=== PATIENT | male | born 1945 | race Caucasian/White ===

== ENCOUNTER → 2017-09-21 07:27 | Outpatient (CLI) | payer MEDICARE, OTHER, SELFPAY ==
[2017-09-21 10:36] LABS: AST(SGOT) 15 U/L (15-37); Alanine Aminotransfer ALT/SGPT 25 U/L (16-61); Albumin, Serum 3.6 g/dL (3.2-5.0); Alkaline Phosphatase 122 U/L (45-117); Bilirubin, Direct 0.15 mg/dL (0.00-0.30); Cholesterol 140 mg/dL (200); Globulin 3.8 g/dL (2.2-4.2); High Density Lipoprotein 41 mg/dL; Protein, Total 7.4 g/dL (6.4-8.2); Triglycerides 153 mg/dL; Very Low Density Lipoprotein 31 mg/dL (5-40)
== END ==
PROVIDERS: Family Provider Family Medicine; PCP Family Medicine; Visit Provider Nurse Practitioner Family
DX: E78.00 Pure hypercholesterolemia, unspecified (principal); Z79.899 Other long term (current) drug therapy; E78.5 Hyperlipidemia, unspecified
CPT/HCPCS: 36415; 80061; 80076

== ENCOUNTER → 2018-09-15 12:41 | Outpatient (CLI) | payer MEDICARE, OTHER, SELFPAY ==
[2018-08-25 13:03] VITALS: BMI 36.8
--- NOTE | 2018-09-15 12:43 | ECHOCS_ITS ---
Reason For Study: Murmur Procedure This was a 2D Doppler, Color Flow transthoracic echocardiogram. The study was technically difficult. Contrast injection was performed. Exam performed in department. Left Ventricle Normal LV size. Segmental dysfunction with preserved ejection fraction (see wall motion). The estimated ejection fraction is 65 %. Infero-Basal: Hypokinetic. Right Ventricle Normal RV size. Normal systolic function. Atria The left atrium is mildly enlarged. Normal right atrium. No doppler evidence for ASD. Mitral Valve There is mild mitral annular calcification. Normal mitral valve. Trivial mitral valve insufficiency. Tricuspid Valve Normal tricuspid valve. Trivial tricuspid valve insufficiency. Unable to estimate RV systolic pressure/pulmonary artery pressure due to technically difficult study. Aortic Valve Trisinus/trileaflet aortic valve. Mild diffuse aortic valve thickening. Mild focal aortic valve calcification. Moderate aortic stenosis. Trivial aortic valve insufficiency. Pulmonic Valve The pulmonic valve is not well visualized. Mild (1+) pulmonic valve insufficiency. Great Vessels Normal sized aortic root. Pericardium/Pleural No pericardial effusion. Medication 22 gauge I.V. with prn adaptor inserted into right arm. Diluted definity 4ml given slow IV push to enhance endocardial definition. MMode/2D Measurements & Calculations LVIDd: 4.3 cm IVSd: 1.0 cm LVOT diam: 2.0 cm LVIDs: 3.2 cm LVPWd: 0.95 cm FS: 26.8 % LVOT area: 3.0 cm2 Ao root diam: 3.6 cm LAV(MOD-bp): 49.0 ml Aortic Valve Planimetry: 1.1 cm2 ACS: 1.0 cm LAV(MOD-bp) Indexed: 22.4 ml/m2 LAV(MOD-sp2): 44.3 ml LAV(MOD-sp4): 55.9 ml LA A4 area: 20.0 cm2 RA A4 area: 19.7 cm2 Time Measurements MV dec time: 0.17 sec Doppler Measurements & Calculations MV E max alexys: 110.0 cm/sec Lat Peak E' Alexys: 8.8 cm/sec Med Peak E' Alexys: 7.3 cm/sec MV A max alexys: 87.8 cm/sec E/E' lat: 12.5 E/E' med: 15.1 MV E/A: 1.3 MV V2 max: 135.8 cm/sec MV P1/2t max alexys: 134.8 cm/sec Ao V2 max: 298.7 cm/sec MV max P.4 mmHg MV P1/2t: 68.6 msec Ao max P.7 mmHg MV V2 mean: 78.3 cm/sec MV dec slope: 575.4 cm/sec2 Ao V2 mean: 192.5 cm/sec MV mean P.9 mmHg Ao mean P.3 mmHg MV V2 VTI: 31.8 cm MVA(P1/2t): 3.2 cm2 Ao V2 VTI: 69.1 cm MVA(VTI): 2.2 cm2 DANNY(I,D): 0.99 cm2 DANNY(V,D): 0.89 cm2 LV V1 max: 88.2 cm/sec SV(LVOT): 68.6 ml PA V2 max: 100.2 cm/sec LV V1 max P.1 mmHg LV V1 mean P.7 mmHg LV V1 mean: 60.9 cm/sec LV V1 VTI: 22.6 cm Interpretation Summary The study was technically difficult. Contrast injection was performed. Segmental dysfunction with preserved ejection fraction (see wall motion). The estimated ejection fraction is 65 %. The left atrium is mildly enlarged. There is mild mitral annular calcification. Trivial mitral valve insufficiency. Trivial tricuspid valve insufficiency. Moderate aortic stenosis. Trivial aortic valve insufficiency. Mild (1+) pulmonic valve insufficiency. Unable to estimate RV systolic pressure/pulmonary artery pressure due to technically difficult study. Transmitral diastolic flow velocities suggest diastolic dysfunction (pseudonormal pattern). Ordering Physician: Omar Suarez Referring Physician: Mayo Gonzales Performed By: Bruno Diego RCS
--- NOTE | 2018-09-15 13:44 | CDU_ITS ---
Reason For Study: STENOSIS Rt. Velocities/BP Lt. Velocities/BP Prox CCA 55/10 cm/sec. Prox CCA 84/17 cm/sec. Mid CCA 62/12 cm/sec. Mid CCA 74/11 cm/sec. Dist CCA 51/13 cm/sec. Dist CCA 70/16 cm/sec. Prox ICA 274/87 cm/sec. Prox ICA 124/29 cm/sec. Mid ICA 354/80 cm/sec. Mid ICA 127/36 cm/sec. Dist ICA 102/26 cm/sec. Dist ICA 100/21 cm/sec. Rt. ICA/CCA = 6.6. Lt. ICA/CCA = 2.1. Prox ECA 77/11 cm/sec. Prox ECA 94/9 cm/sec. Rt. Vert. 74/20 cm/sec. Right Extracranial There is heterogeneous, irregular atherosclerotic plaque noted in the right common carotid artery. There is heterogeneous, irregular atherosclerotic plaque noted in the right internal carotid artery. There is heterogeneous, irregular atherosclerotic plaque noted in the right external carotid artery. Antegrade flow is noted in the right vertebral artery. Left Extracranial There is heterogeneous, smooth atherosclerotic plaque noted in the left common carotid artery. There is heterogeneous, irregular atherosclerotic plaque noted in the left internal carotid artery. There is heterogeneous, irregular atherosclerotic plaque noted in the left external carotid artery. Flow could not be demonstrated in the left vertebral artery. Procedure Carotid Duplex 13449. Exam performed in department. Interpretation Summary Extensive calcific plague at the proximal right internal carotid with >70% stenosis. Calcific plague at the proximal right external carotid with <50% stenosis. Patent and antegrade right vertebral artery Irregular plague at the proximal left internal and external carotids with 50-69% stenosis left internal carotid and >50% stenosis left external carotid No flow noted in the left vertebral Ordering Physician: Mayo Gonzales Referring Physician: JULI BENITEZ Performed By: Funmilayo Moore RDCS, RVT
== END ==
PROVIDERS: Family Provider Family Medicine; PCP Family Medicine; Referring Provider Surgery; Visit Provider Surgery
DX: I65.23 Occlusion and stenosis of bilateral carotid arteries (principal); R01.1 Cardiac murmur, unspecified; Z98.890 Other specified postprocedural states
CPT/HCPCS: 93306; 93880; Q9957; A4216; C8929

== ENCOUNTER → 2019-01-19 | Outpatient (CLI) | payer MEDICARE, OTHER, SELFPAY ==
[2018-12-22 15:33] VITALS: BMI 36.8
--- NOTE | 2019-01-19 10:22 | STRESSREP_ITS ---
Stress Test Report Date: 01-19-19 Procedure: Pharmacologic stress nuclear imaging study Indications: Shortness of breath/dyspnea; CAD; CABG Consent: Per the patient Procedure: The patient underwent pharmacologic (Regadenoson) evaluation with a peak heart rate of 104 beats per minute (69 %predicted maximal heart rate) and a peak blood pressure of 130/80 mmHg. The baseline ECG demonstrated normal sinus rhythm. The peak pharmacologic ECG demonstrated no obvious ECG changes. There were no cardiac dysrhythmias pretest, during pharmacologic infusion, or recovery. There was no complaint of chest discomfort during pharmacologic infusion or recovery. The examination was discontinued secondary to completion of protocol. Impression: 1. Pharmacologic (Regadenoson) evaluation 2. Peak pharmacologic ECG with no obvious ECG changes. 3. There were no cardiac dysrhythmias pretest, during pharmacologic infusion, or recovery. 4. Nuclear images pending Myocardial perfusion imaging study: Technique: The patient was injected with 14.7 millicuries of technetium 99m Cardiolite and subsequently rest SPECT Cardiolite nuclear imaging was obtained in the horizontal long, vertical long, and short axis views. The patient underwent pharmacologic (Regadenoson) evaluation with a peak heart rate of 140 beats per minute (69 % percent predicted maximal heart rate) and a peak blood pressure of 130/80 mmHg. The patient was injected with 44.6 millicuries of technetium 99m Cardiolite and subsequently stress SPECT Cardiolite nuclear imaging was obtained in the horizontal long, vertical long, and short axis views. A gated Cardiolite study at peak stress was obtained. Interpretation: Rest and stress SPECT Cardiolite nuclear imaging status post realignment, normalization, and attenuation correction demonstrate on raw image analysis body motion during image acquisition. There is notation of an area of diminished tracer uptake in portions of the basal towards mid lateral segments without significant change between rest and stress. There is end systolic thickening and brightening. The gated Cardiolite study demonstrates myocardial thickening and inward wall motion. The reported LVEF is 58 %. Impression: 1. Rest and stress SPECT cardiac nuclear imaging demonstrate evidence of body motion during image acquisition and evidence of diminished tracer uptake in portions of the basal to mid lateral segments without significant change between rest and stress potentially compatible with an area of previous myocardial injury/infarction with no myocardial perfusion changes considered diagnostic for associated stress-induced myocardial ischemia. 2. The gated Cardiolite study reports an LVEF of 58 %. This note was generated with [employer] software. It may contain incorrect words, spelling, and punctuation that were not noted in checking the note before signing.
== END | disposition home or self-care (01) ==
PROVIDERS: Family Provider Family Medicine; PCP Family Medicine; Referring Provider Internal Medicine Cardiovascular Disease; Visit Provider Internal Medicine Cardiovascular Disease
DX: I25.10 Atherosclerotic heart disease of native coronary artery without angina pectoris (principal); Z95.1 Presence of aortocoronary bypass graft; I35.9 Nonrheumatic aortic valve disorder, unspecified; E78.00 Pure hypercholesterolemia, unspecified; I10 Essential (primary) hypertension
CPT/HCPCS: 78452; 93017; A9500; Q9957; A4216; J2785

== ENCOUNTER → 2019-03-17 07:55 | Outpatient (CLI) | payer MEDICARE, OTHER, SELFPAY ==
[2019-03-02 13:16] VITALS: BMI 36.8
[2019-03-17 08:48] LABS: Erythrocyte Sedimentation Rate 19 mm/hr (0-20)
[2019-03-17 08:49] LABS: Absolute Lymphocyte Count 1.21 X10^3/uL (0.83-4.51); Absolute Neutrophil Count 4.6 X10^3/uL (2.0-7.7); Basophil# 0.04 X10^3/uL; Basophil% 0.6 % (0-1); Eosinophil# 0.16 X10^3/uL; Eosinophils% 2.4 % (0-5); Hematocrit 43.3 % (40-54); Hemoglobin 14.5 g/dL (13.0-16.5); Lymphocyte # 1.21 X10^3/ul (4.0); Lymphocyte % 17.8 % (19-41); Mean Corp Hgb Conc 33.5 g/dL (32-36); Mean Corpuscular Hgb 33.2 pg (27.0-32.0); Mean Corpuscular Volume 99.1 fL (80-94); Mean Platelet Vol. 11.3 fl (6.2-12.0); Monocyte# 0.71 X10^3/uL; Monocyte% 10.5 % (0-10); NRBC Flagged by Analyzer 0 % (0-5); Neutrophil # 4.63 X10^3/uL (2.7-7.7); Neutrophil % 68.3 % (47-70); Platelet Count 200 K/mm3 (150-450); RBC Distribution Width CV 12.9 % (11.6-14.6); Red Blood Count 4.37 M/mm3 (4.6-6.2); White Blood Count 6.8 K/mm3 (4.4-11.0)
[2019-03-17 09:11] LABS: CRP < 2.90 mg/L (0.0-3.0)
== END ==
PROVIDERS: Family Provider Family Medicine; PCP Family Medicine; Referring Provider Ophthalmology; Visit Provider Ophthalmology
DX: N28.0 Ischemia and infarction of kidney (principal); M31.6 Other giant cell arteritis
CPT/HCPCS: 36415; 85025; 85652; 86140

== ENCOUNTER → 2019-03-23 12:42 | Outpatient (CLI) | payer MEDICARE, OTHER, SELFPAY ==
[2019-03-02 13:16] VITALS: BMI 36.8
--- NOTE | 2019-03-23 12:47 | CDU_ITS ---
Reason For Study: Carotid artery stenosis Rt. Velocities/BP Lt. Velocities/BP Prox CCA 64.1/5.8 cm/sec. Prox CCA 76.5/15.1 cm/sec. Mid CCA 59.7/10.2 cm/sec. Mid CCA 83.9/13.9 cm/sec. Dist CCA 44.3/6.9 cm/sec. Dist CCA 81.4/16.3 cm/sec. Prox ICA 297/61.2 cm/sec. Prox ICA 98.6/15.1 cm/sec. Mid ICA 317.4/63.6 cm/sec. Mid ICA 113.8/27.9 cm/sec. Dist ICA 44.6/9 cm/sec. Dist ICA 137.5/37.1 cm/sec. Rt. ICA/CCA = 5.3. Lt. ICA/CCA = 1.7. Prox ECA 137.5/6 cm/sec. Prox ECA 109.7/12.6 cm/sec. Rt. Vert. 63/15.1 cm/sec. Right Extracranial There is heterogeneous, irregular atherosclerotic plaque noted in the right common carotid artery. There is heterogeneous, irregular atherosclerotic plaque noted in the right internal carotid artery. The atherosclerotic plaque causes acoustic shadowing. There is heterogeneous, irregular atherosclerotic plaque noted in the right external carotid artery. Antegrade flow is noted in the right vertebral artery. Left Extracranial There is heterogeneous, irregular atherosclerotic plaque noted in the left common carotid artery. There is heterogeneous, smooth atherosclerotic plaque noted in the left internal carotid artery. There is heterogeneous, irregular atherosclerotic plaque noted in the left external carotid artery. Retrograde flow noted in the left vertebral artery. Procedure Carotid Duplex [id number]. Exam performed in department. Interpretation Summary Irregular plague distal right common carotid and proximal right internal and external carotid arteries >70% stenosis right proximal and mid internal carotid <50% stenosis right external carotid Post operative changes left carotid bulb and proximal internal carotid with <50% stenosis left proximal internal carotid Slightly elevated velocity left distal internal carotid at a site of deeper angulation. <50% stenosis left external carotid Patent and antegrade flow right vertebral Retrograde flow left vertebral suspicous for proximal left subclavian stenosis. Findings are similar to the exam of 09/15/18. Ordering Physician: Jono Arteaga Referring Physician: Ortiz Pelaez Performed By: Marta Varghese RVT
--- NOTE | 2019-03-23 13:25 | ECHOCS_ITS ---
Reason For Study: Carotid Artery Stenosis, Possible TIA Procedure This was a 2D Doppler, Color Flow transthoracic echocardiogram. The study was technically difficult. Contrast injection was performed. Exam performed in department. Left Ventricle Normal LV size. Segmental dysfunction with preserved ejection fraction (see wall motion). The estimated ejection fraction is 60 %. Infero-Basal: Hypokinetic. Right Ventricle Normal RV size. Normal systolic function. Atria The left atrium is mildly enlarged. Normal right atrium. No doppler evidence for ASD. Bubble contrast study negative for right to left interatrial shunt. Mitral Valve There is mild mitral annular calcification. Normal mitral valve. Mild (1+) mitral valve insufficiency. Tricuspid Valve Normal tricuspid valve. Trivial tricuspid valve insufficiency. Unable to estimate RV systolic pressure/pulmonary artery pressure due to technically difficult study. Aortic Valve The aortic valve is not well visualized. Mild focal aortic valve calcification. Moderate aortic stenosis. Trivial aortic valve insufficiency. Pulmonic Valve The pulmonic valve is not well visualized. Trivial pulmonic valve insufficiency. Great Vessels The aortic root is not well visualized. Pericardium/Pleural No pericardial effusion. Medication 22 gauge I.V. with prn adaptor inserted into left arm. Diluted definity 3ml given slow IV push to enhance endocardial definition. Performed a rapid injection of agitated mix of 9 cc saline and 1cc air to assess for atrial septal defect. MMode/2D Measurements & Calculations LVIDd: 4.0 cm IVSd: 1.5 cm LVOT diam: 2.0 cm LVIDs: 3.0 cm LVPWd: 1.1 cm FS: 25.4 % LVOT area: 3.2 cm2 LAV(MOD-bp): 50.9 ml LVAd ap4: 32.4 cm2 SV(MOD-sp4): 64.0 ml LAV(MOD-bp) Indexed: 23.5 ml/m2 EDV(MOD-sp4): 103.0 ml LAV(MOD-sp2): 57.9 ml EDV(sp4-el): 106.1 ml LAV(MOD-sp4): 45.4 ml LVAs ap4: 17.1 cm2 ESV(MOD-sp4): 39.1 ml ESV(sp4-el): 38.6 ml EF(MOD-sp4): 62.1 % EF(sp4-el): 63.6 % SV(sp4-el): 67.5 ml LA A4 area: 17.3 cm2 RA A4 area: 14.9 cm2 Time Measurements MV dec time: 0.14 sec Doppler Measurements & Calculations MV E max alexys: 114.1 cm/sec Lat Peak E' Alexys: 7.6 cm/sec Med Peak E' Alexys: 7.1 cm/sec MV A max alexys: 89.3 cm/sec E/E' lat: 15.1 E/E' med: 16.1 MV E/A: 1.3 MV V2 max: 125.2 cm/sec MV P1/2t max alexys: 124.2 cm/sec Ao V2 max: 299.0 cm/sec MV max P.3 mmHg MV P1/2t: 99.9 msec Ao max P.7 mmHg MV V2 mean: 74.7 cm/sec Ao V2 mean: 173.6 cm/sec MV mean P.6 mmHg MV dec slope: 364.2 cm/sec2 Ao mean P.2 mmHg MV V2 VTI: 34.5 cm MVA(P1/2t): 2.2 cm2 Ao V2 VTI: 67.5 cm MVA(VTI): 1.8 cm2 DANNY(I,D): 0.94 cm2 DANNY(V,D): 0.89 cm2 LV V1 max: 82.2 cm/sec SV(LVOT): 63.3 ml PA V2 max: 92.5 cm/sec LV V1 max P.7 mmHg LV V1 mean P.2 mmHg LV V1 mean: 49.7 cm/sec LV V1 VTI: 19.5 cm Interpretation Summary The study was technically difficult. Contrast injection was performed. Segmental dysfunction with preserved ejection fraction (see wall motion). The estimated ejection fraction is 60 %. The left atrium is mildly enlarged. There is mild mitral annular calcification. Mild (1+) mitral valve insufficiency. Trivial tricuspid valve insufficiency. Moderate aortic stenosis. Trivial aortic valve insufficiency. Trivial pulmonic valve insufficiency. Unable to estimate RV systolic pressure/pulmonary artery pressure due to technically difficult study. Transmitral diastolic flow velocities suggest diastolic dysfunction (pseudonormal pattern). Ordering Physician: Jono Arteaga Referring Physician: Ortiz Pelaez Performed By: Bruno Diego RCS
== END ==
PROVIDERS: Family Provider Family Medicine; PCP Family Medicine; Referring Provider Ophthalmology; Visit Provider Ophthalmology
DX: H34.02 Transient retinal artery occlusion, left eye (principal); I65.29 Occlusion and stenosis of unspecified carotid artery
CPT/HCPCS: 93306; 93880; Q9957; A4216; C8929

== ENCOUNTER 2019-05-02 05:24 | Inpatient (IN) | payer MEDICARE, OTHER, SELFPAY ==
[2019-04-01 14:01] VITALS: BMI 36.8
--- NOTE | 2019-04-18 09:19 | HP_ITS ---
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 Is patient in pain?: No Allergies No Known Allergies Allergy (Verified 04/01/19 13:58) Medications metoprolol tartrate 100 mg tablet 100 mg PO BID 09/17/17 [History Confirmed 04/01/19] budesonide-formoterol HFA 80 mcg-4.5 mcg/actuation aerosol inhaler 2 puff INHALATION BID 08/25/18 [History Confirmed 04/01/19] insulin glargine (U-100) 100 unit/mL (3 mL) subcutaneous pen 50 unit SC DAILY 08/25/18 [History Confirmed 04/01/19] liraglutide 0.6 mg/0.1 mL (18 mg/3 mL) subcutaneous pen injector 0.6 mg SC DAILY 08/25/18 [History Confirmed 03/02/19] metformin 500 mg tablet 500 mg PO DAILY tab 08/25/18 [History Confirmed 04/01/19] albuterol sulfate 90 mcg/actuation breath activated powder inhaler 1 inh INHALATION Q4H PRN 09/20/18 [History Confirmed 04/01/19] amlodipine 5 mg tablet 5 mg PO DAILY 12/22/18 [History Confirmed 04/01/19] cholecalciferol (vitamin D3) 1,000 unit (25 mcg) tablet 1,000 unit PO DAILY 12/22/18 [History Confirmed 04/01/19] nitroglycerin 0.4 mg sublingual tablet 0.4 mg SUBLINGUAL Q5M PRN #25 tab 12/22/18 [Rx Confirmed 04/01/19] rosuvastatin 40 mg tablet 40 mg PO DAILY 12/22/18 [History Confirmed 04/01/19] aspirin 325 mg tablet 81 mg PO DAILY@0800 tab 04/01/19 [History Confirmed 04/01/19] clopidogrel 75 mg tablet 75 mg PO DAILY 04/01/19 [History Confirmed 04/01/19] glipizide 5 mg tablet 2.5 mg PO DAILY tab 04/01/19 [History Confirmed 04/01/19] [facility] Medical History Carotid artery stenosis, asymptomatic (Acute) Peripheral vascular disease (Chronic) Pure hypercholesterolemia (Chronic) Essential hypertension (Chronic) Ischemic cardiomyopathy (Resolved) Other secondary pulmonary hypertension (Chronic) Non-rheumatic aortic regurgitation (Chronic) 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) Patent foramen ovale (Chronic) Carotid stenosis, bilateral (Acute) 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 disease (Inactive) Atherosclerosis of coronary artery bypass graft without angina pectoris (Inactive) Hyperlipidemia (Inactive) Surgical History History of left-sided carotid endarterectomy (Resolved ~11/26/15) Presence of aortocoronary bypass graft (Chronic ~11/10/07) History of angioplasty of peripheral vessel (Acute ~2015) History of hemorrhoidectomy (Resolved) History of left-sided carotid endarterectomy (Resolved) Family History Father CAD (coronary artery disease) Myocardial infarction Kidney disease Mother CAD (coronary artery disease) Hx CABG Myocardial infarction Colon cancer Sister CAD (coronary artery disease) Diabetes Other Heart disease Social History (Updated 04/01/19 @ 15:17 by Mayo Gonzales MD) Smoking Status: Former smoker how long ago did patient quit smokin alcohol intake: former substance use type: does not use caffeine: Yes Type: coffee what type of physical activity do you participate in: none seatbelt use: always do you feel safe at home: Yes HPI HPI HPI: AB HILL, is a 74 M who presents to the office today for HPI HPI Surgical H&P: Yes HPI: AB HILL, is a 74 M who presents to the office today for ongoing surgical consultation regarding extracranial carotid artery occlusive disease. My notes from September 20, 2018 reflected below. At that point I detected progressive disease involving his right extracranial carotid system and I strongly recommended right carotid endarterectomy. The patient felt he had social issues to attend to. 2 weeks ago by his report he had sudden onset of blindness of the right eye. He was seen by Dr Jono Dejesus who felt that he had an embolic event to the right ophthalmic artery. A repeat carotid duplex exam was obtained at the [facility] March 23, 2019 demonstrating a peak systolic velocity within the right mid internal carotid at 300-17/72 flow with an end-diastolic velocity of 63. This is felt to be greater than 70% stenosis. There are postoperative changes on the left identified. Less than 50% stenosis on the left. This examination was compared to a previous examination of September 15, 2018 was not felt to have change. However the patient clearly has had a symptomatic change. On March 23, 2019 the patient had an echocardiogram at the [facility] demonstrating ejection fraction of 60%. He now presents with his . He is now interested in pursuing some type of intervention regarding the right carotid stenosis. 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 Is patient in pain?: No Allergies No Known Allergies Allergy (Verified 09/20/18 12:36) Medications Aspirin 325 mg PO DAILY@0800 11/21/15 [History Confirmed 09/20/18] Atorvastatin Calcium [Lipitor] 80 mg PO QHS 11/21/15 [History Confirmed 09/20/18] nitroglycerin 0.4 mg sublingual tablet 0.4 mg SUBLINGUAL Q5M PRN 09/14/17 [History Confirmed 09/20/18] losartan 100 mg tablet 100 mg PO QDAY 09/17/17 [History Confirmed 09/20/18] metoprolol tartrate 100 mg tablet 100 mg PO BID 09/17/17 [History Confirmed 09/20/18] budesonide-formoterol HFA 80 mcg-4.5 mcg/actuation aerosol inhaler 2 puff INHALATION BID 08/25/18 [History Confirmed 09/20/18] insulin glargine (U-100) 100 unit/mL (3 mL) subcutaneous pen 50 unit SC DAILY 08/25/18 [History Confirmed 09/20/18] liraglutide 0.6 mg/0.1 mL (18 mg/3 mL) subcutaneous pen injector 0.6 mg SC DAILY 08/25/18 [History Confirmed 09/20/18] metformin 500 mg tablet 500 mg PO DAILY tab 08/25/18 [History Confirmed 09/20/18] albuterol sulfate 90 mcg/actuation breath activated powder inhaler 1 inh INHALATION Q4H PRN 09/20/18 [History Confirmed 09/20/18] PFSH Medical History Carotid artery stenosis, asymptomatic (Acute) Peripheral vascular disease (Chronic) Pure hypercholesterolemia (Chronic) Essential hypertension (Chronic) Ischemic cardiomyopathy (Resolved) Other secondary pulmonary hypertension (Chronic) Non-rheumatic aortic regurgitation (Chronic) 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) Patent foramen ovale (Chronic) Carotid stenosis, bilateral (Acute) 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 disease (Inactive) Atherosclerosis of coronary artery bypass graft without angina pectoris (Inactive) Hyperlipidemia (Inactive) Surgical History History of left-sided carotid endarterectomy (Resolved ~11/26/15) Presence of aortocoronary bypass graft (Chronic ~11/10/07) History of angioplasty of peripheral vessel (Acute ~2015) History of hemorrhoidectomy (Resolved) History of left-sided carotid endarterectomy (Resolved) Family History Father CAD (coronary artery disease) Myocardial infarction Kidney disease Mother CAD (coronary artery disease) Hx CABG Myocardial infarction Colon cancer Sister CAD (coronary artery disease) Diabetes Other Heart disease Social History Smoking Status: Former smoker how long ago did patient quit smokin alcohol intake: former substance use type: does not use caffeine: Yes Type: coffee what type of physical activity do you participate in: none seatbelt use: always do you feel safe at home: Yes HPI HPI HPI: AB HILL, is a 73 M who presents to the office today for surgical consultation regarding carotid bruit and escalation of extracranial carotid artery occlusive disease on the right. 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 Omar Suarez and a written compromise surgical consult recommendations will be returned to him. On September 15, 2018 at the [facility] he had carotid duplex imaging. Peak systolic velocity within the right mid internal carotid is 354 cm/s with an end-diastolic velocity of 80. There is extensive plaque noted. This is felt to be consistent with greater than 70% stenosis. The patient has evidence of a previous left carotid endarterectomy. There is felt to be 50-69% stenosis on the left though far closer to the 50% range. The patient has previously had a left carotid endarterectomy per myself August 2015. His procedure was technically quite challenging because of the diminutive nature of the internal carotid extensive amount of plaque and high bifurcation. My operative note suggest that was not able to shunt but he did have good backflow. He did not have any postoperative consequences. As of September 15, 2018 he had a echocardiogram. Check ejection fraction of 65%. It is of note that I have reviewed his CTA of the neck that was performed at the [facility] September 10, 2015. At that time he was out felt to have 50-69% stenosis on the right. There is rather extensive calcific plaque and tortuosity of the vessel. The patient does not get any meaningful exercise. He has chronic dyspnea on exertion. He states that he has had an additional 15 pound weight gain. He does note that he has lower extremity swelling. 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 coli infection of her left leg harvest site she states was hospitalized for 2 months. She states that she is not yet driving. She still is going to the wound care center for wound management. By report he is doing much of the home care HPI HPI HPI: AB HILL, is a 73 M who presents to the office today for ROS General General: Yes weight change and fatigue; no appetite, colon cancer, breast cancer or weakness HEENT HEENT: Yes eye surgery; no difficulty swallowing, eye injury, swollen glands or hoarseness Endo Endocrine: Yes diabetes mellitus; no thyroid disease, thyroid cancer, Hair loss, heat intolerance or cold intolerance Cardio Cardiovascular: Yes murmur, heart disease, high blood pressure and heart attack; no pacemaker, atrial fibrillation, heart stent, palpitations, shortness of breat with exertion or chest pain Resp Respiratory: Yes shortness of breath, Yes sleep apnea, No cough, Yes COPD, No asthma, Yes emphysema, No wheezing Gastro Gastrointestinal: No abdominal pain, No nausea or vomiting, No diarrhea, No constipation, No blood in stool, No acid reflux, No hemorrhoids, No ulcers, No gallbladder problem, No black,tarry stools Beka Hematologic: No blood thinners, No blood disorders, No bleeding, No anemia, No blood clots Neuro Neurologic: No weakness Exam Const General: cooperative Nutritional Appearance: obese Orientation: alert, awake, oriented x3 HENMT Other: Well-healed surgical incision in the left neck. Not pulsatile Eyes General: appearance normal, both eyes and all related structures Resp Effort & Inspection: normal respiratory effort Auscultation: clear to auscultation bilaterally Cardio Rate: regular rate Rhythm: regular rhythm Heart Sounds: murmur Other: Bilateral radials are 2+. Bilateral brachials are 3+. Bilateral femorals 1+. Bilateral DPs PTs and popliteals are 0 GI Other: Notably overweight, I am not able to detect any internal organs. Normal bowel sounds Neuro General: alert, awake, oriented x3 Extrem Other: 1-2+ pitting edema bilateral lower extremities Psych Affect: normal affect Assessment & Plan Problems 1. History of left-sided carotid endarterectomy Z98.890 2. Peripheral vascular disease I73.9 3. Asymptomatic stenosis of right carotid artery I65.21 Plan 73-year-old gentleman. I have personally reviewed his CT of the neck that was performed September 10, 2015. I have reviewed his current carotid duplex exam. I believe that he has clinically significant progressive stenosis of his right internal carotid now greater than 70%. I have offered him a right carotid endarterectomy with patch angioplasty and arterial line monitoring. He is very much aware of the technique, benefit, risk and alternatives. The patient's is now 3 months into recovery from open heart surgery. She had complications requiring 2-month hospital stay. He does not want to schedule intervention at this setting. Both the patient and his state that they will contact me when he decides he would like to proceed. He is currently managed on low-dose aspirin and atorvastatin in addition to his insulin. Regarding his bilateral lower extremity arterial occlusive disease. Femoral pulses are difficult to palpate in part secondary to body habitus. I cannot easily feel distal pulses. He is not complaining of any particular symptoms. He does not get any purposeful exercise. He is able to achieve his tasks of daily life by utilizing assistance devices like a shopping cart to walk with. He is not complaining of wanting intervention regarding his lower extremities at this time. I appreciate the opportunity of assisting with his surgical care CC: Dr. Omar Suarez and Dr. Ortiz Gonzales M.D., F.A.C.S. Coding Level of Care Code Comprehensive,moderate Diagnoses History of left-sided carotid endarterectomy Z98.890 Peripheral vascular disease I73.9 Asymptomatic stenosis of right carotid artery I65.21 Laterality: right 09/20/18 1319<Electronically signed by Mayo Gonzales MD> Date Mayo Gonzales MD ROS General General: Yes weight change and fatigue; no appetite, colon cancer, breast cancer or weakness HEENT HEENT: Yes eye surgery; no difficulty swallowing, eye injury, swollen glands or hoarseness Endo Endocrine: Yes diabetes mellitus; no thyroid disease, thyroid cancer, Hair loss, heat intolerance or cold intolerance Cardio Cardiovascular: Yes murmur, heart disease, high blood pressure and heart attack; no pacemaker, atrial fibrillation, heart stent, palpitations, shortness of breat with exertion or chest pain Resp Respiratory: Yes shortness of breath, Yes sleep apnea, No cough, Yes COPD, No asthma, Yes emphysema, No wheezing Gastro Gastrointestinal: No abdominal pain, No nausea or vomiting, No diarrhea, No constipation, No blood in stool, No acid reflux, No hemorrhoids, No ulcers, No gallbladder problem, No black,tarry stools Beka Hematologic: No blood thinners, No blood disorders, No bleeding, No anemia, No blood clots Neuro Neurologic: No weakness Exam Const General: cooperative, no acute distress Nutritional Appearance: obese Orientation: alert, awake Neck Other: Very thick neck Resp Effort & Inspection: normal respiratory effort Auscultation: clear to auscultation bilaterally Cardio Rate: regular rate Rhythm: regular rhythm Heart Sounds: murmur Other: Bilateral radials are 3+. Well-healed surgical incision left carotid. 3+ left carotid with 2/6 bruit. 2+ right carotid with high-pitched 2/6 bruit GI Other: Notably overweight I am not able to detect any internal organs Neuro Cognition: normal cognition Extrem General: no calf tenderness bilaterally Psych Affect: normal affect Assessment & Plan Problems 1. 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 He has been placed on clopidogrel therapy in addition to low-dose aspirin therapy. This event occurred 2 weeks ago and unfortunately he is not regaining any of his vision. His was present with him today. In great detail I discussed with him again my recommendations that he undergo right carotid intervention. I reviewed my previous operative note from the left identifying that the disease extended a significant distance along the internal carotid and that I could not place a shunt and that the procedure was technically challenging due to the location of the disease the height of disease and the patient's morbid obesity. I have offered the patient referred to a tertiary center and he declines. He is aware that since he is now had a symptomatic stroke from his right carotid that he is at even increased operative risk. He has had an opportunity to ask and have questions answered. I anticipate arterial line monitoring and a right carotid endarterectomy with patch angioplasty. We will have him hold his clopidogrel 1 day preprocedure but he will continue his low-dose aspirin. I appreciate the ongoing opportunity of assisting with his surgical care. CC: Dr. Ortiz Pelaez and Dr.Anson Chandler Gonzales M.D., F.A.C.S. Medications New: clopidogrel (Plavix) 75 mg PO DAILY Coding Level of Care Code Off vis,est,level 3 Diagnoses History of stroke Z86.73 I have re-examined the patient. There are no clinical changes since date of exam.
[2019-04-25 13:26] VITALS: BMI 36.8
[2019-04-25 14:33] VITALS: BP 123/70; PULSE 80; RESP 16; TEMP 36.3; O2SAT 93; BMI 36.7
--- NOTE | 2019-04-25 14:37 | SDCEKG_ITS ---
Test Reason : Blood Pressure : / mmHG Vent. Rate : 077 BPM Atrial Rate : 077 BPM P-R Int : 168 ms QRS Dur : 082 ms QT Int : 390 ms P-R-T Axes : -13 086 107 degrees QTc Int : 441 ms Normal sinus rhythm Nonspecific ST abnormality Abnormal ECG Confirmed by PAPITO CROWE, PAVITHRA ([id number]), electronic news gathering editor KORTNEY GUTIERREZ ([id number]) on 04/26/2019 8:41:43 AM Referred By: Mayo Gonzales Confirmed By:PAVITHRA COBOS MD
[2019-04-25 15:13] LABS: Hemoglobin 14.4 g/dL (13.0-16.5); Mean Corp Hgb Conc 32.7 g/dL (32-36); Mean Corpuscular Volume 97.8 fL (80-94); Platelet Count 199 K/mm3 (150-450); RBC Distribution Width CV 13.3 % (11.6-14.6); White Blood Count 6.9 K/mm3 (4.4-11.0)
[2019-04-25 15:49] LABS: Anion Gap 7 (5-15); BUN 22 mg/dL (7-18); BUN/Creat Ratio 13.9 RATIO (10-20); Calcium,Total 9.7 mg/dL (8.5-10.1); Chloride 107 mmol/L (98-107); Creatinine, Serum 1.58 mg/dL (0.70-1.30); EST Glomerular Filtration Rate 46 mL/min (>60); Est Glom Filt Rate - Afr Amer 56 mL/min (>60); Estimated Creatinine Clearance 40.89 ml/min; Glucose 109 mg/dL (74-106); Potassium 4.2 mmol/L (3.5-5.1); Sodium Level 141 mmol/L (136-145)
[2019-04-26 01:52] LABS: Hemoglobin A1c 8.3 % (4.2-6.3)
[2019-05-02] VITALS (32 sets, daily range): BP systolic 123–226; BP diastolic 53–93; PULSE 87–124; RESP 16–22; TEMP 36.5–37.1; O2SAT 92–96; BMI 36.7
--- NOTE | 2019-05-02 06:19 | PCM.OPRPT ---
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 Right carotid endarterectomy with bovine patch angioplasty Description of Surgical Findings:: At the bedside timeout and informed consent was obtained. Angelo test performed demonstrating adequate ulnar flow. The right wrist was gently extended prep with Betadine. Ultrasound was used to identify the radial artery. Under ultrasound guidance 1% lidocaine was instilled. 2 cc was used. A 20-gauge Angiocath was advanced into the right radial artery under ultrasound guidance and then using Seldinger wire technique it was advanced. It was secured skin with 3-0 silk. OpSite dressing applied followed by Vivienne wrap. He tolerated the procedure well. The hand was viable. No apparent complication. Good waveform was obtained. Patient was subsequently taken to the operating for planned definitive right carotid surgery. Timeout and informed consent was obtained. 74-year-old gentleman was taken out from placement table underwent general endotracheal intubation anesthesia. Ancef 2 g given intravenously preoperatively. The right neck prepped and draped. An oblique incision made along the anterior border of the right sternocleidomastoid. Platysma was incised. Sternocleidomastoid was reflected laterally. Because of the patient's body habitus dissection was very deep. Crossing facial veins were secured with 3-0 Vicryl ligatures and hemoclips were indicated. The hypoglossal nerve was identified carefully dissected and mobilized free. The internal jugular vein was reflected laterally. Upon deep dissection it was apparent that the external carotid was twisted 180 degrees overlying the internal carotid. The superior thyroid was exiting the lateral to the external carotid. I mobilized the superior thyroid and ligated with 3-0 Vicryl. This allowed for inspection of the carotid bulb I did circumferential dissection of the common carotid carotid bulb and internal carotid and external carotid this allowed for the bulb to be elevated and rotated. I placed a Dacron tape around the internal carotid vessel loop around the external carotid and Dacron tape around the common carotid. The hypoglossal nerve was identified and carefully protected as [employer] retraction was performed intermittently superiorly and inferiorly. Based upon body habitus of 11,000 units of heparin were given. After thorough circulating time a Loja clamp was placed on the internal carotid peripheral vascular upon the common carotid and peripheral vascular clamp on the external carotid. An 11 blade was used to make an arteriotomy in the distal common carotid and this was extended with Rojo scissors. Because of the depth of the artery and height of the dissection I did not feel I could easily get a shunt. Patient cerebral oximetry was monitored remain very stable. The patient had had a previous left carotid enterectomy just 3 years ago. He appeared to remain stable there appeared to be good back pressure from the internal carotid. The plaque was a very extensive sharp dissection was performed proximally the plaque was elevated with a freer elevated it was then carefully tapered to the internal carotid and an inversion enterectomy was performed of the external carotid. Further debris was carefully removed. The anterior remained rather thick in the internal carotid so several tacking sutures of 7-0 Prolene were placed. I then utilized a Vascu-Guard peripheral vascular patch. Reference number [id number], lot number [id number], PN [id number], expiry date 10/26/2023 I trimmed to size and performed a patch angioplasty with a running 6-0 Prolene. Prior to completion there is good retrograde flow from the internal carotid and external carotid and excellent antegrade flow from the common carotid. The patch angioplasty was completed. Initial flow was instituted from external carotid common carotid find the internal carotid. A couple 7-0 Prolene sutures were used to assure hemostasis. Patient then received and aliquots total 30 mg of protamine. The platysma was approximated running 3-0 Vicryl. Skin edges proximal running septic or 5-0 Vicryl. Raquel-incisional was anesthetized with 10 cc of 0.5% Marcaine. Steri-Strips Telfa tape dressings applied. Sponge and instrument and needle counts were reported the surgeon be correct. Clamp time was 42 minutes. The patient awoke appeared to be neurologically intact with a very slight deviation of the tongue to the right consistent with the [employer] retraction the deeply placed vessel. He was taken to the recovery area in satisfactory condition. No apparent complication. Specimens plaque. Drains none. Blood loss 100 cc. Mayo Gonzales M.D., F.A.C.S. Type of Anesthesia:: General Anesthesiologist: Baljinder Gross
[2019-05-02] MEDS: Lactated Ringers 1,000 ML 100 ML IV ×2 (06:48→11:32)
[2019-05-02] MEDS: Cefazolin 2 GM in 0.9% Normal Saline 100 ML IV (07:05)
--- NOTE | 2019-05-02 07:15 | PLAQ_PTH ---
PATIENT: AB HILL LOC: PCU U#:[id number] AGE/SX: 74/M ROOM: [facility] RE05/02/[address]: Dr. Mayo Gonzales MD : 1945 BED: 1 DIS: 05/03/2019 SPEC #: [id number] RECD: 05/02/19 11:15 STATUS: JAYY REJimmy #: [id number] MARQUIS: 05/02/19 07:[address]: Mayo Gonzales DEPT: SURGICAL PATHOLOGY RECD BY: Josemanuel Hirsch ENTERED: 05/02/19 12:13 SP TYPE: PLAQUE OTHR DR: Dr. Ortiz Pelaez DO Tissues: PLAQUE Procedures: Decalcification bone/plaque Surgery Specimen Level III HEADER OPERATION: Carotid endarterectomy PRE-OP DIAGNOSIS: Asymptomatic stenosis of right carotid artery I65.21 TISSUE SUBMITTED: Right carotid artery plaque MICROSCOPIC DIAGNOSIS Right carotid artery plaque, endarterectomy: Atherosclerotic tissue with focal calcifications (plaque). BRIDGET:chelle 05/05/19 GROSS DESCRIPTION Received in fixative is one container labeled with the patient's name and designated right carotid artery plaque. The specimen consists of a previously opened Y-shaped piece of indurated tissue measuring 3 cm in length and up to 1 cm in diameter. The specimen cuts with gritty sensation. The specimen is serially sectioned and submitted entirely in one cassette after decalcification. / BRIDGET:chelle 05/02/19 TC:5 CPT: 86986, 55152
[2019-05-02 07:16] LABS: Bedside Glucose 99 mg/dL (70-110)
--- NOTE | 2019-05-02 07:21 | DCINST_ITS ---
Discharge Diet: Light diet - advance as tolerated - if you have questions about your diet instructions, please talk to you doctor. Discharge Activity: May Not Drive - for 1 week or while taking narcotic pain medicine., May Not Shower - May shower starting on Thursday May shower in (days): 3 Lifting Restrictions: 10 pounds Call your doctor if your incision/area has: Continuous Slow Oozing, Sudden Increased Bleeding, Increased Pain/ Swelling, Increased Redness, Foul Smelling Discharge Call your doctor if you observe: Fever of 101 or Higher Suture Line Care: Avoid Pulling/Pushing, Avoid Pinching/Bending Additional Dressing/Incision Instructions:: You may leave the Steri-Strips on for 1 week. If clothing rubs along the incision then apply dry gauze and tape to help protect the incision Allergies/Adverse Reactions: Allergies No Known Allergies Allergy (Verified 05/02/19 05:48) Medications to take at Discharge metoprolol tartrate 100 mg tablet 100 mg PO BID 09/17/17 budesonide-formoterol HFA 80 mcg-4.5 mcg/actuation aerosol inhaler 2 puff INHALATION BID 08/25/18 insulin glargine (U-100) 100 unit/mL (3 mL) subcutaneous pen 55 unit SC 1400 08/25/18 liraglutide 0.6 mg/0.1 mL (18 mg/3 mL) subcutaneous pen injector 1.8 mg SC DAILY 08/25/18 metformin 500 mg tablet 500 mg PO QHS tab 08/25/18 albuterol sulfate 90 mcg/actuation breath activated powder inhaler 1 inh INHALATION Q4H PRN 09/20/18 amlodipine 5 mg tablet 5 mg PO 1400 12/22/18 cholecalciferol (vitamin D3) 1,000 unit (25 mcg) tablet 1,000 unit PO DAILY 0 12/22/18 nitroglycerin 0.4 mg sublingual tablet 0.4 mg SUBLINGUAL Q5M PRN #25 tab 12/22/18 rosuvastatin 40 mg tablet 40 mg PO QHS 12/22/18 clopidogrel 75 mg tablet 75 mg PO 1400 04/01/19 glipizide 5 mg tablet 5 mg PO 1400 tab 04/01/19 Aspirin [Aspir 81] 81 mg PO 05/02/19 Primary Care Physician: Ortiz Pelaez DO [Primary Care Provider] - Test Results: Test results from this visit will be discussed in further detail at your follow- up appointment, if applicable. Please Follow Up With: Mayo Gonzales MD - [phone] When: Call to make an appointment to be seen in about 10 days.
[2019-05-02] MEDS: Heparin Injection (Vial) 5,000 UNIT/ML VIAL 5000 UNIT (07:55)
[2019-05-02] MEDS: Bupivacaine Mpf 0.5% 30 ML VIAL (09:25)
[2019-05-02] MEDS: Labetalol 20 MG/4 ML Vial 5 MG IV (10:40)
[2019-05-02] MEDS: amLODIPine 5 MG Tablet PO (11:06)
[2019-05-02] MEDS: Metoprolol Tartrate 100 MG Tablet PO ×2 (11:06→21:58)
[2019-05-02 11:20] LABS: Bedside Glucose 187 mg/dL (70-110)
--- NOTE | 2019-05-02 14:10 | NURSING ---
Tongue deviates to the RT, however per report this is not a change and Dr Gonzales is aware.
[2019-05-02] MEDS: Lactated Ringers 1,000 ML 30 ML IV (14:30)
[2019-05-02 14:46] LABS: Bedside Glucose 167 mg/dL (70-110)
--- NOTE | 2019-05-02 15:02 | NURSING ---
Tongue deviation same as prior.
[2019-05-02] MEDS: Cefazolin 1 GM/50 ML BAG IV ×2 (15:48→21:57)
--- NOTE | 2019-05-02 16:00 | NURSING ---
Tongue deviation remains the same as previous.
[2019-05-02] MEDS: Aspirin E.C. 81 MG Tablet PO (16:03)
[2019-05-02] MEDS: Clopidogrel Bisulfate 75 MG Tablet PO (16:03)
--- NOTE | 2019-05-02 16:52 | CON.PCM_ITS ---
<Samina Nelson - Last Filed: 05/02/19 17:22> Problem List (1) Symptomatic stenosis of right carotid artery Status: Acute (2) History of eye surgery Status: Chronic Comment: 04/20/19 (3) History of left-sided carotid endarterectomy Status: Chronic Comment: with Bovine patch angioplasty 11/26/2015 (4) History of hemorrhoidectomy Status: Resolved (5) Agent orange exposure Status: Chronic (6) Carotid stenosis, bilateral Status: Chronic (7) History of angioplasty of peripheral vessel Status: Chronic (8) History of stroke Status: Chronic (9) Carotid artery stenosis, asymptomatic Status: Chronic Qualifiers: Laterality: right Qualified Code(s): I65.21 - Occlusion and stenosis of right carotid artery (10) History of left-sided carotid endarterectomy Status: Resolved (11) Peripheral vascular disease Status: Chronic (12) Pure hypercholesterolemia Status: Chronic (13) Essential hypertension Status: Chronic (14) Nicotine abuse Status: Chronic (15) Ischemic cardiomyopathy Status: Resolved (16) Other secondary pulmonary hypertension Status: Chronic (17) Non-rheumatic aortic regurgitation Status: Chronic (18) Encounter for long-term current use of high risk medication Status: Chronic (19) Presence of aortocoronary bypass graft Status: Chronic Comment: CABG x 3- ESPINO graft to LAD, SVG to diagonal branch of anterior descending as well as lateral CFX 11/10/07 (20) Atherosclerotic heart disease of [place] coronary artery without angina pectoris Status: Chronic Qualifiers: [place] vs. transplanted heart: [place] heart Qualified Code(s): I25.10 - Atherosclerotic heart disease of [place] coronary artery without angina pectoris (21) Patent foramen ovale Status: Chronic Reason for Consult Date of Consultation: 05/02/19 Reason for Consultation: Medical management s/p right carotid endarterectomy. History of Present Illness: The patient is a 74 year old M who underwent right carotid endarterectomy 05/02/[address] Gonzales. Patient developed elevated blood pressure following surgery. Now improved. He has a past medical history of hypertension, hyperlipidemia, type 2 diabetes mellitus, CAD status post bypass, ischemic cardiomyopathy, peripheral vascular disease, history of left carotid endarterectomy, history of stroke. Currently complains of sore throat, denies other complaints. Past Medical History Past Medical History (Chronic Problems): Chronic Problems (Last Reviewed 04/01/19 @ 13:58 by Kavya Demarco) History of eye surgery (Chronic) 04/20/19 History of left-sided carotid endarterectomy (Chronic) with Bovine patch angioplasty 11/26/2015 Agent orange exposure (Chronic) Carotid stenosis, bilateral (Chronic) History of angioplasty of peripheral vessel (Chronic ~2016) History of stroke (Chronic) Carotid artery stenosis, asymptomatic (Chronic) Peripheral vascular disease (Chronic) Pure hypercholesterolemia (Chronic) Essential hypertension (Chronic) Nicotine abuse (Chronic) Other secondary pulmonary hypertension (Chronic) Non-rheumatic aortic regurgitation (Chronic) Encounter for long-term current use of high risk medication (Chronic) Presence of aortocoronary bypass graft (Chronic ~11/10/07) CABG x 3- ESPINO graft to LAD, SVG to diagonal branch of anterior descending as well as lateral CFX 11/10/07 Atherosclerotic heart disease of [place] coronary artery without angina pectoris (Chronic) Patent foramen ovale (Chronic) Medical History: Medical History (Last Reviewed 04/01/19 @ 13:58 by Kavya Demarco) Agent orange exposure (Chronic) Z77.098 Carotid stenosis, bilateral (Chronic) I65.23 History of stroke (Chronic) Z86.73 Carotid artery stenosis, asymptomatic (Chronic) I65.29 Peripheral vascular disease (Chronic) I73.9 Pure hypercholesterolemia (Chronic) E78.00 Essential hypertension (Chronic) I10 Nicotine abuse (Chronic) Z72.0 Ischemic cardiomyopathy (Resolved) I25.5 Other secondary pulmonary hypertension (Chronic) I27.29 Non-rheumatic aortic regurgitation (Chronic) I35.1 Encounter for long-term current use of high risk medication (Chronic) Z79.899 Atherosclerotic heart disease of [place] coronary artery without angina pectoris (Chronic) I25.10 Patent foramen ovale (Chronic) Q21.1 Arteriosclerotic vascular disease (Inactive) I70.90 Atherosclerosis of coronary artery bypass graft without angina pectoris (Dee ctive) I25.810 S/P ESPINO to LAD, SVG to diagonal of the anterior descending and LCx in 2007; Hyperlipidemia (Inactive) E78.5 Allergies No Known Allergies Allergy (Verified 05/02/19 05:48) Home Medications: Ambulatory Orders Medication Instructions Recorded metoprolol tartrate 100 mg tablet 100 mg PO BID 09/17/17 budesonide-formoterol HFA 80 2 puff INHALATION BID 08/25/18 mcg-4.5 mcg/actuation aerosol inhaler insulin glargine (U-100) 100 55 unit SC 1400 08/25/18 unit/mL (3 mL) subcutaneous pen liraglutide 0.6 mg/0.1 mL (18 mg/3 1.8 mg SC DAILY 08/25/18 mL) subcutaneous pen injector metformin 500 mg tablet 500 mg PO QHS tab 08/25/18 albuterol sulfate 90 mcg/actuation 1 inh INHALATION Q4H PRN 09/20/18 breath activated powder inhaler amlodipine 5 mg tablet 5 mg PO 1400 12/22/18 cholecalciferol (vitamin D3) 1,000 1,000 unit PO DAILY 12/22/18 unit (25 mcg) tablet nitroglycerin 0.4 mg sublingual 0.4 mg SUBLINGUAL Q5M PRN #25 tab 12/22/18 tablet rosuvastatin 40 mg tablet 40 mg PO QHS 12/22/18 clopidogrel 75 mg tablet 75 mg PO 1400 04/01/19 glipizide 5 mg tablet 5 mg PO 1400 tab 04/01/19 Aspirin [Aspir 81] 81 mg PO 05/02/19 Atropine [Atropisol] 1 drp OPHTHALMIC (EYE) BID 05/02/19 Prednisolone Acetate/Pf 1 drp OPHTHALMIC (EYE) 4X/DAY 05/02/19 [Prednisolone Acet 1% Eye Drop] Surgical History: Surgical History (Last Reviewed 05/02/19 @ 17:00 by ELICEO Matthews) History of eye surgery (Chronic) Z98.890 04/20/19 History of left-sided carotid endarterectomy (Chronic) Z98.890 with Bovine patch angioplasty 11/26/2015 History of hemorrhoidectomy (Resolved) Z98.890 History of angioplasty of peripheral vessel (Chronic) Onset Date: ~2015 Z98.62 History of left-sided carotid endarterectomy (Resolved) Onset Date: ~11/26/15 Z98.890 Presence of aortocoronary bypass graft (Chronic) Onset Date: ~11/10/07 Z95.1 CABG x 3- ESPINO graft to LAD, SVG to diagonal branch of anterior descending as well as lateral CFX 11/10/07 Surgical History: - - Right carotid endarterectomy Lives: Spouse/ Significant Other Smoking Status: Former smoker Tobacco Use: Non-smoker Alcohol: None Drugs: None - *Family History Maternal Family History: Family History (Last Reviewed 05/02/19 @ 17:01 by ELICEO Matthews) Father CAD (coronary artery disease) Myocardial infarction Kidney disease Mother CAD (coronary artery disease) Myocardial infarction Colon cancer Sister CAD (coronary artery disease) Diabetes Other Heart disease Paternal Family History: Family History (Last Reviewed 05/02/19 @ 17:01 by ELICEO Matthews) Father CAD (coronary artery disease) Myocardial infarction Kidney disease Mother CAD (coronary artery disease) Myocardial infarction Colon cancer Sister CAD (coronary artery disease) Diabetes Other Heart disease Review of Systems Constitutional: Denies: Chills, Fever, Weight Change HEENT: Denies: Head Aches, Sinus Congestion, Sinus Drainage Cardiovascular: Denies: Chest Pain, Palpitations Respiratory: Denies: Cough, Shortness of breath at rest, Sputum production Gastrointestinal: Denies: Abdominal Pain, Nausea, Vomiting Genitourinary: Denies: Dysuria Musculoskeletal: Denies: Joint Pain, Joint Tenderness Skin: Denies: Rash, Wounds Neurological: Denies: Numbness, Tingling, Focal weakness Psychiatric: Denies: Anxiety, Depression, Homicidal Ideations, Suicidal Ideations Hematologic/ Lymphatic: Denies: Easy Bruising, Easy Bleeding Patient Problems: Active and Suspected Problems (Last Reviewed 04/01/19 @ 13:58 by Kavya Demarco) Symptomatic stenosis of right carotid artery (Acute) - Physical Exam Vitals/I&O's: Vital Signs Temp Pulse Resp BP Pulse Ox 97.9 F 90 18 140/65 H 93 05/02/19 16:19 05/02/19 16:19 05/02/19 16:19 05/02/19 16:19 05/02/19 16:19 Oxygen Flow Rate (L/min) 4 Oxygen Delivery Method Nasal Cannula Weight: 241 lb 6.499 oz Body Mass Index (BMI) 36.7 Finger Stick Blood Glucose 187 Intake and Output for Last 24 Hours 04/30/19 05/01/19 05/02/19 23:59 23:59 23:59 Intake Total 2189.79 / 2189.79 Output Total 550 / 550 Balance 1639.79 / 1639.79 General: Alert, Oriented x3, Cooperative HEENT: Atraumatic, PERRLA, EOMI, Normocephalic Oral: Dry Mucosa Neck: Supple, No JVD, Negative Carotid Bruits Lungs: Clear to auscultation, Normal air movement Cardiovascular: Regular rate, No murmurs Abdomen: Bowel Sounds Present, Soft, Non Tender, Non-Distended, Obese Extremities: No clubbing, No cyanosis, No edema, Capillary Refill Less than 3 Seconds Skin: No rashes, No breakdown, - - Right neck dressing clean dry and intact Musculoskeletal: No Tenderness to Palpation of Joints or Extremities Neurological: Cranial nerves II-XII grossly intact, Neuro grossly intact Psych/Mental Status: Normal Affect, Appropriate Laboratory Results 05/02/19 06:31: POC Glucose 99 05/02/19 11:16: POC Glucose 187 H 05/02/19 14:29: POC Glucose 167 H Current Medications Acetaminophen (Tylenol) 650 mg PO Q4H PRN PRN PRN Reason: Pain Score 1-10/10 or Headache Hydrocodone Bitart/Acetaminophen ([place] 5mg-325mg) 1 - 2 tablet PO Q6H PRN PRN PRN Reason: Pain Score 1-10/10 Albuterol Sulfate (Ventolin Aerosols) 2.5 mg INHALATION Q4H PRN PRN Reason: SHORTNESS OF BREATH, WHEEZING Albuterol Sulfate (Ventolin Aerosols) 2.5 mg INHALATION Q6HWA.RT [facility] Amlodipine Besylate (Norvasc) 5 mg PO 1400 [facility] Last Admin: 05/02/19 16:15 Dose: Not Given Documented by: Aspirin (Ecotrin) 81 mg PO DAILYCM [facility] Last Admin: 05/02/19 16:03 Dose: 81 mg Documented by: Atorvastatin Calcium (Lipitor) 80 mg PO QHS CAS Budesonide (Pulmicort Aerosol) 0.5 mg INHALATION Q12H.RT [facility] Cholecalciferol (Vitamin D) 1,000 unit PO DAILY [facility] Clopidogrel Bisulfate (Plavix) 75 mg PO 1400 [facility] Last Admin: 05/02/19 16:03 Dose: 75 mg Documented by: Dextrose (D50w Syringe) 0 gm IV X1 PRN; Protocol PRN Reason: Hypoglycemia Glucagon () 1 mg IM .X1 PRN PRN Reason: Hypoglycemia Cefazolin Sodium () 1 gm in 50 mls @ 150 mls/hr IV Q8 [facility] Stop: 05/02/19 22:19 Last Infusion: 05/02/19 16:08 Dose: Infused Documented by: Lactated Ringer's () 1,000 mls @ 30 mls/hr IV .[id number] [facility] Last Admin: 05/02/19 14:30 Dose: 30 mls/hr Documented by: Sodium Chloride () 250 mls @ 15 mls/hr IV .[id number] PRN PRN Reason: Saline Flush Insulin Human Lispro (Humalog Kwikpen (Bkc)) 0 unit SC [facility]; Protocol Labetalol HCl (Trandate) 5 mg IV Q10M PRN PRN PRN Reason: HTN Last Admin: 05/02/19 10:40 Dose: 5 mg Documented by: Metoprolol Tartrate (Lopressor (Beta Carrillo)) 100 mg PO BID [facility] Last Admin: 05/02/19 16:15 Dose: Not Given Documented by: Morphine Sulfate () 2 - 4 mg IV Q4H PRN PRN PRN Reason: Pain Score 1-10/10 Nitroglycerin (Nitrostat) 0.4 mg SUBLINGUAL Q5M PRN PRN Reason: chest pain Ondansetron HCl (Zofran) 4 mg IV Q8H PRN PRN PRN Reason: nausea Sodium Chloride () 10 - 40 ml IV UD PRN PRN Reason: SALINE FLUSH Assessment/Plan All Active Problems (Last Reviewed 04/01/19 @ 13:58 by Kavya Demarco) Symptomatic stenosis of right carotid artery (Acute) History of hemorrhoidectomy (Resolved) History of left-sided carotid endarterectomy (Resolved ~11/26/15) Ischemic cardiomyopathy (Resolved) 1. Hypertensive urgency-blood pressure now improved. Continue home amlodipine, metoprolol regimen. 2. History of Urinary retention-Diaz placed postoperatively. Remove Diaz and complete voiding trial. 3. Status post right carotid endarterectomy by Dr. Gonzales 05/02/19. 4. Hyperlipidemia-continue statin. 5. Type 2 diabetes [id number] [facility] with sliding scale insulin, continue home insulin regimen. 6. CKD stage [id number]-[id number], trend BMP. 7. CAD status post bypass-continue aspirin, statin, Plavix, beta-carrillo. 8. Ischemic cardiomyopathy-echo March 2018 with EF 60%. 9. Peripheral vascular disease- continue aspirin, statin. 10. History of left carotid endarterectomy- follows with Dr. Gonzales. 11. History of CVA-continue aspirin, statin, Plavix. DVT prophylaxis- SCDs This patient was seen by ELICEO Matthews under the supervision of Dr. Trevino. <Jesica Trevino - Last Filed: 05/02/19 19:01> Reason for Consult History of Present Illness: The patient is a 74 year old M [] Past Medical History Medical History: Medical History (Last Reviewed 04/01/19 @ 13:58 by Kavya Demarco) Agent orange exposure (Chronic) Z77.098 Carotid stenosis, bilateral (Chronic) I65.23 History of stroke (Chronic) Z86.73 Carotid artery stenosis, asymptomatic (Chronic) I65.29 Peripheral vascular disease (Chronic) I73.9 Pure hypercholesterolemia (Chronic) E78.00 Essential hypertension (Chronic) I10 Nicotine abuse (Chronic) Z72.0 Ischemic cardiomyopathy (Resolved) I25.5 Other secondary pulmonary hypertension (Chronic) I27.29 Non-rheumatic aortic regurgitation (Chronic) I35.1 Encounter for long-term current use of high risk medication (Chronic) Z79.899 Atherosclerotic heart disease of [place] coronary artery without angina pectoris (Chronic) I25.10 Patent foramen ovale (Chronic) Q21.1 Arteriosclerotic vascular disease (Inactive) I70.90 Atherosclerosis of coronary artery bypass graft without angina pectoris (Inactive) I25.810 S/P ESPINO to LAD, SVG to diagonal of the anterior descending and LCx in 2007; Hyperlipidemia (Inactive) E78.5 Allergies No Known Allergies Allergy (Verified 05/02/19 05:48) Surgical History: Surgical History (Last Reviewed 05/02/19 @ 17:00 by ELICEO Matthews) History of eye surgery (Chronic) Z98.890 04/20/19 History of left-sided carotid endarterectomy (Chronic) Z98.890 with Bovine patch angioplasty 11/26/2015 History of hemorrhoidectomy (Resolved) Z98.890 History of angioplasty of peripheral vessel (Chronic) Onset Date: ~2015 Z98.62 History of left-sided carotid endarterectomy (Resolved) Onset Date: ~11/26/15 Z98.890 Presence of aortocoronary bypass graft (Chronic) Onset Date: ~11/10/07 Z95.1 CABG x 3- ESPINO graft to LAD, SVG to diagonal branch of anterior descending as well as lateral CFX 11/10/07 - *Family History Maternal Family History: Family History (Last Reviewed 05/02/19 @ 17:01 by ELICEO Matthews) Father CAD (coronary artery disease) Myocardial infarction Kidney disease Mother CAD (coronary artery disease) Myocardial infarction Colon cancer Sister CAD (coronary artery disease) Diabetes Other Heart disease Paternal Family History: Family History (Last Reviewed 05/02/19 @ 17:01 by ELICEO Matthews) Father CAD (coronary artery disease) Myocardial infarction Kidney disease Mother CAD (coronary artery disease) Myocardial infarction Colon cancer Sister CAD (coronary artery disease) Diabetes Other Heart disease - Physical Exam Vitals/I&O's: Vital Signs Temp Pulse Resp BP Pulse Ox 97.9 F 94 18 144/73 H 93 05/02/19 16:19 05/02/19 17:59 05/02/19 16:19 05/02/19 17:59 05/02/19 16:19 Oxygen Flow Rate (L/min) 4 Oxygen Delivery Method Nasal Cannula Weight: 109.5 kg Body Mass Index (BMI) 36.7 Finger Stick Blood Glucose 187 Intake and Output for Last 24 Hours 04/30/19 05/01/19 05/02/19 23:59 23:59 23:59 Intake Total 3566.46 / 3566.46 Output Total 1999 Balance 1566.46 / 1566.46 Laboratory Results 05/02/19 06:31: POC Glucose 99 05/02/19 11:16: POC Glucose 187 H 05/02/19 14:29: POC Glucose 167 H Current Medications Acetaminophen (Tylenol) 650 mg PO Q4H PRN PRN PRN Reason: Pain Score 1-10/10 or Headache Hydrocodone Bitart/Acetaminophen ([place] 5mg-325mg) 1 - 2 tablet PO Q6H PRN PRN PRN Reason: Pain Score 1-10/10 Albuterol Sulfate (Ventolin Aerosols) 2.5 mg INHALATION Q4H PRN PRN Reason: SHORTNESS OF BREATH, WHEEZING Albuterol Sulfate (Ventolin Aerosols) 2.5 mg INHALATION Q6HWA.RT [facility] Amlodipine Besylate (Norvasc) 5 mg PO 1400 [facility] Last Admin: 05/02/19 16:15 Dose: Not Given Documented by: Aspirin (Ecotrin) 81 mg PO DAILYCM [facility] Last Admin: 05/02/19 16:03 Dose: 81 mg Documented by: Atorvastatin Calcium (Lipitor) 80 mg PO QHS [facility] Atropine Sulfate (Atropisol) 1 drop RIGHT EYE BID [facility] Budesonide (Pulmicort Aerosol) 0.5 mg INHALATION Q12H.RT [facility] Cholecalciferol (Vitamin D) 1,000 unit PO DAILY [facility] Clopidogrel Bisulfate (Plavix) 75 mg PO 1400 [facility] Last Admin: 05/02/19 16:03 Dose: 75 mg Documented by: Dextrose (D50w Syringe) 0 gm IV X1 PRN; Protocol PRN Reason: Hypoglycemia Glucagon () 1 mg IM .X1 PRN PRN Reason: Hypoglycemia Cefazolin Sodium () 1 gm in 50 mls @ 150 mls/hr IV Q8 [facility] Stop: 05/02/19 22:19 Last Infusion: 05/02/19 16:08 Dose: Infused Documented by: Lactated Ringer's () 1,000 mls @ 30 mls/hr IV .[id number] [facility] Last Admin: 05/02/19 14:30 Dose: 30 mls/hr Documented by: Sodium Chloride () 250 mls @ 15 mls/hr IV .[id number] PRN PRN Reason: Saline Flush Insulin Human Lispro (Humalog Kwikpen (Bkc)) 0 unit SC ACHS [facility]; Protocol Labetalol HCl (Trandate) 5 mg IV Q10M PRN PRN PRN Reason: HTN Last Admin: 05/02/19 10:40 Dose: 5 mg Documented by: Metoprolol Tartrate (Lopressor (Beta Carrillo)) 100 mg PO BID [facility] Last Admin: 05/02/19 16:15 Dose: Not Given Documented by: Morphine Sulfate () 2 - 4 mg IV Q4H PRN PRN PRN Reason: Pain Score 1-10/10 Nitroglycerin (Nitrostat) 0.4 mg SUBLINGUAL Q5M PRN PRN Reason: chest pain Ondansetron HCl (Zofran) 4 mg IV Q8H PRN PRN PRN Reason: nausea Prednisolone Acetate (Pred [place] Eye Drops (5 Ml)) 1 drop RIGHT EYE 4X/DAY CAS Sodium Chloride () 10 - 40 ml IV UD PRN PRN Reason: SALINE FLUSH Assessment/Plan This patient was seen in conjunction with Samina Nelson NP. I have independently interviewed and examined the patient and reviewed pertinent historical, laboratory, and other data. Please refer to her note for patient's presentation, findings, and recommendations. 74-year-old male with past medical history of bilateral carotid stenosis, complicated by emboli to the right ophthalmic artery, hypertension, type II DM, CKD stage III, who underwent a right carotid endarterectomy on 05/02/[address] Gonzales. We have been consulted for medical management. Patient was noted to have elevated blood pressure in PACU post surgery. The highest was 213/93. This was similar to when he had his left carotid endarterectomy done. He was started on nicardipine drip. Blood pressure was controlled on arrival to the PCU. Patient also expressed concerns about diarrhea with use of Lantus At the time of being seen, he denied any pain, dizziness or palpitations. He was said to have gone into urinary retention and had a Diaz catheter placed. He denied any urinary symptoms prior to surgery. Vitals were reviewed -blood pressure of 140/65, temperature 97.9F, heart rate 90, respiratory rate 18, SPO2 is 93% on 4 L of oxygen Blood work done on showed slight increase in his creatinine to 1.58 from 1.48. Physical Exam: Gen:Obese, comfortable, not pale, not jaundiced, alert oriented x3, dressing over the right side of the neck, 4 L of oxygen CVS:HS I +II, regular, no murmurs RESP: Diminished at lung bases GI: BS present and normal, nontender, no palpable organs EXT:No edema Labs reviewed: ASSESSMENT: 1. Accelerated hypertension 2. Postop day #0 status post right carotid endarterectomy 3. Recent emboli to the right ophthalmic artery 4. Hypertension 5. Type II DM 6. History of ischemic cardiomyopathy 7. Hyperlipidemia Meds reviewed Plan: Discontinue nicardipine drip Continue on home amlodipine, metoprolol Hold home insulin regimen per patient's request Continue on blood glucose checks with insulin sliding scale Continue aspirin and Plavix by vascular surgery Code Visit Inpatient E&M: 74817 Subs Hosp L2
--- NOTE | 2019-05-02 17:01 | NURSING ---
Tongue deviation remains unchanged.
--- NOTE | 2019-05-02 18:00 | NURSING ---
Tongue deviation unchanged.
--- NOTE | 2019-05-02 18:06 | PCM.CAROT ---
General Carotid Note - Subjective Post-Op Day #: 0 - Objective Vital Signs Temp Pulse Resp BP Pulse Ox 97.9 F 94 18 144/73 H 93 05/02/19 16:19 05/02/19 17:59 05/02/19 16:19 05/02/19 17:59 05/02/19 16:19 Neck: Supple Neurological: - - weakness right hypoglossal c/w operative mobilization Cardiovascular: Regular rate, Regular Rhythm - BP improved. Appreciate medical assistance. Markie jacobson in a.m.--pt had requested.
--- NOTE | 2019-05-02 19:37 | NURSING ---
Flu assessment not addressed at this time. Pt & stated that they were told pt was not to take the flu shot before the surgery so they want to check w/the physician prior to saying yes to the flu shot. Passed this information along in report to night warehouse manager RN.
[2019-05-02] MEDS: prednisoLONE eye drops (5 mL) 1 DROP OPTH.BTL 1 DRP RIGHT EYE ×2 (19:43→21:57)
[2019-05-02] MEDS: Budesonide Respules 0.5 MG/2 ML AMPUL.NEB. INHALATION (19:51)
[2019-05-02] MEDS: Albuterol 2.5 MG/3 ML VIAL.NEB. INHALATION (19:51)
--- NOTE | 2019-05-02 20:00 | NURSING ---
Pt tongue deviates to right side in carotid endarterectomy check. Per previous RN Dr Gonzales is aware, and this is to be expected.
[2019-05-02] MEDS: Atropine Sulfate 1% 2 ml Bottle 1 DRP RIGHT EYE (21:57)
[2019-05-02] MEDS: Atorvastatin Calcium 80 MG Tablet PO (21:58)
[2019-05-02] MEDS: Insulin Lispro 100 UNIT/ML INSULN.PEN SC (22:03)
[2019-05-02 22:05] LABS: Bedside Glucose 196 mg/dL (70-110)
[2019-05-03] VITALS (11 sets, daily range): BP systolic 126–148; BP diastolic 62–73; PULSE 80–90; RESP 16–18; TEMP 36.6–36.8; O2SAT 84–96
--- NOTE | 2019-05-03 05:48 | PCM.CAROT ---
General Carotid Note - Subjective Post-Op Day #: 1 - Objective Vital Signs Temp Pulse Resp BP Pulse Ox 98.1 F 87 18 133/64 H 95 05/03/19 02:00 05/03/19 03:08 05/03/19 02:00 05/03/19 02:00 05/03/19 02:00 Neck: Supple, - - Right carotid incision clean and dry Neurological: - - Mild dysfunction right hypoglossal nerve Cardiovascular: Regular rate, Regular Rhythm - Chest is clear, patient alert aware of his situation and placePatient has had a high volume urine output consistent with chronic urinary obstructions. We will remove his Diaz catheter and assess his progressDischarge plan for today..
--- NOTE | 2019-05-03 06:20 | NURSING ---
Pt jacobson catheter dc'd, and ambulating around the [facility] at this time.
[2019-05-03] MEDS: Albuterol 2.5 MG/3 ML VIAL.NEB. INHALATION (06:54)
[2019-05-03] MEDS: Budesonide Respules 0.5 MG/2 ML AMPUL.NEB. INHALATION (06:54)
[2019-05-03] MEDS: Insulin Lispro 100 UNIT/ML INSULN.PEN SC (06:56)
[2019-05-03 07:11] LABS: Bedside Glucose 184 mg/dL (70-110)
[2019-05-03 07:11] LABS: Anion Gap 8 (5-15); BUN 21 mg/dL (7-18); BUN/Creat Ratio 12.4 RATIO (10-20); Calcium,Total 9.8 mg/dL (8.5-10.1); Chloride 106 mmol/L (98-107); EST Glomerular Filtration Rate 42 mL/min (>60); Est Glom Filt Rate - Afr Amer 51 mL/min (>60); Glucose 173 mg/dL (74-106); Potassium 4.6 mmol/L (3.5-5.1); Sodium Level 139 mmol/L (136-145)
[2019-05-03] MEDS: Aspirin E.C. 81 MG Tablet PO (08:57)
[2019-05-03] MEDS: prednisoLONE eye drops (5 mL) 1 DROP OPTH.BTL 1 DRP RIGHT EYE (09:25)
[2019-05-03] MEDS: Metoprolol Tartrate 100 MG Tablet PO (09:25)
[2019-05-03] MEDS: Atropine Sulfate 1% 2 ml Bottle 1 DRP RIGHT EYE (09:26)
--- NOTE | 2019-05-03 10:30 | CASEMGMT ---
DMITRIY CAMARA assessment: Face to Face with patient for initial transition planning/care coordination assessment. DMITRIY CAMARA introduced self and role at [facility], pt voices understanding and consents to assessment at this time. Pt is sitting up in chair in no distress with oxygen in place at this time. Pt is A/Ox4 at this time and answers all questions appropriately at this time. Care providers, pharmacy, and demographics verified at this time. PCP: Benigno/Cayetano PICHARDO Specialists: Erick, cardio Preferred [facility]acy: [facility] Insurance: [facility] A/B, MMO, [place] Prescription Benefit: Yes Living Will/HPOA: Pt states has LW/HPOA and is aware that they are not on file at [facility] at this time. Pt states his , Zeina Hobson, is HPOA. Pt encouraged to bring copy in when able. LNOK: Zeina Hobson, ; Collin Ferrer, friend Living Arrangements: Pt states lives with in 1 story home and states no concerns at home at this time. Pt states is independent with ADL's. Transportation: Pt states drives self and states no transportation concerns at this time. DME/HHC: Pt states has the following DME: cane, walker, rollater, W/C, raised toilet seat, shower chair, grab bars, lift chair, and cpap with 2liter oxygen bleed in. Pt states that he is interested in medical alert info and it was provided to pt at this time. See note regarding home oxygen. Pt states has had HHC in the past but has not been to SNF. Pt states no concerns with going home at time of discharge. Pt is retired. Pt states quit smoking 4 years ago and states does not drink ETOH. Pt states no further concerns/needs at this time. CM to follow for any further discharge planning/needs. Advised pt to ask for CM if any further questions/concerns/needs arise, voices understanding. Pt Goal: Home Plan: Home with home oxygen. SStaten DMITRIY CAMARA
--- NOTE | 2019-05-03 11:08 | CASEMGMT ---
Per Rachelle RN, pt does qualify for home oxygen at this time. See Oxygen qualification testing. This RN CM to room to complete assessment and discuss home oxygen for pt at this time. Pt states immediately that he would like [employer]. Pt states that he has a cpap already at home with oxygen bleed in but states that was from [facility] from 'a long time ago.' Referral faxed to [facility] per pt request at this time. Call to Luis M at [facility] to update on referral at this time, voices understanding. Sharyn IZAGUIRRE CM
--- NOTE | 2019-05-03 11:19 | PN_ITS ---
<Samina Nelson - Last Filed: 05/03/19 11:23> Subjective: Patient seen and examined. No acute events overnight. Patient has not had difficulty voiding following urinary catheter removal. Blood pressures remained stable. Patient did qualify for supplemental oxygen, oxygen 84% with ambulation on room air and 88% at rest on room air. Patient states he has been prescribed oxygen in the past. He is ambulatory in the home. He will continue still on oxygen to maintain O2 sat above 90%. - Physical Exam Vitals/I&O's: Vital Signs Temp Pulse Resp BP Pulse Ox 97.8 F 88 18 148/73 H 88 05/03/19 09:05 05/03/19 09:25 05/03/19 09:05 05/03/19 09:25 05/03/19 09:39 Oxygen Flow Rate (L/min) [ 2 AMBULATION with Oxygen] Oxygen Flow Rate (L/min) [ 0 AMBULATING on Room Air] Oxygen Flow Rate (L/min) [At 0 REST on Room Air] Oxygen Flow Rate (L/min) 2 Oxygen Delivery Method Nasal Cannula Weight: 241 lb 6.499 oz Body Mass Index (BMI) 36.7 Finger Stick Blood Glucose 187 Intake and Output for Last 24 Hours 05/01/19 05/02/19 05/03/19 23:59 23:59 23:59 Intake Total 3769.46 / 4009.46 1127.0 / 1127.0 Output Total 1999 / 3799 3450 / 3450 Balance 1769.46 / 209.46 -2323.0 / -2323.0 General: Alert, Oriented x3, Cooperative HEENT: Atraumatic, PERRLA, EOMI, Normocephalic Neck: Supple, No JVD, Negative Carotid Bruits Lungs: Clear to auscultation, Diminished Cardiovascular: Regular rate, Regular Rhythm, Normal S1, Normal S2, No murmurs Abdomen: Bowel Sounds Present, Soft, Non Tender, Non-Distended, Obese Extremities: No clubbing, No cyanosis, No edema, Capillary Refill Less than 3 Seconds Skin: No rashes, No breakdown, - - Right neck dressing intact Musculoskeletal: No Tenderness to Palpation of Joints or Extremities Neurological: Cranial nerves II-XII grossly intact, Neuro grossly intact Psych/Mental Status: Normal Affect, Appropriate Laboratory Results 05/02/19 11:16: POC Glucose 187 H 05/02/19 14:29: POC Glucose 167 H 05/02/19 21:55: POC Glucose 196 H 05/03/19 06:40: Sodium 139, Potassium 4.6, Chloride 106, Carbon Dioxide 25.0, Anion Gap 8, BUN 21 H, Creatinine 1.70 H, Estim Creat Clear Calc 38.00, Est GFR (MDRD) Af Amer 51 L, Est GFR (MDRD) Non-Af 42 L, BUN/Creatinine Ratio 12.4, Glucose 173 H, Calcium 9.8 05/03/19 06:54: POC Glucose 184 H Current Medications Acetaminophen (Tylenol) 650 mg PO Q4H PRN PRN PRN Reason: Pain Score 1-10/10 or Headache Hydrocodone Bitart/Acetaminophen ([place] 5mg-325mg) 1 - 2 tablet PO Q6H PRN PRN PRN Reason: Pain Score 1-10/10 Albuterol Sulfate (Ventolin Aerosols) 2.5 mg INHALATION Q4H PRN PRN Reason: SHORTNESS OF BREATH, WHEEZING Albuterol Sulfate (Ventolin Aerosols) 2.5 mg INHALATION Q6HWA.RT [facility] Last Admin: 05/03/19 06:54 Dose: 2.5 mg Documented by: Amlodipine Besylate (Norvasc) 5 mg PO 1400 [facility] Last Admin: 05/02/19 16:15 Dose: Not Given Documented by: Aspirin (Ecotrin) 81 mg PO DAILYCM [facility] Last Admin: 05/03/19 08:57 Dose: 81 mg Documented by: Atorvastatin Calcium (Lipitor) 80 mg PO QHS [facility] Last Admin: 05/02/19 21:58 Dose: 80 mg Documented by: Atropine Sulfate (Atropisol) 1 drop RIGHT EYE BID [facility] Last Admin: 05/03/19 09:26 Dose: 1 drop Documented by: Budesonide (Pulmicort Aerosol) 0.5 mg INHALATION Q12H.RT [facility] Last Admin: 05/03/19 06:54 Dose: 0.5 mg Documented by: Cholecalciferol (Vitamin D) 1,000 unit PO DAILY [facility] Last Admin: 05/03/19 09:24 Dose: 1,000 unit Documented by: Clopidogrel Bisulfate (Plavix) 75 mg PO 1400 [facility] Last Admin: 05/02/19 16:03 Dose: 75 mg Documented by: Dextrose (D50w Syringe) 0 gm IV X1 PRN; Protocol PRN Reason: Hypoglycemia Glucagon () 1 mg IM .X1 PRN PRN Reason: Hypoglycemia Sodium Chloride () 250 mls @ 15 mls/hr IV .[id number] PRN PRN Reason: Saline Flush Insulin Human Lispro (Humalog Kwikpen (Bkc)) 0 unit SC [facility]; Protocol Last Admin: 05/03/19 06:56 Dose: 1 units Documented by: Labetalol HCl (Trandate) 5 mg IV Q10M PRN PRN PRN Reason: HTN Last Admin: 05/02/19 10:40 Dose: 5 mg Documented by: Metoprolol Tartrate (Lopressor (Beta Carrillo)) 100 mg PO BID [facility] Last Admin: 05/03/19 09:25 Dose: 100 mg Documented by: Morphine Sulfate () 2 - 4 mg IV Q4H PRN PRN PRN Reason: Pain Score 1-10/10 Nitroglycerin (Nitrostat) 0.4 mg SUBLINGUAL Q5M PRN PRN Reason: chest pain Ondansetron HCl (Zofran) 4 mg IV Q8H PRN PRN PRN Reason: nausea Prednisolone Acetate (Pred Forte Eye Drops (5 Ml)) 1 drop RIGHT EYE 4X/DAY [facility] Last Admin: 05/03/19 09:25 Dose: 1 drop Documented by: Sodium Chloride () 10 - 40 ml IV UD PRN PRN Reason: SALINE FLUSH Medical Necessity - Tobacco Use Smoking Status: Former smoker Tobacco Use: Non-smoker Assessment/Plan All Active Problems (Last Reviewed 04/01/19 @ 13:58 by Kavya Demarco) Symptomatic stenosis of right carotid artery (Acute) History of hemorrhoidectomy (Resolved) History of left-sided carotid endarterectomy (Resolved ~11/26/15) Ischemic cardiomyopathy (Resolved) 1. Hypertensive urgency postoperatively-blood pressure now improved. Continue home amlodipine, metoprolol regimen. Blood pressure has remained stable overnight. 2. History of Urinary retention-Diaz placed postoperatively. Diaz removed last evening and patient voiding without difficulty. 3. Status post right carotid endarterectomy by Dr. Gonzales 05/02/19. Continue outpatient follow-up. 4. Hyperlipidemia-continue statin. 5. Type 2 diabetes [id number]-Ithw-Gzayi ACHS with sliding scale insulin, continue home insulin regimen. 6. CKD stage [id number], trend BMP. 7. CAD status post bypass-continue aspirin, statin, Plavix, beta-carrillo. 8. Ischemic cardiomyopathy-echo March 2018 with EF 60%. 9. Peripheral vascular disease- continue aspirin, statin. 10. History of left carotid endarterectomy- follows with Dr. Gonzales. 11. History of CVA-continue aspirin, statin, Plavix. 12. Chronic hypoxic respiratory insufficiency-patient qualified for home oxygen and will continue supplemental oxygen to maintain O2 sat above 90%. DVT prophylaxis- SCDs Patient is stable for discharge from a medical standpoint. Hospitalist services will sign off at this time and will be available if any further issues arise. This patient was seen by ELICEO Matthews under the supervision of Dr. Trevino. <Jesica Trevino - Last Filed: 05/03/19 17:36> - Physical Exam Vitals/I&O's: Vital Signs Temp Pulse Resp BP Pulse Ox 98.0 F 80 18 132/62 H 95 05/03/19 14:27 05/03/19 14:27 05/03/19 14:27 05/03/19 14:27 05/03/19 14:27 Oxygen Flow Rate (L/min) [ 2 AMBULATION with Oxygen] Oxygen Flow Rate (L/min) [ 0 AMBULATING on Room Air] Oxygen Flow Rate (L/min) [At 0 REST on Room Air] Oxygen Flow Rate (L/min) 2 Oxygen Delivery Method Nasal Cannula Weight: 109.5 kg Body Mass Index (BMI) 36.7 Finger Stick Blood Glucose 187 Intake and Output for Last 24 Hours 05/01/19 05/02/19 05/03/19 23:59 23:59 23:59 Intake Total 3769.46 / 4009.46 1577.0 / 1577.0 Output Total 1999 / 3800 3800 / 3800 Balance 1769.46 / 209.46 -2223.0 / -2223.0 Laboratory Results 05/02/19 21:55: POC Glucose 196 H 05/03/19 06:40: Sodium 139, Potassium 4.6, Chloride 106, Carbon Dioxide 25.0, Anion Gap 8, BUN 21 H, Creatinine 1.70 H, Estim Creat Clear Calc 38.00, Est GFR (MDRD) Af Amer 51 L, Est GFR (MDRD) Non-Af 42 L, BUN/Creatinine Ratio 12.4, Glucose 173 H, Calcium 9.8 05/03/19 06:54: POC Glucose 184 H 05/03/19 14:29: POC Glucose 198 H Assessment/Plan This patient was seen in conjunction with Samina Nelson OFFICE TECHNICIAN. I have independently interviewed and examined the patient and reviewed pertinent historical, laboratory, and other data. Please refer to her note for patient's presentation, findings, and recommendations. Patient was seen and examined. Diaz catheter has been removed. No problems with urinating Vitals were reviewed -pressure appears improved. Physical Exam: Gen:Obese, comfortable, not pale, not jaundiced, alert oriented x3, dressing over the right side of the neck, 2 L of oxygen CVS:HS I +II, regular, no murmurs RESP: Diminished at lung bases GI: BS present and normal, nontender, no palpable organs EXT:No edema Labs reviewed: ASSESSMENT: 1. Accelerated hypertension 2. Postop day #0 status post right carotid endarterectomy 3. Recent emboli to the right ophthalmic artery 4. Hypertension 5. Type II DM 6. History of ischemic cardiomyopathy 7. Hyperlipidemia 8. Hypoxia, patient qualified for home oxygen Code Visit Inpatient E&M: 18632 Subs Hosp L2
--- NOTE | 2019-05-03 13:43 | CASEMGMT ---
SW let patient know that his healthcare POA and healthcare LW are not on file at [facility]. He said he will let his know. Isaura MCDONALD MSW
--- NOTE | 2019-05-03 14:04 | CASEMGMT ---
While this RN CM completing CM assessment, pt does state has [facility] coverage as well. [facility] registration updated at this time and pt's clinicals/d/c [facility] at this time. Sharyn IZAGUIRRE CM
--- NOTE | 2019-05-03 14:10 | PHA.DC.MR ---
Pharmacy Service has performed discharge medication reconciliation for this patient. Home Medications metoprolol tartrate 100 mg tablet 100 mg PO BID 09/17/17 budesonide-formoterol HFA 80 mcg-4.5 mcg/actuation aerosol inhaler 2 puff INHALATION BID 08/25/18 insulin glargine (U-100) 100 unit/mL (3 mL) subcutaneous pen 55 unit SC 1400 08/25/18 liraglutide 0.6 mg/0.1 mL (18 mg/3 mL) subcutaneous pen injector 1.8 mg SC DAILY 08/25/18 metformin 500 mg tablet 500 mg PO QHS tab 08/25/18 albuterol sulfate 90 mcg/actuation breath activated powder inhaler 1 inh INHALATION Q4H PRN 09/20/18 amlodipine 5 mg tablet 5 mg PO 1400 12/22/18 cholecalciferol (vitamin D3) 1,000 unit (25 mcg) tablet 1,000 unit PO DAILY 12/22/18 nitroglycerin 0.4 mg sublingual tablet 0.4 mg SUBLINGUAL Q5M PRN #25 tab 12/22/18 rosuvastatin 40 mg tablet 40 mg PO QHS 12/22/18 clopidogrel 75 mg tablet 75 mg PO 1400 04/01/19 glipizide 5 mg tablet 5 mg PO 1400 tab 04/01/19 Aspirin [Aspir 81] 81 mg PO 05/02/19 Atropine [Atropisol] 1 drp OPHTHALMIC (EYE) BID 05/02/19 Prednisolone Acetate/Pf [Prednisolone Acet 1% Eye Drop] 1 drp OPHTHALMIC (EYE) 4X/DAY 05/02/19 The patient's discharge medication list was reviewed for discrepancies and discrepancies were resolved.
[2019-05-03 14:50] LABS: Bedside Glucose 198 mg/dL (70-110)
== END 2019-05-03 14:36 | disposition home or self-care (01) | DRG 38 ==
LOC: ACINP 05:25 → MS3 06:24 → PCU 14:01
PROVIDERS: Anesthesiology; Internal Medicine; Admitting Provider Surgery; Family Provider Family Medicine; PCP Family Medicine; Referring Provider Surgery; Visit Provider Surgery
PROC: 03CK0ZZ Extirpation of Matter from Right Internal Carotid Artery, Open Approach (ICD-10-PCS; CPT 35301; principal; 2019-05-02 06:55)
DX: I65.21 Occlusion and stenosis of right carotid artery (principal); H34.9 Unspecified retinal vascular occlusion; Q21.1 Atrial septal defect; H54.61 Unqualified visual loss, right eye, normal vision left eye; E78.5 Hyperlipidemia, unspecified; R09.02 Hypoxemia; I25.10 Atherosclerotic heart disease of native coronary artery without angina pectoris; I73.9 Peripheral vascular disease, unspecified; E11.9 Type 2 diabetes mellitus without complications; I16.0 Hypertensive urgency; I25.5 Ischemic cardiomyopathy; Z23 Encounter for immunization; I12.9 Hypertensive chronic kidney disease with stage 1 through stage 4 chronic kidney disease, or unspecified chronic kidney disease; Z68.36 Body mass index [BMI] 36.0-36.9, adult; E66.9 Obesity, unspecified; N18.3 Chronic kidney disease, stage 3 (moderate); Z87.891 Personal history of nicotine dependence; E11.22 Type 2 diabetes mellitus with diabetic chronic kidney disease; Z79.4 Long term (current) use of insulin; Z95.1 Presence of aortocoronary bypass graft
CPT/HCPCS: 36415; 80048; 82962; 83036; 85027; 88304; 88311; 93005; 94640; 99251; G0008; J7040; J7120; 90686; G0463; J2405

== ENCOUNTER → 2019-06-06 15:20 | Outpatient (CLI) | payer MEDICARE, OTHER, SELFPAY ==
[2019-05-02 18:23] VITALS: BMI 36.7
[2019-06-06 17:05] LABS: Absolute Lymphocyte Count 0.81 X10^3/uL (0.83-4.51); Basophil# 0.02 X10^3/uL; Basophil% 0.3 % (0-1); Eosinophil# 0.21 X10^3/uL; Eosinophils% 3.2 % (0-5); Hemoglobin 13.3 g/dL (13.0-16.5); Lymphocyte # 0.81 X10^3/ul (4.0); Lymphocyte % 12.4 % (19-41); Mean Corp Hgb Conc 30.9 g/dL (32-36); Mean Corpuscular Hgb 31.7 pg (27.0-32.0); Mean Corpuscular Volume 102.6 fL (80-94); Mean Platelet Vol. 10.1 fl (6.2-12.0); Monocyte# 0.51 X10^3/uL; Monocyte% 7.8 % (0-10); NRBC Flagged by Analyzer 0 % (0-5); Neutrophil # 4.95 X10^3/uL (2.7-7.7); Neutrophil % 76.1 % (47-70); POSITIVE MORPHOLOGY YES; Platelet Count 284 K/mm3 (150-450); RBC Distribution Width CV 15.1 % (11.6-14.6); RBC Distribution Width SD 56.2 fl (35.1-43.9); Red Blood Count 4.19 M/mm3 (4.6-6.2); White Blood Count 6.5 K/mm3 (4.4-11.0)
[2019-06-06 17:10] LABS: Differential Indicated SCAN CRITERIA MET
[2019-06-06 17:16] LABS: ALB/GLOB Ratio 0.9 RATIO (0.9-2.4); AST(SGOT) 22 U/L (15-37); Alanine Aminotransfer ALT/SGPT 43 U/L (16-61); Albumin, Serum 3.5 g/dL (3.2-5.0); Alkaline Phosphatase 131 U/L (45-117); Anion Gap 9 (5-15); BUN 20 mg/dL (7-18); BUN/Creat Ratio 12.7 RATIO (10-20); Calcium,Total 9.3 mg/dL (8.5-10.1); Chloride 106 mmol/L (98-107); Creatinine, Serum 1.57 mg/dL (0.70-1.30); EST Glomerular Filtration Rate 46 mL/min (>60); Est Glom Filt Rate - Afr Amer 56 mL/min (>60); Globulin 3.8 g/dL (2.2-4.2); Glucose 134 mg/dL (74-106); Potassium 4.8 mmol/L (3.5-5.1); Protein, Total 7.3 g/dL (6.4-8.2); Sodium Level 142 mmol/L (136-145)
[2019-06-06 17:19] LABS: D-Dimer Quantitative (DVT/PE) 0.85 FEU/ug/m (0.27-0.49)
[2019-06-06 17:29] LABS: BNP,B-Type NATRIURETIC PEPTIDE 116.6 pg/mL (0-100)
[2019-06-06 19:25] LABS: Differential Comment SCANNED
[2019-06-06 19:26] LABS: Anisocytosis 1+; Platelet Estimate ADEQUATE (ADEQ)
== END ==
PROVIDERS: Family Provider Family Medicine; PCP Family Medicine; Visit Provider Family Medicine
DX: R09.02 Hypoxemia (principal); I10 Essential (primary) hypertension
CPT/HCPCS: 36415; 80053; 83880; 85025; 85379

== ENCOUNTER → 2019-06-10 09:44 | Outpatient (CLI) | payer MEDICARE, OTHER, SELFPAY ==
[2019-05-02 18:23] VITALS: BMI 36.7
--- NOTE | 2019-06-10 09:44 | CDUL_ITS ---
Reason For Study: RT carotid surgery Rt. Velocities/BP Prox CCA 71.6/14.2 cm/sec. Mid CCA 74.2/18.1 cm/sec. Dist CCA 75.5/18.1 cm/sec. Prox ICA 60.0/14.9 cm/sec. Mid ICA 60.0/18.2 cm/sec. Dist ICA 58.9/19.3 cm/sec. Rt. ICA/CCA = 60.0/74.2=0.8. Prox ECA 83.2/19.5 cm/sec. Rt. Vert. 62.2/12.7 cm/sec. Right Extracranial There is heterogeneous, irregular atherosclerotic plaque noted in the right common carotid artery. There is heterogeneous, smooth atherosclerotic plaque noted in the right internal carotid artery. There is heterogeneous, irregular atherosclerotic plaque noted in the right external carotid artery. Antegrade flow is noted in the right vertebral artery. Interpretation Summary Irregular heterogenous plaque within the proximal right internal carotid artery Smooth plaque noted within the proximal right internal carotid with postoperative changes of the right carotid bulb and proximal internal carotid <50% stenosis right internal carotid <50% stenosis right externalc carotid Patent, antegrade, <50% stenosis right vertebral Ordering Physician: Mayo Gonzales Referring Physician: Ortiz Pelaez Performed By: Olive Mishra, RDCS, RVT
--- NOTE | 2019-06-10 10:15 | CT_ITS ---
STUDY: CTA CHEST REASON FOR EXAM: Male, 74 years old. HYPOXIA, H/O PE, SOB, ON HOME O2 CABG X 2 RADIATION DOSAGE (If Supplied By Facility): CTDIvol = ( 11.40 ) mGy, DLP = ( 546.14 ) mGycm TECHNIQUE: The examination was performed with the intravenous administration of 100 ML ISOVUE 370. Post-processing of the angiographic images was performed, with multiplanar reformation and 3D reconstruction. Individualized dose optimization techniques were used for this CT. COMPARISON: 10/11/2012 FINDINGS: Normal enhancement of the main pulmonary artery and right and left pulmonary arteries. Normal enhancement of the bilateral peripheral pulmonary arteries. There is no demonstrated pulmonary embolism. There is prominence of the main pulmonary arteries without peripheral pulmonary vascular congestion, suggesting pulmonary hypertension. There is atherosclerotic calcification of the aortic arch with tortuosity. There is no demonstrated aortic dissection. The heart is mildly enlarged. There is reflux of contrast into the IVC and hepatic veins suggesting right heart dysfunction. Sternal wires and mediastinal surgical clips compatible with prior CABG. Mildly prominent mediastinal and bilateral hilar hilar lymph nodes but no dominant iker mass. Small right pleural effusion with parenchymal fibrotic changes predominantly in the lung bases. There is localized fibrosis along the upper lobe, stable. Normal chest wall structures. There are degenerative changes of thoracic spine. Normal visualized upper abdomen. CT/CTA Chest W/WO Contrast IMPRESSION: 1. No central or segmental pulmonary embolism. Dilated central pulmonary arteries suggesting pulmonary hypertension. 2. Mild cardiomegaly, CABG, reflux of contrast into the IVC suggesting right heart dysfunction. 3. Small right pleural effusion, new. 4. Mild scattered fibrotic changes, stable. Electronically Signed: Fabian Correa MD (Brooks) at 12:10 EST , Service support ,
== END ==
PROVIDERS: Family Provider Family Medicine; PCP Family Medicine; Referring Provider Surgery; Visit Provider Surgery
DX: I65.21 Occlusion and stenosis of right carotid artery (principal); R09.02 Hypoxemia; R06.00 Dyspnea, unspecified; R79.89 Other specified abnormal findings of blood chemistry; Z86.711 Personal history of pulmonary embolism
CPT/HCPCS: 71275; 93882; Q9967; A4216

== ENCOUNTER → 2019-12-15 07:31 | Outpatient (CLI) | payer MEDICARE, OTHER, SELFPAY ==
[2019-12-07 13:35] VITALS: BMI 36.5
[2019-12-15 10:39] LABS: AST(SGOT) 15 U/L (15-37); Alanine Aminotransfer ALT/SGPT 26 U/L (16-61); Albumin, Serum 3.4 g/dL (3.2-5.0); Alkaline Phosphatase 110 U/L (45-117); Bilirubin, Direct 0.18 mg/dL (0.00-0.30); Cholesterol 116 mg/dL (200); High Density Lipoprotein 40 mg/dL; Protein, Total 7.4 g/dL (6.4-8.2); Triglycerides 173 mg/dL; Very Low Density Lipoprotein 35 mg/dL (5-40)
== END ==
PROVIDERS: PCP Family Medicine; Referring Provider Internal Medicine Cardiovascular Disease; Visit Provider Internal Medicine Cardiovascular Disease
DX: E78.00 Pure hypercholesterolemia, unspecified (principal)
CPT/HCPCS: 36415; 80061; 80076

== ENCOUNTER → 2020-01-11 15:18 | Outpatient (CLI) | payer MEDICARE, OTHER, SELFPAY ==
[2019-12-07 13:35] VITALS: BMI 36.5
--- NOTE | 2020-01-11 | LES_PTH ---
PATIENT: AB HILL LOC: [facility] U#:[id number] AGE/SX: 80/M ROOM: RE01/11/[address]: Dr. Jono Arteaga MD : 1945 BED: DIS: SPEC #: [id number] RECD: 01/11/20 14:56 STATUS: JAYY ALICIA #: [id number] MARQUIS: 01/11/20 00:[address]: Jono Arteaga DEPT: SURGICAL PATHOLOGY RECD BY: Duke Bright ENTERED: 01/12/20 10:25 SP TYPE: Lesion OTHR DR: Dr. Ortiz Pelaez, Tissues: Skin of lip, NOS Procedures: Surgery Specimen Level IV HEADER OPERATION: Eyelid lesion excision left upper lid PRE-OP DIAGNOSIS: Lesion left upper lid TISSUE SUBMITTED: Left upper eyelid MICROSCOPIC DIAGNOSIS Lesion of right upper eyelid, biopsy: Fibroepithelial polyp, mildly inflamed. AM:chelle 01/13/20 MICROSCOPIC DESCRIPTION Slides are reviewed. GROSS DESCRIPTION Received in fixative is one container labeled with the patient's name and designated left upper lid. The specimen consists of a piece of rizzo-white skin measuring 0.4 x 0.3 x 0.2 cm. The entire specimen is submitted in one cassette. / SJ:chelle 01/12/20 TC:5 CPT: [id number]
== END ==
PROVIDERS: PCP Family Medicine; Referring Provider Ophthalmology; Visit Provider Ophthalmology
DX: H02.9 Unspecified disorder of eyelid (principal)
CPT/HCPCS: 88305

== ENCOUNTER → 2020-03-26 14:24 | Outpatient (CLI) | payer MEDICARE, OTHER, SELFPAY ==
[2019-12-07 13:35] VITALS: BMI 36.5
[2020-03-26 17:30] LABS: Anion Gap 4 (5-15); BUN 25 mg/dL (7-18); BUN/Creat Ratio 13.6 RATIO (10-20); Calcium,Total 9.2 mg/dL (8.5-10.1); Chloride 107 mmol/L (98-107); Creatinine, Serum 1.84 mg/dL (0.70-1.30); EST Glomerular Filtration Rate 39 mL/min (>60); Est Glom Filt Rate - Afr Amer 47 mL/min (>60); Glucose 123 mg/dL (74-106); Potassium 4.4 mmol/L (3.5-5.1); Sodium Level 139 mmol/L (136-145)
== END ==
PROVIDERS: PCP Family Medicine; Visit Provider Family Medicine
DX: N18.30 Chronic kidney disease, stage 3 unspecified (principal)
CPT/HCPCS: 36415; 80048

== ENCOUNTER → 2020-05-10 12:35 | Outpatient (CLI) | payer MEDICARE, OTHER, SELFPAY ==
[2019-12-07 13:35] VITALS: BMI 36.5
--- NOTE | 2020-05-10 12:37 | CDU_ITS ---
Reason For Study: carotid stenosis Rt. Velocities/BP Lt. Velocities/BP Prox CCA 87.8/9.5 cm/sec. Prox CCA 91.2/11.4 cm/sec. Mid CCA 65.6/9.5 cm/sec. Mid CCA 91.2/12.6 cm/sec. Dist CCA 45.4/8.0 cm/sec. Dist CCA 91.2/9.0 cm/sec. Prox ICA 90.0/13.3 cm/sec. Prox ICA 72.8/13.9 cm/sec. Mid ICA 77.3/13.3 cm/sec. Mid ICA 114.6/20.0 cm/sec. Dist ICA 55.6/9.0 cm/sec. Dist ICA 68.4/13.5 cm/sec. Rt. ICA/CCA = 1.0. Lt. ICA/CCA = 1.3. Prox ECA 161.3/13.3 cm/sec. Prox ECA 106.0/7.7 cm/sec. Rt. Vert. 65.4/20.0 cm/sec. Right Extracranial There is heterogeneous, irregular atherosclerotic plaque noted in the right common carotid artery. There is heterogeneous, irregular atherosclerotic plaque noted in the right internal carotid artery. There is heterogeneous, irregular atherosclerotic plaque noted in the right external carotid artery. Antegrade flow is noted in the right vertebral artery. Left Extracranial There is heterogeneous, irregular atherosclerotic plaque noted in the left common carotid artery. There is heterogeneous, irregular atherosclerotic plaque noted in the left internal carotid artery. There is homogeneous, smooth atherosclerotic plaque noted in the left external carotid artery. Flow could not be demonstrated in the left vertebral artery. Procedure Carotid Duplex 12212. This is a Carotid Duplex examination using B-mode, color flow and specral Doppler. The exam was diagnostic. Exam performed in department. Interpretation Summary Flow could not be demonstrated in the left vertebral artery. Post operative changes of the right carotid bulb and proximal internal carotid artery Minimal plaque noted within the right internal carotid artery with less than 50% stenosis Less than 50% stenosis right external carotid Patent and antegrade right vertebral Irregular plaque at the proximal left internal carotid artery with less than 50% stenosis Less than 50% stenosis left external carotid No change in the postsurgical right carotid since the previous examination of June 10, 2019 Ordering Physician: Mayo Gonzales Performed By: Shabbir Suarez RVT
== END ==
PROVIDERS: PCP Family Medicine; Referring Provider Surgery; Visit Provider Surgery
DX: I65.23 Occlusion and stenosis of bilateral carotid arteries (principal)
CPT/HCPCS: 93880

== ENCOUNTER → 2020-06-11 16:26 | Outpatient (CLI) | payer MEDICARE, OTHER, SELFPAY ==
[2020-05-15 13:21] VITALS: BMI 37.5
--- NOTE | 2020-06-11 16:29 | RAD_ITS ---
HISTORY: right great toe pain, hit it against furniture twice, redness ADDITIONAL HISTORY: None provided. EXAMINATION/TECHNIQUE: XR Toes Min 2 Views Right Foot Number of images including paperwork: 3 COMPARISON: None FINDINGS: BONES: No acute fracture. JOINTS: No subluxation. Moderate to severe degenerative changes of the right great toe MTP joint and mild to moderate degenerative changes of the IP joint. SOFT TISSUES: No distinct foreign body. RAD/Toe(s) Min 2 Views IMPRESSION: Degenerative changes without acute osseous abnormality. at 0025 Reported and signed by: Mary Singh MD Electronically Signed: Mary Singh MD at 0:25 EST Tel , Service support ,
== END ==
PROVIDERS: PCP Family Medicine; Referring Provider Family Medicine; Visit Provider Family Medicine
DX: M79.674 Pain in right toe(s) (principal)
CPT/HCPCS: 73660

== ENCOUNTER → 2020-08-16 07:27 | Outpatient (CLI) | payer MEDICARE, OTHER, SELFPAY ==
[2020-08-15 13:50] VITALS: BMI 36.8
[2020-08-16 10:33] LABS: AST(SGOT) 22 U/L (15-37); Alanine Aminotransfer ALT/SGPT 38 U/L (16-61); Albumin, Serum 3.6 g/dL (3.2-5.0); Alkaline Phosphatase 95 U/L (45-117); Bilirubin, Direct 0.22 mg/dL (0.00-0.30); Cholesterol 116 mg/dL (200); Globulin 3.9 g/dL (2.2-4.2); High Density Lipoprotein 45 mg/dL; Protein, Total 7.5 g/dL (6.4-8.2); Triglycerides 150 mg/dL; Very Low Density Lipoprotein 30 mg/dL (5-40)
== END ==
LOC: LAB 07:27 → MTLAB 07:28
PROVIDERS: PCP Family Medicine; Referring Provider Internal Medicine Cardiovascular Disease; Visit Provider Internal Medicine Cardiovascular Disease
DX: E78.00 Pure hypercholesterolemia, unspecified (principal); I25.10 Atherosclerotic heart disease of native coronary artery without angina pectoris; E78.2 Mixed hyperlipidemia; I10 Essential (primary) hypertension
CPT/HCPCS: 80061; 80076

== ENCOUNTER 2020-08-22 02:04 | Inpatient (IN) | payer MEDICARE, OTHER, SELFPAY ==
[2020-08-15 13:50] VITALS: BMI 36.8
[2020-08-22] VITALS (22 sets, daily range): BP systolic 103–179; BP diastolic 49–73; PULSE 69–97; RESP 16–25; TEMP 36.4–38.1; O2SAT 85–97; BMI 36.9; BMI 35.3
--- NOTE | 2020-08-22 02:14 | ED.VIS.GEN ---
History of Present Illness Chief Complaint: Fever Informant: Patient Narrative: 75-year-old male with history of COPD who wears 3 to 4 L of oxygen at baseline presenting with history of dizziness, fever of 100.2, body aches, shortness of breath since Thursday. Patient states that he usually wears 3 L when resting and 4 L when ambulating. Patient states his oxygen is as low as 84% on his baseline home oxygen while resting. Patient states that he wears home O2 secondary to COPD. He is not a current smoker. Patient does admit to some nausea and dry heaving as well. He denies chest pain. He states his has been sick with a bad cold all week. He states that he does not leave the house but his does all the shopping. He also has a friend who is currently hospitalized at [facility] for COVID-19 however he states he has not seen him in 3 weeks. - Past Medical History (1) Obesity Status: Chronic (2) Mixed hyperlipidemia Status: Chronic (3) Benign essential hypertension Status: Chronic (4) Stage 3 chronic kidney disease due to type 2 diabetes mellitus Status: Chronic (5) Diabetes Status: Chronic (6) Primary pulmonary hypertension Status: Chronic (7) AUTUMN on CPAP Status: Chronic Past Medical History - Allergies and Home Meds Allergies/Adverse Reactions: Allergies No Known Allergies Allergy (Verified 08/15/20 13:50) Primary Care Physician: Ortiz Pelaez DO [Primary Care Provider] - Prior records reviewed: Yes Past Medical History: - - Reviewed in problem list Surgical History: noncontributory, - - Right carotid endarterectomy Lives: Spouse/ Significant Other Smoking Status: Former smoker Alcohol: None Drugs: None - Family History Maternal Family History: Family History (Last Reviewed 08/22/20 @ 05:[address] Michael Orantes MD) Father CAD (coronary artery disease) Myocardial infarction Kidney disease Mother CAD (coronary artery disease) Myocardial infarction Colon cancer Sister CAD (coronary artery disease) Diabetes Other Heart disease Review of Systems General: Reports: Fever, Malaise Eyes: Denies: Visual changes - bilaterally, Diplopia ENT: Denies: Rhinorrhea, Sore throat Cardiovascular: Denies: Chest pain, Palpitations, Heart racing Respiratory: Reports: Dyspnea, Cough Gastrointestinal: Reports: Nausea, Vomiting. Denies: Abdominal pain Genitourinary: Denies: Dysuria, Hematuria Musculoskeletal: Reports: Myalgias. Denies: Arthralgias, Neck pain Skin: Denies: Rash, Abscess Neurological: Reports: - - Dizziness. Denies: Headache, Weakness Psych: Denies: Depression, Anxiety Physical Exam Vital Signs/Narrative: Vital Signs Temp Pulse Resp BP Pulse Ox 08/22/20 02:04 99.5 F H 97 22 H 140/57 H 97 Inital Vital Signs reviewed: Yes General: Obese, No Acute Distress Head: Normocephalic, Atraumatic Eyes: Perrl, EOMI ENT: Moist mucous membranes, No rhinorrhea Cardiovascular: Regular rate, Regular rhythm Abdomen: Soft, Nontender, Nondistended Back: Nontender, Normal Inspection Extremities: Nontender. Negative for: Calf Tenderness Skin: Normal color, No rash. Negative for: Cyanosis, Diaphoresis Neurological: Alert, Oriented x3, Cranial nerves II-XII grossly intact Psychological: Normal affect, Normal Mood Diagnostic/Tx/Re-eval Clinical Impression(s) from Imaging Studies Chest X-Ray 08/22/20 02:24 IMPRESSION: COPD with patchy bibasilar airspace disease Electronically Signed: Noah Slade DO at 3:10 EST Tel , Service support , Laboratory Data 08/22/20 08/22/20 08/22/20 02:40 02:40 02:40 WBC 5.0 RBC 5.11 Hgb 16.1 Hct 48.0 MCV 93.9 MCH 31.5 MCHC 33.5 RDW Std Deviation 57.5 H RDW Coeff of [place] 16.5 H Plt Count 101 L MPV 11.3 Immature Gran % (Auto) 0.400 Neut % (Auto) 81.8 H Lymph % (Auto) 7.5 L [place] % (Auto) 10.1 H Eos % (Auto) 0.0 Baso % (Auto) 0.2 Absolute Neuts (auto) 4.1 Absolute Lymphs (auto) 0.37 L Nucleated RBC % 0 Differential Comment SCANNED Platelet Estimate SLT DEC D-Dimer Quant (PE/DVT) 1.14 H* Sodium 133 L Potassium 4.0 Chloride 97 L Carbon Dioxide 27.0 Anion Gap 9 BUN 32 H Creatinine 2.08 H Estim Creat Clear Calc 30.60 Est GFR (MDRD) Af Amer 40 L Est GFR (MDRD) Non-Af 33 L BUN/Creatinine Ratio 15.4 Glucose 199 H Lactic Acid Calcium 8.8 Total Bilirubin 0.50 AST 31 ALT 34 Alkaline Phosphatase 80 Troponin I 0.021 Total Protein 7.5 Albumin 3.3 Globulin 4.2 Albumin/Globulin Ratio 0.8 L Procalcitonin COVID-19 (MATT) 08/22/20 08/22/20 08/22/20 02:40 02:40 03:30 WBC RBC Hgb Hct MCV MCH MCHC RDW Std Deviation RDW Coeff of [place] Plt Count MPV Immature Gran % (Auto) Neut % (Auto) Lymph % (Auto) Clay % (Auto) Eos % (Auto) Baso % (Auto) Absolute Neuts (auto) Absolute Lymphs (auto) Nucleated RBC % Differential Comment Platelet Estimate D-Dimer Quant (PE/DVT) Sodium Potassium Chloride Carbon Dioxide Anion Gap BUN Creatinine Estim Creat Clear Calc Est GFR (MDRD) Af Amer Est GFR (MDRD) Non-Af BUN/Creatinine Ratio Glucose Lactic Acid 1.3 Calcium Total Bilirubin AST ALT Alkaline Phosphatase Troponin I Total Protein Albumin Globulin Albumin/Globulin Ratio Procalcitonin 0.17 H COVID-19 (MATT) Detected - Medical Decision Making 75-year-old male presenting for shortness of breath, dizziness, nausea, body aches, reported fever which he believes started either late Thursday night or early Thursday morning. Patient states that he has been more short of breath and notes that his oxygen has been dipping into to the 80s even at rest. He has been turning up his oxygen to 4 L to ambulate. He denies any chest pain. Patient initially thought that his friend who was hospitalized for COVID-19 was the one who had exposed him however he states he has not seen him in 3 weeks. He does relate that his has had a bad cold this week he states that he does not leave the house and she does all of the shopping. Patient had EKG performed on arrival which shows a normal sinus rhythm at [address] changes which were present on previous EKG in April 2019. This EKG is not significantly changed. Chest x-ray as interpreted by myself shows patchy bibasilar infiltrates as interpreted by myself and radiology does agree. Lab work shows white blood cell count 5.0, hemoglobin 16.1, platelets 101, absolute lymphocytes 0.37, procalcitonin 0.17, lactic acid 1.3. Troponin negative. Patient has an elevated D-dimer at 1.14 however given his renal function I will hold off on CTA of the chest for now. Patient was discussed with the hospitalist who accepts the patient for admission but wishes the patient to stay in the ER until he has a Covid PCR that is negative for Covid. He will likely get a VQ scan done today. Spouse also requests 1 mg/kg of Lovenox. Patient also has a respiratory panel pending. Patient informed of all results and extended stay in the emergency department. His nausea has improved. Throughout the course of his stay his oxygen had to be turned up to 4 L because he was dropping his O2 sats to about 90-91 while resting. Patient's Covid PCR came back positive. Patient will be transported to the [facility] cohort. Impression: 1. COVID-19 pneumonitis 2. Dyspnea 3. Elevated D-dimer ED Disposition - Plan for ED Patient: Disposition: Acute Care Hospital [facility] Referrals: Ortiz Pelaez DO [Primary Care Provider] -
--- NOTE | 2020-08-22 02:24 | RAD_ITS ---
STUDY: X-RAY CHEST REASON FOR EXAM: Male, 75 years old. cough TECHNIQUE: Single AP portable view of the chest. COMPARISON: 10/11/2012 FINDINGS: There is hyperinflation of the lungs consistent with chronic obstructive lung disease (COPD). Patchy airspace disease in the lung bases, COVID cannot be excluded. There is moderate cardiac enlargement. Stable median sternotomy wires. Normal mediastinum and cas. Normal visualized pulmonary arteries. Normal visualized aortic arch and descending thoracic aorta. There are diffuse degenerative changes of the visualized thoracic spine. Normal visualized ribs, clavicles, and shoulders. There is no demonstrated abnormality of the visualized soft tissue structures of the upper abdomen. RAD/Chest 1 View (Portable) IMPRESSION: COPD with patchy bibasilar airspace disease Electronically Signed: Noah Slade DO at 3:10 EST Tel , Service support ,
--- NOTE | 2020-08-22 02:25 | EKG12_ITS ---
Test Reason : FEVER Blood Pressure : / mmHG Vent. Rate : 094 BPM Atrial Rate : 094 BPM P-R Int : 160 ms QRS Dur : 088 ms QT Int : 356 ms P-R-T Axes : 011 098 072 degrees QTc Int : 445 ms Normal sinus rhythm Rightward axis Nonspecific ST abnormality Abnormal ECG Confirmed by EUGENIA CROWE, CHECO ([id number]), video tape editor ABDI NELSON ([id number]) on 08/27/2020 2:16:02 PM Referred By: EVIE Confirmed By:CHECO BELLO MD
[2020-08-22] MEDS: Ondansetron 4 MG/2 ML Vial IV (02:48)
[2020-08-22 02:53] LABS: Absolute Lymphocyte Count 0.37 X10^3/uL (0.83-4.51); Absolute Neutrophil Count 4.1 X10^3/uL (2.0-7.7); Basophil# 0.01 X10^3/uL; Basophil% 0.2 % (0-1); Hemoglobin 16.1 g/dL (13.0-16.5); Lymphocyte # 0.37 X10^3/ul (4.0); Lymphocyte % 7.5 % (19-41); Mean Corp Hgb Conc 33.5 g/dL (32-36); Mean Corpuscular Hgb 31.5 pg (27.0-32.0); Mean Corpuscular Volume 93.9 fL (80-94); Mean Platelet Vol. 11.3 fl (6.2-12.0); Monocyte% 10.1 % (0-10); NRBC Flagged by Analyzer 0 % (0-5); Neutrophil # 4.06 X10^3/uL (2.7-7.7); Neutrophil % 81.8 % (47-70); POSITIVE DIFFERENTIAL YES; Platelet Count 101 K/mm3 (150-450); RBC Distribution Width CV 16.5 % (11.6-14.6); RBC Distribution Width SD 57.5 fl (35.1-43.9); Red Blood Count 5.11 M/mm3 (4.6-6.2)
[2020-08-22 02:55] LABS: Differential Indicated SCAN CRITERIA MET
[2020-08-22 03:11] LABS: ALB/GLOB Ratio 0.8 RATIO (0.9-2.4); AST(SGOT) 31 U/L (15-37); Alanine Aminotransfer ALT/SGPT 34 U/L (16-61); Albumin, Serum 3.3 g/dL (3.2-5.0); Alkaline Phosphatase 80 U/L (45-117); Anion Gap 9 (5-15); BUN 32 mg/dL (7-18); BUN/Creat Ratio 15.4 RATIO (10-20); Calcium,Total 8.8 mg/dL (8.5-10.1); Chloride 97 mmol/L (98-107); Creatinine, Serum 2.08 mg/dL (0.70-1.30); EST Glomerular Filtration Rate 33 mL/min (>60); Est Glom Filt Rate - Afr Amer 40 mL/min (>60); Globulin 4.2 g/dL (2.2-4.2); Glucose 199 mg/dL (74-106); Protein, Total 7.5 g/dL (6.4-8.2); Sodium Level 133 mmol/L (136-145)
[2020-08-22 03:15] LABS: Procalcitonin 0.17 ng/mL (0.00-0.09)
[2020-08-22 03:17] LABS: D-Dimer Quantitative (DVT/PE) 1.14 FEU/ug/m (0.27-0.49); Lactic Acid 1.3 mmol/L (0.4-1.9)
[2020-08-22 03:20] LABS: Differential Comment SCANNED
[2020-08-22 03:21] LABS: Platelet Estimate SLT DEC (ADEQ)
[2020-08-22] MEDS: Enoxaparin 120 MG/0.8 ML Syringe 110 MG SC (04:00)
--- NOTE | 2020-08-22 04:38 | PCM.HP.STD ---
Problem List (1) Acute viral syndrome Status: Acute (2) Obesity Status: Chronic Qualifiers: Obesity type: due to excess calories Obesity classification: adult class 2 (BMI 35 - 39.9) Serious obesity comorbidity presence: with serious comorbidity Body mass index: BMI 38.0-38.9 Qualified Code(s): E66.01 - Morbid (severe) obesity due to excess calories; Z68.38 - Body mass index [BMI] 38.0-38.9, adult (3) Mixed hyperlipidemia Status: Chronic (4) Benign essential hypertension Status: Chronic (5) Stage 3 chronic kidney disease due to type 2 diabetes mellitus Status: Chronic (6) Diabetes Status: Chronic Qualifiers: Diabetes mellitus type: type 2 Diabetes mellitus halfway insulin use: with halfway use Diabetes mellitus complication status: with hyperglycemia Qualified Code(s): E11.65 - Type 2 diabetes mellitus with hyperglycemia; Z79.4 - prison (current) use of insulin (7) History of right-sided carotid endarterectomy Status: Chronic Comment: bovine patch angioplasty 05/02/19 (8) Primary pulmonary hypertension Status: Chronic (9) AUTUMN on CPAP Status: Chronic (10) COPD (chronic obstructive pulmonary disease) Status: Chronic (11) Symptomatic stenosis of right carotid artery Status: Chronic (12) History of left-sided carotid endarterectomy Status: Chronic Comment: with Bovine patch angioplasty 11/26/2015 (13) Carotid stenosis, bilateral Status: Chronic (14) History of angioplasty of peripheral vessel Status: Chronic (15) History of left-sided carotid endarterectomy Status: Chronic (16) Peripheral vascular disease Status: Chronic (17) Pure hypercholesterolemia Status: Chronic (18) Essential hypertension Status: Chronic (19) Nicotine abuse Status: Chronic (20) Ischemic cardiomyopathy Status: Resolved (21) Other secondary pulmonary hypertension Status: Chronic (22) Non-rheumatic aortic regurgitation Status: Chronic (23) Encounter for long-term current use of high risk medication Status: Chronic (24) Presence of aortocoronary bypass graft Status: Chronic Comment: CABG x 3- ESPINO graft to LAD, SVG to diagonal branch of anterior descending as well as lateral CFX 11/10/07 (25) Atherosclerotic heart disease of [place] coronary artery without angina pectoris Status: Chronic Qualifiers: [place] vs. transplanted heart: [place] heart Qualified Code(s): I25.10 - Atherosclerotic heart disease of [place] coronary artery without angina pectoris (26) Patent foramen ovale Status: Chronic (27) Respiratory insufficiency Status: Acute History of Present Illness Date of Admission: 08/22/20 Chief Complaint: Malaise The patient is a 75 year old M with a significant history of HTN; diabetes mellitus; COPD; obstructive sleep apnea on CPAP; nonrheumatic aortic regurgitation; patent sousa ovale; peripheral vascular disease; and primary pulmonary hypertension who presents emergency department with 3-day history of progressively worsening malaise. Associated with his symptoms is lightheadedness; upset stomach; nausea with dry heaving; anorexia and lethargy. Further he reports a home temperature of 102 Fahrenheit and chills. He reports shortness of breath that he thinks has no change from his baseline. Reportedly his oxygen saturation was 84% on his baseline home nasal cannula oxygen. At home he uses 3 L nasal cannula oxygen at rest and 4 L nasal cannula with activity. He reports that his oxygen requirement has no change. Reportedly when paramedics came to his abode his oxygen saturation was in the 70s and he was not on his home oxygen. Of note his is coughing. He reported he came into contact with somebody 3 weeks ago and penicillin now has Covid. Past Medical History Past Medical History (Chronic Problems): Chronic Problems (Last Reviewed 08/22/20 @ 05:[address] 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) Diabetes (Chronic) History of right-sided carotid endarterectomy (Chronic ~05/02/19) bovine patch angioplasty 05/02/19 Primary pulmonary hypertension (Chronic) AUTUMN on CPAP (Chronic) COPD (chronic obstructive pulmonary disease) (Chronic) Symptomatic stenosis of right carotid artery (Chronic) History of left-sided carotid endarterectomy (Chronic) with Bovine patch angioplasty 11/26/2015 Carotid stenosis, bilateral (Chronic) History of angioplasty of peripheral vessel (Chronic ~2015) History of left-sided carotid endarterectomy (Chronic ~11/26/15) Peripheral vascular disease (Chronic) Pure hypercholesterolemia (Chronic) Essential hypertension (Chronic) Nicotine abuse (Chronic) Other secondary pulmonary hypertension (Chronic) Non-rheumatic aortic regurgitation (Chronic) Encounter for long-term current use of high risk medication (Chronic) Presence of aortocoronary bypass graft (Chronic ~11/10/07) CABG x 3- ESPINO graft to LAD, SVG to diagonal branch of anterior descending as well as lateral CFX 11/10/07 Atherosclerotic heart disease of [place] coronary artery without angina pectoris (Chronic) Patent foramen ovale (Chronic) Medical History: Medical History (Last Reviewed 08/22/20 @ 05:[address] Michael Orantes MD) Primary pulmonary hypertension (Chronic) I27.0 AUTUMN on CPAP (Chronic) G47.33, Z99.89 COPD (chronic obstructive pulmonary disease) (Chronic) J44.9 Carotid stenosis, bilateral (Chronic) I65.23 Peripheral vascular disease (Chronic) I73.9 Pure hypercholesterolemia (Chronic) E78.00 Essential hypertension (Chronic) I10 Nicotine abuse (Chronic) Z72.0 Ischemic cardiomyopathy (Resolved) I25.5 Other secondary pulmonary hypertension (Chronic) I27.29 Non-rheumatic aortic regurgitation (Chronic) I35.1 Encounter for long-term current use of high risk medication (Chronic) Z79.899 Atherosclerotic heart disease of [place] coronary artery without angina pectoris (Chronic) I25.10 Patent foramen ovale (Chronic) Q21.1 Agent orange exposure Z77.098 Carotid artery stenosis, asymptomatic I65.29 History of stroke Z86.73 Arteriosclerotic vascular disease (Inactive) I70.90 Atherosclerosis of coronary artery bypass graft without angina pectoris (Inactive) I25.810 S/P ESPINO to LAD, SVG to diagonal of the anterior descending and LCx in 2007; Hyperlipidemia (Inactive) E78.5 Allergies No Known Allergies Allergy (Verified 08/15/20 13:50) Home Medications: Ambulatory Orders Medication Instructions Recorded budesonide-formoterol HFA 80 2 puff INHALATION BID 08/25/18 mcg-4.5 mcg/actuation aerosol inhaler liraglutide 0.6 mg/0.1 mL (18 mg/3 1.8 mg SC DAILY 08/25/18 mL) subcutaneous pen injector albuterol sulfate 90 mcg/actuation 1 inh INHALATION Q4H PRN 09/20/18 breath activated powder inhaler cholecalciferol (vitamin D3) 25 1,000 unit PO DAILY 12/22/18 mcg (1,000 unit) tablet nitroglycerin 0.4 mg sublingual 0.4 mg SUBLINGUAL Q5M PRN #25 tab 12/22/18 tablet rosuvastatin 40 mg tablet 40 mg PO QHS 12/22/18 clopidogrel 75 mg tablet 75 mg PO 1400 04/01/19 metoprolol tartrate 100 mg tablet 100 mg PO BID #60 tab 11/18/19 amlodipine 5 mg tablet 5 mg PO DAILY tab 12/07/19 ascorbic acid (vitamin C) 500 mg 500 mg PO DAILY 12/07/19 tablet fluoxetine 20 mg capsule 20 mg PO DAILY 12/07/19 tiotropium bromide 2.5 2 puff INHALATION DAILY 12/07/19 mcg/actuation mist for inhalation aspirin 81 mg tablet,delayed 81 mg PO DAILY tab 08/15/20 release insulin aspart U-100 100 unit/mL 20 unit SC QACDINNER ml 08/15/20 (3 mL) subcutaneous pen insulin glargine 100 unit/mL (3 50 unit SC DAILY ml 08/15/20 mL) subcutaneous pen ropinirole 0.5 mg tablet 0.5 mg PO QHS 08/15/20 Surgical History: Surgical History (Last Reviewed 08/22/20 @ 05:[address] Michael Orantes MD) History of right-sided carotid endarterectomy (Chronic) Onset Date: ~05/02/19 Z98.890 bovine patch angioplasty 05/02/19 History of left-sided carotid endarterectomy (Chronic) Z98.890 with Bovine patch angioplasty 11/26/2015 History of angioplasty of peripheral vessel (Chronic) Onset Date: ~2015 Z98.62 History of left-sided carotid endarterectomy (Chronic) Onset Date: ~11/26/15 Z98.890 Presence of aortocoronary bypass graft (Chronic) Onset Date: ~11/10/07 Z95.1 CABG x 3- ESPINO graft to LAD, SVG to diagonal branch of anterior descending as well as lateral CFX 11/10/07 History of right-sided carotid endarterectomy Onset Date: ~05/02/19 Z98.890 History of eye surgery Z98.890 04/20/19 History of hemorrhoidectomy Z98.890 Surgical History: - Lives: Spouse/ Significant Other Smoking Status: Former smoker Alcohol: None Drugs: None - *Family History Maternal Family History: Family History (Last Reviewed 08/22/20 @ 05:[address] Michael Orantes MD) Father CAD (coronary artery disease) Myocardial infarction Kidney disease Mother CAD (coronary artery disease) Myocardial infarction Colon cancer Sister CAD (coronary artery disease) Diabetes Other Heart disease Review of Systems Constitutional: Reports: Chills, Fever, Malaise, Weakness, Fatigue. Denies: Weight Change HEENT: Denies: Head Aches, Sinus Congestion, Sinus Drainage Cardiovascular: Denies: Chest Pain, Palpitations Respiratory: Reports: Shortness of Breath - States that this is chronic. Denies: Cough, Sputum production Gastrointestinal: Reports: Nausea. Denies: Abdominal Pain, Vomiting Genitourinary: Denies: Dysuria Musculoskeletal: Denies: Joint Pain, Joint Tenderness Skin: Denies: Rash, Wounds Neurological: Denies: Numbness, Tingling, Focal weakness Psychiatric: Denies: Anxiety, Depression, Homicidal Ideations, Suicidal Ideations Hematologic/ Lymphatic: Denies: Easy Bruising, Easy Bleeding VTE Information - Inpt Only VTE Present on Admission: No VTE Mechan Device Prophylaxis: None VTE Pharm Prophylaxis ordered?: No Reason prophylaxis not ordered:: Treatment Not Indicated - Started on therapeutic dose of Lovenox for elevated D-dimer. Patient Problems: Active and Suspected Problems (Last Reviewed 08/22/20 @ 05:[address] Michael Orantes MD) Acute viral syndrome (Acute) Respiratory insufficiency (Acute) - Physical Exam Vitals/I&O's: Vital Signs Temp Pulse Resp BP Pulse Ox 100.5 F H 87 19 H 149/61 H 89 08/22/20 04:03 08/22/20 04:03 08/22/20 04:03 08/22/20 04:03 08/22/20 04:03 Oxygen Flow Rate (L/min) 4 Oxygen Delivery Method Nasal Cannula Weight: 110.3 kg Body Mass Index (BMI) 36.9 Finger Stick Blood Glucose 187 General: Alert, Oriented x3, Cooperative HEENT: Atraumatic, PERRLA, EOMI, Normocephalic Neck: Supple, No JVD, Negative Carotid Bruits Lungs: Rales Cardiovascular: Regular rate, Normal S1, Normal S2, Murmur - States that this is chronic Abdomen: Bowel Sounds Present, Soft, Non Tender Extremities: No edema, Capillary Refill Less than 3 Seconds Skin: No rashes, No breakdown Musculoskeletal: No Tenderness to Palpation of Joints or Extremities Neurological: Cranial nerves II-XII grossly intact Psych/Mental Status: Normal Affect, Appropriate Microbiology Past 72 Hours 08/22/20 02:40 Mucosa - Nose SARS-CoV-2 Antigen (Rapid) - Final Laboratory Results 08/22/20 02:40: WBC 5.0, RBC 5.11, Hgb 16.1, Hct 48.0, MCV 93.9, MCH 31.5, MCHC 33.5, RDW Std Deviation 57.5 H, RDW Coeff of [place] 16.5 H, Plt Count 101 L, MPV 11.3, Immature Gran % (Auto) 0.400, Neut % (Auto) 81.8 H, Lymph % (Auto) 7.5 L, [place] % (Auto) 10.1 H, Eos % (Auto) 0.0, Baso % (Auto) 0.2, Absolute Neuts (auto) 4.1, Absolute Lymphs (auto) 0.37 L, Nucleated RBC % 0, Differential Comment SCANNED, Platelet Estimate SLT 08/22/20 02:40: D-Dimer Quant (PE/DVT) 1.14 H* 08/22/20 02:40: Sodium 133 L, Potassium 4.0, Chloride 97 L, Carbon Dioxide 27.0, Anion Gap 9, BUN 32 H, Creatinine 2.08 H, Estim Creat Clear Calc 30.60, Est GFR (MDRD) Af Amer 40 L, Est GFR (MDRD) Non-Af 33 L, BUN/Creatinine Ratio 15.4, Glucose 199 H, Calcium 8.8, Total Bilirubin 0.50, AST 31, ALT 34, Alkaline Phosphatase 80, Troponin I 0.021, Total Protein 7.5, Albumin 3.3, Globulin 4.2, Albumin/Globulin Ratio 0.8 L 08/22/20 02:40: Lactic Acid 1.3 08/22/20 02:40: Procalcitonin 0.17 H 08/22/20 03:30: COVID-19 (MATT) Pending Assessment/Plan All Active Problems (Last Reviewed 08/22/20 @ 05:[address] Michael Orantes MD) Acute viral syndrome (Acute) Respiratory insufficiency (Acute) Ischemic cardiomyopathy (Resolved) The patient is a 75 year old M with a significant history of HTN; diabetes mellitus; COPD; obstructive sleep apnea on CPAP; nonrheumatic aortic regurgitation; patent sousa ovale; peripheral vascular disease; and primary pulmonary hypertension who presents to the emergency department with 3-day history of progressively worsening malaise; lightheadedness; upset stomach; nausea with dry heaving; anorexia; lethargy fever and chills. Acute viral syndrome/Acute hypoxemic respiratory insufficiency Rapid Covid screen at the emergency department was negative. PCR Covid is pending. If PCR Covid is negative consider rapid influenza screen. Radiologist impression of chest x-ray: COPD with patchy bibasilar airspace disease. Chest x-ray was independently reviewed. I agree radiologist interpretation. Symptomatic treatment with as needed Tylenol and as needed antiemetics. Elevated D-dimer Because of poor kidney function CTPA was not ordered. Received therapeutic dose of Lovenox at emergency department. Therapeutic dose of Lovenox continue GERD VQ scan. Elevated creatinine Creatinine on presentation was 2.08. Review of old records shows that his creatinine on 03/26/2020 was 1.84. His creatinine in 2019 was 1.57-1.70. No other recent creatinine to compare with although community records were reviewed. Inconclusive indeterminate whether this is WILLIAM or CKD. Normal saline at 75 mL's per hour for 1 L ordered. Trend BMP. CKD stage III Diabetes mellitus and hypertensive nephrosclerosis contributing Trend BMP. Diabetes mellitus Patient with hyperglycemia on presentation Basal insulin adjusted. Prandial insulin adjusted. Liraglutide subcutaneously held. Accu-Chek QA CHS with correction scale insulin ordered. Hypertension Blood pressure is stable in regard to his age Amlodipine and metoprolol continued. Trend blood pressure and adjust blood pressure medications. Morbid Obesity: BMI: 37.0 kg/m?. Complicates care. Lifestyle modification recommended. COPD Stable as patient has no wheezes and no productive cough. Continue oxygen per nasal cannula. Adjust as necessary. Continue CPAP at night. Home breathing treatment continued Depression/anxiety Fluoxetine continued CAD status post CABG/peripheral artery disease Aspirin and Plavix continued. Metoprolol continued. DVT prophylaxis Therapeutic dose of Lovenox ordered for elevated D-dimer. Inpatient E&M: [id number] Init Hosp L3
[2020-08-22] MEDS: 0.9% Normal Saline 1,000 ML 75 ML IV (06:20)
[2020-08-22] MEDS: dexAMETHasone 4 MG Tablet 6 MG PO (06:40)
[2020-08-22] MEDS: Insulin Lispro 100 UNIT/ML INSULN.PEN SC ×7 (07:53→21:48)
[2020-08-22] MEDS: Metoprolol Tartrate 100 MG Tablet PO ×2 (07:54→21:47)
[2020-08-22] MEDS: Aspirin E.C. 81 MG Tablet PO (07:54)
[2020-08-22] MEDS: Ascorbic Acid 500 MG Tablet PO (07:54)
[2020-08-22] MEDS: FLUoxetine 20 MG Capsule PO (07:54)
[2020-08-22] MEDS: amLODIPine 5 MG Tablet PO (07:55)
[2020-08-22] MEDS: 0.9% Saline Lock 10 ML Syringe IV (08:02)
[2020-08-22 08:15] LABS: Bedside Glucose 215 mg/dL (70-110)
--- NOTE | 2020-08-22 09:00 | PCM.CONS.PUL ---
Problem List (1) Obesity Status: Chronic Qualifiers: Obesity type: due to excess calories Obesity classification: adult class 2 (BMI 35 - 39.9) Serious obesity comorbidity presence: with serious comorbidity Body mass index: BMI 38.0-38.9 Qualified Code(s): E66.01 - Morbid (severe) obesity due to excess calories; Z68.38 - Body mass index [BMI] 38.0-38.9, adult (2) Mixed hyperlipidemia Status: Chronic (3) Benign essential hypertension Status: Chronic (4) Stage 3 chronic kidney disease due to type 2 diabetes mellitus Status: Chronic (5) Diabetes Status: Chronic Qualifiers: Diabetes mellitus type: type 2 Diabetes mellitus fci insulin use: with manager long term care use Diabetes mellitus complication status: with hyperglycemia Qualified Code(s): E11.65 - Type 2 diabetes mellitus with hyperglycemia; Z79.4 - terminal operator (current) use of insulin (6) AUTUMN on CPAP Status: Chronic (7) COPD (chronic obstructive pulmonary disease) Status: Chronic (8) Carotid stenosis, bilateral Status: Chronic (9) History of angioplasty of peripheral vessel Status: Chronic (10) History of left-sided carotid endarterectomy Status: Chronic (11) Peripheral vascular disease Status: Chronic (12) Pure hypercholesterolemia Status: Chronic (13) Essential hypertension Status: Chronic (14) Ischemic cardiomyopathy Status: Resolved (15) Other secondary pulmonary hypertension Status: Chronic (16) Presence of aortocoronary bypass graft Status: Chronic Comment: CABG x 3- ESPINO graft to LAD, SVG to diagonal branch of anterior descending as well as lateral CFX 11/10/07 (17) Atherosclerotic heart disease of andreafski coronary artery without angina pectoris Status: Chronic Qualifiers: [place] vs. transplanted heart: andreafski heart Qualified Code(s): I25.10 - Atherosclerotic heart disease of andreafski coronary artery without angina pectoris Reason for Consult Date of Consultation: 08/22/20 Reason for Consultation: COVID-19 History of Present Illness: The patient is a 75 year old M, with past medical history listed below, who presented to [facility] on 08/22/2020 secondary to dizziness, fever, body aches and shortness of breath over the last 3 to 4 days. Patient reportedly has a history of advanced COPD and coronary artery disease and was found to be 84% on baseline home oxygen while resting. Patient is not a current smoker, but reportedly does have bad COPD and follows with Dr. Martinez at baseline. Patient states he does have a positive COVID-19 exposure 3 weeks ago. Patient's is also showing cold symptoms. In the ER, patient had a chest x-ray showing patchy bibasilar disease. Patient was slightly hypertensive at 140/57 and tachypneic at 22 breaths/min. Laboratory work-up showed a hemoglobin of 16.1, D-dimer of 114 and a creatinine of 2.08. LFTs were within normal limits, along with lactic acid. Procalcitonin was slightly elevated. A VQ scan had been ordered, but reportedly cannot be completed secondary to aerosolization. Patient states he feels slightly improved compared to previous. Patient states that he is typically compliant with his oxygen therapy. Patient does report wearing CPAP overnight with a 3 L bleed, but is unaware of his settings. Patient does not believe he will be able to have his NIV brought to the hospital for evaluation. Patient is unable to provide much information about his COPD, but is on triple therapy at baseline and tolerates this well. Patient states he has been compliant with therapy. Patient is not reporting recurrent hospitalizations associated with breathing problems. Patient does follow with Dr. Suarez for a heart murmur and a history of CABG. Patient does report he has had some decreased p.o. intake recently secondary to nausea, but denies any diarrhea, melena, hematochezia or hematemesis. Extensive conversation with the patient about goals of therapy. Patient states that given his advanced COPD and heart condition that he would like to abstain from any CPR or intubation. Patient has not discussed this with his , but views efforts would be futile if I got that sick. Total discussion time of 12 minutes on CODE STATUS. Review of systems otherwise negative from a constitutional, HEENT, respiratory, cardiovascular, GI, genitourinary, musculoskeletal, skin, neurologic, psychiatric and hematologic system unless stated above. Past Medical History Past Medical History (Chronic Problems): Chronic Problems (Last Reviewed 08/22/20 @ 05:[address] 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) Diabetes (Chronic) History of right-sided carotid endarterectomy (Chronic ~05/02/19) bovine patch angioplasty 05/02/19 Primary pulmonary hypertension (Chronic) AUTUMN on CPAP (Chronic) COPD (chronic obstructive pulmonary disease) (Chronic) Symptomatic stenosis of right carotid artery (Chronic) History of left-sided carotid endarterectomy (Chronic) with Bovine patch angioplasty 11/26/2015 Carotid stenosis, bilateral (Chronic) History of angioplasty of peripheral vessel (Chronic ~2016) History of left-sided carotid endarterectomy (Chronic ~11/26/15) Peripheral vascular disease (Chronic) Pure hypercholesterolemia (Chronic) Essential hypertension (Chronic) Nicotine abuse (Chronic) Other secondary pulmonary hypertension (Chronic) Non-rheumatic aortic regurgitation (Chronic) Encounter for long-term current use of high risk medication (Chronic) Presence of aortocoronary bypass graft (Chronic ~11/10/07) CABG x 3- ESPINO graft to LAD, SVG to diagonal branch of anterior descending as well as lateral CFX 11/10/07 Atherosclerotic heart disease of andreafski coronary artery without angina pectoris (Chronic) Patent foramen ovale (Chronic) Medical History: Medical History (Last Reviewed 08/22/20 @ 05:[address] Michael Orantes MD) Primary pulmonary hypertension (Chronic) I27.0 AUTUMN on CPAP (Chronic) G47.33, Z99.89 COPD (chronic obstructive pulmonary disease) (Chronic) J44.9 Carotid stenosis, bilateral (Chronic) I65.23 Peripheral vascular disease (Chronic) I73.9 Pure hypercholesterolemia (Chronic) E78.00 Essential hypertension (Chronic) I10 Nicotine abuse (Chronic) Z72.0 Ischemic cardiomyopathy (Resolved) I25.5 Other secondary pulmonary hypertension (Chronic) I27.29 Non-rheumatic aortic regurgitation (Chronic) I35.1 Encounter for long-term current use of high risk medication (Chronic) Z79.899 Atherosclerotic heart disease of andreafski coronary artery without angina pectoris (Chronic) I25.10 Patent foramen ovale (Chronic) Q21.1 Agent orange exposure Z77.098 Carotid artery stenosis, asymptomatic I65.29 History of stroke Z86.73 Arteriosclerotic vascular disease (Inactive) I70.90 Atherosclerosis of coronary artery bypass graft without angina pectoris (Inactive) I25.810 S/P ESPINO to LAD, SVG to diagonal of the anterior descending and LCx in 2007; Hyperlipidemia (Inactive) E78.5 Allergies No Known Allergies Allergy (Verified 08/15/20 13:50) Home Medications: Ambulatory Orders Medication Instructions Recorded budesonide-formoterol HFA 80 2 puff INHALATION BID 08/25/18 mcg-4.5 mcg/actuation aerosol inhaler liraglutide 0.6 mg/0.1 mL (18 mg/3 1.8 mg SC DAILY 08/25/18 mL) subcutaneous pen injector albuterol sulfate 90 mcg/actuation 1 inh INHALATION Q4H PRN 09/20/18 breath activated powder inhaler cholecalciferol (vitamin D3) 25 1,000 unit PO DAILY 12/22/18 mcg (1,000 unit) tablet nitroglycerin 0.4 mg sublingual 0.4 mg SUBLINGUAL Q5M PRN #25 tab 12/22/18 tablet rosuvastatin 40 mg tablet 40 mg PO QHS 12/22/18 clopidogrel 75 mg tablet 75 mg PO 1400 04/01/19 metoprolol tartrate 100 mg tablet 100 mg PO BID #60 tab 11/18/19 amlodipine 5 mg tablet 5 mg PO DAILY tab 12/07/19 ascorbic acid (vitamin C) 500 mg 500 mg PO DAILY 12/07/19 tablet fluoxetine 20 mg capsule 20 mg PO DAILY 12/07/19 tiotropium bromide 2.5 2 puff INHALATION DAILY 12/07/19 mcg/actuation mist for inhalation aspirin 81 mg tablet,delayed 81 mg PO DAILY tab 08/15/20 release insulin aspart U-100 100 unit/mL 20 unit SC QACDINNER ml 08/15/20 (3 mL) subcutaneous pen insulin glargine 100 unit/mL (3 50 unit SC DAILY ml 08/15/20 mL) subcutaneous pen ropinirole 0.5 mg tablet 0.5 mg PO QHS 08/15/20 Surgical History: Surgical History (Last Reviewed 08/22/20 @ 05:[address] Michael Orantes MD) History of right-sided carotid endarterectomy (Chronic) Onset Date: ~05/02/19 Z98.890 bovine patch angioplasty 05/02/19 History of left-sided carotid endarterectomy (Chronic) Z98.890 with Bovine patch angioplasty 11/26/2015 History of angioplasty of peripheral vessel (Chronic) Onset Date: ~2015 Z98.62 History of left-sided carotid endarterectomy (Chronic) Onset Date: ~11/26/15 Z98.890 Presence of aortocoronary bypass graft (Chronic) Onset Date: ~11/10/07 Z95.1 CABG x 3- ESPINO graft to LAD, SVG to diagonal branch of anterior descending as well as lateral CFX 11/10/07 History of right-sided carotid endarterectomy Onset Date: ~05/02/19 Z98.890 History of eye surgery Z98.890 04/20/19 History of hemorrhoidectomy Z98.890 Surgical History: - Lives: Spouse/ Significant Other Smoking Status: Former smoker Alcohol: None Drugs: None - *Family History Maternal Family History: Family History (Last Reviewed 08/22/20 @ 05:[address] Michael Orantes MD) Father CAD (coronary artery disease) Myocardial infarction Kidney disease Mother CAD (coronary artery disease) Myocardial infarction Colon cancer Sister CAD (coronary artery disease) Diabetes Other Heart disease Review of Systems Comment: See HPI Patient Problems: Active and Suspected Problems (Last Reviewed 08/22/20 @ 05:[address] Michael Orantes MD) Acute viral syndrome (Acute) Respiratory insufficiency (Acute) Objective: All imaging was personally reviewed. Patient does have cardiomegaly with bilateral infiltrates. No pulmonary function tests are available for review. Patient's last echocardiogram in 2019 showed an EF of 60% with a hypokinetic inferior basal subsegment. Patient had a negative bubble study, but unable to quantify right ventricular pressures. - Physical Exam Vitals/I&O's: Vital Signs Temp Pulse Resp BP Pulse Ox 36.6 C 81 16 120/60 90 08/22/20 08:00 08/22/20 08:00 08/22/20 08:00 08/22/20 08:00 08/22/20 08:03 Oxygen Flow Rate (L/min) 4 Oxygen Delivery Method Nasal Cannula Weight: 105.3 kg Body Mass Index (BMI) 35.3 Finger Stick Blood Glucose 187 General: Alert, Oriented x3, Cooperative, - - Mild conversational dyspnea. Obese. HEENT: Atraumatic, PERRLA, EOMI, Normocephalic, - - Slight scleral injection without icterus Oral: No Gingival or Mucosal Lesions/ Ulcerations, Dry Mucosa, - - Crowded posterior pharynx Neck: Supple, No JVD, No Nodes, Trachea Midline Lungs: No rhonchi, No wheeze, No rales, Diminished, - - Symmetric expansion. No dullness to percussion. Cardiovascular: Regular rate, Regular Rhythm, Normal S1, Normal S2, Murmur - Grade 3 out of 6 systolic ejection murmur at the right sternal border, No rub noted, No Gallop Abdomen: Bowel Sounds Present, Soft, Non Tender, Non-Distended, Obese Extremities: No cyanosis, Clubbing, Edema - 1+ left lower extremity Skin: No rashes, No breakdown Musculoskeletal: No Tenderness to Palpation of Joints or Extremities Lymphatic: No Cervical, Supraclavicular, or Inguinal Adenopathy Neurological: Cranial nerves II-XII grossly intact, Neuro grossly intact, Motor Exam 5/5 strength throughout Psych/Mental Status: Alert and oriented to time, place, person, mood and affect Microbiology Past 72 Hours 08/22/20 03:30 Mucosa - Nasopharyngeal Respiratory Panel (PCR) - Final 08/22/20 02:40 Mucosa - Nose SARS-CoV-2 Antigen (Rapid) - Final Laboratory Results 08/22/20 02:40: WBC 5.0, RBC 5.11, Hgb 16.1, Hct 48.0, MCV 93.9, MCH 31.5, MCHC 33.5, RDW Std Deviation 57.5 H, RDW Coeff of [place] 16.5 H, Plt Count 101 L, MPV 11.3, Immature Gran % (Auto) 0.400, Neut % (Auto) 81.8 H, Lymph % (Auto) 7.5 L, [place] % (Auto) 10.1 H, Eos % (Auto) 0.0, Baso % (Auto) 0.2, Absolute Neuts (auto) 4.1, Absolute Lymphs (auto) 0.37 L, Nucleated RBC % 0, Differential Comment SCANNED, Platelet Estimate SLT 08/22/20 02:40: D-Dimer Quant (PE/DVT) 1.14 H* 08/22/20 02:40: Sodium 133 L, Potassium 4.0, Chloride 97 L, Carbon Dioxide 27.0, Anion Gap 9, BUN 32 H, Creatinine 2.08 H, Estim Creat Clear Calc 30.60, Est GFR (MDRD) Af Amer 40 L, Est GFR (MDRD) Non-Af 33 L, BUN/Creatinine Ratio 15.4, Glucose 199 H, Calcium 8.8, Total Bilirubin 0.50, AST 31, ALT 34, Alkaline Phosphatase 80, Troponin I 0.021, Total Protein 7.5, Albumin 3.3, Globulin 4.2, Albumin/Globulin Ratio 0.8 L 08/22/20 02:40: Lactic Acid 1.3 08/22/20 02:40: Procalcitonin 0.17 H 08/22/20 03:30: COVID-19 (MATT) Detected 08/22/20 07:52: POC Glucose 215 H Current Medications Acetaminophen (Acetaminophen 325 Mg Tablet) 650 mg PO Q6H PRN PRN PRN Reason: Pain Score 1-10/Temp > 100.7 F Albuterol Sulfate (Albuterol Ih 8.5 Gm (Proair) Inhaler (200 Puffs)) 2 puff INHALATION Q6HWA.RT CAS Albuterol Sulfate (Albuterol Ih 8.5 Gm (Proair) Inhaler (200 Puffs)) 2 puff INHALATION Q4H PRN PRN PRN Reason: sob/wheezing Amlodipine Besylate (Amlodipine 5 Mg Tablet) 5 mg PO DAILY [facility] Last Admin: 08/22/20 07:55 Dose: 5 mg Documented by: Ascorbic Acid (Ascorbic Acid 500 Mg Tablet) 500 mg PO DAILY [facility] Last Admin: 08/22/20 07:54 Dose: 500 mg Documented by: Aspirin (Aspirin E.C. 81 Mg Tablet) 81 mg PO DAILY [facility] Last Admin: 08/22/20 07:54 Dose: 81 mg Documented by: Atorvastatin Calcium (Atorvastatin Calcium 80 Mg Tablet) 80 mg PO QHS [facility] Cholecalciferol (Cholecalciferol (Vit D3) 1,000 Unit (25mcg)) 1,000 unit PO DAILY [facility] Last Admin: 08/22/20 07:55 Dose: 1,000 unit Documented by: Clopidogrel Bisulfate (Clopidogrel Bisulfate 75 Mg Tablet) 75 mg PO 1400 [facility] Dexamethasone (Dexamethasone 4 Mg Tablet) 6 mg PO DAILY [facility] Last Admin: 08/22/20 06:40 Dose: 6 mg Documented by: Dextrose (Dextrose 50%-Water 25 Gm/50 Ml Disp.Syrin) 0 gm IV X1 PRN; Protocol PRN Reason: Hypoglycemia Enoxaparin Sodium (Enoxaparin 120 Mg/0.8 Ml Syringe) 110 mg SC Q12 [facility] Fluoxetine HCl (Fluoxetine 20 Mg Capsule) 20 mg PO DAILY [facility] Last Admin: 08/22/20 07:54 Dose: 20 mg Documented by: Glucagon (Glucagon 1 Mg/Ml Syringe) 1 mg IM .X1 PRN PRN Reason: Hypoglycemia Sodium Chloride () 1,000 mls @ 75 mls/hr IV .[id number] [facility] Stop: 08/22/20 18:39 Last Admin: 08/22/20 06:20 Dose: 75 mls/hr Documented by: Sodium Chloride () 250 mls @ 15 mls/hr IV .[id number] PRN PRN Reason: Saline Flush Sodium Chloride () 250 mls @ 15 mls/hr IV .[id number] PRN PRN Reason: Additional IVPB Infusion Insulin Glargine (Insulin Glargine 100 Units/Ml Pen) 45 units SC DAILY [facility] Last Admin: 08/22/20 07:55 Dose: 45 u Documented by: Insulin Human Lispro (Insulin Lispro 100 Unit/Ml Insuln.Pen) 5 unit SC BREAKFAST [facility] Last Admin: 08/22/20 07:53 Dose: 5 u Documented by: Insulin Human Lispro (Insulin Lispro 100 Unit/Ml Insuln.Pen) 5 unit SC DINNER [facility] Insulin Human Lispro (Insulin Lispro 100 Unit/Ml Insuln.Pen) 5 unit SC LUNCH [facility] Insulin Human Lispro (Insulin Lispro 100 Unit/Ml Insuln.Pen) 0 unit SC ACHS [facility]; Protocol Last Admin: 08/22/20 07:54 Dose: 4 u Documented by: Ipratropium Point Clear (Ipratropium 0.5 Mg/2.5 Ml Solution) 0.5 mg INHALATION Q6HWA.RT [facility] Melatonin (Melatonin 3 Mg Tablet) 3 mg PO QHS PRN PRN PRN Reason: INSOMNIA Metoprolol Tartrate (Metoprolol Tartrate 100 Mg Tablet) 100 mg PO BID [facility] Last Admin: 08/22/20 07:54 Dose: 100 mg Documented by: Ondansetron HCl (Ondansetron 4 Mg/2 Ml Vial) 4 mg IV Q8H PRN PRN PRN Reason: NAUSEA/VOMITING Pramipexole Dihydrochloride (Pramipexole Di-Hcl 0.25 Mg Tablet) 0.25 mg PO QHS [facility] Senna/Docusate Sodium (Senna/Docusate Sodium 1 Tablet) 2 tablet PO BID PRN PRN PRN Reason: Constipation Sodium Chloride (0.9% Saline Lock 10 Ml Syringe) 10 - 40 ml IV UD PRN PRN Reason: SALINE FLUSH Last Admin: 08/22/20 08:02 Dose: 10 ml Documented by: Clinical Impression(s) from Imaging Studies Chest X-Ray 08/22/20 02:24 IMPRESSION: COPD with patchy bibasilar airspace disease Electronically Signed: Noah SladeDO at 3:10 EST Tel , Service support , Assessment/Plan All Active Problems (Last Reviewed 08/22/20 @ 05:[address] Michael Orantes MD) Acute viral syndrome (Acute) Respiratory insufficiency (Acute) Ischemic cardiomyopathy (Resolved) RECOMMENDATIONS: 1. Initiate remdesivir with appropriate monitoring 2. Change CODE STATUS to DNR Comfort Care arrest no intubation 3. Wean oxygen as tolerated 4. Initiate CPAP with sleep after records available from Dr. Martinez's office 5. Encourage incentive spirometer and out of bed as tolerated 6. Walking oximetry prior to discharge IMPRESSIONS: 1. Acute hypoxic respiratory insufficiency on chronic hypoxic respiratory failure secondary to COVID-19 Patient has been initiated on Decadron and supplemental oxygen. Unclear how much hypoxia on presentation is related to COVID-19 versus increased pulmonary artery pressures related to hypoxia. Given relatively new onset of symptoms, goals of therapy and comorbidities, patient will be given remdesivir despite renal function. We will need to watch liver function studies closely. Cannot exclude the need to stop therapy prior to completion of the full course. Will attempt to obtain new information from Dr. Martinez's office. Patient will need to be on noninvasive overnight to avoid complications. 2. CKD stage IV secondary to diabetes mellitus Patient with longstanding peripheral vascular disease, diabetes and hypertension. Latest creatinine appears to be close to 2.0. Patient may have an element of prerenal acute kidney injury, but no recent creatinines available for review. We will continue to monitor closely. Avoid contrast. Lovenox will need to be dosed renally. 3. Diabetes mellitus type 2 Patient has been initiated on Decadron therapy. Clinical suspicion for increased Lantus requirements secondary to steroid therapy. We will continue to monitor. Patient should have before every meal and at bedtime blood sugars monitored. 4. Coronary artery disease/depression/anxiety/peripheral vascular disease/hypertension/advanced age/obesity/AUTUMN Complicates care, management, recovery and prognosis. Okay to continue with baseline medications from my perspective. Will attempt to obtain records from Dr. Martinez's office and initiate noninvasive therapy as appropriate. CODE STATUS has been changed. Inpatient E&M: 40167 Init Hosp L3 Procedures: 39397 Advncd Care Plan 30 Min
[2020-08-22] MEDS: Ipratropium 0.5 MG/2.5 ML SOLUTION INHALATION ×3 (09:05→19:24)
--- NOTE | 2020-08-22 09:56 | NURSING ---
RN CM Assessment Patient in Covid isolation, called bedside with no phone connection. Called patient Zeina Hobson at listed home number. Zeina answered, introduced role of RN CM to patient.?Peg agreeable and able?to participate in RN CM Assessment. ?Care providers, pharmacy, and demographics verified. Admit Dx: Covid PNA Re-Admit: No Barriers/Issues: None. Patient/ have no children/grandchildren and all family live out of state. Has close friends with their children that are in healthcare and would be able to help them with care needs if they ever should need it, as they have in the past when Peg had surgery. Patient is a [place] and does seek service with the [facility] for medications- INH, Cardiac and Diabetic meds. 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 Dr Josemanuel Saleem is the pharmacist. Patient was tested for Covid here at [facility] 08/22/20-positive. Zeina denies s/s illness for herself but was tested today at 0830. States they sleep in separate rooms already and have a separate bathroom they can use for home isolation. PCP: Ortiz Pelaez Specialists: Cardio- Dr Suarez, Endo- Dr Fuentes, Pulm- Dr Martinez [facility]: [facility] A[facility]B, [facility], [facility] Rx Benefit:?Yes- [employer] and [facility] LNOK: Zeina Hobson LW/HPOA: States has both completed, aware not on file at [facility] and if brought in- copy will be scanned on file. Primary HPOA- Zeina Hobson. Living Arrangements:? Lives with in a [place] home with 1 step in home to family room. Bedrooms and bathrooms on ground level. 1 step to enter through the garage, 2 steps with rails to enter through the front. ADL?s: Ambulates with single point cane, Independent with ADLs. Transportation: Both patient and drive, to transport upon hospital DC. DME: Home oxygen 3LPM continuous and 4LPM with exertion at baseline- [place], CPAP with 3LPM oxygen Bleed. Portable oxygen concentrator- full tank. Inogen portable oxygen concentrator. Nebulizer-has not used. Single point cane. Glucometer, Shower stool, Shower with grab bars, BSC used as a TSR. HHC: Past- believes with WC. Per , thinks patient needs and can benefit from PT. Okay with HH for PT and would like [facility] as preference. SNF: None. If SNF recommended, per would think patient would be okay with going to TCU. Goal: Home with HH PT-[facility] preference. Would need to discuss with patient if SNF recommended and believes patient would be okay with TCU as she herself has been there in the past and they were just wonderful. Does not think has any other concerns, issues, or questions with DC planning at this time. Aware RNCM will continue to follow for any emerging needs. DC PLAN: Home with HH PT- [facility]. Patient already has continuous home O2- RNCM to follow Oxygen requirements at DC to ensure no order change is needed. Julius Emery, [id number]
--- NOTE | 2020-08-22 10:59 | CASEMGMT ---
Social Work Per pt , pt has completed HCPOA and Living Will papers naming Zeina Hobson, . Peg notified documents not on file and requested they be brought in when able. BELKYS Ramirez
[2020-08-22 12:06] LABS: Bedside Glucose 168 mg/dL (70-110)
[2020-08-22] MEDS: Clopidogrel Bisulfate 75 MG Tablet PO (13:59)
[2020-08-22 17:20] LABS: Bedside Glucose 208 mg/dL (70-110)
[2020-08-22] MEDS: MELATONIN 3 MG TABLET PO (21:47)
[2020-08-22] MEDS: Pramipexole Di-HCl 0.25 MG Tablet PO (21:47)
[2020-08-22] MEDS: Atorvastatin Calcium 80 MG Tablet PO (21:47)
[2020-08-22 23:16] LABS: Bedside Glucose 286 mg/dL (70-110)
[2020-08-23] VITALS (13 sets, daily range): BP systolic 93–133; BP diastolic 52–67; PULSE 62–80; RESP 13–20; TEMP 36.6–36.8; O2SAT 90–98
[2020-08-23 03:44] LABS: Absolute Neutrophil Count 4.1 X10^3/uL (2.0-7.7); Basophil# 0.01 X10^3/uL; Basophil% 0.2 % (0-1); Hematocrit 48.1 % (40-54); Lymphocyte % 7.9 % (19-41); Mean Corp Hgb Conc 33.3 g/dL (32-36); Mean Corpuscular Hgb 31.4 pg (27.0-32.0); Mean Corpuscular Volume 94.5 fL (80-94); Mean Platelet Vol. 11.2 fl (6.2-12.0); Monocyte# 0.57 X10^3/uL; Monocyte% 11.2 % (0-10); NRBC Flagged by Analyzer 0 % (0-5); Neutrophil # 4.09 X10^3/uL (2.7-7.7); Neutrophil % 80.5 % (47-70); POSITIVE DIFFERENTIAL YES; Platelet Count 106 K/mm3 (150-450); RBC Distribution Width CV 16.6 % (11.6-14.6); RBC Distribution Width SD 58.1 fl (35.1-43.9); Red Blood Count 5.09 M/mm3 (4.6-6.2); White Blood Count 5.1 K/mm3 (4.4-11.0)
[2020-08-23 03:46] LABS: Differential Indicated SCAN CRITERIA MET
[2020-08-23 04:01] LABS: ALB/GLOB Ratio 0.7 RATIO (0.9-2.4); AST(SGOT) 46 U/L (15-37); Alanine Aminotransfer ALT/SGPT 37 U/L (16-61); Albumin, Serum 2.8 g/dL (3.2-5.0); Alkaline Phosphatase 69 U/L (45-117); Anion Gap 7 (5-15); BUN 47 mg/dL (7-18); Calcium,Total 8.3 mg/dL (8.5-10.1); Chloride 102 mmol/L (98-107); Creatinine, Serum 2.47 mg/dL (0.70-1.30); EST Glomerular Filtration Rate 27 mL/min (>60); Est Glom Filt Rate - Afr Amer 33 mL/min (>60); Estimated Creatinine Clearance 25.77 ml/min; Globulin 4.2 g/dL (2.2-4.2); Glucose 175 mg/dL (74-106); Potassium 5.4 mmol/L (3.5-5.1); Sodium Level 132 mmol/L (136-145)
[2020-08-23 04:09] LABS: Differential Comment SCANNED
[2020-08-23] MEDS: Ipratropium/Albuterol Sulfate 3 ML AMPUL.NEB INHALATION ×3 (07:10→19:30)
[2020-08-23] MEDS: Insulin Lispro 100 UNIT/ML INSULN.PEN SC ×7 (08:56→20:44)
[2020-08-23] MEDS: 0.9% Saline Lock 10 ML Syringe IV ×2 (08:58→20:42)
[2020-08-23] MEDS: Ondansetron 4 MG/2 ML Vial IV (08:58)
[2020-08-23] MEDS: Aspirin E.C. 81 MG Tablet PO (09:00)
[2020-08-23] MEDS: Metoprolol Tartrate 100 MG Tablet PO ×2 (09:00→20:42)
[2020-08-23] MEDS: amLODIPine 5 MG Tablet PO (09:02)
[2020-08-23] MEDS: Ascorbic Acid 500 MG Tablet PO (09:02)
[2020-08-23] MEDS: FLUoxetine 20 MG Capsule PO (09:02)
[2020-08-23] MEDS: dexAMETHasone 4 MG Tablet 6 MG PO (09:03)
[2020-08-23] MEDS: Enoxaparin 120 MG/0.8 ML Syringe 110 MG SC (09:04)
[2020-08-23 11:56] LABS: Bedside Glucose 201 mg/dL (70-110)
--- NOTE | 2020-08-23 15:48 | PN_ITS ---
Patient Problems: Active and Suspected Problems (Last Reviewed 08/22/20 @ 05:[address] Michael Orantes MD) Acute viral syndrome (Acute) Respiratory insufficiency (Acute) Subjective: Patient did okay overnight. Patient denied any dyspnea this morning when originally evaluated, but did have to be placed on CPAP secondary to desat uration. Patient not reported any significant increase in cough. No chest pain have been reported. Patient did not tolerate CPAP overnight. Patient reported he thought he desaturated secondary to dozing off. - Physical Exam Vitals/I&O's: Vital Signs Temp Pulse Resp BP Pulse Ox 36.6 C 66 15 102/63 93 08/23/20 09:35 08/23/20 14:05 08/23/20 14:05 08/23/20 09:35 08/23/20 14:05 Oxygen Flow Rate (L/min) 6 Oxygen Delivery Method Bi-pap Weight: 105.3 kg Body Mass Index (BMI) 35.3 Finger Stick Blood Glucose 187 Intake and Output for Last 24 Hours 08/21/20 08/22/20 08/23/20 23:59 23:59 23:59 Intake Total 1970.0 / 1970.0 Output Total 275 / 275 150 / 150 Balance 1695.0 / 1695.0 -150 / -150 General: Alert, Oriented x3, Cooperative, No apparent distress - On CPAP HEENT: Atraumatic, PERRLA, EOMI, Normocephalic, - - No scleral icterus or injection noted Oral: Moist Mucosa, No Gingival or Mucosal Lesions/ Ulcerations Neck: Supple, No JVD, No Nodes, Trachea Midline Lungs: No rhonchi, No rales, Diminished, Wheezes Cardiovascular: Regular rate, Regular Rhythm, Normal S1, Normal S2, Murmur, No rub noted, No Gallop Abdomen: Bowel Sounds Present, Soft, Non Tender, Non-Distended, Obese Extremities: No clubbing, No cyanosis Skin: No rashes, No breakdown Musculoskeletal: No Tenderness to Palpation of Joints or Extremities Lymphatic: No Cervical, Supraclavicular, or Inguinal Adenopathy Neurological: Cranial nerves II-XII grossly intact, Neuro grossly intact, Motor Exam 5/5 strength throughout Psych/Mental Status: Alert and oriented to time, place, person, mood and affect Microbiology Past 72 Hours 08/22/20 03:30 Mucosa - Nasopharyngeal Respiratory Panel (PCR) - Final 08/22/20 02:40 Mucosa - Nose SARS-CoV-2 Antigen (Rapid) - Final Laboratory Results 08/22/20 17:03: POC Glucose 208 H 08/22/20 21:46: POC Glucose 286 H 08/23/20 03:35: WBC 5.1, RBC 5.09, Hgb 16.0, Hct 48.1, MCV 94.5 H, MCH 31.4, MCHC 33.3, RDW Std Deviation 58.1 H, RDW Coeff of [place] 16.6 H, Plt Count 106 L, MPV 11.2, Immature Gran % (Auto) 0.200, Neut % (Auto) 80.5 H, Lymph % (Auto) 7.9 L, [place] % (Auto) 11.2 H, Eos % (Auto) 0.0, Baso % (Auto) 0.2, Absolute Neuts (auto) 4.1, Absolute Lymphs (auto) 0.40 L, Nucleated RBC % 0, Differential Comment SCANNED 08/23/20 03:35: Sodium 132 L, Potassium 5.4 H, Chloride 102, Carbon Dioxide 23.0, Anion Gap 7, BUN 47 H, Creatinine 2.47 H, Estim Creat Clear Calc 25.77, Est GFR (MDRD) Af Amer 33 L, Est GFR (MDRD) Non-Af 27 L, BUN/Creatinine Ratio 19.0, Glucose 175 H, Calcium 8.3 L, Total Bilirubin 0.50, AST 46 H, ALT 37, Alkaline Phosphatase 69, Total Protein 7.0, Albumin 2.8 L, Globulin 4.2, Albumin/Globulin Ratio 0.7 L 08/23/20 11:24: POC Glucose 201 H Current Medications Acetaminophen (Acetaminophen 325 Mg Tablet) 650 mg PO Q6H PRN PRN PRN Reason: Pain Score 1-10/Temp > 100.7 F Albuterol Sulfate (Albuterol Ih 8.5 Gm (Proair) Inhaler (200 Puffs)) 2 puff INHALATION Q4H PRN PRN PRN Reason: sob/wheezing Albuterol/Ipratropium (Ipratropium/Albuterol Sulfate 3 Ml Ampul.Neb) 3 ml INHALATION Q6HWA.RT [facility] Last Admin: 08/23/20 14:04 Dose: 3 ml Documented by: Amlodipine Besylate (Amlodipine 5 Mg Tablet) 5 mg PO DAILY [facility] Last Admin: 08/23/20 09:02 Dose: 5 mg Documented by: Ascorbic Acid (Ascorbic Acid 500 Mg Tablet) 500 mg PO DAILY [facility] Last Admin: 08/23/20 09:02 Dose: 500 mg Documented by: Aspirin (Aspirin E.C. 81 Mg Tablet) 81 mg PO DAILY [facility] Last Admin: 08/23/20 09:00 Dose: 81 mg Documented by: Atorvastatin Calcium (Atorvastatin Calcium 80 Mg Tablet) 80 mg PO QHS [facility] Last Admin: 08/22/20 21:47 Dose: 80 mg Documented by: Cholecalciferol (Cholecalciferol (Vit D3) 1,000 Unit (25mcg)) 1,000 unit PO DAILY [facility] Last Admin: 08/23/20 09:02 Dose: 1,000 unit Documented by: Clopidogrel Bisulfate (Clopidogrel Bisulfate 75 Mg Tablet) 75 mg PO 1400 [facility] Last Admin: 08/22/20 13:59 Dose: 75 mg Documented by: Dexamethasone (Dexamethasone 4 Mg Tablet) 6 mg PO DAILY [facility] Last Admin: 08/23/20 09:03 Dose: 6 mg Documented by: Dextrose (Dextrose 50%-Water 25 Gm/50 Ml Disp.Syrin) 0 gm IV X1 PRN; Protocol PRN Reason: Hypoglycemia Enoxaparin Sodium (Enoxaparin 120 Mg/0.8 Ml Syringe) 110 mg SC DAILY [facility] Last Admin: 08/23/20 09:04 Dose: 110 mg Documented by: Fluoxetine HCl (Fluoxetine 20 Mg Capsule) 20 mg PO DAILY [facility] Last Admin: 08/23/20 09:02 Dose: 20 mg Documented by: Glucagon (Glucagon 1 Mg/Ml Syringe) 1 mg IM .X1 PRN PRN Reason: Hypoglycemia Sodium Chloride () 250 mls @ 15 mls/hr IV .[id number] PRN PRN Reason: Saline Flush Sodium Chloride () 250 mls @ 15 mls/hr IV .[id number] PRN PRN Reason: Additional IVPB Infusion Remdesivir 100 mg/ Sodium (Chloride) 250 mls @ 125 mls/hr IV DAILY [facility] Stop: 08/26/20 11:59 Last Admin: 08/23/20 11:28 Dose: 125 mls/hr Documented by: Insulin Glargine (Insulin Glargine 100 Units/Ml Pen) 55 units SC DAILY [facility] Last Admin: 08/23/20 09:05 Dose: 55 u Documented by: Insulin Human Lispro (Insulin Lispro 100 Unit/Ml Insuln.Pen) 5 unit SC BREAKFAST [facility] Last Admin: 08/23/20 08:56 Dose: 5 u Documented by: Insulin Human Lispro (Insulin Lispro 100 Unit/Ml Insuln.Pen) 5 unit SC DINNER [facility] Last Admin: 08/22/20 17:07 Dose: 5 u Documented by: Insulin Human Lispro (Insulin Lispro 100 Unit/Ml Insuln.Pen) 5 unit SC LUNCH [facility] Last Admin: 08/23/20 11:26 Dose: 5 u Documented by: Insulin Human Lispro (Insulin Lispro 100 Unit/Ml Insuln.Pen) 0 unit SC ACHS [facility]; Protocol Last Admin: 08/23/20 11:26 Dose: 4 u Documented by: Melatonin (Melatonin 3 Mg Tablet) 3 mg PO QHS PRN PRN PRN Reason: INSOMNIA Last Admin: 08/22/20 21:47 Dose: 3 mg Documented by: Metoprolol Tartrate (Metoprolol Tartrate 100 Mg Tablet) 100 mg PO BID [facility] Last Admin: 08/23/20 09:00 Dose: 100 mg Documented by: Ondansetron HCl (Ondansetron 4 Mg/2 Ml Vial) 4 mg IV Q8H PRN PRN PRN Reason: NAUSEA/VOMITING Last Admin: 08/23/20 08:58 Dose: 4 mg Documented by: Pramipexole Dihydrochloride (Pramipexole Di-Hcl 0.25 Mg Tablet) 0.25 mg PO QHS [facility] Last Admin: 08/22/20 21:47 Dose: 0.25 mg Documented by: Senna/Docusate Sodium (Senna/Docusate Sodium 1 Tablet) 2 tablet PO BID PRN PRN PRN Reason: Constipation Sodium Chloride (0.9% Saline Lock 10 Ml Syringe) 10 - 40 ml IV UD PRN PRN Reason: SALINE FLUSH Last Admin: 08/23/20 08:58 Dose: 10 ml Documented by: Medical Necessity - Tobacco Use Smoking Status: Former smoker Assessment/Plan All Active Problems (Last Reviewed 08/22/20 @ 05:[address] Michael Orantes MD) Acute viral syndrome (Acute) Respiratory insufficiency (Acute) Ischemic cardiomyopathy (Resolved) RECOMMENDATIONS: 1. Continue remdesivir with appropriate monitoring 2. Change CODE STATUS to DNR Comfort Care arrest no intubation 3. Wean oxygen as tolerated 4. Continue CPAP with all sleep 5. Encourage incentive spirometer and out of bed as tolerated 6. Walking oximetry prior to discharge IMPRESSIONS: 1. Acute hypoxic respiratory insufficiency on chronic hypoxic respiratory failure secondary to COVID-19 Patient has been initiated on Decadron and supplemental oxygen. Unclear how much hypoxia on presentation is related to COVID-19 versus increased pulmonary artery pressures related to hypoxia. Given relatively new onset of symptoms, goals of therapy and comorbidities, patient will be given remdesivir despite renal function. We will need to watch liver function studies closely. Patient with a slight increase in liver enzymes, but not enough to discontinue remdesivir. Continue with CPAP with sleep to avoid worsening hypoxia. 2. CKD stage IV secondary to diabetes mellitus Patient with longstanding peripheral vascular disease, diabetes and hypertension. Latest creatinine appears to be close to 2.0. Patient may have an element of prerenal acute kidney injury, but no recent creatinines available for review. We will continue to monitor closely. Avoid contrast. Lovenox will need to be dosed renally. Patient is not having any significant hypotension 3. Diabetes mellitus type 2 Patient has been initiated on Decadron therapy. Increase Lantus requirements secondary to steroid therapy. We will continue to monitor. Patient should have before every meal and at bedtime blood sugars monitored. 4. Coronary artery disease/depression/anxiety/peripheral vascular disease/hypertension/advanced age/obesity/AUTUMN Complicates care, management, recovery and prognosis. Okay to continue with baseline medications from my perspective. Will attempt to obtain records from Dr. Martinez's office and initiate noninvasive therapy as appropriate. CODE STATUS has been changed. Inpatient E&M: [address] [facility] Hosp L3
[2020-08-23] MEDS: Clopidogrel Bisulfate 75 MG Tablet PO (16:17)
[2020-08-23 16:31] LABS: Bedside Glucose 158 mg/dL (70-110)
--- NOTE | 2020-08-23 17:23 | PN_ITS ---
Patient Problems: Active and Suspected Problems (Last Reviewed 08/22/20 @ 05:[address] Michael Orantes MD) Acute viral syndrome (Acute) Respiratory insufficiency (Acute) Subjective: Doing well, had to increase to BiPAP today from nasal cannula. Tolerating steroids and remdesivir okay. Vitals/I&O's: Vital Signs Temp Pulse Resp BP Pulse Ox 97.9 F 80 16 115/67 98 08/23/20 16:15 08/23/20 16:15 08/23/20 16:15 08/23/20 16:15 08/23/20 16:15 Oxygen Flow Rate (L/min) 6 Oxygen Delivery Method Nasal Cannula Weight: 232 lb 2.348 oz Body Mass Index (BMI) 35.3 Finger Stick Blood Glucose 187 Intake and Output for Last 24 Hours 08/21/20 08/22/20 08/23/20 23:59 23:59 23:59 Intake Total 1970.0 / 1970.0 Output Total 275 / 275 350 / 350 Balance 1695.0 / 1695.0 -350 / -350 General: Alert, Oriented x3, Cooperative, No apparent distress HEENT: Atraumatic, PERRLA, EOMI, Normocephalic Oral: Moist Mucosa Neck: Supple, No JVD Lungs: Normal air movement, No rhonchi, No wheeze, No rales, Diminished Cardiovascular: Regular rate, Regular Rhythm, Normal S1, Normal S2, Murmur Abdomen: Soft, Non Tender, Non-Distended, No Hepato-splenomegaly Extremities: No edema, Capillary Refill Less than 3 Seconds Skin: No rashes, No breakdown Neurological: Neuro grossly intact, Sensory exam intact to light touch and pain Psych/Mental Status: Normal Affect, Appropriate Microbiology Past 72 Hours 08/22/20 03:30 Mucosa - Nasopharyngeal Respiratory Panel (PCR) - Final 08/22/20 02:40 Mucosa - Nose SARS-CoV-2 Antigen (Rapid) - Final Laboratory Results 08/22/20 21:46: POC Glucose 286 H 08/23/20 03:35: WBC 5.1, RBC 5.09, Hgb 16.0, Hct 48.1, MCV 94.5 H, MCH 31.4, MCHC 33.3, RDW Std Deviation 58.1 H, RDW Coeff of [place] 16.6 H, Plt Count 106 L, MPV 11.2, Immature Gran % (Auto) 0.200, Neut % (Auto) 80.5 H, Lymph % (Auto) 7.9 L, [place] % (Auto) 11.2 H, Eos % (Auto) 0.0, Baso % (Auto) 0.2, Absolute Neuts (auto) 4.1, Absolute Lymphs (auto) 0.40 L, Nucleated RBC % 0, Differential Comment SCANNED 08/23/20 03:35: Sodium 132 L, Potassium 5.4 H, Chloride 102, Carbon Dioxide 23.0, Anion Gap 7, BUN 47 H, Creatinine 2.47 H, Estim Creat Clear Calc 25.77, Est GFR (MDRD) Af Amer 33 L, Est GFR (MDRD) Non-Af 27 L, BUN/Creatinine Ratio 19.0, Glucose 175 H, Calcium 8.3 L, Total Bilirubin 0.50, AST 46 H, ALT 37, Alkaline Phosphatase 69, Total Protein 7.0, Albumin 2.8 L, Globulin 4.2, Albumin/Globulin Ratio 0.7 L 08/23/20 11:24: POC Glucose 201 H 08/23/20 16:13: POC Glucose 158 H Current Medications Acetaminophen (Acetaminophen 325 Mg Tablet) 650 mg PO Q6H PRN PRN PRN Reason: Pain Score 1-10/Temp > 100.7 F Albuterol Sulfate (Albuterol Ih 8.5 Gm (Proair) Inhaler (200 Puffs)) 2 puff INHALATION Q4H PRN PRN PRN Reason: sob/wheezing Albuterol/Ipratropium (Ipratropium/Albuterol Sulfate 3 Ml Ampul.Neb) 3 ml INHALATION Q6HWA.RT [facility] [place] Last Admin: 08/23/20 14:04 Dose: 3 ml Documented by: Amlodipine Besylate (Amlodipine 5 Mg Tablet) 5 mg PO DAILY [facility] [place] Last Admin: 08/23/20 09:02 Dose: 5 mg Documented by: Ascorbic Acid (Ascorbic Acid 500 Mg Tablet) 500 mg PO DAILY [facility] [place] Last Admin: 08/23/20 09:02 Dose: 500 mg Documented by: Aspirin (Aspirin E.C. 81 Mg Tablet) 81 mg PO DAILY [facility] [place] Last Admin: 08/23/20 09:00 Dose: 81 mg Documented by: Atorvastatin Calcium (Atorvastatin Calcium 80 Mg Tablet) 80 mg PO QHS [facility] [place] Last Admin: 08/22/20 21:47 Dose: 80 mg Documented by: Cholecalciferol (Cholecalciferol (Vit D3) 1,000 Unit (25mcg)) 1,000 unit PO DAILY [facility] [place] Last Admin: 08/23/20 09:02 Dose: 1,000 unit Documented by: Clopidogrel Bisulfate (Clopidogrel Bisulfate 75 Mg Tablet) 75 mg PO 1400 [facility] [place] Last Admin: 08/23/20 16:17 Dose: 75 mg Documented by: Dexamethasone (Dexamethasone 4 Mg Tablet) 6 mg PO DAILY [facility] [place] Last Admin: 08/23/20 09:03 Dose: 6 mg Documented by: Dextrose (Dextrose 50%-Water 25 Gm/50 Ml Disp.Syrin) 0 gm IV X1 PRN; Protocol PRN Reason: Hypoglycemia Enoxaparin Sodium (Enoxaparin 120 Mg/0.8 Ml Syringe) 110 mg SC DAILY [facility] [place] Last Admin: 08/23/20 09:04 Dose: 110 mg Documented by: Fluoxetine HCl (Fluoxetine 20 Mg Capsule) 20 mg PO DAILY [facility] [place] Last Admin: 08/23/20 09:02 Dose: 20 mg Documented by: Glucagon (Glucagon 1 Mg/Ml Syringe) 1 mg IM .X1 PRN PRN Reason: Hypoglycemia Sodium Chloride () 250 mls @ 15 mls/hr IV .[id number] PRN PRN Reason: Saline Flush Sodium Chloride () 250 mls @ 15 mls/hr IV .[id number] PRN PRN Reason: Additional IVPB Infusion Remdesivir 100 mg/ Sodium (Chloride) 250 mls @ 125 mls/hr IV DAILY [facility] [place] Stop: 08/26/20 11:59 Last Admin: 08/23/20 11:28 Dose: 125 mls/hr Documented by: Insulin Glargine (Insulin Glargine 100 Units/Ml Pen) 55 units SC DAILY [facility] [place] Last Admin: 08/23/20 09:05 Dose: 55 u Documented by: Insulin Human Lispro (Insulin Lispro 100 Unit/Ml Insuln.Pen) 5 unit SC BREAKFAST [facility] [place] Last Admin: 08/23/20 08:56 Dose: 5 u Documented by: Insulin Human Lispro (Insulin Lispro 100 Unit/Ml Insuln.Pen) 5 unit SC DINNER [facility] [place] Last Admin: 08/23/20 16:17 Dose: 5 u Documented by: Insulin Human Lispro (Insulin Lispro 100 Unit/Ml Insuln.Pen) 5 unit SC LUNCH [facility] [place] Last Admin: 08/23/20 11:26 Dose: 5 u Documented by: Insulin Human Lispro (Insulin Lispro 100 Unit/Ml Insuln.Pen) 0 unit SC ACHS [facility] [place]; Protocol Last Admin: 08/23/20 16:17 Dose: 2 u Documented by: Melatonin (Melatonin 3 Mg Tablet) 3 mg PO QHS PRN PRN PRN Reason: INSOMNIA Last Admin: 08/22/20 21:47 Dose: 3 mg Documented by: Metoprolol Tartrate (Metoprolol Tartrate 100 Mg Tablet) 100 mg PO BID [facility] [place] Last Admin: 08/23/20 09:00 Dose: 100 mg Documented by: Ondansetron HCl (Ondansetron 4 Mg/2 Ml Vial) 4 mg IV Q8H PRN PRN PRN Reason: NAUSEA/VOMITING Last Admin: 08/23/20 08:58 Dose: 4 mg Documented by: Pramipexole Dihydrochloride (Pramipexole Di-Hcl 0.25 Mg Tablet) 0.25 mg PO QHS [facility] [place] Last Admin: 08/22/20 21:47 Dose: 0.25 mg Documented by: Senna/Docusate Sodium (Senna/Docusate Sodium 1 Tablet) 2 tablet PO BID PRN PRN PRN Reason: Constipation Sodium Chloride (0.9% Saline Lock 10 Ml Syringe) 10 - 40 ml IV UD PRN PRN Reason: SALINE FLUSH Last Admin: 08/23/20 08:58 Dose: 10 ml Documented by: STROKE Vital Signs/Narrative: Vital Signs Temp Pulse Resp BP Pulse Ox 08/23/20 16:15 97.9 F 80 16 115/67 98 08/23/20 15:00 80 16 98 08/23/20 14:05 64 13 93 Medical Necessity - Tobacco Use Smoking Status: Former smoker Assessment/Plan All Active Problems (Last Reviewed 08/22/20 @ 05:[address] Michael Orantes MD) Acute viral syndrome (Acute) Respiratory insufficiency (Acute) Ischemic cardiomyopathy (Resolved) 1. Acute hypoxic respiratory failure secondary to COVID-19 pneumonia/WILLIAM on CKD 3/COPD not in exacerbation -Symptoms started 3 days prior to admission, therefore we will continue with Decadron and remdesivir -We will adjust and monitor insulin requirements secondary to his history of DM 2 on steroids -He is transitioning between oxygen and BiPAP, he is a DNR CCA with no intubation -Continue with inhalers -His D-dimer was elevated however so was his creatinine therefore CTA could not be obtained and because of the abnormal chest x-ray with his bilateral infiltrates a VQ scan would not provide meaningful information -Continue with therapeutic Lovenox with transition to Eliquis on discharge -Creatinine on admission was 2.08 it is now up to 2.4, will continue to monitor 2. DM 2 -We will adjust insulin as necessary given his steroid use -Accu-Cheks AC at bedtime 3. CAD status post CABG/PAD/HTN/HLD/morbid obesity -Blood pressure is stable at this time -Continue with his home blood pressure medication -Continue with statin -Continue with aspirin and Plavix 4. Depression/anxiety -Stable -Continue with Paxil DVT: Therapeutic Lovenox Inpatient E&M: 24526 Subs Hosp L2
[2020-08-23] MEDS: Atorvastatin Calcium 80 MG Tablet PO (20:42)
[2020-08-23] MEDS: MELATONIN 3 MG TABLET PO (20:42)
[2020-08-23] MEDS: Pramipexole Di-HCl 0.25 MG Tablet PO (20:42)
[2020-08-23 21:06] LABS: Bedside Glucose 197 mg/dL (70-110)
[2020-08-24] VITALS (12 sets, daily range): BP systolic 124–129; BP diastolic 56–73; PULSE 57–68; RESP 14–20; TEMP 36–36.8; O2SAT 90–94
[2020-08-24 04:43] LABS: Hematocrit 50.2 % (40-54); Hemoglobin 16.8 g/dL (13.0-16.5); Mean Corp Hgb Conc 33.5 g/dL (32-36); Mean Corpuscular Hgb 31.5 pg (27.0-32.0); Mean Platelet Vol. 11.9 fl (6.2-12.0); Platelet Count 124 K/mm3 (150-450); RBC Distribution Width CV 17.3 % (11.6-14.6); RBC Distribution Width SD 59.8 fl (35.1-43.9); Red Blood Count 5.34 M/mm3 (4.6-6.2)
[2020-08-24 05:07] LABS: ALB/GLOB Ratio 0.7 RATIO (0.9-2.4); AST(SGOT) 51 U/L (15-37); Alanine Aminotransfer ALT/SGPT 45 U/L (16-61); Albumin, Serum 2.8 g/dL (3.2-5.0); Alkaline Phosphatase 73 U/L (45-117); Anion Gap 7 (5-15); BUN 66 mg/dL (7-18); BUN/Creat Ratio 21.9 RATIO (10-20); Calcium,Total 8.3 mg/dL (8.5-10.1); Chloride 100 mmol/L (98-107); Creatinine, Serum 3.01 mg/dL (0.70-1.30); EST Glomerular Filtration Rate 22 mL/min (>60); Est Glom Filt Rate - Afr Amer 26 mL/min (>60); Estimated Creatinine Clearance 21.15 ml/min; Glucose 259 mg/dL (74-106); Potassium 5.4 mmol/L (3.5-5.1); Protein, Total 6.8 g/dL (6.4-8.2); Sodium Level 133 mmol/L (136-145)
[2020-08-24] MEDS: Lactated Ringers 1,000 ML 500 ML IV (06:35)
[2020-08-24] MEDS: Ipratropium/Albuterol Sulfate 3 ML AMPUL.NEB INHALATION ×3 (06:54→18:55)
[2020-08-24] MEDS: Insulin Lispro 100 UNIT/ML INSULN.PEN SC ×5 (08:37→22:14)
[2020-08-24] MEDS: Enoxaparin 120 MG/0.8 ML Syringe 110 MG SC (08:40)
[2020-08-24] MEDS: amLODIPine 5 MG Tablet PO (08:41)
[2020-08-24] MEDS: dexAMETHasone 4 MG Tablet 6 MG PO (08:41)
[2020-08-24] MEDS: Ascorbic Acid 500 MG Tablet PO (08:42)
[2020-08-24] MEDS: Metoprolol Tartrate 100 MG Tablet PO ×2 (08:42→22:13)
[2020-08-24] MEDS: Aspirin E.C. 81 MG Tablet PO (08:42)
[2020-08-24] MEDS: FLUoxetine 20 MG Capsule PO (08:42)
[2020-08-24] MEDS: Clopidogrel Bisulfate 75 MG Tablet PO (08:42)
[2020-08-24] MEDS: 0.9% Normal Saline 1,000 ML 15 ML IV (09:42)
[2020-08-24] MEDS: Insulin Lispro 100 UNIT/ML INSULN.PEN 10 UNIT SC ×2 (11:35→16:49)
[2020-08-24 11:46] LABS: Bedside Glucose 361 mg/dL (70-110)
--- NOTE | 2020-08-24 12:41 | CASEMGMT ---
DMITRIY CAMARA NOTE: Pt qualifies for a Palliative referral per the [facility] palliative screening tool at this time. Dr Pastrana approved Palliative c/s at this time. Order placed. Palliative updated at this time via VM. Face Sheet faxed to Palliative at this time. Mick WHITNEY RN CM
--- NOTE | 2020-08-24 14:17 | PN_ITS ---
Patient Problems: Active and Suspected Problems (Last Reviewed 08/22/20 @ 05:[address] Michael Orantes MD) Acute viral syndrome (Acute) Respiratory insufficiency (Acute) Subjective: Doing okay, no new issues overnight. He was placed back on CPAP at around 1 or 2 AM this morning however he is maintaining oxygen sats between 6 and 8 L nasal cannula Vitals/I&O's: Vital Signs Temp Pulse Resp BP Pulse Ox 97.9 F 65 18 127/64 H 91 08/24/20 09:00 08/24/20 13:24 08/24/20 13:24 08/24/20 09:00 08/24/20 09:00 Oxygen Flow Rate (L/min) 6 Oxygen Delivery Method Nasal Cannula Weight: 232 lb 2.348 oz Body Mass Index (BMI) 35.3 Finger Stick Blood Glucose 187 Intake and Output for Last 24 Hours 08/22/20 08/23/20 08/24/20 23:59 23:59 23:59 Intake Total 1970.0 / 1970.0 570 / 570 Output Total 275 / 275 550 / 550 200 / 200 Balance 1695.0 / 1695.0 20 / 20 -200 / -200 General: Alert, Oriented x3, Cooperative, No apparent distress HEENT: Atraumatic, PERRLA, EOMI, Normocephalic Oral: Moist Mucosa Neck: Supple, No JVD Lungs: Normal air movement, No rhonchi, No wheeze, No rales, Diminished Cardiovascular: Regular rate, Regular Rhythm, Normal S1, Normal S2, Murmur Abdomen: Soft, Non Tender, Non-Distended, No Hepato-splenomegaly Extremities: No edema, Capillary Refill Less than 3 Seconds Skin: No rashes, No breakdown Neurological: Neuro grossly intact, Sensory exam intact to light touch and pain Psych/Mental Status: Normal Affect, Appropriate Microbiology Past 72 Hours 08/22/20 02:40 Blood Culture (Wb) - Anticubital Right Blood Culture - Preliminary No growth in 48 hours. 08/22/20 02:15 Blood Culture (Wb) - Left Hand Blood Culture - Preliminary No growth in 48 hours. 08/22/20 03:30 Mucosa - Nasopharyngeal Respiratory Panel (PCR) - Final 08/22/20 02:40 Mucosa - Nose SARS-CoV-2 Antigen (Rapid) - Final Laboratory Results 08/23/20 16:13: POC Glucose 158 H 08/23/20 20:40: POC Glucose 197 H 08/24/20 04:32: WBC 7.0, RBC 5.34, Hgb 16.8 H, Hct 50.2, MCV 94.0, MCH 31.5, MCHC 33.5, RDW Std Deviation 59.8 H, RDW Coeff of [place] 17.3 H, Plt Count 124 L, MPV 11.9 08/24/20 04:32: Sodium 133 L, Potassium 5.4 H, Chloride 100, Carbon Dioxide 26.0, Anion Gap 7, BUN 66 H, Creatinine 3.01 H, Estim Creat Clear Calc 21.15, Est GFR (MDRD) Af Amer 26 L, Est GFR (MDRD) Non-Af 22 L, BUN/Creatinine Ratio 21.9 H, Glucose 259 H, Calcium 8.3 L, Total Bilirubin 0.60, AST 51 H, ALT 45, Alkaline Phosphatase 73, Total Protein 6.8, Albumin 2.8 L, Globulin 4.0, Albumin/Globulin Ratio 0.7 L 08/24/20 11:33: POC Glucose 361 H Current Medications Acetaminophen (Acetaminophen 325 Mg Tablet) 650 mg PO Q6H PRN PRN PRN Reason: Pain Score 1-10/Temp > 100.7 F Albuterol Sulfate (Albuterol Ih 8.5 Gm (Proair) Inhaler (200 Puffs)) 2 puff INHALATION Q4H PRN PRN PRN Reason: sob/wheezing Albuterol/Ipratropium (Ipratropium/Albuterol Sulfate 3 Ml Ampul.Neb) 3 ml INHALATION Q6HWA.RT [facility] Last Admin: 08/24/20 13:24 Dose: 3 ml Documented by: Amlodipine Besylate (Amlodipine 5 Mg Tablet) 5 mg PO DAILY [facility] Last Admin: 08/24/20 08:41 Dose: 5 mg Documented by: Ascorbic Acid (Ascorbic Acid 500 Mg Tablet) 500 mg PO DAILY [facility] Last Admin: 08/24/20 08:42 Dose: 500 mg Documented by: Aspirin (Aspirin E.C. 81 Mg Tablet) 81 mg PO DAILY [facility] Last Admin: 08/24/20 08:42 Dose: 81 mg Documented by: Atorvastatin Calcium (Atorvastatin Calcium 80 Mg Tablet) 80 mg PO QHS [facility] Last Admin: 08/23/20 20:42 Dose: 80 mg Documented by: Cholecalciferol (Cholecalciferol (Vit D3) 1,000 Unit (25mcg)) 1,000 unit PO DAILY [facility] Last Admin: 08/24/20 08:42 Dose: 1,000 unit Documented by: Clopidogrel Bisulfate (Clopidogrel Bisulfate 75 Mg Tablet) 75 mg PO 1400 [facility] Last Admin: 08/24/20 08:42 Dose: 75 mg Documented by: Dexamethasone (Dexamethasone 4 Mg Tablet) 6 mg PO DAILY [facility] Last Admin: 08/24/20 08:41 Dose: 6 mg Documented by: Dextrose (Dextrose 50%-Water 25 Gm/50 Ml Disp.Syrin) 0 gm IV X1 PRN; Protocol PRN Reason: Hypoglycemia Enoxaparin Sodium (Enoxaparin 120 Mg/0.8 Ml Syringe) 110 mg SC DAILY [facility] Last Admin: 08/24/20 08:40 Dose: 110 mg Documented by: Fluoxetine HCl (Fluoxetine 20 Mg Capsule) 20 mg PO DAILY [facility] Last Admin: 08/24/20 08:42 Dose: 20 mg Documented by: Glucagon (Glucagon 1 Mg/Ml Syringe) 1 mg IM .X1 PRN PRN Reason: Hypoglycemia Sodium Chloride () 250 mls @ 15 mls/hr IV .[id number] PRN PRN Reason: Saline Flush Sodium Chloride () 250 mls @ 15 mls/hr IV .[id number] PRN PRN Reason: Additional IVPB Infusion Remdesivir 100 mg/ Sodium (Chloride) 250 mls @ 125 mls/hr IV DAILY [facility] Stop: 08/26/20 11:59 Last Admin: 08/24/20 09:42 Dose: 125 mls/hr Documented by: Insulin Glargine (Insulin Glargine 100 Units/Ml Pen) 65 units SC DAILY [facility] Last Admin: 08/24/20 09:42 Dose: Not Given Documented by: Insulin Human Lispro (Insulin Lispro 100 Unit/Ml Insuln.Pen) 0 unit SC ACHS [facility]; Protocol Last Admin: 08/24/20 11:35 Dose: 8 u Documented by: Insulin Human Lispro (Insulin Lispro 100 Unit/Ml Insuln.Pen) 10 unit SC DINNER [facility] Insulin Human Lispro (Insulin Lispro 100 Unit/Ml Insuln.Pen) 10 unit SC BREAKFAST [facility] Insulin Human Lispro (Insulin Lispro 100 Unit/Ml Insuln.Pen) 10 unit SC LUNCH [facility] Last Admin: 08/24/20 11:35 Dose: 10 u Documented by: Melatonin (Melatonin 3 Mg Tablet) 3 mg PO QHS PRN PRN PRN Reason: INSOMNIA Last Admin: 08/23/20 20:42 Dose: 3 mg Documented by: Metoprolol Tartrate (Metoprolol Tartrate 100 Mg Tablet) 100 mg PO BID [facility] Last Admin: 08/24/20 08:42 Dose: 100 mg Documented by: Ondansetron HCl (Ondansetron 4 Mg/2 Ml Vial) 4 mg IV Q8H PRN PRN PRN Reason: NAUSEA/VOMITING Last Admin: 08/23/20 08:58 Dose: 4 mg Documented by: Pramipexole Dihydrochloride (Pramipexole Di-Hcl 0.25 Mg Tablet) 0.25 mg PO QHS [facility] Last Admin: 08/23/20 20:42 Dose: 0.25 mg Documented by: Senna/Docusate Sodium (Senna/Docusate Sodium 1 Tablet) 2 tablet PO BID PRN PRN PRN Reason: Constipation Sodium Chloride (0.9% Saline Lock 10 Ml Syringe) 10 - 40 ml IV UD PRN PRN Reason: SALINE FLUSH Last Admin: 08/23/20 20:42 Dose: 10 ml Documented by: STROKE Vital Signs/Narrative: Vital Signs Pulse Resp 08/24/20 13:24 65 18 Medical Necessity - Tobacco Use Smoking Status: Former smoker Assessment/Plan All Active Problems (Last Reviewed 08/22/20 @ 05:[address] Michael Orantes MD) Acute viral syndrome (Acute) Respiratory insufficiency (Acute) Ischemic cardiomyopathy (Resolved) 1. Acute hypoxic respiratory failure secondary to COVID-19 pneumonia/WILLIAM on CKD 3/COPD not in exacerbation -Symptoms started 3 days prior to admission, therefore we will continue with Decadron and remdesivir -We will adjust and monitor insulin requirements secondary to his history of DM 2 on steroids -He is transitioning between oxygen and BiPAP, he is a DNR CCA with no intubation -Continue with inhalers -His D-dimer was elevated however so was his creatinine therefore CTA could not be obtained and because of the abnormal chest x-ray with his bilateral infiltrates a VQ scan would not provide meaningful information -Continue with therapeutic Lovenox with transition to Eliquis on discharge -Creatinine on admission was 2.08 it is now up to 3, will continue to monitor, if it continues to rise may need to discontinue remdesivir 2. DM 2 -We will adjust insulin as necessary given his steroid use -Accu-Cheks AC at bedtime 3. CAD status post CABG/PAD/HTN/HLD/morbid obesity -Blood pressure is stable at this time -Continue with his home blood pressure medication -Continue with statin -Continue with aspirin and Plavix 4. Depression/anxiety -Stable -Continue with Paxil DVT: Therapeutic Lovenox Inpatient E&M: 11113 Subs Hosp L2
--- NOTE | 2020-08-24 15:04 | PCM.PN.PUL ---
Patient Problems: Active and Suspected Problems (Last Reviewed 08/22/20 @ 05:[address] Michael Orantes MD) Acute viral syndrome (Acute) Respiratory insufficiency (Acute) Subjective: Patient did okay overnight. Patient did have some high blood sugars and required 6 L at rest and 12 L with ambulation when working with physical therapy. Patient overall feels subjectively improved compared to previous. Patient has been compliant with AUTUMN therapy overnight. - Physical Exam Vitals/I&O's: Vital Signs Temp Pulse Resp BP Pulse Ox 36.6 C 67 18 127/64 H 90 08/24/20 09:00 08/24/20 14:32 08/24/20 14:32 08/24/20 09:00 08/24/20 14:32 Oxygen Flow Rate (L/min) 8 Oxygen Delivery Method Nasal Cannula Weight: 105.3 kg Body Mass Index (BMI) 35.3 Finger Stick Blood Glucose 187 Intake and Output for Last 24 Hours 08/22/20 08/23/20 08/24/20 23:59 23:59 23:59 Intake Total 1970.0 / 1970.0 570 / 570 Output Total 275 / 275 550 / 550 200 / 200 Balance 1695.0 / 1695.0 20 / 20 -200 / -200 General: Alert, Oriented x3, Cooperative, - - Mild conversational dyspnea. Obese. HEENT: Atraumatic, PERRLA, EOMI, Normocephalic, - - No scleral icterus or injection noted Oral: Moist Mucosa, No Gingival or Mucosal Lesions/ Ulcerations Neck: Supple, No JVD, No Nodes, Trachea Midline Lungs: No rhonchi, No rales, Diminished, Wheezes - Sporadic Cardiovascular: Regular rate, Regular Rhythm, Normal S1, Normal S2, Murmur, No rub noted, No Gallop Abdomen: Bowel Sounds Present, Soft, Non Tender, Non-Distended, Obese Extremities: No clubbing, No cyanosis, No edema, Capillary Refill Less than 3 Seconds Skin: No rashes, No breakdown Musculoskeletal: No Tenderness to Palpation of Joints or Extremities Lymphatic: No Cervical, Supraclavicular, or Inguinal Adenopathy Neurological: Cranial nerves II-XII grossly intact, Neuro grossly intact, Motor Exam 5/5 strength throughout Psych/Mental Status: Alert and oriented to time, place, person, mood and affect Microbiology Past 72 Hours 08/22/20 02:40 Blood Culture (Wb) - Anticubital Right Blood Culture - Preliminary No growth in 48 hours. 08/22/20 02:15 Blood Culture (Wb) - Left Hand Blood Culture - Preliminary No growth in 48 hours. 08/22/20 03:30 Mucosa - Nasopharyngeal Respiratory Panel (PCR) - Final 08/22/20 02:40 Mucosa - Nose SARS-CoV-2 Antigen (Rapid) - Final Laboratory Results 08/23/20 16:13: POC Glucose 158 H 08/23/20 20:40: POC Glucose 197 H 08/24/20 04:32: WBC 7.0, RBC 5.34, Hgb 16.8 H, Hct 50.2, MCV 94.0, MCH 31.5, MCHC 33.5, RDW Std Deviation 59.8 H, RDW Coeff of [place] 17.3 H, Plt Count 124 L, MPV 11.9 08/24/20 04:32: Sodium 133 L, Potassium 5.4 H, Chloride 100, Carbon Dioxide 26.0, Anion Gap 7, BUN 66 H, Creatinine 3.01 H, Estim Creat Clear Calc 21.15, Est GFR (MDRD) Af Amer 26 L, Est GFR (MDRD) Non-Af 22 L, BUN/Creatinine Ratio 21.9 H, Glucose 259 H, Calcium 8.3 L, Total Bilirubin 0.60, AST 51 H, ALT 45, Alkaline Phosphatase 73, Total Protein 6.8, Albumin 2.8 L, Globulin 4.0, Albumin/Globulin Ratio 0.7 L 08/24/20 11:33: POC Glucose 361 H Current Medications Acetaminophen (Acetaminophen 325 Mg Tablet) 650 mg PO Q6H PRN PRN PRN Reason: Pain Score 1-10/Temp > 100.7 F Albuterol Sulfate (Albuterol Ih 8.5 Gm (Proair) Inhaler (200 Puffs)) 2 puff INHALATION Q4H PRN PRN PRN Reason: sob/wheezing Albuterol/Ipratropium (Ipratropium/Albuterol Sulfate 3 Ml Ampul.Neb) 3 ml INHALATION Q6HWA.RT [facility] Last Admin: 08/24/20 13:24 Dose: 3 ml Documented by: Amlodipine Besylate (Amlodipine 5 Mg Tablet) 5 mg PO DAILY [facility] Last Admin: 08/24/20 08:41 Dose: 5 mg Documented by: Ascorbic Acid (Ascorbic Acid 500 Mg Tablet) 500 mg PO DAILY [facility] 234 BEDS AT [facility] Last Admin: 08/24/20 08:42 Dose: 500 mg Documented by: Aspirin (Aspirin E.C. 81 Mg Tablet) 81 mg PO DAILY [facility] 234 BEDS AT [facility] Last Admin: 08/24/20 08:42 Dose: 81 mg Documented by: Atorvastatin Calcium (Atorvastatin Calcium 80 Mg Tablet) 80 mg PO QHS [facility]CLUDE 234 BEDS AT [facility] Last Admin: 08/23/20 20:42 Dose: 80 mg Documented by: Cholecalciferol (Cholecalciferol (Vit D3) 1,000 Unit (25mcg)) 1,000 unit PO DAILY [facility]CLUDE 234 BEDS AT [facility] Last Admin: 08/24/20 08:42 Dose: 1,000 unit Documented by: Clopidogrel Bisulfate (Clopidogrel Bisulfate 75 Mg Tablet) 75 mg PO 1400 [facility]S [facility]CLUDE 234 BEDS AT [facility] Last Admin: 08/24/20 08:42 Dose: 75 mg Documented by: Dexamethasone (Dexamethasone 4 Mg Tablet) 6 mg PO DAILY [facility]CLUDE 234 BEDS AT [facility] Last Admin: 08/24/20 08:41 Dose: 6 mg Documented by: Dextrose (Dextrose 50%-Water 25 Gm/50 Ml Disp.Syrin) 0 gm IV X1 PRN; Protocol PRN Reason: Hypoglycemia Enoxaparin Sodium (Enoxaparin 120 Mg/0.8 Ml Syringe) 110 mg SC DAILY [facility] 234 BEDS AT [facility] Last Admin: 08/24/20 08:40 Dose: 110 mg Documented by: Fluoxetine HCl (Fluoxetine 20 Mg Capsule) 20 mg PO DAILY [facility]CLUDE 234 BEDS AT [facility] Last Admin: 08/24/20 08:42 Dose: 20 mg Documented by: Glucagon (Glucagon 1 Mg/Ml Syringe) 1 mg IM .X1 PRN PRN Reason: Hypoglycemia Sodium Chloride () 250 mls @ 15 mls/hr IV .[id number] PRN PRN Reason: Saline Flush Sodium Chloride () 250 mls @ 15 mls/hr IV .[id number] PRN PRN Reason: Additional IVPB Infusion Remdesivir 100 mg/ Sodium (Chloride) 250 mls @ 125 mls/hr IV DAILY [facility]CLUDE 234 BEDS AT [facility] Stop: 08/26/20 11:59 Last Admin: 08/24/20 09:42 Dose: 125 mls/hr Documented by: Insulin Glargine (Insulin Glargine 100 Units/Ml Pen) 65 units SC DAILY [facility] 234 BEDS AT [facility] Last Admin: 08/24/20 09:42 Dose: Not Given Documented by: Insulin Human Lispro (Insulin Lispro 100 Unit/Ml Insuln.Pen) 0 unit SC ACHS [facility]CLUDE 234 BEDS AT [facility]; Protocol Last Admin: 08/24/20 11:35 Dose: 8 u Documented by: Insulin Human Lispro (Insulin Lispro 100 Unit/Ml Insuln.Pen) 10 unit SC DINNER COUNTS INCLUDE 234 BEDS AT [facility] Insulin Human Lispro (Insulin Lispro 100 Unit/Ml Insuln.Pen) 10 unit SC BREAKFAST [facility] Insulin Human Lispro (Insulin Lispro 100 Unit/Ml Insuln.Pen) 10 unit SC LUNCH [facility]S [facility]CLUDE 234 BEDS AT [facility] Last Admin: 08/24/20 11:35 Dose: 10 u Documented by: Melatonin (Melatonin 3 Mg Tablet) 3 mg PO QHS PRN PRN PRN Reason: INSOMNIA Last Admin: 08/23/20 20:42 Dose: 3 mg Documented by: Metoprolol Tartrate (Metoprolol Tartrate 100 Mg Tablet) 100 mg PO BID [facility]CLUDE 234 BEDS AT [facility] Last Admin: 08/24/20 08:42 Dose: 100 mg Documented by: Ondansetron HCl (Ondansetron 4 Mg/2 Ml Vial) 4 mg IV Q8H PRN PRN PRN Reason: NAUSEA/VOMITING Last Admin: 08/23/20 08:58 Dose: 4 mg Documented by: Pramipexole Dihydrochloride (Pramipexole Di-Hcl 0.25 Mg Tablet) 0.25 mg PO QHS [facility]S INCLUDE 234 BEDS AT [facility] Last Admin: 08/23/20 20:42 Dose: 0.25 mg Documented by: Senna/Docusate Sodium (Senna/Docusate Sodium 1 Tablet) 2 tablet PO BID PRN PRN PRN Reason: Constipation Sodium Chloride (0.9% Saline Lock 10 Ml Syringe) 10 - 40 ml IV UD PRN PRN Reason: SALINE FLUSH Last Admin: 08/23/20 20:42 Dose: 10 ml Documented by: Medical Necessity - Tobacco Use Smoking Status: Former smoker Assessment/Plan All Active Problems (Last Reviewed 08/22/20 @ 05:[address] Michael Orantes MD) Acute viral syndrome (Acute) Respiratory insufficiency (Acute) Ischemic cardiomyopathy (Resolved) RECOMMENDATIONS: 1. Continue remdesivir with appropriate monitoring 2. Change CODE STATUS to DNR Comfort Care arrest no intubation 3. Wean oxygen as tolerated 4. Continue CPAP with all sleep 5. Encourage incentive spirometer and out of bed as tolerated 6. Slow fluid challenge IMPRESSIONS: 1. Acute hypoxic respiratory insufficiency on chronic hypoxic respiratory failure secondary to COVID-19 Patient has been initiated on Decadron and supplemental oxygen. Unclear how much hypoxia on presentation is related to COVID-19 versus increased pulmonary artery pressures related to hypoxia. Given relatively new onset of symptoms, goals of therapy and comorbidities, patient will be given remdesivir despite renal function. We will need to watch liver function studies closely. Patient with a slight increase in liver enzymes, but not enough to discontinue remdesivir. Continue with CPAP with sleep to avoid worsening hypoxia. 2. CKD stage IV secondary to diabetes mellitus Patient with longstanding peripheral vascular disease, diabetes and hypertension. Latest creatinine appears to be close to 2.0. Patient may have an element of prerenal acute kidney injury, but no recent creatinines available for review. We will continue to monitor closely. Avoid contrast. Lovenox will need to be dosed renally. Patient is not having any significant hypotension, but creatinine continues to increase. Will give slow fluid challenge. May need nephrology evaluation tomorrow if continues to worsen. 3. Diabetes mellitus type 2 Patient has been initiated on Decadron therapy. Increase Lantus requirements secondary to steroid therapy. We will continue to monitor. Patient should have before every meal and at bedtime blood sugars monitored. 4. Coronary artery disease/depression/anxiety/peripheral vascular disease/hypertension/advanced age/obesity/AUTUMN Complicates care, management, recovery and prognosis. Okay to continue with baseline medications from my perspective. Patient is on appropriate noninvasive therapy overnight.. CODE STATUS has been changed. Inpatient E&M: 11299 [facility] L3
[2020-08-24 16:55] LABS: Bedside Glucose 183 mg/dL (70-110)
[2020-08-24] MEDS: Pramipexole Di-HCl 0.25 MG Tablet PO (22:13)
[2020-08-24] MEDS: Atorvastatin Calcium 80 MG Tablet PO (22:13)
[2020-08-24 22:41] LABS: Bedside Glucose 269 mg/dL (70-110)
[2020-08-25] VITALS (18 sets, daily range): BP systolic 119–132; BP diastolic 58–76; PULSE 62–76; RESP 18–24; TEMP 35.7–36.8; O2SAT 91–99
[2020-08-25] MEDS: Ipratropium/Albuterol Sulfate 3 ML AMPUL.NEB INHALATION ×4 (00:45→19:19)
--- NOTE | 2020-08-25 04:20 | CPS ---
Pt.'s FiO2 increased to 50%; increase in pt.'s oxygenation needs
[2020-08-25 04:34] LABS: Hematocrit 47.4 % (40-54); Hemoglobin 16.3 g/dL (13.0-16.5); Mean Corp Hgb Conc 34.4 g/dL (32-36); Mean Corpuscular Hgb 32.2 pg (27.0-32.0); Mean Corpuscular Volume 93.7 fL (80-94); Mean Platelet Vol. 11.8 fl (6.2-12.0); Platelet Count 144 K/mm3 (150-450); RBC Distribution Width CV 17.6 % (11.6-14.6); RBC Distribution Width SD 61.1 fl (35.1-43.9); Red Blood Count 5.06 M/mm3 (4.6-6.2); White Blood Count 8.4 K/mm3 (4.4-11.0)
[2020-08-25 04:53] LABS: ALB/GLOB Ratio 0.8 RATIO (0.9-2.4); AST(SGOT) 27 U/L (15-37); Alanine Aminotransfer ALT/SGPT 45 U/L (16-61); Albumin, Serum 2.8 g/dL (3.2-5.0); Alkaline Phosphatase 72 U/L (45-117); Anion Gap 7 (5-15); BUN 77 mg/dL (7-18); BUN/Creat Ratio 26.5 RATIO (10-20); Calcium,Total 8.8 mg/dL (8.5-10.1); Chloride 103 mmol/L (98-107); Creatinine, Serum 2.91 mg/dL (0.70-1.30); EST Glomerular Filtration Rate 23 mL/min (>60); Est Glom Filt Rate - Afr Amer 27 mL/min (>60); Estimated Creatinine Clearance 21.87 ml/min; Globulin 3.7 g/dL (2.2-4.2); Glucose 204 mg/dL (74-106); Potassium 4.9 mmol/L (3.5-5.1); Protein, Total 6.5 g/dL (6.4-8.2); Sodium Level 137 mmol/L (136-145)
[2020-08-25] MEDS: Insulin Lispro 100 UNIT/ML INSULN.PEN 10 UNIT SC ×3 (08:32→17:11)
[2020-08-25] MEDS: Insulin Lispro 100 UNIT/ML INSULN.PEN SC ×4 (08:32→21:04)
--- NOTE | 2020-08-25 08:33 | PN_ITS ---
Patient Problems: Active and Suspected Problems (Last Reviewed 08/22/20 @ 05:[address] Michael Orantes MD) Acute viral syndrome (Acute) Respiratory insufficiency (Acute) Subjective: Patient continues to report subjective improvement in overall condition. However, oxygen requirements have gone up over the last 24 hours. Patient does report some coughing. Patient has not been using his incentive spirometer. Patient has been using CPAP, but will not put it on until approximately 1:00 in the morning secondary to wanting to watch his shows. - Physical Exam Vitals/I&O's: Vital Signs Temp Pulse Resp BP Pulse Ox 35.7 C L 66 20 H 132/76 H 91 08/25/20 08:06 08/25/20 08:06 08/25/20 08:06 08/25/20 08:06 08/25/20 08:06 Oxygen Flow Rate (L/min) 10 Oxygen Delivery Method Nasal Cannula Weight: 105.3 kg Body Mass Index (BMI) 35.3 Finger Stick Blood Glucose 187 Intake and Output for Last 24 Hours 08/23/20 08/24/20 08/25/20 23:59 23:59 23:59 Intake Total 570 / 570 1850 / 1850 333.5 / 333.5 Output Total 550 / 550 800 / 1200 400 / 400 Balance 1050 / 650 -66.5 / -66.5 General: Alert, Oriented x3, Cooperative, No apparent distress, - - Obese. HEENT: Atraumatic, PERRLA, EOMI, Normocephalic, - - No scleral icterus or injection noted Oral: Moist Mucosa, No Gingival or Mucosal Lesions/ Ulcerations Neck: Supple, No JVD, No Nodes, Trachea Midline Lungs: No rhonchi, No rales, Diminished, Wheezes, - - Symmetric expansion Cardiovascular: Regular rate, Regular Rhythm, Normal S1, Normal S2, Murmur, No rub noted, No Gallop Abdomen: Bowel Sounds Present, Soft, Non Tender, Non-Distended, Obese Extremities: No clubbing, No cyanosis, Edema - Trace lower extremity Skin: - - No change from previous Musculoskeletal: No Tenderness to Palpation of Joints or Extremities Lymphatic: No Cervical, Supraclavicular, or Inguinal Adenopathy Neurological: Cranial nerves II-XII grossly intact, Neuro grossly intact, Motor Exam 5/5 strength throughout Psych/Mental Status: Alert and oriented to time, place, person, mood and affect Microbiology Past 72 Hours 08/22/20 02:40 Blood Culture (Wb) - Anticubital Right Blood Culture - Preliminary No growth in 48 hours. 08/22/20 02:15 Blood Culture (Wb) - Left Hand Blood Culture - Preliminary No growth in 48 hours. 08/22/20 03:30 Mucosa - Nasopharyngeal Respiratory Panel (PCR) - Final Laboratory Results 08/24/20 11:33: POC Glucose 361 H 08/24/20 16:47: POC Glucose 183 H 08/24/20 22:12: POC Glucose 269 H 08/25/20 04:20: WBC 8.4, RBC 5.06, Hgb 16.3, Hct 47.4, MCV 93.7, MCH 32.2 H, MC HC 34.4, RDW Std Deviation 61.1 H, RDW Coeff of [place] 17.6 H, Plt Count 144 L, MPV 11.8 08/25/20 04:20: Sodium 137, Potassium 4.9, Chloride 103, Carbon Dioxide 27.0, Anion Gap 7, BUN 77 H, Creatinine 2.91 H, Estim Creat Clear Calc 21.87, Est GFR (MDRD) Af Amer 27 L, Est GFR (MDRD) Non-Af 23 L, BUN/Creatinine Ratio 26.5 H, Glucose 204 H, Calcium 8.8, Total Bilirubin 0.50, AST 27, ALT 45, Alkaline Phosphatase 72, Total Protein 6.5, Albumin 2.8 L, Globulin 3.7, Albumin/Globulin Ratio 0.8 L Current Medications Acetaminophen (Acetaminophen 325 Mg Tablet) 650 mg PO Q6H PRN PRN PRN Reason: Pain Score 1-10/Temp > 100.7 F Albuterol Sulfate (Albuterol Ih 8.5 Gm (Proair) Inhaler (200 Puffs)) 2 puff INHALATION Q4H PRN PRN PRN Reason: sob/wheezing Albuterol/Ipratropium (Ipratropium/Albuterol Sulfate 3 Ml Ampul.Neb) 3 ml INHALATION Q6HWA.RT CAS Last Admin: 08/25/20 07:47 Dose: 3 ml Documented by: Amlodipine Besylate (Amlodipine 5 Mg Tablet) 5 mg PO DAILY [facility] Last Admin: 08/24/20 08:41 Dose: 5 mg Documented by: Ascorbic Acid (Ascorbic Acid 500 Mg Tablet) 500 mg PO DAILY [facility] Last Admin: 08/24/20 08:42 Dose: 500 mg Documented by: Aspirin (Aspirin E.C. 81 Mg Tablet) 81 mg PO DAILY [facility] Last Admin: 08/24/20 08:42 Dose: 81 mg Documented by: Atorvastatin Calcium (Atorvastatin Calcium 80 Mg Tablet) 80 mg PO QHS [facility] Last Admin: 08/24/20 22:13 Dose: 80 mg Documented by: Cholecalciferol (Cholecalciferol (Vit D3) 1,000 Unit (25mcg)) 1,000 unit PO DAILY [facility] Last Admin: 08/24/20 08:42 Dose: 1,000 unit Documented by: Clopidogrel Bisulfate (Clopidogrel Bisulfate 75 Mg Tablet) 75 mg PO 1400 [facility] Last Admin: 08/24/20 08:42 Dose: 75 mg Documented by: Dexamethasone (Dexamethasone 4 Mg Tablet) 6 mg PO DAILY [facility] Last Admin: 08/24/20 08:41 Dose: 6 mg Documented by: Dextrose (Dextrose 50%-Water 25 Gm/50 Ml Disp.Syrin) 0 gm IV X1 PRN; Protocol PRN Reason: Hypoglycemia Enoxaparin Sodium (Enoxaparin 120 Mg/0.8 Ml Syringe) 110 mg SC DAILY [facility] Last Admin: 08/24/20 08:40 Dose: 110 mg Documented by: Fluoxetine HCl (Fluoxetine 20 Mg Capsule) 20 mg PO DAILY [facility] Last Admin: 08/24/20 08:42 Dose: 20 mg Documented by: Glucagon (Glucagon 1 Mg/Ml Syringe) 1 mg IM .X1 PRN PRN Reason: Hypoglycemia Sodium Chloride () 250 mls @ 15 mls/hr IV .[id number] PRN PRN Reason: Saline Flush Sodium Chloride () 250 mls @ 15 mls/hr IV .[id number] PRN PRN Reason: Additional IVPB Infusion Remdesivir 100 mg/ Sodium (Chloride) 250 mls @ 125 mls/hr IV DAILY [facility] Stop: 08/26/20 11:59 Last Infusion: 08/24/20 19:00 Dose: Infused Documented by: Insulin Glargine (Insulin Glargine 100 Units/Ml Pen) 65 units SC DAILY [facility] Last Admin: 08/24/20 09:42 Dose: Not Given Documented by: Insulin Human Lispro (Insulin Lispro 100 Unit/Ml Insuln.Pen) 0 unit SC ACHS [facility]; Protocol Last Admin: 08/24/20 22:14 Dose: 6 u Documented by: Insulin Human Lispro (Insulin Lispro 100 Unit/Ml Insuln.Pen) 10 unit SC DINNER [facility] Last Admin: 08/24/20 16:49 Dose: 10 units Documented by: Insulin Human Lispro (Insulin Lispro 100 Unit/Ml Insuln.Pen) 10 unit SC BREAKFAST [facility] Insulin Human Lispro (Insulin Lispro 100 Unit/Ml Insuln.Pen) 10 unit SC LUNCH [facility] Last Admin: 08/24/20 11:35 Dose: 10 u Documented by: Melatonin (Melatonin 3 Mg Tablet) 3 mg PO QHS PRN PRN PRN Reason: INSOMNIA Last Admin: 08/23/20 20:42 Dose: 3 mg Documented by: Metoprolol Tartrate (Metoprolol Tartrate 100 Mg Tablet) 100 mg PO BID [facility] Last Admin: 08/24/20 22:13 Dose: 100 mg Documented by: Ondansetron HCl (Ondansetron 4 Mg/2 Ml Vial) 4 mg IV Q8H PRN PRN PRN Reason: NAUSEA/VOMITING Last Admin: 08/23/20 08:58 Dose: 4 mg Documented by: Pramipexole Dihydrochloride (Pramipexole Di-Hcl 0.25 Mg Tablet) 0.25 mg PO QHS [facility] Last Admin: 08/24/20 22:13 Dose: 0.25 mg Documented by: Senna/Docusate Sodium (Senna/Docusate Sodium 1 Tablet) 2 tablet PO BID PRN PRN PRN Reason: Constipation Sodium Chloride (0.9% Saline Lock 10 Ml Syringe) 10 - 40 ml IV UD PRN PRN Reason: SALINE FLUSH Last Admin: 08/23/20 20:42 Dose: 10 ml Documented by: Medical Necessity - Tobacco Use Smoking Status: Former smoker Assessment/Plan All Active Problems (Last Reviewed 08/22/20 @ 05:[address] Michael Orantes MD) Acute viral syndrome (Acute) Respiratory insufficiency (Acute) Ischemic cardiomyopathy (Resolved) RECOMMENDATIONS: 1. Complete remdesivir with appropriate monitoring 2. Change CODE STATUS to DNR Comfort Care arrest no intubation 3. Transition to Airvo. Wean oxygen as tolerated 4. Continue CPAP with all sleep 5. Encourage incentive spirometer and out of bed as tolerated 6. Hold on diuretics for now IMPRESSIONS: 1. Acute hypoxic respiratory insufficiency on chronic hypoxic respiratory failure secondary to COVID-19 Patient has been initiated on Decadron and supplemental oxygen. Unclear how much hypoxia on presentation is related to COVID-19 versus increased pulmonary artery pressures related to hypoxia. Given relatively new onset of symptoms, goals of therapy and comorbidities, patient will be given remdesivir despite renal function. We will need to watch liver function studies closely. Patient with a slight increase in liver enzymes, but not enough to discontinue remdesivir. Continue with CPAP with sleep to avoid worsening hypoxia. Will transition to Airvo to provide humidification. Encourage incentive spirometer. Unable to diurese secondary to renal function. 2. CKD stage IV secondary to diabetes mellitus Patient with longstanding peripheral vascular disease, diabetes and hypertension. Latest creatinine appears to be close to 2.0. Patient may have an element of prerenal acute kidney injury, but no recent creatinines available for review. We will continue to monitor closely. Avoid contrast. Lovenox will need to be dosed renally. Creatinine did improve with a slow fluid challenge. Given COVID-19, being very cautious with fluid. 3. Diabetes mellitus type 2 Patient has been initiated on Decadron therapy. Increase Lantus requirements secondary to steroid therapy. We will continue to monitor. Patient should have before every meal and at bedtime blood sugars monitored. 4. Coronary artery disease/depression/anxiety/peripheral vascular disease/hypertension/advanced age/obesity/AUTUMN Complicates care, management, recovery and prognosis. Okay to continue with baseline medications from my perspective. Patient is on appropriate noninvasive therapy overnight. CODE STATUS has been changed. Inpatient E&M: 46331 Subs Hosp L3
[2020-08-25 08:41] LABS: Bedside Glucose 200 mg/dL (70-110)
--- NOTE | 2020-08-25 09:12 | PCM.PN.HOSP ---
Patient Problems: Active and Suspected Problems (Last Reviewed 08/22/20 @ 05:[address] Michael Orantes MD) Acute viral syndrome (Acute) Respiratory insufficiency (Acute) Subjective: No issues overnight, still requiring a little higher on his oxygen to 8 or 9 L nasal cannula. Tolerating BiPAP well. Vitals/I&O's: Vital Signs Temp Pulse Resp BP Pulse Ox 96.2 F L 66 20 H 132/76 H 91 08/25/20 08:06 08/25/20 08:06 08/25/20 08:06 08/25/20 08:06 08/25/20 08:06 Oxygen Flow Rate (L/min) 10 Oxygen Delivery Method Nasal Cannula Weight: 232 lb 2.348 oz Body Mass Index (BMI) 35.3 Finger Stick Blood Glucose 187 Intake and Output for Last 24 Hours 08/23/20 08/24/20 08/25/20 23:59 23:59 23:59 Intake Total 570 / 570 1850 / 1850 333.5 / 333.5 Output Total 550 / 550 800 / 1200 400 / 400 Balance 1050 / 650 -66.5 / -66.5 General: Alert, Oriented x3, Cooperative, No apparent distress HEENT: Atraumatic, PERRLA, EOMI, Normocephalic Oral: Moist Mucosa Neck: Supple, No JVD Lungs: Normal air movement, No rhonchi, No wheeze, No rales, Diminished Cardiovascular: Regular rate, Regular Rhythm, Normal S1, Normal S2, Murmur Abdomen: Soft, Non Tender, Non-Distended, No Hepato-splenomegaly Extremities: No edema, Capillary Refill Less than 3 Seconds Skin: No rashes, No breakdown Neurological: Neuro grossly intact, Sensory exam intact to light touch and pain Psych/Mental Status: Normal Affect, Appropriate Microbiology Past 72 Hours 08/22/20 02:40 Blood Culture (Wb) - Anticubital Right Blood Culture - Preliminary No growth in 48 hours. 08/22/20 02:15 Blood Culture (Wb) - Left Hand Blood Culture - Preliminary No growth in 48 hours. 08/22/20 03:30 Mucosa - Nasopharyngeal Respiratory Panel (PCR) - Final Laboratory Results 08/24/20 11:33: POC Glucose 361 H 08/24/20 16:47: POC Glucose 183 H 08/24/20 22:12: POC Glucose 269 H 08/25/20 04:20: WBC 8.4, RBC 5.06, Hgb 16.3, Hct 47.4, MCV 93.7, MCH 32.2 H, MCHC 34.4, RDW Std Deviation 61.1 H, RDW Coeff of [place] 17.6 H, Plt Count 144 L, MPV 11.8 08/25/20 04:20: Sodium 137, Potassium 4.9, Chloride 103, Carbon Dioxide 27.0, Anion Gap 7, BUN 77 H, Creatinine 2.91 H, Estim Creat Clear Calc 21.87, Est GFR (MDRD) Af Amer 27 L, Est GFR (MDRD) Non-Af 23 L, BUN/Creatinine Ratio 26.5 H, Glucose 204 H, Calcium 8.8, Total Bilirubin 0.50, AST 27, ALT 45, Alkaline Phosphatase 72, Total Protein 6.5, Albumin 2.8 L, Globulin 3.7, Albumin/Globulin Ratio 0.8 L 08/25/20 07:45: POC Glucose 200 H Current Medications Acetaminophen (Acetaminophen 325 Mg Tablet) 650 mg PO Q6H PRN PRN PRN Reason: Pain Score 1-10/Temp > 100.7 F Albuterol Sulfate (Albuterol Ih 8.5 Gm (Proair) Inhaler (200 Puffs)) 2 puff INHALATION Q4H PRN PRN PRN Reason: sob/wheezing Albuterol/Ipratropium (Ipratropium/Albuterol Sulfate 3 Ml Ampul.Neb) 3 ml INHALATION Q6HWA.RT [facility] Last Admin: 08/25/20 07:47 Dose: 3 ml Documented by: Amlodipine Besylate (Amlodipine 5 Mg Tablet) 5 mg PO DAILY [facility] Last Admin: 08/24/20 08:41 Dose: 5 mg Documented by: Ascorbic Acid (Ascorbic Acid 500 Mg Tablet) 500 mg PO DAILY [facility] Last Admin: 08/24/20 08:42 Dose: 500 mg Documented by: Aspirin (Aspirin E.C. 81 Mg Tablet) 81 mg PO DAILY [facility] Last Admin: 08/24/20 08:42 Dose: 81 mg Documented by: Atorvastatin Calcium (Atorvastatin Calcium 80 Mg Tablet) 80 mg PO QHS [facility] Last Admin: 08/24/20 22:13 Dose: 80 mg Documented by: Cholecalciferol (Cholecalciferol (Vit D3) 1,000 Unit (25mcg)) 1,000 unit PO DAILY [facility] Last Admin: 08/24/20 08:42 Dose: 1,000 unit Documented by: Clopidogrel Bisulfate (Clopidogrel Bisulfate 75 Mg Tablet) 75 mg PO 1400 [facility] Last Admin: 08/24/20 08:42 Dose: 75 mg Documented by: Dexamethasone (Dexamethasone 4 Mg Tablet) 6 mg PO DAILY [facility] Last Admin: 08/24/20 08:41 Dose: 6 mg Documented by: Dextrose (Dextrose 50%-Water 25 Gm/50 Ml Disp.Syrin) 0 gm IV X1 PRN; Protocol PRN Reason: Hypoglycemia Enoxaparin Sodium (Enoxaparin 120 Mg/0.8 Ml Syringe) 110 mg SC DAILY [facility] Last Admin: 08/24/20 08:40 Dose: 110 mg Documented by: Fluoxetine HCl (Fluoxetine 20 Mg Capsule) 20 mg PO DAILY [facility] Last Admin: 08/24/20 08:42 Dose: 20 mg Documented by: Glucagon (Glucagon 1 Mg/Ml Syringe) 1 mg IM .X1 PRN PRN Reason: Hypoglycemia Sodium Chloride () 250 mls @ 15 mls/hr IV .[id number] PRN PRN Reason: Saline Flush Sodium Chloride () 250 mls @ 15 mls/hr IV .[id number] PRN PRN Reason: Additional IVPB Infusion Remdesivir 100 mg/ Sodium (Chloride) 250 mls @ 125 mls/hr IV DAILY [facility] Stop: 08/26/20 11:59 Last Infusion: 08/24/20 19:00 Dose: Infused Documented by: Insulin Glargine (Insulin Glargine 100 Units/Ml Pen) 65 units SC DAILY [facility] Last Admin: 08/24/20 09:42 Dose: Not Given Documented by: Insulin Human Lispro (Insulin Lispro 100 Unit/Ml Insuln.Pen) 0 unit SC ACHS [facility]; Protocol Last Admin: 08/25/20 08:32 Dose: 4 u Documented by: Insulin Human Lispro (Insulin Lispro 100 Unit/Ml Insuln.Pen) 10 unit SC DINNER [facility] Last Admin: 08/24/20 16:49 Dose: 10 units Documented by: Insulin Human Lispro (Insulin Lispro 100 Unit/Ml Insuln.Pen) 10 unit SC BREAKFAST [facility] Last Admin: 08/25/20 08:32 Dose: 10 u Documented by: Insulin Human Lispro (Insulin Lispro 100 Unit/Ml Insuln.Pen) 10 unit SC LUNCH [facility] Last Admin: 08/24/20 11:35 Dose: 10 u Documented by: Melatonin (Melatonin 3 Mg Tablet) 3 mg PO QHS PRN PRN PRN Reason: INSOMNIA Last Admin: 08/23/20 20:42 Dose: 3 mg Documented by: Metoprolol Tartrate (Metoprolol Tartrate 100 Mg Tablet) 100 mg PO BID [facility] Last Admin: 08/24/20 22:13 Dose: 100 mg Documented by: Ondansetron HCl (Ondansetron 4 Mg/2 Ml Vial) 4 mg IV Q8H PRN PRN PRN Reason: NAUSEA/VOMITING Last Admin: 08/23/20 08:58 Dose: 4 mg Documented by: Pramipexole Dihydrochloride (Pramipexole Di-Hcl 0.25 Mg Tablet) 0.25 mg PO QHS [facility] Last Admin: 08/24/20 22:13 Dose: 0.25 mg Documented by: Senna/Docusate Sodium (Senna/Docusate Sodium 1 Tablet) 2 tablet PO BID PRN PRN PRN Reason: Constipation Sodium Chloride (0.9% Saline Lock 10 Ml Syringe) 10 - 40 ml IV UD PRN PRN Reason: SALINE FLUSH Last Admin: 08/23/20 20:42 Dose: 10 ml Documented by: STROKE Vital Signs/Narrative: Vital Signs Temp Pulse Resp BP Pulse Ox 08/25/20 08:06 96.2 F L 66 20 H 132/76 H 91 Medical Necessity - Tobacco Use Smoking Status: Former smoker Assessment/Plan All Active Problems (Last Reviewed 08/22/20 @ 05:[address] Michael Orantes MD) Acute viral syndrome (Acute) Respiratory insufficiency (Acute) Ischemic cardiomyopathy (Resolved) 1. Acute hypoxic respiratory failure secondary to COVID-19 pneumonia/WILLIAM on CKD 3/COPD not in exacerbation -Symptoms started 3 days prior to admission, therefore we will continue with Decadron and remdesivir -We will adjust and monitor insulin requirements secondary to his history of DM 2 on steroids -He is transitioning between oxygen and BiPAP, he is a DNR CCA with no intubation -Continue with inhalers -His D-dimer was elevated however so was his creatinine therefore CTA could not be obtained and because of the abnormal chest x-ray with his bilateral infiltrates a VQ scan would not provide meaningful information -Continue with therapeutic Lovenox with transition to Eliquis on discharge -Was given a little bit of IV fluids yesterday his creatinine has improved slightly. We will continue with remdesivir for now and continue to monitor both liver and kidney function 2. DM 2 -We will adjust insulin as necessary given his steroid use -Accu-Cheks AC at bedtime 3. CAD status post CABG/PAD/HTN/HLD/morbid obesity -Blood pressure is stable at this time -Continue with his home blood pressure medication -Continue with statin -Continue with aspirin and Plavix 4. Depression/anxiety -Stable -Continue with Paxil DVT: Therapeutic Lovenox Inpatient E&M: 45910 Subs Hosp L2
[2020-08-25] MEDS: FLUoxetine 20 MG Capsule PO (10:02)
[2020-08-25] MEDS: amLODIPine 5 MG Tablet PO (10:03)
[2020-08-25] MEDS: dexAMETHasone 4 MG Tablet 6 MG PO (10:03)
[2020-08-25] MEDS: Enoxaparin 120 MG/0.8 ML Syringe 110 MG SC (10:03)
[2020-08-25] MEDS: Metoprolol Tartrate 100 MG Tablet PO ×2 (10:03→21:04)
[2020-08-25] MEDS: Ascorbic Acid 500 MG Tablet PO (10:03)
[2020-08-25] MEDS: Aspirin E.C. 81 MG Tablet PO (10:03)
--- NOTE | 2020-08-25 12:05 | CM.UR ---
Placed green sheet on chart with [facility] phone and fax number in case o2 increase is needed. Eugenia Howell RN, CCM.
[2020-08-25] MEDS: BENZOCAINE/MENTHOL 1 LOZENGE MUCOUS MEM (14:38)
[2020-08-25] MEDS: Clopidogrel Bisulfate 75 MG Tablet PO (14:39)
[2020-08-25 17:01] LABS: Bedside Glucose 299 mg/dL (70-110)
[2020-08-25 17:15] LABS: Bedside Glucose 297 mg/dL (70-110)
[2020-08-25] MEDS: Pramipexole Di-HCl 0.25 MG Tablet PO (21:04)
[2020-08-25] MEDS: Atorvastatin Calcium 80 MG Tablet PO (21:04)
[2020-08-25 21:16] LABS: Bedside Glucose 253 mg/dL (70-110)
[2020-08-26] VITALS (19 sets, daily range): BP systolic 129–154; BP diastolic 53–73; PULSE 60–72; RESP 12–20; TEMP 35.6–37.2; O2SAT 91–96
[2020-08-26 03:21] LABS: Hematocrit 47.6 % (40-54); Hemoglobin 15.9 g/dL (13.0-16.5); Mean Corp Hgb Conc 33.4 g/dL (32-36); Mean Corpuscular Hgb 31.1 pg (27.0-32.0); Mean Corpuscular Volume 93.2 fL (80-94); Mean Platelet Vol. 12.1 fl (6.2-12.0); Platelet Count 163 K/mm3 (150-450); RBC Distribution Width CV 17.3 % (11.6-14.6); RBC Distribution Width SD 60.5 fl (35.1-43.9); Red Blood Count 5.11 M/mm3 (4.6-6.2); White Blood Count 9.1 K/mm3 (4.4-11.0)
[2020-08-26 04:26] LABS: ALB/GLOB Ratio 0.7 RATIO (0.9-2.4); AST(SGOT) 28 U/L (15-37); Alanine Aminotransfer ALT/SGPT 47 U/L (16-61); Albumin, Serum 2.9 g/dL (3.2-5.0); Alkaline Phosphatase 72 U/L (45-117); Anion Gap 6 (5-15); BUN 80 mg/dL (7-18); Chloride 104 mmol/L (98-107); EST Glomerular Filtration Rate 27 mL/min (>60); Est Glom Filt Rate - Afr Amer 33 mL/min (>60); Estimated Creatinine Clearance 25.46 ml/min; Glucose 229 mg/dL (74-106); Potassium 5.1 mmol/L (3.5-5.1); Protein, Total 6.9 g/dL (6.4-8.2); Sodium Level 136 mmol/L (136-145)
[2020-08-26] MEDS: Ipratropium/Albuterol Sulfate 3 ML AMPUL.NEB INHALATION ×3 (06:53→19:26)
[2020-08-26] MEDS: Insulin Lispro 100 UNIT/ML INSULN.PEN 10 UNIT SC ×3 (08:29→17:04)
[2020-08-26] MEDS: Insulin Lispro 100 UNIT/ML INSULN.PEN SC ×4 (08:29→20:46)
--- NOTE | 2020-08-26 08:46 | PCM.PN.PUL ---
Patient Problems: Active and Suspected Problems (Last Reviewed 08/22/20 @ 05:[address] Michael Orantes MD) Acute viral syndrome (Acute) Respiratory insufficiency (Acute) Subjective: Patient did okay overnight. Patient wore BiPAP for only 4 to 5 hours. Patient has been on Airvo during the day. Patient using incentive spirometer and achieving approximately 1750 mL. Patient is not reporting any chest pain. Patient does have a cough with minimal production. - Physical Exam Vitals/I&O's: Vital Signs Temp Pulse Resp BP Pulse Ox 35.6 C L 67 18 154/70 H 93 08/26/20 08:30 08/26/20 08:30 08/26/20 08:30 08/26/20 08:30 08/26/20 08:30 Oxygen Flow Rate (L/min) 50 Oxygen Delivery Method Airvo Weight: 105.3 kg Body Mass Index (BMI) 35.3 Finger Stick Blood Glucose 187 Intake and Output for Last 24 Hours 08/24/20 08/25/20 08/26/20 23:59 23:59 23:59 Intake Total 1850 / 1850 1058.5 / 1058.5 Output Total 800 / 1200 1600 / 1600 700 / 700 Balance 1050 / 650 -541.5 / -541.5 -700 / -700 General: Alert, Oriented x3, Cooperative, No apparent distress, - - Obese. Mild conversational dyspnea. HEENT: Atraumatic, PERRLA, EOMI, Normocephalic, - - No scleral icterus or injection noted Oral: Moist Mucosa, No Gingival or Mucosal Lesions/ Ulcerations, - - Crowded posterior pharynx Neck: Supple, No Nodes, Trachea Midline Lungs: No rhonchi, No rales, Diminished, Wheezes - At end exhalation Cardiovascular: Regular rate, Regular Rhythm, Normal S1, Normal S2, No murmurs, No rub noted, No Gallop Abdomen: Bowel Sounds Present, Soft, Non Tender, Non-Distended, Obese Extremities: No clubbing, No cyanosis, Edema - Trace lower extremity Skin: - - No change compared to previous Musculoskeletal: No Tenderness to Palpation of Joints or Extremities Lymphatic: No Cervical, Supraclavicular, or Inguinal Adenopathy Neurological: Cranial nerves II-XII grossly intact, Neuro grossly intact, Motor Exam 5/5 strength throughout Psych/Mental Status: Alert and oriented to time, place, person, mood and affect Microbiology Past 72 Hours 08/22/20 02:40 Blood Culture (Wb) - Anticubital Right Blood Culture - Preliminary No growth in 48 hours. 08/22/20 02:15 Blood Culture (Wb) - Left Hand Blood Culture - Preliminary No growth in 48 hours. Laboratory Results 08/25/20 12:26: POC Glucose 299 H 08/25/20 17:02: POC Glucose 297 H 08/25/20 21:03: POC Glucose 253 H 08/26/20 03:05: WBC 9.1, RBC 5.11, Hgb 15.9, Hct 47.6, MCV 93.2, MCH 31.1, MCHC 33.4, RDW Std Deviation 60.5 H, RDW Coeff of [place] 17.3 H, Plt Count 163, MPV 12.1 H 08/26/20 03:05: Sodium Cancelled, Potassium Cancelled, Chloride Cancelled, Carbon Dioxide Cancelled, Anion Gap Cancelled, BUN Cancelled, Creatinine Cancelled, Estim Creat Clear Calc Cancelled, Est GFR (MDRD) Af Amer Cancelled, Est GFR (MDRD) Non-Af Cancelled, BUN/Creatinine Ratio Cancelled, Glucose Cancelled, Calcium Cancelled, Total Bilirubin Cancelled, AST Cancelled, ALT Cancelled, Alkaline Phosphatase Cancelled, Total Protein Cancelled, Albumin Cancelled, Globulin Cancelled, Albumin/Globulin Ratio Cancelled 08/26/20 03:50: Sodium 136, Potassium 5.1, Chloride 104, Carbon Dioxide 26.0, Anion Gap 6, BUN 80 H, Creatinine 2.50 H, Estim Creat Clear Calc 25.46, Est GFR (MDRD) Af Amer 33 L, Est GFR (MDRD) Non-Af 27 L, BUN/Creatinine Ratio 32.0 H, Glucose 229 H, Calcium 9.0, Total Bilirubin 0.60, AST 28, ALT 47, Alkaline Phosphatase 72, Total Protein 6.9, Albumin 2.9 L, Globulin 4.0, Albumin/Globulin Ratio 0.7 L Current Medications Acetaminophen (Acetaminophen 325 Mg Tablet) 650 mg PO Q6H PRN PRN PRN Reason: Pain Score 1-10/Temp > 100.7 F Albuterol Sulfate (Albuterol Ih 8.5 Gm (Proair) Inhaler (200 Puffs)) 2 puff INHALATION Q4H PRN PRN PRN Reason: sob/wheezing Albuterol/Ipratropium (Ipratropium/Albuterol Sulfate 3 Ml Ampul.Neb) 3 ml INHALATION Q6HWA.RT [facility] Last Admin: 08/26/20 06:53 Dose: 3 ml Documented by: Amlodipine Besylate (Amlodipine 5 Mg Tablet) 5 mg PO DAILY [facility] Last Admin: 08/25/20 10:03 Dose: 5 mg Documented by: Ascorbic Acid (Ascorbic Acid 500 Mg Tablet) 500 mg PO DAILY [facility] Last Admin: 08/25/20 10:03 Dose: 500 mg Documented by: Aspirin (Aspirin E.C. 81 Mg Tablet) 81 mg PO DAILY [facility] Last Admin: 08/25/20 10:03 Dose: 81 mg Documented by: Atorvastatin Calcium (Atorvastatin Calcium 80 Mg Tablet) 80 mg PO QHS [facility] Last Admin: 08/25/20 21:04 Dose: 80 mg Documented by: Cholecalciferol (Cholecalciferol (Vit D3) 1,000 Unit (25mcg)) 1,000 unit PO DAILY [facility] Last Admin: 08/25/20 10:02 Dose: 1,000 unit Documented by: Clopidogrel Bisulfate (Clopidogrel Bisulfate 75 Mg Tablet) 75 mg PO 1400 [facility] Last Admin: 08/25/20 14:39 Dose: 75 mg Documented by: Dexamethasone (Dexamethasone 4 Mg Tablet) 6 mg PO DAILY [facility] Last Admin: 08/25/20 10:03 Dose: 6 mg Documented by: Dextrose (Dextrose 50%-Water 25 Gm/50 Ml Disp.Syrin) 0 gm IV X1 PRN; Protocol PRN Reason: Hypoglycemia Enoxaparin Sodium (Enoxaparin 120 Mg/0.8 Ml Syringe) 110 mg SC DAILY [facility] Last Admin: 08/25/20 10:03 Dose: 110 mg Documented by: Fluoxetine HCl (Fluoxetine 20 Mg Capsule) 20 mg PO DAILY [facility] Last Admin: 08/25/20 10:02 Dose: 20 mg Documented by: Glucagon (Glucagon 1 Mg/Ml Syringe) 1 mg IM .X1 PRN PRN Reason: Hypoglycemia Sodium Chloride () 250 mls @ 15 mls/hr IV .[id number] PRN PRN Reason: Saline Flush Sodium Chloride () 250 mls @ 15 mls/hr IV .[id number] PRN PRN Reason: Additional IVPB Infusion Remdesivir 100 mg/ Sodium (Chloride) 250 mls @ 125 mls/hr IV DAILY [facility] Stop: 08/26/20 11:59 Last Infusion: 08/25/20 12:27 Dose: Infused Documented by: Insulin Glargine (Insulin Glargine 100 Units/Ml Pen) 65 units SC DAILY [facility] Last Admin: 08/26/20 08:30 Dose: 65 u Documented by: Insulin Human Lispro (Insulin Lispro 100 Unit/Ml Insuln.Pen) 0 unit SC ACHS [facility]; Protocol Last Admin: 08/26/20 08:29 Dose: 4 u Documented by: Insulin Human Lispro (Insulin Lispro 100 Unit/Ml Insuln.Pen) 10 unit SC DINNER [facility] Last Admin: 08/25/20 17:11 Dose: 10 units Documented by: Insulin Human Lispro (Insulin Lispro 100 Unit/Ml Insuln.Pen) 10 unit SC BREAKFAST [facility] Last Admin: 08/26/20 08:29 Dose: 10 u Documented by: Insulin Human Lispro (Insulin Lispro 100 Unit/Ml Insuln.Pen) 10 unit SC LUNCH [facility] Last Admin: 08/25/20 12:30 Dose: 10 u Documented by: Melatonin (Melatonin 3 Mg Tablet) 3 mg PO QHS PRN PRN PRN Reason: INSOMNIA Last Admin: 08/23/20 20:42 Dose: 3 mg Documented by: Metoprolol Tartrate (Metoprolol Tartrate 100 Mg Tablet) 100 mg PO BID [facility] Last Admin: 08/25/20 21:04 Dose: 100 mg Documented by: Ondansetron HCl (Ondansetron 4 Mg/2 Ml Vial) 4 mg IV Q8H PRN PRN PRN Reason: NAUSEA/VOMITING Last Admin: 08/23/20 08:58 Dose: 4 mg Documented by: Pramipexole Dihydrochloride (Pramipexole Di-Hcl 0.25 Mg Tablet) 0.25 mg PO QHS [facility] Last Admin: 08/25/20 21:04 Dose: 0.25 mg Documented by: Senna/Docusate Sodium (Senna/Docusate Sodium 1 Tablet) 2 tablet PO BID PRN PRN PRN Reason: Constipation Sodium Chloride (0.9% Saline Lock 10 Ml Syringe) 10 - 40 ml IV UD PRN PRN Reason: SALINE FLUSH Last Admin: 08/23/20 20:42 Dose: 10 ml Documented by: Throat Lozenges (Benzocaine/Menthol 1 Lozenge) 1 lozenge MUCOUS MEM Q2H PRN PRN PRN Reason: SORE THROAT Last Admin: 08/25/20 14:38 Dose: 1 lozenge Documented by: Medical Necessity - Tobacco Use Smoking Status: Former smoker Assessment/Plan All Active Problems (Last Reviewed 08/22/20 @ 05:[address] Michael Orantes MD) Acute viral syndrome (Acute) Respiratory insufficiency (Acute) Ischemic cardiomyopathy (Resolved) RECOMMENDATIONS: 1. Complete remdesivir today. No need for liver function studies tomorrow 2. Change CODE STATUS to DNR Comfort Care arrest no intubation 3. Continue Airvo. Wean oxygen as tolerated 4. Continue CPAP with all sleep 5. Encourage incentive spirometer and out of bed as tolerated 6. Possible challenge with diuretics tomorrow IMPRESSIONS: 1. Acute hypoxic respiratory insufficiency on chronic hypoxic respiratory failure secondary to COVID-19 Patient has been initiated on Decadron and supplemental oxygen. Unclear how much hypoxia on presentation is related to COVID-19 versus increased pulmonary artery pressures related to hypoxia. Given relatively new onset of symptoms, goals of therapy and comorbidities, patient will be given remdesivir despite renal function. We will need to watch liver function studies closely. Patient with a slight increase in liver enzymes, but not enough to discontinue remdesivir. Patient should be able to complete his course of remdesivir today. Continue with CPAP with sleep to avoid worsening hypoxia. Continue Airvo to provide humidification. Encourage incentive spirometer. Unable to diurese secondary to renal function. Patient may have an element of uremia secondary to steroids. 2. CKD stage IV secondary to diabetes mellitus Patient with longstanding peripheral vascular disease, diabetes and hypertension. Latest creatinine appears to be close to 2.0. Patient may have an element of prerenal acute kidney injury, but no recent creatinines available for review. We will continue to monitor closely. Avoid contrast. Lovenox will need to be dosed renally. Creatinine did improve with a slow fluid challenge. Given COVID-19, being very cautious with fluid. 3. Diabetes mellitus type 2 Patient has been initiated on Decadron therapy. Increase Lantus requirements secondary to steroid therapy. We will continue to monitor. Patient should have before every meal and at bedtime blood sugars monitored. 4. Coronary artery disease/depression/anxiety/peripheral vascular disease/hypertension/advanced age/obesity/AUTUMN Complicates care, management, recovery and prognosis. Okay to continue with baseline medications from my perspective. Patient is on appropriate noninvasive therapy overnight. CODE STATUS has been changed. Inpatient E&M: 19913 Subs Hosp L3
[2020-08-26] MEDS: dexAMETHasone 4 MG Tablet 6 MG PO (10:13)
[2020-08-26] MEDS: Aspirin E.C. 81 MG Tablet PO (10:14)
[2020-08-26] MEDS: Enoxaparin 120 MG/0.8 ML Syringe 110 MG SC (10:14)
[2020-08-26] MEDS: amLODIPine 5 MG Tablet PO (10:14)
[2020-08-26] MEDS: Metoprolol Tartrate 100 MG Tablet PO ×2 (10:14→20:46)
[2020-08-26] MEDS: FLUoxetine 20 MG Capsule PO (10:14)
[2020-08-26] MEDS: Ascorbic Acid 500 MG Tablet PO (10:14)
[2020-08-26 11:31] LABS: Bedside Glucose 200 mg/dL (70-110)
--- NOTE | 2020-08-26 12:09 | PCM.PN.HOSP ---
Patient Problems: Active and Suspected Problems (Last Reviewed 08/22/20 @ 05:[address] Michael Orantes MD) Acute viral syndrome (Acute) Respiratory insufficiency (Acute) Subjective: No issues overnight. Doing okay. Maintaining oxygenation on BiPAP and air Vo. There was no need for humidification Vitals/I&O's: Vital Signs Temp Pulse Resp BP Pulse Ox 96.0 F L 60 15 154/70 H 94 08/26/20 08:30 08/26/20 10:30 08/26/20 10:30 08/26/20 08:30 08/26/20 10:30 Oxygen Flow Rate (L/min) 50 Oxygen Delivery Method Airvo Weight: 232 lb 2.348 oz Body Mass Index (BMI) 35.3 Finger Stick Blood Glucose 187 Intake and Output for Last 24 Hours 08/24/20 08/25/20 08/26/20 23:59 23:59 23:59 Intake Total 1850 / 1850 1058.5 / 1058.5 Output Total 800 / 1200 1600 / 1600 700 / 700 Balance 1050 / 650 -541.5 / -541.5 -700 / -700 General: Alert, Oriented x3, Cooperative, No apparent distress HEENT: Atraumatic, PERRLA, EOMI, Normocephalic Oral: Moist Mucosa Neck: Supple, No JVD Lungs: Normal air movement, No rhonchi, No wheeze, No rales, Diminished Cardiovascular: Regular rate, Regular Rhythm, Normal S1, Normal S2, Murmur Abdomen: Soft, Non Tender, Non-Distended, No Hepato-splenomegaly Extremities: No edema, Capillary Refill Less than 3 Seconds Skin: No rashes, No breakdown Neurological: Neuro grossly intact, Sensory exam intact to light touch and pain Psych/Mental Status: Normal Affect, Appropriate Microbiology Past 72 Hours 08/22/20 02:40 Blood Culture (Wb) - Anticubital Right Blood Culture - Preliminary No growth in 48 hours. 08/22/20 02:15 Blood Culture (Wb) - Left Hand Blood Culture - Preliminary No growth in 48 hours. Laboratory Results 08/25/20 12:26: POC Glucose 299 H 08/25/20 17:02: POC Glucose 297 H 08/25/20 21:03: POC Glucose 253 H 08/26/20 03:05: WBC 9.1, RBC 5.11, Hgb 15.9, Hct 47.6, MCV 93.2, MCH 31.1, MCHC 33.4, RDW Std Deviation 60.5 H, RDW Coeff of [place] 17.3 H, Plt Count 163, MPV 12.1 H 08/26/20 03:05: Sodium Cancelled, Potassium Cancelled, Chloride Cancelled, Carbon Dioxide Cancelled, Anion Gap Cancelled, BUN Cancelled, Creatinine Cancelled, Estim Creat Clear Calc Cancelled, Est GFR (MDRD) Af Amer Cancelled, Est GFR (MDRD) Non-Af Cancelled, BUN/Creatinine Ratio Cancelled, Glucose Cancelled, Calcium Cancelled, Total Bilirubin Cancelled, AST Cancelled, ALT Cancelled, Alkaline Phosphatase Cancelled, Total Protein Cancelled, Albumin Cancelled, Globulin Cancelled, Albumin/Globulin Ratio Cancelled 08/26/20 03:50: Sodium 136, Potassium 5.1, Chloride 104, Carbon Dioxide 26.0, Anion Gap 6, BUN 80 H, Creatinine 2.50 H, Estim Creat Clear Calc 25.46, Est GFR (MDRD) Af Amer 33 L, Est GFR (MDRD) Non-Af 27 L, BUN/Creatinine Ratio 32.0 H, Glucose 229 H, Calcium 9.0, Total Bilirubin 0.60, AST 28, ALT 47, Alkaline Phosphatase 72, Total Protein 6.9, Albumin 2.9 L, Globulin 4.0, Albumin/Globulin Ratio 0.7 L 08/26/20 08:25: POC Glucose 200 H Current Medications Acetaminophen (Acetaminophen 325 Mg Tablet) 650 mg PO Q6H PRN PRN PRN Reason: Pain Score 1-10/Temp > 100.7 F Albuterol Sulfate (Albuterol Ih 8.5 Gm (Proair) Inhaler (200 Puffs)) 2 puff INHALATION Q4H PRN PRN PRN Reason: sob/wheezing Albuterol/Ipratropium (Ipratropium/Albuterol Sulfate 3 Ml Ampul.Neb) 3 ml INHALATION Q6HWA.RT [facility] Last Admin: 08/26/20 06:53 Dose: 3 ml Documented by: Amlodipine Besylate (Amlodipine 5 Mg Tablet) 5 mg PO DAILY [facility] Last Admin: 08/26/20 10:14 Dose: 5 mg Documented by: Ascorbic Acid (Ascorbic Acid 500 Mg Tablet) 500 mg PO DAILY [facility] Last Admin: 08/26/20 10:14 Dose: 500 mg Documented by: Aspirin (Aspirin E.C. 81 Mg Tablet) 81 mg PO DAILY [facility] Last Admin: 08/26/20 10:14 Dose: 81 mg Documented by: Atorvastatin Calcium (Atorvastatin Calcium 80 Mg Tablet) 80 mg PO QHS [facility] Last Admin: 08/25/20 21:04 Dose: 80 mg Documented by: Cholecalciferol (Cholecalciferol (Vit D3) 1,000 Unit (25mcg)) 1,000 unit PO DAILY [facility] Last Admin: 08/26/20 10:14 Dose: 1,000 unit Documented by: Clopidogrel Bisulfate (Clopidogrel Bisulfate 75 Mg Tablet) 75 mg PO 1400 [facility] Last Admin: 08/25/20 14:39 Dose: 75 mg Documented by: Dexamethasone (Dexamethasone 4 Mg Tablet) 6 mg PO DAILY [facility] Last Admin: 08/26/20 10:13 Dose: 6 mg Documented by: Dextrose (Dextrose 50%-Water 25 Gm/50 Ml Disp.Syrin) 0 gm IV X1 PRN; Protocol PRN Reason: Hypoglycemia Enoxaparin Sodium (Enoxaparin 120 Mg/0.8 Ml Syringe) 110 mg SC DAILY [facility] Last Admin: 08/26/20 10:14 Dose: 110 mg Documented by: Fluoxetine HCl (Fluoxetine 20 Mg Capsule) 20 mg PO DAILY [facility] Last Admin: 08/26/20 10:14 Dose: 20 mg Documented by: Glucagon (Glucagon 1 Mg/Ml Syringe) 1 mg IM .X1 PRN PRN Reason: Hypoglycemia Sodium Chloride () 250 mls @ 15 mls/hr IV .[id number] PRN PRN Reason: Saline Flush Sodium Chloride () 250 mls @ 15 mls/hr IV .[id number] PRN PRN Reason: Additional IVPB Infusion Insulin Glargine (Insulin Glargine 100 Units/Ml Pen) 65 units SC DAILY [facility] Last Admin: 08/26/20 08:30 Dose: 65 u Documented by: Insulin Human Lispro (Insulin Lispro 100 Unit/Ml Insuln.Pen) 0 unit SC ACHS [facility]; Protocol Last Admin: 08/26/20 08:29 Dose: 4 u Documented by: Insulin Human Lispro (Insulin Lispro 100 Unit/Ml Insuln.Pen) 10 unit SC DINNER [facility] Last Admin: 08/25/20 17:11 Dose: 10 units Documented by: Insulin Human Lispro (Insulin Lispro 100 Unit/Ml Insuln.Pen) 10 unit SC BREAKFAST [facility] Last Admin: 08/26/20 08:29 Dose: 10 u Documented by: Insulin Human Lispro (Insulin Lispro 100 Unit/Ml Insuln.Pen) 10 unit SC LUNCH [facility] Last Admin: 08/25/20 12:30 Dose: 10 u Documented by: Melatonin (Melatonin 3 Mg Tablet) 3 mg PO QHS PRN PRN PRN Reason: INSOMNIA Last Admin: 08/23/20 20:42 Dose: 3 mg Documented by: Metoprolol Tartrate (Metoprolol Tartrate 100 Mg Tablet) 100 mg PO BID [facility] Last Admin: 08/26/20 10:14 Dose: 100 mg Documented by: Ondansetron HCl (Ondansetron 4 Mg/2 Ml Vial) 4 mg IV Q8H PRN PRN PRN Reason: NAUSEA/VOMITING Last Admin: 08/23/20 08:58 Dose: 4 mg Documented by: Pramipexole Dihydrochloride (Pramipexole Di-Hcl 0.25 Mg Tablet) 0.25 mg PO QHS [facility] Last Admin: 08/25/20 21:04 Dose: 0.25 mg Documented by: Senna/Docusate Sodium (Senna/Docusate Sodium 1 Tablet) 2 tablet PO BID PRN PRN PRN Reason: Constipation Sodium Chloride (0.9% Saline Lock 10 Ml Syringe) 10 - 40 ml IV UD PRN PRN Reason: SALINE FLUSH Last Admin: 08/23/20 20:42 Dose: 10 ml Documented by: Throat Lozenges (Benzocaine/Menthol 1 Lozenge) 1 lozenge MUCOUS MEM Q2H PRN PRN PRN Reason: SORE THROAT Last Admin: 08/25/20 14:38 Dose: 1 lozenge Documented by: STROKE Vital Signs/Narrative: Vital Signs Temp Pulse Resp BP Pulse Ox 08/26/20 10:30 60 15 94 08/26/20 10:14 64 08/26/20 08:38 65 08/26/20 08:30 96.0 F L 67 18 154/70 H 93 Medical Necessity - Tobacco Use Smoking Status: Former smoker Assessment/Plan All Active Problems (Last Reviewed 03/03/21 @ 05:[address] Michael Orantes MD) Acute viral syndrome (Acute) Respiratory insufficiency (Acute) Ischemic cardiomyopathy (Resolved) 1. Acute hypoxic respiratory failure secondary to COVID-19 pneumonia/WILLIAM on CKD 3/COPD not in exacerbation -Symptoms started 3 days prior to admission, therefore we will continue with Decadron and remdesivir -We will adjust and monitor insulin requirements secondary to his history of DM 2 on steroids -He is transitioning between oxygen and BiPAP, he is a DNR CCA with no intubation -Continue with inhalers -His D-dimer was elevated however so was his creatinine therefore CTA could not be obtained and because of the abnormal chest x-ray with his bilateral infiltrates a VQ scan would not provide meaningful information -Continue with therapeutic Lovenox with transition to Eliquis on discharge -Was given a little bit of IV fluids during his stay. Creatinine is now down to 2.5. We will continue to monitor 2. DM 2 -We will adjust insulin as necessary given his steroid use -Accu-Cheks AC at bedtime 3. CAD status post CABG/PAD/HTN/HLD/morbid obesity -Blood pressure is stable at this time -Continue with his home blood pressure medication -Continue with statin -Continue with aspirin and Plavix 4. Depression/anxiety -Stable -Continue with Paxil DVT: Therapeutic Lovenox Inpatient E&M: [id number] [facility] Hosp L2
[2020-08-26 12:25] LABS: Bedside Glucose 306 mg/dL (70-110)
[2020-08-26] MEDS: Clopidogrel Bisulfate 75 MG Tablet PO (13:39)
[2020-08-26 17:11] LABS: Bedside Glucose 236 mg/dL (70-110)
[2020-08-26] MEDS: Senna/Docusate Sodium 1 Tablet 2 TABLET PO (20:45)
[2020-08-26] MEDS: Atorvastatin Calcium 80 MG Tablet PO (20:46)
[2020-08-26] MEDS: Pramipexole Di-HCl 0.25 MG Tablet PO (20:46)
[2020-08-26 20:56] LABS: Bedside Glucose 272 mg/dL (70-110)
[2020-08-27] VITALS (18 sets, daily range): BP systolic 119–150; BP diastolic 64–86; PULSE 60–82; RESP 13–19; TEMP 36.6–37.1; O2SAT 90–98
--- NOTE | 2020-08-27 05:45 | PN_ITS ---
Subjective: The patient was seen and examined at the bedside this morning. Events from the last 24 hours have been reviewed. The patient is currently afebrile, hemodynamically stable and maintaining appropriate oxygen saturations on CPAP. Prior to this, the patient was maintaining appropriate oxygen saturations on Airvo heated high flow oxygen. The patient has completed his treatment course of remdesivir and remains on Decadron and Lovenox. Blood sugars remain elevated. The patient is currently documented to be overall net +1.1 L for the hospital admission. Objective: The patient's most recent lab work, culture data and imaging studies have all been personally reviewed. Surface echocardiogram dated March 2019 revealed normal LV size with an ejection fraction of 60%. Coronavirus PCR was positive on August 22. Respiratory viral panel was negative. Blood cultures have shown no growth to date. General: Alert, Cooperative, No apparent distress, - - Sitting in bedside recliner HEENT: Atraumatic, Normocephalic Oral: No Gingival or Mucosal Lesions/ Ulcerations Neck: Supple, No Nodes, Trachea Midline Lungs: No rhonchi, No wheeze, No rales, Diminished Cardiovascular: Regular rate, Regular Rhythm Abdomen: Bowel Sounds Present, Soft, Non Tender, Obese Extremities: No clubbing, No cyanosis Skin: No breakdown Musculoskeletal: No Tenderness to Palpation of Joints or Extremities Lymphatic: No Cervical, Supraclavicular, or Inguinal Adenopathy Neurological: Cranial nerves II-XII grossly intact, Neuro grossly intact Psych/Mental Status: Normal Affect, Appropriate Vital Signs Temp Pulse Resp BP Pulse Ox 98.7 F 61 16 132/86 H 95 08/27/20 01:50 08/27/20 03:19 08/27/20 02:06 08/27/20 01:50 08/27/20 02:06 Oxygen Flow Rate (L/min) 50 Oxygen Delivery Method CPAP Weight: 232 lb 2.348 oz Body Mass Index (BMI) 35.3 Finger Stick Blood Glucose 187 Intake and Output for Last 24 Hours 08/25/20 08/26/20 08/27/20 23:59 23:59 23:59 Intake Total 1058.5 / 1058.5 250 / 600 350 / 350 Output Total 1600 / 1600 900 / 1375 475 / 475 Balance -541.5 / -541.5 -650 / -775 -125 / -125 Labs (Last 48 Hours) 08/25/20 08/25/20 08/25/20 07:45 12:26 17:02 WBC RBC Hgb Hct MCV MCH MCHC RDW Std Deviation RDW Coeff of [place] Plt Count MPV Sodium Potassium Chloride Carbon Dioxide Anion Gap BUN Creatinine Estim Creat Clear Calc Est GFR (MDRD) Af Amer Est GFR (MDRD) Non-Af BUN/Creatinine Ratio Glucose Calcium Total Bilirubin AST ALT Alkaline Phosphatase Total Protein Albumin Globulin Albumin/Globulin Ratio POC Glucose 200 H 299 H 297 H 08/25/20 08/26/20 08/26/20 21:03 03:05 03:05 WBC 9.1 RBC 5.11 Hgb 15.9 Hct 47.6 MCV 93.2 MCH 31.1 MCHC 33.4 RDW Std Deviation 60.5 H RDW Coeff of [place] 17.3 H Plt Count 163 MPV 12.1 H Sodium Cancelled Potassium Cancelled Chloride Cancelled Carbon Dioxide Cancelled Anion Gap Cancelled BUN Cancelled Creatinine Cancelled Estim Creat Clear Calc Cancelled Est GFR (MDRD) Af Amer Cancelled Est GFR (MDRD) Non-Af Cancelled BUN/Creatinine Ratio Cancelled Glucose Cancelled Calcium Cancelled Total Bilirubin Cancelled AST Cancelled ALT Cancelled Alkaline Phosphatase Cancelled Total Protein Cancelled Albumin Cancelled Globulin Cancelled Albumin/Globulin Ratio Cancelled POC Glucose 253 H 08/26/20 08/26/20 08/26/20 03:50 08:25 12:18 WBC RBC Hgb Hct MCV MCH MCHC RDW Std Deviation RDW Coeff of [place] Plt Count MPV Sodium 136 Potassium 5.1 Chloride 104 Carbon Dioxide 26.0 Anion Gap 6 BUN 80 H Creatinine 2.50 H Estim Creat Clear Calc 25.46 Est GFR (MDRD) Af Amer 33 L Est GFR (MDRD) Non-Af 27 L BUN/Creatinine Ratio 32.0 H Glucose 229 H Calcium 9.0 Total Bilirubin 0.60 AST 28 ALT 47 Alkaline Phosphatase 72 Total Protein 6.9 Albumin 2.9 L Globulin 4.0 Albumin/Globulin Ratio 0.7 L POC Glucose 200 H 306 H 08/26/20 08/26/20 16:57 20:44 WBC RBC Hgb Hct MCV MCH MCHC RDW Std Deviation RDW Coeff of [place] Plt Count MPV Sodium Potassium Chloride Carbon Dioxide Anion Gap BUN Creatinine Estim Creat Clear Calc Est GFR (MDRD) Af Amer Est GFR (MDRD) Non-Af BUN/Creatinine Ratio Glucose Calcium Total Bilirubin AST ALT Alkaline Phosphatase Total Protein Albumin Globulin Albumin/Globulin Ratio POC Glucose 236 H 272 H Clinical Impression(s) from Imaging Studies Chest X-Ray 08/22/20 02:24 IMPRESSION: COPD with patchy bibasilar airspace disease Electronically Signed: Noah Slade DO at 3:10 EST Tel , Service support , Medical Necessity - Tobacco Use Smoking Status: Former smoker Assessment/Plan All Active Problems (Last Reviewed 08/22/20 @ 05:[address] Michael Orantes MD) Acute viral syndrome (Acute) Respiratory insufficiency (Acute) Ischemic cardiomyopathy (Resolved) RECOMMENDATIONS: 1. Continue Decadron to complete 10-day treatment course. 2. Continue Lovenox. 3. Continue scheduled bronchodilator therapy. 4. Continue Lantus and sliding scale insulin coverage. 5. Wean supplemental oxygen to maintain saturations at or above 90%. 6. Encourage incentive spirometer use and mobilize patient as tolerated. IMPRESSIONS: 1. Acute on chronic hypoxemic respiratory failure secondary to COVID-19 pneumonia Clinically improving. The patient has completed his treatment course of remdesivir and will remain on Decadron to complete a total of 10 days of treatment. In the interim, the patient will be continued on Lovenox and scheduled bronchodilator therapy. Continue to wean supplemental oxygen to maintain saturations at or above 90%. Encourage incentive spirometer use and mobilize patient as tolerated. 2. Acute on chronic kidney disease Slowly improving. Potentially prerenal in etiology and related to acute presentation. Creatinine is slowly improving. Continue to monitor urine output for now. No current indication for renal replacement therapy. 3. Diabetes mellitus Continue basal and sliding scale insulin coverage. 4. Coronary artery disease/anxiety/depression/peripheral vascular disease/hypertension/obesity/AUTUMN Complicates care, management, recovery and prognosis. Continue nocturnal Pap therapy per home regimen. This note was generated with [employer] software. It may contain incorrect words, spelling, and punctuation that were not noted in checking the note before signing. Inpatient E&M: [id number] [facility] Hosp L3
[2020-08-27] MEDS: Ipratropium/Albuterol Sulfate 3 ML AMPUL.NEB INHALATION ×3 (07:07→19:00)
[2020-08-27] MEDS: Insulin Lispro 100 UNIT/ML INSULN.PEN SC ×4 (07:51→21:58)
[2020-08-27] MEDS: Insulin Lispro 100 UNIT/ML INSULN.PEN 10 UNIT SC ×3 (07:52→16:26)
[2020-08-27 07:56] LABS: Absolute Lymphocyte Count 0.61 X10^3/uL (0.83-4.51); Absolute Neutrophil Count 11.6 X10^3/uL (2.0-7.7); Basophil# 0.03 X10^3/uL; Basophil% 0.2 % (0-1); Hematocrit 45.8 % (40-54); Hemoglobin 15.2 g/dL (13.0-16.5); Lymphocyte # 0.61 X10^3/ul (4.0); Lymphocyte % 4.5 % (19-41); Mean Corp Hgb Conc 33.2 g/dL (32-36); Mean Corpuscular Hgb 31.1 pg (27.0-32.0); Mean Corpuscular Volume 93.7 fL (80-94); Mean Platelet Vol. 11.7 fl (6.2-12.0); Monocyte# 1.13 X10^3/uL; Monocyte% 8.4 % (0-10); NRBC Flagged by Analyzer 0 % (0-5); Neutrophil # 11.64 X10^3/uL (2.7-7.7); Neutrophil % 86.3 % (47-70); POSITIVE MORPHOLOGY YES; Platelet Count 185 K/mm3 (150-450); RBC Distribution Width CV 17.7 % (11.6-14.6); RBC Distribution Width SD 61.3 fl (35.1-43.9); Red Blood Count 4.89 M/mm3 (4.6-6.2); White Blood Count 13.5 K/mm3 (4.4-11.0)
[2020-08-27 08:03] LABS: Differential Indicated SCAN CRITERIA MET
[2020-08-27 08:13] LABS: Anion Gap 5 (5-15); BUN 91 mg/dL (7-18); BUN/Creat Ratio 42.1 RATIO (10-20); Calcium,Total 8.9 mg/dL (8.5-10.1); Chloride 106 mmol/L (98-107); Creatinine, Serum 2.16 mg/dL (0.70-1.30); EST Glomerular Filtration Rate 32 mL/min (>60); Est Glom Filt Rate - Afr Amer 39 mL/min (>60); Estimated Creatinine Clearance 29.47 ml/min; Glucose 249 mg/dL (74-106); Potassium 5.5 mmol/L (3.5-5.1); Sodium Level 138 mmol/L (136-145)
[2020-08-27 08:20] LABS: Differential Comment SCANNED; Platelet Morphology LARGE
[2020-08-27 08:26] LABS: Bedside Glucose 241 mg/dL (70-110)
[2020-08-27] MEDS: FLUoxetine 20 MG Capsule PO ×2 (09:19→09:21)
[2020-08-27] MEDS: dexAMETHasone 4 MG Tablet 6 MG PO (09:20)
[2020-08-27] MEDS: Ascorbic Acid 500 MG Tablet PO (09:21)
[2020-08-27] MEDS: Metoprolol Tartrate 100 MG Tablet PO ×2 (09:21→21:59)
[2020-08-27] MEDS: Aspirin E.C. 81 MG Tablet PO (09:21)
[2020-08-27] MEDS: amLODIPine 5 MG Tablet PO (09:21)
[2020-08-27] MEDS: Enoxaparin 120 MG/0.8 ML Syringe 110 MG SC (09:22)
--- NOTE | 2020-08-27 10:03 | PN_ITS ---
Patient Problems: Active and Suspected Problems (Last Reviewed 08/22/20 @ 05:[address] Michael Orantes MD) Acute viral syndrome (Acute) Respiratory insufficiency (Acute) Subjective: Patient seen and examined. He had no complaints this morning. He is down to 8 L of oxygen. Review of systems otherwise negative. He has remained hemodynamically stable. He is in cumulative positive balance by 148 mls since admission. Vitals/I&O's: Vital Signs Temp Pulse Resp BP Pulse Ox 98.1 F 63 15 119/77 92 08/27/20 08:23 08/27/20 09:21 08/27/20 08:23 08/27/20 08:23 08/27/20 08:23 Oxygen Flow Rate (L/min) 8 Oxygen Delivery Method Nasal Cannula Weight: 232 lb 2.348 oz Body Mass Index (BMI) 35.3 Finger Stick Blood Glucose 187 Intake and Output for Last 24 Hours 08/25/20 08/26/20 08/27/20 23:59 23:59 23:59 Intake Total 1058.5 / 1058.5 250 / 600 350 / 350 Output Total 1600 / 1600 900 / 1375 1775 / 1775 Balance -541.5 / -541.5 -650 / -775 -1425 / -1425 General: Alert, Oriented x3, Cooperative, No apparent distress HEENT: Atraumatic, PERRLA, EOMI, Normocephalic Oral: Dry Mucosa Neck: Supple, No JVD, Negative Carotid Bruits Lungs: - - diminished breath sounds bibasally, no wheezes or crackles. on 8L of oxygen. Cardiovascular: Regular rate, Regular Rhythm, Normal S1, Normal S2, No murmurs Abdomen: Bowel Sounds Present, Soft, Non Tender Extremities: No clubbing, No cyanosis, No edema, Capillary Refill Less than 3 Seconds Skin: No rashes, No breakdown Musculoskeletal: No Tenderness to Palpation of Joints or Extremities Lymphatic: No Cervical, Supraclavicular, or Inguinal Adenopathy Neurological: Cranial nerves II-XII grossly intact, Neuro grossly intact, Motor Exam 5/5 strength throughout Psych/Mental Status: Normal Affect, Appropriate, Alert and oriented to time, place, person, mood and affect Microbiology Past 72 Hours 08/22/20 02:40 Blood Culture (Wb) - Anticubital Right Blood Culture - Final No growth in 5 days. 08/22/20 02:15 Blood Culture (Wb) - Left Hand Blood Culture - Final No growth in 5 days. Laboratory Results 08/26/20 08:25: POC Glucose 200 H 08/26/20 12:18: POC Glucose 306 H 08/26/20 16:57: POC Glucose 236 H 08/26/20 20:44: POC Glucose 272 H 08/27/20 07:45: WBC 13.5 H, RBC 4.89, Hgb 15.2, Hct 45.8, MCV 93.7, MCH 31.1, MCHC 33.2, RDW Std Deviation 61.3 H, RDW Coeff of [place] 17.7 H, Plt Count 185, MPV 11.7, Immature Gran % (Auto) 0.600, Neut % (Auto) 86.3 H, Lymph % (Auto) 4.5 L, [place] % (Auto) 8.4, Eos % (Auto) 0.0, Baso % (Auto) 0.2, Absolute Neuts (auto) 11.6 H, Absolute Lymphs (auto) 0.61 L, Nucleated RBC % 0, Differential Comment SCANNED, Plt Morphology Comment LARGE 08/27/20 07:45: Sodium 138, Potassium 5.5 H, Chloride 106, Carbon Dioxide 27.0, Anion Gap 5, BUN 91 H, Creatinine 2.16 H, Estim Creat Clear Calc 29.47, Est GFR (MDRD) Af Amer 39 L, Est GFR (MDRD) Non-Af 32 L, BUN/Creatinine Ratio 42.1 H, Glucose 249 H, Calcium 8.9 08/27/20 07:49: POC Glucose 241 H Current Medications Acetaminophen (Acetaminophen 325 Mg Tablet) 650 mg PO Q6H PRN PRN PRN Reason: Pain Score 1-10/Temp > 100.7 F Albuterol Sulfate (Albuterol Ih 8.5 Gm (Proair) Inhaler (200 Puffs)) 2 puff INHALATION Q4H PRN PRN PRN Reason: sob/wheezing Albuterol/Ipratropium (Ipratropium/Albuterol Sulfate 3 Ml Ampul.Neb) 3 ml INHALATION Q6HWA.RT CAS Last Admin: 08/27/20 07:07 Dose: 3 ml Documented by: Amlodipine Besylate (Amlodipine 5 Mg Tablet) 5 mg PO DAILY [facility] Last Admin: 08/27/20 09:21 Dose: 5 mg Documented by: Ascorbic Acid (Ascorbic Acid 500 Mg Tablet) 500 mg PO DAILY [facility] Last Admin: 08/27/20 09:21 Dose: 500 mg Documented by: Aspirin (Aspirin E.C. 81 Mg Tablet) 81 mg PO DAILY [facility] Last Admin: 08/27/20 09:21 Dose: 81 mg Documented by: Atorvastatin Calcium (Atorvastatin Calcium 80 Mg Tablet) 80 mg PO QHS [facility] Last Admin: 08/26/20 20:46 Dose: 80 mg Documented by: Cholecalciferol (Cholecalciferol (Vit D3) 1,000 Unit (25mcg)) 1,000 unit PO DAILY [facility] Last Admin: 08/27/20 09:21 Dose: 1,000 unit Documented by: Clopidogrel Bisulfate (Clopidogrel Bisulfate 75 Mg Tablet) 75 mg PO 1400 [facility] Last Admin: 08/26/20 13:39 Dose: 75 mg Documented by: Dexamethasone (Dexamethasone 4 Mg Tablet) 6 mg PO DAILY [facility] Last Admin: 08/27/20 09:20 Dose: 6 mg Documented by: Dextrose (Dextrose 50%-Water 25 Gm/50 Ml Disp.Syrin) 0 gm IV X1 PRN; Protocol PRN Reason: Hypoglycemia Enoxaparin Sodium (Enoxaparin 120 Mg/0.8 Ml Syringe) 110 mg SC DAILY [facility] Last Admin: 08/27/20 09:22 Dose: 110 mg Documented by: Fluoxetine HCl (Fluoxetine 20 Mg Capsule) 20 mg PO DAILY [facility] Last Admin: 08/27/20 09:21 Dose: 20 mg Documented by: Glucagon (Glucagon 1 Mg/Ml Syringe) 1 mg IM .X1 PRN PRN Reason: Hypoglycemia Sodium Chloride () 250 mls @ 15 mls/hr IV .[id number] PRN PRN Reason: Saline Flush Sodium Chloride () 250 mls @ 15 mls/hr IV .[id number] PRN PRN Reason: Additional IVPB Infusion Insulin Glargine (Insulin Glargine 100 Units/Ml Pen) 65 units SC DAILY [facility] Last Admin: 08/27/20 07:52 Dose: 65 u Documented by: Insulin Human Lispro (Insulin Lispro 100 Unit/Ml Insuln.Pen) 0 unit SC [facility]; Protocol Last Admin: 08/27/20 07:51 Dose: 4 u Documented by: Insulin Human Lispro (Insulin Lispro 100 Unit/Ml Insuln.Pen) 10 unit SC DINNER [facility] Last Admin: 08/26/20 17:04 Dose: 10 units Documented by: Insulin Human Lispro (Insulin Lispro 100 Unit/Ml Insuln.Pen) 10 unit SC BREAKFAST [facility] Last Admin: 08/27/20 07:52 Dose: 10 u Documented by: Insulin Human Lispro (Insulin Lispro 100 Unit/Ml Insuln.Pen) 10 unit SC LUNCH [facility] Last Admin: 08/26/20 12:32 Dose: 10 u Documented by: Melatonin (Melatonin 3 Mg Tablet) 3 mg PO QHS PRN PRN PRN Reason: INSOMNIA Last Admin: 08/23/20 20:42 Dose: 3 mg Documented by: Metoprolol Tartrate (Metoprolol Tartrate 100 Mg Tablet) 100 mg PO BID [facility] Last Admin: 08/27/20 09:21 Dose: 100 mg Documented by: Ondansetron HCl (Ondansetron 4 Mg/2 Ml Vial) 4 mg IV Q8H PRN PRN PRN Reason: NAUSEA/VOMITING Last Admin: 08/23/20 08:58 Dose: 4 mg Documented by: Pramipexole Dihydrochloride (Pramipexole Di-Hcl 0.25 Mg Tablet) 0.25 mg PO QHS [facility] Last Admin: 08/26/20 20:46 Dose: 0.25 mg Documented by: Senna/Docusate Sodium (Senna/Docusate Sodium 1 Tablet) 2 tablet PO BID PRN PRN PRN Reason: Constipation Last Admin: 08/26/20 20:45 Dose: 2 tablet Documented by: Sodium Chloride (0.9% Saline Lock 10 Ml Syringe) 10 - 40 ml IV UD PRN PRN Reason: SALINE FLUSH Last Admin: 08/23/20 20:42 Dose: 10 ml Documented by: Throat Lozenges (Benzocaine/Menthol 1 Lozenge) 1 lozenge MUCOUS MEM Q2H PRN PRN PRN Reason: SORE THROAT Last Admin: 08/25/20 14:38 Dose: 1 lozenge Documented by: STROKE Vital Signs/Narrative: Vital Signs Temp Pulse Resp BP Pulse Ox 08/27/20 09:21 63 08/27/20 08:23 98.1 F 66 15 119/77 92 08/27/20 08:00 67 08/27/20 07:07 67 19 H 94 Medical Necessity - Tobacco Use Smoking Status: Former smoker Assessment/Plan All Active Problems (Last Reviewed 08/22/20 @ 05:[address] Michael Orantes MD) Acute viral syndrome (Acute) Respiratory insufficiency (Acute) Ischemic cardiomyopathy (Resolved) #Acute hypoxic respiratory failiure due to COVID 19 pneumonia * now on 8L of oxygen via nasal canula; on BIPAP prn * -on decadron and remdesivir * titrate oxygen to maintain sats >90% * breathing treatment with bronchodilators * #Elevated D dimer * coudlnt have CTA o/a of elevated Cr, and also VQ scan wont be very beneficial in light of abnormal CXR * on therapeutic lovenox. to transition to a short course of eliquis at discharge. * #Type 2 diabtes mellitus * on lantus 65 units daily. Usually on Lantus 50 units daily at home but dose was adjusted on account of elevated blood sugars from Decadron. ISS. Accuchecks ACHS * #CAD s/p CABG: On aspirin and statin as well as Plavix. #Hypertension: On amlodipine #Depression and anxiety: On Paxil #WILLIAM on CKD3: CR today is 2.16. Potassium is howver 5.5. WIll give kayexalate. #COPD: not in exacerbation #Hyperlipidemia: on statin #Morbid obesity: BMI is 35. Complicates acute care, prognosis and expected recovery. Prophylaxis: On Lovenox 110mg daily Inpatient E&M: 21537 Subs Hosp L3
[2020-08-27 11:50] LABS: Bedside Glucose 255 mg/dL (70-110)
[2020-08-27] MEDS: Clopidogrel Bisulfate 75 MG Tablet PO (16:26)
[2020-08-27 16:46] LABS: Bedside Glucose 215 mg/dL (70-110)
[2020-08-27] MEDS: Pramipexole Di-HCl 0.25 MG Tablet PO (21:59)
[2020-08-27] MEDS: Atorvastatin Calcium 80 MG Tablet PO (22:00)
[2020-08-27] MEDS: Acetaminophen 325 MG Tablet 650 MG PO (22:00)
[2020-08-28] VITALS (18 sets, daily range): BP systolic 102–128; BP diastolic 52–72; PULSE 64–85; RESP 12–20; TEMP 36.1–36.7; O2SAT 90–97
[2020-08-28 01:36] LABS: Bedside Glucose 303 mg/dL (70-110)
[2020-08-28 03:45] LABS: Absolute Lymphocyte Count 0.74 X10^3/uL (0.83-4.51); Absolute Neutrophil Count 12.8 X10^3/uL (2.0-7.7); Basophil# 0.02 X10^3/uL; Basophil% 0.1 % (0-1); Hematocrit 43.3 % (40-54); Hemoglobin 14.7 g/dL (13.0-16.5); Lymphocyte # 0.74 X10^3/ul (4.0); Mean Corp Hgb Conc 33.9 g/dL (32-36); Mean Corpuscular Hgb 31.6 pg (27.0-32.0); Mean Corpuscular Volume 93.1 fL (80-94); Monocyte# 1.08 X10^3/uL; Monocyte% 7.4 % (0-10); NRBC Flagged by Analyzer 0 % (0-5); Neutrophil # 12.79 X10^3/uL (2.7-7.7); Neutrophil % 87.1 % (47-70); Platelet Count 214 K/mm3 (150-450); RBC Distribution Width CV 17.6 % (11.6-14.6); RBC Distribution Width SD 60.6 fl (35.1-43.9); Red Blood Count 4.65 M/mm3 (4.6-6.2); White Blood Count 14.7 K/mm3 (4.4-11.0)
[2020-08-28 04:34] LABS: Anion Gap 7 (5-15); BUN 114 mg/dL (7-18); BUN/Creat Ratio 52.3 RATIO (10-20); Calcium,Total 9.5 mg/dL (8.5-10.1); Chloride 105 mmol/L (98-107); Creatinine, Serum 2.18 mg/dL (0.70-1.30); EST Glomerular Filtration Rate 32 mL/min (>60); Est Glom Filt Rate - Afr Amer 38 mL/min (>60); Glucose 304 mg/dL (74-106); Potassium 5.2 mmol/L (3.5-5.1); Sodium Level 137 mmol/L (136-145)
--- NOTE | 2020-08-28 06:17 | PCM.PN.INT ---
Subjective: The patient was seen and examined at the bedside this morning. Events from the last 24 hours have been reviewed. The patient is currently afebrile, hemodynamically stable and maintaining appropriate oxygen saturations on 6 L/min via nasal cannula. The patient wore his CPAP overnight for approximately 2.5 hours. Blood sugars remain elevated. Potassium is a bit high at 5.2 and BUN is elevated at 114. Creatinine is stable at 2.18. The patient remains on Decadron. Objective: The patient's most recent lab work, culture data and imaging studies have all been personally reviewed. Surface echocardiogram dated March 2019 revealed normal LV size with an ejection fraction of 60%. Coronavirus PCR was positive on August 22. Respiratory viral panel was negative. Blood cultures have shown no growth to date. General: Alert, Cooperative, No apparent distress, - - Sitting in bedside recliner. HEENT: Atraumatic, PERRLA, Normocephalic Oral: Moist Mucosa, No Gingival or Mucosal Lesions/ Ulcerations Neck: Supple, No Nodes, Trachea Midline Lungs: No rhonchi, No wheeze, No rales, Diminished, - - No accessory muscle use. Speaking in complete sentences. Cardiovascular: Regular rate, Regular Rhythm Abdomen: Bowel Sounds Present, Soft, Non Tender, Obese Extremities: No clubbing, No cyanosis, No edema Skin: No breakdown Musculoskeletal: No Tenderness to Palpation of Joints or Extremities Lymphatic: No Cervical, Supraclavicular, or Inguinal Adenopathy Neurological: Cranial nerves II-XII grossly intact, Neuro grossly intact Psych/Mental Status: Alert and oriented to time, place, person, mood and affect Vital Signs Temp Pulse Resp BP Pulse Ox 98.1 F 70 15 117/72 93 08/28/20 04:00 08/28/20 04:00 08/28/20 04:00 08/28/20 04:00 08/28/20 04:00 Oxygen Flow Rate (L/min) 6 Oxygen Delivery Method Nasal Cannula Weight: 232 lb 2.348 oz Body Mass Index (BMI) 35.3 Finger Stick Blood Glucose 187 Intake and Output for Last 24 Hours 08/26/20 08/27/20 08/28/20 23:59 23:59 23:59 Intake Total 250 / 600 830 / 830 150 / 150 Output Total 900 / 1375 2825 / 2825 300 / 300 Balance -650 / -775 -1994 / -1994 -150 / -150 Labs (Last 48 Hours) 08/26/20 08/26/20 08/26/20 08:25 12:18 16:57 WBC RBC Hgb Hct MCV MCH MCHC RDW Std Deviation RDW Coeff of [place] Plt Count MPV Immature Gran % (Auto) Neut % (Auto) Lymph % (Auto) [place] % (Auto) Eos % (Auto) Baso % (Auto) Absolute Neuts (auto) Absolute Lymphs (auto) Nucleated RBC % Differential Comment Plt Morphology Comment Sodium Potassium Chloride Carbon Dioxide Anion Gap BUN Creatinine Estim Creat Clear Calc Est GFR (MDRD) Af Amer Est GFR (MDRD) Non-Af BUN/Creatinine Ratio Glucose Calcium POC Glucose 200 H 306 H 236 H 08/26/20 08/27/20 08/27/20 20:44 07:45 07:45 WBC 13.5 H RBC 4.89 Hgb 15.2 Hct 45.8 MCV 93.7 MCH 31.1 MCHC 33.2 RDW Std Deviation 61.3 H RDW Coeff of [place] 17.7 H Plt Count 185 MPV 11.7 Immature Gran % (Auto) 0.600 Neut % (Auto) 86.3 H Lymph % (Auto) 4.5 L [place] % (Auto) 8.4 Eos % (Auto) 0.0 Baso % (Auto) 0.2 Absolute Neuts (auto) 11.6 H Absolute Lymphs (auto) 0.61 L Nucleated RBC % 0 Differential Comment SCANNED Plt Morphology Comment LARGE Sodium 138 Potassium 5.5 H Chloride 106 Carbon Dioxide 27.0 Anion Gap 5 BUN 91 H Creatinine 2.16 H Estim Creat Clear Calc 29.47 Est GFR (MDRD) Af Amer 39 L Est GFR (MDRD) Non-Af 32 L BUN/Creatinine Ratio 42.1 H Glucose 249 H Calcium 8.9 POC Glucose 272 H 08/27/20 08/27/20 08/27/20 07:49 11:14 16:24 WBC RBC Hgb Hct MCV MCH MCHC RDW Std Deviation RDW Coeff of [place] Plt Count MPV Immature Gran % (Auto) Neut % (Auto) Lymph % (Auto) [place] % (Auto) Eos % (Auto) Baso % (Auto) Absolute Neuts (auto) Absolute Lymphs (auto) Nucleated RBC % Differential Comment Plt Morphology Comment Sodium Potassium Chloride Carbon Dioxide Anion Gap BUN Creatinine Estim Creat Clear Calc Est GFR (MDRD) Af Amer Est GFR (MDRD) Non-Af BUN/Creatinine Ratio Glucose Calcium POC Glucose 241 H 255 H 215 H 08/27/20 08/28/20 08/28/20 21:58 03:35 03:35 WBC 14.7 H RBC 4.65 Hgb 14.7 Hct 43.3 MCV 93.1 MCH 31.6 MCHC 33.9 RDW Std Deviation 60.6 H RDW Coeff of [place] 17.6 H Plt Count 214 MPV 12.0 Immature Gran % (Auto) 0.400 Neut % (Auto) 87.1 H Lymph % (Auto) 5.0 L [place] % (Auto) 7.4 Eos % (Auto) 0.0 Baso % (Auto) 0.1 Absolute Neuts (auto) 12.8 H Absolute Lymphs (auto) 0.74 L Nucleated RBC % 0 Differential Comment Plt Morphology Comment Sodium 137 Potassium 5.2 H Chloride 105 Carbon Dioxide 25.0 Anion Gap 7 BUN 114 H* Creatinine 2.18 H Estim Creat Clear Calc 29.20 Est GFR (MDRD) Af Amer 38 L Est GFR (MDRD) Non-Af 32 L BUN/Creatinine Ratio 52.3 H Glucose 304 H Calcium 9.5 POC Glucose 303 H Microbiology 08/22/20 02:40 Blood Culture (Wb) - Anticubital Right Blood Culture - Final No growth in 5 days. 08/22/20 02:15 Blood Culture (Wb) - Left Hand Blood Culture - Final No growth in 5 days. Clinical Impression(s) from Imaging Studies Chest X-Ray 08/22/20 02:24 IMPRESSION: COPD with patchy bibasilar airspace disease Electronically Signed: Noah Slade DO at 3:10 EST Tel , Service support , Medical Necessity - Tobacco Use Smoking Status: Former smoker Assessment/Plan All Active Problems (Last Reviewed 08/22/20 @ 05:[address] Michael Orantes MD) Acute viral syndrome (Acute) Respiratory insufficiency (Acute) Ischemic cardiomyopathy (Resolved) RECOMMENDATIONS: 1. Continue Decadron to complete 10-day treatment course. 2. Continue Lovenox. 3. Continue scheduled bronchodilator therapy. 4. Continue Lantus and sliding scale insulin coverage. 5. Wean supplemental oxygen to maintain saturations at or above 90%. 6. Encourage incentive spirometer use and mobilize patient as tolerated. IMPRESSIONS: 1. Acute on chronic hypoxemic respiratory failure secondary to COVID-19 pneumonia Clinically improving. The patient has completed his treatment course of remdesivir and will remain on Decadron to complete a total of 10 days of treatment. In the interim, the patient will be continued on Lovenox and scheduled bronchodilator therapy. Continue to wean supplemental oxygen to maintain saturations at or above 90%. Encourage incentive spirometer use and mobilize patient as tolerated. 2. Acute on chronic kidney disease Slowly improving. Potentially prerenal in etiology and related to acute presentation. Creatinine is slowly improving. Continue to monitor urine output for now. No current indication for renal replacement therapy. 3. Diabetes mellitus Continue basal and sliding scale insulin coverage. 4. Coronary artery disease/anxiety/depression/peripheral vascular disease/hypertension/obesity/AUTUMN Complicates care, management, recovery and prognosis. Continue nocturnal Pap therapy per home regimen. This note was generated with [employer] dictation software. It may contain incorrect words, spelling, and punctuation that were not noted in checking the note before signing. Inpatient E&M: 60152 [facility] Hosp L3
[2020-08-28] MEDS: Ipratropium/Albuterol Sulfate 3 ML AMPUL.NEB INHALATION ×2 (07:10→19:25)
[2020-08-28] MEDS: Insulin Lispro 100 UNIT/ML INSULN.PEN 10 UNIT SC ×3 (08:09→16:49)
[2020-08-28] MEDS: Insulin Lispro 100 UNIT/ML INSULN.PEN SC ×4 (08:09→20:34)
[2020-08-28] MEDS: Enoxaparin 120 MG/0.8 ML Syringe 110 MG SC (08:10)
[2020-08-28] MEDS: amLODIPine 5 MG Tablet PO (08:11)
[2020-08-28] MEDS: Aspirin E.C. 81 MG Tablet PO (08:11)
[2020-08-28] MEDS: dexAMETHasone 4 MG Tablet 6 MG PO (08:11)
[2020-08-28] MEDS: Metoprolol Tartrate 100 MG Tablet PO ×2 (08:11→20:31)
[2020-08-28] MEDS: Ascorbic Acid 500 MG Tablet PO (08:12)
[2020-08-28 08:56] LABS: Bedside Glucose 277 mg/dL (70-110)
[2020-08-28 11:20] LABS: Bedside Glucose 339 mg/dL (70-110)
--- NOTE | 2020-08-28 11:53 | PCM.PN.HOSP ---
Patient Problems: Active and Suspected Problems (Last Reviewed 08/22/20 @ 05:[address] Michael Orantes MD) Acute viral syndrome (Acute) Respiratory insufficiency (Acute) Subjective: Patient seen and examined. Was on 6 L of oxygen and had no complaints. He talked about possibly going home but I told him he was still on too much oxygen and will need to be weaned closer to his baseline of 2 to 3 L of oxygen before he could be discharged. Review of systems otherwise negative. Vitals/I&O's: Vital Signs Temp Pulse Resp BP Pulse Ox 97.1 F L 75 20 H 128/52 H 94 08/28/20 08:05 08/28/20 08:11 08/28/20 08:05 08/28/20 08:11 08/28/20 08:05 Oxygen Flow Rate (L/min) 6 Oxygen Delivery Method Nasal Cannula Weight: 232 lb 2.348 oz Body Mass Index (BMI) 35.3 Finger Stick Blood Glucose 187 Intake and Output for Last 24 Hours 08/26/20 08/27/20 08/28/20 23:59 23:59 23:59 Intake Total 250 / 600 830 / 830 150 / 150 Output Total 900 / 1375 2825 / 2825 300 / 300 Balance -650 / -775 -1994 / -1994 -150 / -150 General: Alert, Oriented x3, Cooperative, No apparent distress HEENT: Atraumatic, PERRLA, EOMI, Normocephalic Oral: Dry Mucosa Neck: Supple, No JVD, Negative Carotid Bruits Lungs: - - diminished breath sounds bibasally, no wheezes or crackles. on 6L of oxygen. Cardiovascular: Regular rate, Regular Rhythm, Normal S1, Normal S2, No murmurs Abdomen: Bowel Sounds Present, Soft, Non Tender Extremities: No clubbing, No cyanosis, No edema, Capillary Refill Less than 3 Seconds Skin: No rashes, No breakdown Musculoskeletal: No Tenderness to Palpation of Joints or Extremities Lymphatic: No Cervical, Supraclavicular, or Inguinal Adenopathy Neurological: Cranial nerves II-XII grossly intact, Neuro grossly intact, Motor Exam 5/5 strength throughout Psych/Mental Status: Normal Affect, Appropriate, Alert and oriented to time, place, person, mood and affect Microbiology Past 72 Hours 08/22/20 02:40 Blood Culture (Wb) - Anticubital Right Blood Culture - Final No growth in 5 days. 08/22/20 02:15 Blood Culture (Wb) - Left Hand Blood Culture - Final No growth in 5 days. Laboratory Results 08/27/20 16:24: POC Glucose 215 H 08/27/20 21:58: POC Glucose 303 H 08/28/20 03:35: WBC 14.7 H, RBC 4.65, Hgb 14.7, Hct 43.3, MCV 93.1, MCH 31.6, MCHC 33.9, RDW Std Deviation 60.6 H, RDW Coeff of [place] 17.6 H, Plt Count 214, MPV 12.0, Immature Gran % (Auto) 0.400, Neut % (Auto) 87.1 H, Lymph % (Auto) 5.0 L, [place] % (Auto) 7.4, Eos % (Auto) 0.0, Baso % (Auto) 0.1, Absolute Neuts (auto) 12.8 H, Absolute Lymphs (auto) 0.74 L, Nucleated RBC % 0 08/28/20 03:35: Sodium 137, Potassium 5.2 H, Chloride 105, Carbon Dioxide 25.0, Anion Gap 7, BUN 114 H*, Creatinine 2.18 H, Estim Creat Clear Calc 29.20, Est GFR (MDRD) Af Amer 38 L, Est GFR (MDRD) Non-Af 32 L, BUN/Creatinine Ratio 52.3 H, Glucose 304 H, Calcium 9.5 08/28/20 08:03: POC Glucose 277 H 08/28/20 11:02: POC Glucose 339 H Diagnostic Data Chest X-Ray 08/22/20 02:24 IMPRESSION: COPD with patchy bibasilar airspace disease Electronically Signed: Noah Slade DO at 3:10 EST Tel , Service support , Current Medications Acetaminophen (Acetaminophen 325 Mg Tablet) 650 mg PO Q6H PRN PRN PRN Reason: Pain Score 1-10/Temp > 100.7 F Last Admin: 08/27/20 22:00 Dose: 650 mg Documented by: Albuterol Sulfate (Albuterol Ih 8.5 Gm (Proair) Inhaler (200 Puffs)) 2 puff INHALATION Q4H PRN PRN PRN Reason: sob/wheezing Albuterol/Ipratropium (Ipratropium/Albuterol Sulfate 3 Ml Ampul.Neb) 3 ml INHALATION Q6HWA.RT [facility] Last Admin: 08/28/20 07:10 Dose: 3 ml Documented by: Amlodipine Besylate (Amlodipine 5 Mg Tablet) 5 mg PO DAILY [facility] Last Admin: 08/28/20 08:11 Dose: 5 mg Documented by: Ascorbic Acid (Ascorbic Acid 500 Mg Tablet) 500 mg PO DAILY [facility] Last Admin: 08/28/20 08:12 Dose: 500 mg Documented by: Aspirin (Aspirin E.C. 81 Mg Tablet) 81 mg PO DAILY [facility] Last Admin: 08/28/20 08:11 Dose: 81 mg Documented by: Atorvastatin Calcium (Atorvastatin Calcium 80 Mg Tablet) 80 mg PO QHS [facility] Last Admin: 08/27/20 22:00 Dose: 80 mg Documented by: Cholecalciferol (Cholecalciferol (Vit D3) 1,000 Unit (25mcg)) 1,000 unit PO DAILY [facility] Last Admin: 08/28/20 08:12 Dose: 1,000 unit Documented by: Clopidogrel Bisulfate (Clopidogrel Bisulfate 75 Mg Tablet) 75 mg PO 1400 [facility] Last Admin: 08/27/20 16:26 Dose: 75 mg Documented by: Dexamethasone (Dexamethasone 4 Mg Tablet) 6 mg PO DAILY [facility] Last Admin: 08/28/20 08:11 Dose: 6 mg Documented by: Dextrose (Dextrose 50%-Water 25 Gm/50 Ml Disp.Syrin) 0 gm IV X1 PRN; Protocol PRN Reason: Hypoglycemia Enoxaparin Sodium (Enoxaparin 120 Mg/0.8 Ml Syringe) 110 mg SC DAILY [facility] Last Admin: 08/28/20 08:10 Dose: 110 mg Documented by: Fluoxetine HCl (Fluoxetine 20 Mg Capsule) 20 mg PO DAILY [facility] Last Admin: 08/27/20 09:21 Dose: 20 mg Documented by: Glucagon (Glucagon 1 Mg/Ml Syringe) 1 mg IM .X1 PRN PRN Reason: Hypoglycemia Sodium Chloride () 250 mls @ 15 mls/hr IV .[id number] PRN PRN Reason: Saline Flush Sodium Chloride () 250 mls @ 15 mls/hr IV .[id number] PRN PRN Reason: Additional IVPB Infusion Insulin Glargine (Insulin Glargine 100 Units/Ml Pen) 40 units SC BID [facility] Last Admin: 08/28/20 08:10 Dose: 10 u Documented by: Insulin Human Lispro (Insulin Lispro 100 Unit/Ml Insuln.Pen) 0 unit SC ACHS [facility]; Protocol Last Admin: 08/28/20 11:05 Dose: 8 u Documented by: Insulin Human Lispro (Insulin Lispro 100 Unit/Ml Insuln.Pen) 10 unit SC DINNER [facility] Last Admin: 08/27/20 16:26 Dose: 10 units Documented by: Insulin Human Lispro (Insulin Lispro 100 Unit/Ml Insuln.Pen) 10 unit SC BREAKFAST [facility] Last Admin: 08/28/20 08:09 Dose: 10 u Documented by: Insulin Human Lispro (Insulin Lispro 100 Unit/Ml Insuln.Pen) 10 unit SC LUNCH [facility] Last Admin: 08/28/20 11:06 Dose: 10 u Documented by: Melatonin (Melatonin 3 Mg Tablet) 3 mg PO QHS PRN PRN PRN Reason: INSOMNIA Last Admin: 08/23/20 20:42 Dose: 3 mg Documented by: Metoprolol Tartrate (Metoprolol Tartrate 100 Mg Tablet) 100 mg PO BID [facility] Last Admin: 08/28/20 08:11 Dose: 100 mg Documented by: Ondansetron HCl (Ondansetron 4 Mg/2 Ml Vial) 4 mg IV Q8H PRN PRN PRN Reason: NAUSEA/VOMITING Last Admin: 08/23/20 08:58 Dose: 4 mg Documented by: Pramipexole Dihydrochloride (Pramipexole Di-Hcl 0.25 Mg Tablet) 0.25 mg PO QHS [facility] Last Admin: 08/27/20 21:59 Dose: 0.25 mg Documented by: Senna/Docusate Sodium (Senna/Docusate Sodium 1 Tablet) 2 tablet PO BID PRN PRN PRN Reason: Constipation Last Admin: 08/26/20 20:45 Dose: 2 tablet Documented by: Sodium Chloride (0.9% Saline Lock 10 Ml Syringe) 10 - 40 ml IV UD PRN PRN Reason: SALINE FLUSH Last Admin: 08/23/20 20:42 Dose: 10 ml Documented by: Throat Lozenges (Benzocaine/Menthol 1 Lozenge) 1 lozenge MUCOUS MEM Q2H PRN PRN PRN Reason: SORE THROAT Last Admin: 08/25/20 14:38 Dose: 1 lozenge Documented by: STROKE Vital Signs/Narrative: Vital Signs Temp Pulse Resp BP Pulse Ox 08/28/20 08:11 75 128/52 H 08/28/20 08:05 97.1 F L 75 20 H 128/52 H 94 Medical Necessity - Tobacco Use Smoking Status: Former smoker Assessment/Plan All Active Problems (Last Reviewed 08/22/20 @ 05:[address] Michael Orantes MD) Acute viral syndrome (Acute) Respiratory insufficiency (Acute) Ischemic cardiomyopathy (Resolved) #Acute hypoxic respiratory failiure due to COVID 19 pneumonia now on 6L of oxygen via nasal canula; on BIPAP prn on decadron and remdesivir titrate oxygen to maintain sats >90% breathing treatment with bronchodilators #Elevated D dimer couldnt have CTA o/a of elevated Cr, and also VQ scan wont be very beneficial in light of abnormal CXR on therapeutic lovenox. to transition to a short course of eliquis at discharge. #Type 2 diabtes mellitus on lantus 65 units daily. Usually on Lantus 50 units daily at home but dose was adjusted on account of elevated blood sugars from Decadron. ISS. Accuchecks ACHS #CAD s/p CABG: On aspirin and statin as well as Plavix. #Hypertension: On amlodipine #Depression and anxiety: On Paxil #WILLIAM on CKD3: CR today is 2.18. Potassium is however 5.2 . WIll give kayexalate. #COPD: not in exacerbation #Hyperlipidemia: on statin #Morbid obesity: BMI is 35. Complicates acute care, prognosis and expected recovery. Prophylaxis: On Lovenox 110mg daily Inpatient E&M: 80425 Subs Hosp L3
[2020-08-28] MEDS: Clopidogrel Bisulfate 75 MG Tablet PO (16:48)
[2020-08-28 18:31] LABS: Bedside Glucose 278 mg/dL (70-110)
[2020-08-28] MEDS: Pramipexole Di-HCl 0.25 MG Tablet PO (20:34)
[2020-08-28] MEDS: Atorvastatin Calcium 80 MG Tablet PO (20:34)
[2020-08-29] VITALS (25 sets, daily range): BP systolic 91–116; BP diastolic 38–63; PULSE 73–118; RESP 12–30; TEMP 35.7–38.1; O2SAT 87–100
[2020-08-29 00:40] LABS: Bedside Glucose 232 mg/dL (70-110)
[2020-08-29 04:26] LABS: Absolute Lymphocyte Count 0.65 X10^3/uL (0.83-4.51); Absolute Neutrophil Count 12.4 X10^3/uL (2.0-7.7); Basophil# 0.02 X10^3/uL; Basophil% 0.1 % (0-1); Hematocrit 35.1 % (40-54); Hemoglobin 11.7 g/dL (13.0-16.5); Lymphocyte # 0.65 X10^3/ul (4.0); Lymphocyte % 4.4 % (19-41); Mean Corp Hgb Conc 33.3 g/dL (32-36); Mean Corpuscular Hgb 31.5 pg (27.0-32.0); Mean Corpuscular Volume 94.4 fL (80-94); Mean Platelet Vol. 12.3 fl (6.2-12.0); Monocyte# 1.68 X10^3/uL; Monocyte% 11.3 % (0-10); NRBC Flagged by Analyzer 0 % (0-5); Neutrophil # 12.42 X10^3/uL (2.7-7.7); Neutrophil % 83.5 % (47-70); POSITIVE DIFFERENTIAL YES; Platelet Count 262 K/mm3 (150-450); RBC Distribution Width CV 17.4 % (11.6-14.6); RBC Distribution Width SD 60.4 fl (35.1-43.9); Red Blood Count 3.72 M/mm3 (4.6-6.2); White Blood Count 14.9 K/mm3 (4.4-11.0)
[2020-08-29 04:27] LABS: Differential Indicated SCAN CRITERIA MET
[2020-08-29] MEDS: Ondansetron 4 MG/2 ML Vial IV ×3 (04:32→20:45)
[2020-08-29 04:57] LABS: Anion Gap 7 (5-15); BUN 142 mg/dL (7-18); BUN/Creat Ratio 66.4 RATIO (10-20); Calcium,Total 9.3 mg/dL (8.5-10.1); Chloride 104 mmol/L (98-107); Creatinine, Serum 2.14 mg/dL (0.70-1.30); EST Glomerular Filtration Rate 32 mL/min (>60); Est Glom Filt Rate - Afr Amer 39 mL/min (>60); Estimated Creatinine Clearance 29.74 ml/min; Glucose 220 mg/dL (74-106); Potassium 5.2 mmol/L (3.5-5.1); Sodium Level 137 mmol/L (136-145)
--- NOTE | 2020-08-29 05:30 | PN_ITS ---
Patient Problems: Active and Suspected Problems (Last Reviewed 08/22/20 @ 05:[address] Michael Orantes MD) Acute viral syndrome (Acute) Respiratory insufficiency (Acute) Acute respiratory failure due to COVID-19 (Acute) Poor intravenous access (Acute) Subjective: The patient was seen and examined at the bedside this morning. Events from the last 24 hours have been reviewed. The patient is currently afebrile, hemodynamically stable and maintaining appropriate oxygen saturations on nasal cannula supplemental oxygen. BUN continues to climb and was noted to be 142 this morning. Creatinine is stable at 2.14. Potassium remains elevated at 5.2. Objective: The patient's most recent lab work, culture data and imaging studies have all been personally reviewed. Surface echocardiogram dated March 2019 revealed normal LV size with an ejection fraction of 60%. Coronavirus PCR was positive on August 22. Respiratory viral panel was negative. Blood cultures have shown no growth to date. - Physical Exam Vitals/I&O's: Vital Signs Temp Pulse Resp BP Pulse Ox 98.2 F 81 17 103/63 97 08/29/20 02:00 08/29/20 03:31 08/29/20 02:00 08/29/20 02:00 08/29/20 02:00 Oxygen Flow Rate (L/min) 6 Oxygen Delivery Method Bi-pap Weight: 232 lb 2.348 oz Body Mass Index (BMI) 35.3 Finger Stick Blood Glucose 187 Intake and Output for Last 24 Hours 08/27/20 08/28/20 08/29/20 23:59 23:59 23:59 Intake Total 830 / 830 670 / 670 400 / 400 Output Total 2825 / 2825 1750 / 1750 350 / 350 Balance -1994 / -1994 -1079 / -1080 50 / 50 General: Alert, Cooperative, No apparent distress HEENT: Atraumatic, Normocephalic Oral: No Gingival or Mucosal Lesions/ Ulcerations Neck: Supple, No Nodes, Trachea Midline Lungs: No rhonchi, No wheeze, No rales, Diminished Cardiovascular: Regular rate, Regular Rhythm Abdomen: Bowel Sounds Present, Soft, Non Tender, Obese Extremities: No clubbing, No cyanosis, No edema Skin: No breakdown Musculoskeletal: No Tenderness to Palpation of Joints or Extremities Lymphatic: No Cervical, Supraclavicular, or Inguinal Adenopathy Neurological: Cranial nerves II-XII grossly intact, Neuro grossly intact Psych/Mental Status: Flat Affect Labs (Last 48 Hours) 08/27/20 08/27/20 08/27/20 07:45 07:45 07:49 WBC 13.5 H RBC 4.89 Hgb 15.2 Hct 45.8 MCV 93.7 MCH 31.1 MCHC 33.2 RDW Std Deviation 61.3 H RDW Coeff of [place] 17.7 H Plt Count 185 MPV 11.7 Immature Gran % (Auto) 0.600 Neut % (Auto) 86.3 H Lymph % (Auto) 4.5 L [place] % (Auto) 8.4 Eos % (Auto) 0.0 Baso % (Auto) 0.2 Absolute Neuts (auto) 11.6 H Absolute Lymphs (auto) 0.61 L Nucleated RBC % 0 Differential Comment SCANNED Diff Path Review Plt Morphology Comment LARGE Sodium 138 Potassium 5.5 H Chloride 106 Carbon Dioxide 27.0 Anion Gap 5 BUN 91 H Creatinine 2.16 H Estim Creat Clear Calc 29.47 Est GFR (MDRD) Af Amer 39 L Est GFR (MDRD) Non-Af 32 L BUN/Creatinine Ratio 42.1 H Glucose 249 H Calcium 8.9 POC Glucose 241 H 08/27/20 08/27/20 08/27/20 11:14 16:24 21:58 WBC RBC Hgb Hct MCV MCH MCHC RDW Std Deviation RDW Coeff of [place] Plt Count MPV Immature Gran % (Auto) Neut % (Auto) Lymph % (Auto) [place] % (Auto) Eos % (Auto) Baso % (Auto) Absolute Neuts (auto) Absolute Lymphs (auto) Nucleated RBC % Differential Comment Diff Path Review Plt Morphology Comment Sodium Potassium Chloride Carbon Dioxide Anion Gap BUN Creatinine Estim Creat Clear Calc Est GFR (MDRD) Af Amer Est GFR (MDRD) Non-Af BUN/Creatinine Ratio Glucose Calcium POC Glucose 255 H 215 H 303 H 08/28/20 08/28/20 08/28/20 03:35 03:35 08:03 WBC 14.7 H RBC 4.65 Hgb 14.7 Hct 43.3 MCV 93.1 MCH 31.6 MCHC 33.9 RDW Std Deviation 60.6 H RDW Coeff of [place] 17.6 H Plt Count 214 MPV 12.0 Immature Gran % (Auto) 0.400 Neut % (Auto) 87.1 H Lymph % (Auto) 5.0 L [place] % (Auto) 7.4 Eos % (Auto) 0.0 Baso % (Auto) 0.1 Absolute Neuts (auto) 12.8 H Absolute Lymphs (auto) 0.74 L Nucleated RBC % 0 Differential Comment Diff Path Review Plt Morphology Comment Sodium 137 Potassium 5.2 H Chloride 105 Carbon Dioxide 25.0 Anion Gap 7 BUN 114 H* Creatinine 2.18 H Estim Creat Clear Calc 29.20 Est GFR (MDRD) Af Amer 38 L Est GFR (MDRD) Non-Af 32 L BUN/Creatinine Ratio 52.3 H Glucose 304 H Calcium 9.5 POC Glucose 277 H 08/28/20 08/28/20 08/28/20 11:02 16:46 20:30 WBC RBC Hgb Hct MCV MCH MCHC RDW Std Deviation RDW Coeff of [place] Plt Count MPV Immature Gran % (Auto) Neut % (Auto) Lymph % (Auto) [place] % (Auto) Eos % (Auto) Baso % (Auto) Absolute Neuts (auto) Absolute Lymphs (auto) Nucleated RBC % Differential Comment Diff Path Review Plt Morphology Comment Sodium Potassium Chloride Carbon Dioxide Anion Gap BUN Creatinine Estim Creat Clear Calc Est GFR (MDRD) Af Amer Est GFR (MDRD) Non-Af BUN/Creatinine Ratio Glucose Calcium POC Glucose 339 H 278 H 232 H 08/29/20 08/29/20 04:00 04:00 WBC 14.9 H RBC 3.72 L Hgb 11.7 L Hct 35.1 L MCV 94.4 H MCH 31.5 MCHC 33.3 RDW Std Deviation 60.4 H RDW Coeff of [place] 17.4 H Plt Count 262 MPV 12.3 H Immature Gran % (Auto) 0.700 Neut % (Auto) 83.5 H Lymph % (Auto) 4.4 L [place] % (Auto) 11.3 H Eos % (Auto) 0.0 Baso % (Auto) 0.1 Absolute Neuts (auto) 12.4 H Absolute Lymphs (auto) 0.65 L Nucleated RBC % 0 Differential Comment Diff Path Review May foll Plt Morphology Comment Sodium 137 Potassium 5.2 H Chloride 104 Carbon Dioxide 26.0 Anion Gap 7 BUN 142 H* Creatinine 2.14 H Estim Creat Clear Calc 29.74 Est GFR (MDRD) Af Amer 39 L Est GFR (MDRD) Non-Af 32 L BUN/Creatinine Ratio 66.4 H Glucose 220 H Calcium 9.3 POC Glucose Microbiology 08/22/20 02:40 Blood Culture (Wb) - Anticubital Right Blood Culture - Final No growth in 5 days. 08/22/20 02:15 Blood Culture (Wb) - Left Hand Blood Culture - Final No growth in 5 days. Clinical Impression(s) from Imaging Studies Chest X-Ray 08/22/20 02:24 IMPRESSION: COPD with patchy bibasilar airspace disease Electronically Signed: Noah Slade DO at 3:10 EST Tel , Service support , Current Medications Acetaminophen (Acetaminophen 325 Mg Tablet) 650 mg PO Q6H PRN PRN PRN Reason: Pain Score 1-10/Temp > 100.7 F Last Admin: 08/27/20 22:00 Dose: 650 mg Documented by: Albuterol Sulfate (Albuterol Ih 8.5 Gm (Proair) Inhaler (200 Puffs)) 2 puff INHALATION Q4H PRN PRN PRN Reason: sob/wheezing Albuterol/Ipratropium (Ipratropium/Albuterol Sulfate 3 Ml Ampul.Neb) 3 ml INHALATION Q6HWA.RT [facility] Last Admin: 08/28/20 19:25 Dose: 3 ml Documented by: Amlodipine Besylate (Amlodipine 5 Mg Tablet) 5 mg PO DAILY [facility] Last Admin: 08/28/20 08:11 Dose: 5 mg Documented by: Ascorbic Acid (Ascorbic Acid 500 Mg Tablet) 500 mg PO DAILY [facility] Last Admin: 08/28/20 08:12 Dose: 500 mg Documented by: Aspirin (Aspirin E.C. 81 Mg Tablet) 81 mg PO DAILY [facility] Last Admin: 08/28/20 08:11 Dose: 81 mg Documented by: Atorvastatin Calcium (Atorvastatin Calcium 80 Mg Tablet) 80 mg PO QHS [facility] Last Admin: 08/28/20 20:34 Dose: 80 mg Documented by: Cholecalciferol (Cholecalciferol (Vit D3) 1,000 Unit (25mcg)) 1,000 unit PO DAILY [facility] Last Admin: 08/28/20 08:12 Dose: 1,000 unit Documented by: Clopidogrel Bisulfate (Clopidogrel Bisulfate 75 Mg Tablet) 75 mg PO 1400 [facility] Last Admin: 08/28/20 16:48 Dose: 75 mg Documented by: Dexamethasone (Dexamethasone 4 Mg Tablet) 6 mg PO DAILY [facility] Last Admin: 08/28/20 08:11 Dose: 6 mg Documented by: Dextrose (Dextrose 50%-Water 25 Gm/50 Ml Disp.Syrin) 0 gm IV X1 PRN; Protocol PRN Reason: Hypoglycemia Enoxaparin Sodium (Enoxaparin 120 Mg/0.8 Ml Syringe) 110 mg SC DAILY [facility] Last Admin: 08/28/20 08:10 Dose: 110 mg Documented by: Fluoxetine HCl (Fluoxetine 20 Mg Capsule) 20 mg PO DAILY [facility] Last Admin: 08/27/20 09:21 Dose: 20 mg Documented by: Glucagon (Glucagon 1 Mg/Ml Syringe) 1 mg IM .X1 PRN PRN Reason: Hypoglycemia Sodium Chloride () 250 mls @ 15 mls/hr IV .[id number] PRN PRN Reason: Saline Flush Sodium Chloride () 250 mls @ 15 mls/hr IV .[id number] PRN PRN Reason: Additional IVPB Infusion Insulin Glargine (Insulin Glargine 100 Units/Ml Pen) 40 units SC BID [facility] Last Admin: 08/28/20 20:35 Dose: 40 u Documented by: Insulin Human Lispro (Insulin Lispro 100 Unit/Ml Insuln.Pen) 0 unit SC ACHS [facility]; Protocol Last Admin: 08/28/20 20:34 Dose: 4 u Documented by: Insulin Human Lispro (Insulin Lispro 100 Unit/Ml Insuln.Pen) 10 unit SC DINNER [facility] Last Admin: 08/28/20 16:49 Dose: 10 units Documented by: Insulin Human Lispro (Insulin Lispro 100 Unit/Ml Insuln.Pen) 10 unit SC BREAKFAST [facility] Last Admin: 08/28/20 08:09 Dose: 10 u Documented by: Insulin Human Lispro (Insulin Lispro 100 Unit/Ml Insuln.Pen) 10 unit SC LUNCH [facility] Last Admin: 08/28/20 11:06 Dose: 10 u Documented by: Melatonin (Melatonin 3 Mg Tablet) 3 mg PO QHS PRN PRN PRN Reason: INSOMNIA Last Admin: 08/23/20 20:42 Dose: 3 mg Documented by: Metoprolol Tartrate (Metoprolol Tartrate 100 Mg Tablet) 100 mg PO BID [facility] Last Admin: 08/28/20 20:31 Dose: 100 mg Documented by: Ondansetron HCl (Ondansetron 4 Mg/2 Ml Vial) 4 mg IV Q8H PRN PRN PRN Reason: NAUSEA/VOMITING Last Admin: 08/29/20 04:32 Dose: 4 mg Documented by: Pramipexole Dihydrochloride (Pramipexole Di-Hcl 0.25 Mg Tablet) 0.25 mg PO QHS [facility] Last Admin: 08/28/20 20:34 Dose: 0.25 mg Documented by: Senna/Docusate Sodium (Senna/Docusate Sodium 1 Tablet) 2 tablet PO BID PRN PRN PRN Reason: Constipation Last Admin: 08/26/20 20:45 Dose: 2 tablet Documented by: Sodium Chloride (0.9% Saline Lock 10 Ml Syringe) 10 - 40 ml IV UD PRN PRN Reason: SALINE FLUSH Last Admin: 08/23/20 20:42 Dose: 10 ml Documented by: Throat Lozenges (Benzocaine/Menthol 1 Lozenge) 1 lozenge MUCOUS MEM Q2H PRN PRN PRN Reason: SORE THROAT Last Admin: 08/25/20 14:38 Dose: 1 lozenge Documented by: Medical Necessity - Tobacco Use Smoking Status: Former smoker Assessment/Plan All Active Problems (Last Reviewed 08/22/20 @ 05:[address] Michael Orantes MD) Acute viral syndrome (Acute) Respiratory insufficiency (Acute) Acute respiratory failure due to COVID-19 (Acute) Poor intravenous access (Acute) Ischemic cardiomyopathy (Resolved) RECOMMENDATIONS: 1. Given concerns for GI bleed, will discontinue Decadron. 2. Okay to hold Lovenox. 3. Continue scheduled bronchodilator therapy. 4. Continue Lantus and sliding scale insulin coverage. 5. Wean supplemental oxygen to maintain saturations at or above 90%. 6. Encourage incentive spirometer use and mobilize patient as tolerated. 7. Agree with starting scheduled PPI therapy and obtaining general surgery consultation. IMPRESSIONS: 1. Acute on chronic hypoxemic respiratory failure secondary to COVID-19 pneumonia The patient has completed his treatment course of remdesivir and remains on therapy with Decadron. However, over concerns for potential GI blood loss, we will discontinued steroids today. In the interim, the patient will be continued on scheduled bronchodilator therapy. Continue to wean supplemental oxygen to maintain saturations at or above 90%. Encourage incentive spirometer use and mobilize patient as tolerated. Okay to discontinue Lovenox. 2. Acute on chronic kidney disease Potentially prerenal in etiology and related to acute presentation. Creatinine is stable. Continue to monitor urine output for now. No current indication for renal replacement therapy. 3. Anemia The patient did have a drop in hemoglobin this morning and in light of his elevated BUN, agree with starting PPI therapy and obtaining surgical c onsultation. We will plan to empirically discontinue Decadron today. Okay from my perspective to discontinue Lovenox. 4. Diabetes mellitus Continue basal and sliding scale insulin coverage. 5. Coronary artery disease/anxiety/depression/peripheral vascular disease/hypertension/obesity/AUTUMN Complicates care, management, recovery and prognosis. Continue nocturnal Pap therapy per home regimen. This note was generated with [employer] dictation software. It may contain incorrect words, spelling, and punctuation that were not noted in checking the note before signing. Inpatient E&M: 983[address] [facility] L[facility]
[2020-08-29] MEDS: Ipratropium/Albuterol Sulfate 3 ML AMPUL.NEB INHALATION ×2 (07:20→19:13)
[2020-08-29] MEDS: Enoxaparin 120 MG/0.8 ML Syringe 110 MG SC (10:23)
[2020-08-29] MEDS: Aspirin E.C. 81 MG Tablet PO (10:24)
[2020-08-29] MEDS: dexAMETHasone 4 MG Tablet 6 MG PO (10:24)
[2020-08-29] MEDS: FLUoxetine 20 MG Capsule PO (10:24)
[2020-08-29] MEDS: Ascorbic Acid 500 MG Tablet PO (10:24)
[2020-08-29] MEDS: Insulin Lispro 100 UNIT/ML INSULN.PEN SC ×4 (10:29→21:51)
--- NOTE | 2020-08-29 10:36 | CON.PCM_ITS ---
Consultation - Renal 08/29/20 PCP/ Referring MD: Requesting physician: [] Primary care physician: Dr. Ortiz Pelaez DO Reason for Consultation:: william - History of Present Illness History of Present Illness: The patient is a 75 year old M with past medical history of hypertension diabetes mellitus COPD. AUTUMN on CPAP aortic regurgitation patent foramen ovale peripheral vascular disease primary pulmonary hypertension who presented to the emergency room with 3 day history of gradually worsening malaise dizziness nausea dry heaves anorexia G. His home temperature was 102 Fahrenheit associated with chills and also shortness of breath. He was on home oxygen via nasal cannula and initially his oxygen saturation was 84%. She uses 3 L/min nasal cannula at rest and 4 L/min with activity. He was found by EMS to have oxygen saturation in the 70s. patient was found to be Covid 19 positive and his serum creatinine on presentation was 2.08 with a baseline of 1.5-1.8 in [id number]. Serum creatinine went up and now went down to admission value of 2.14 with a BUN of 142 today which prompted renal consult.Hb dropped 3 and had hypotension last night with worsening azotemia today surgery consulted.Feels depressed and still has high oxygen requirements - Allergies Allergies: Allergies No Known Allergies Allergy (Verified 08/15/20 13:50) - Current Medications Current Medications: Current Medications Acetaminophen (Acetaminophen 325 Mg Tablet) 650 mg PO Q6H PRN PRN PRN Reason: Pain Score 1-10/Temp > 100.7 F Last Admin: 08/27/20 22:00 Dose: 650 mg Documented by: Albuterol Sulfate (Albuterol Ih 8.5 Gm (Proair) Inhaler (200 Puffs)) 2 puff INHALATION Q4H PRN PRN PRN Reason: sob/wheezing Albuterol/Ipratropium (Ipratropium/Albuterol Sulfate 3 Ml Ampul.Neb) 3 ml INHALATION Q6HWA.RT [facility] Last Admin: 08/29/20 07:20 Dose: 3 ml Documented by: Amlodipine Besylate (Amlodipine 5 Mg Tablet) 5 mg PO DAILY [facility] Last Admin: 08/28/20 08:11 Dose: 5 mg Documented by: Ascorbic Acid (Ascorbic Acid 500 Mg Tablet) 500 mg PO DAILY [facility] Last Admin: 08/29/20 10:24 Dose: 500 mg Documented by: Aspirin (Aspirin E.C. 81 Mg Tablet) 81 mg PO DAILY [facility] Last Admin: 08/29/20 10:24 Dose: 81 mg Documented by: Atorvastatin Calcium (Atorvastatin Calcium 80 Mg Tablet) 80 mg PO QHS [facility] Last Admin: 08/28/20 20:34 Dose: 80 mg Documented by: Cholecalciferol (Cholecalciferol (Vit D3) 1,000 Unit (25mcg)) 1,000 unit PO DAILY [facility] Last Admin: 08/29/20 10:24 Dose: 1,000 unit Documented by: Clopidogrel Bisulfate (Clopidogrel Bisulfate 75 Mg Tablet) 75 mg PO 1400 [facility] Last Admin: 08/28/20 16:48 Dose: 75 mg Documented by: Dexamethasone (Dexamethasone 4 Mg Tablet) 6 mg PO DAILY [facility] Last Admin: 08/29/20 10:24 Dose: 6 mg Documented by: Dextrose (Dextrose 50%-Water 25 Gm/50 Ml Disp.Syrin) 0 gm IV X1 PRN; Protocol PRN Reason: Hypoglycemia Enoxaparin Sodium (Enoxaparin 120 Mg/0.8 Ml Syringe) 110 mg SC DAILY [facility] Last Admin: 08/29/20 10:23 Dose: 110 mg Documented by: Fluoxetine HCl (Fluoxetine 20 Mg Capsule) 20 mg PO DAILY [facility] Last Admin: 08/29/20 10:24 Dose: 20 mg Documented by: Glucagon (Glucagon 1 Mg/Ml Syringe) 1 mg IM .X1 PRN PRN Reason: Hypoglycemia Sodium Chloride () 250 mls @ 15 mls/hr IV .[id number] PRN PRN Reason: Saline Flush Sodium Chloride () 250 mls @ 15 mls/hr IV .[id number] PRN PRN Reason: Additional IVPB Infusion Insulin Glargine (Insulin Glargine 100 Units/Ml Pen) 40 units SC BID [facility] Last Admin: 08/29/20 10:29 Dose: 40 u Documented by: Insulin Human Lispro (Insulin Lispro 100 Unit/Ml Insuln.Pen) 0 unit SC ACHS [facility]; Protocol Last Admin: 08/29/20 10:29 Dose: 8 u Documented by: Insulin Human Lispro (Insulin Lispro 100 Unit/Ml Insuln.Pen) 10 unit SC DINNER [facility] Last Admin: 08/28/20 16:49 Dose: 10 units Documented by: Insulin Human Lispro (Insulin Lispro 100 Unit/Ml Insuln.Pen) 10 unit SC BREAKFAST [facility] Last Admin: 08/29/20 10:32 Dose: Not Given Documented by: Insulin Human Lispro (Insulin Lispro 100 Unit/Ml Insuln.Pen) 10 unit SC LUNCH [facility] Last Admin: 08/28/20 11:06 Dose: 10 u Documented by: Melatonin (Melatonin 3 Mg Tablet) 3 mg PO QHS PRN PRN PRN Reason: INSOMNIA Last Admin: 08/23/20 20:42 Dose: 3 mg Documented by: Metoprolol Tartrate (Metoprolol Tartrate 100 Mg Tablet) 100 mg PO BID [facility] Last Admin: 08/28/20 20:31 Dose: 100 mg Documented by: Ondansetron HCl (Ondansetron 4 Mg/2 Ml Vial) 4 mg IV Q6H PRN PRN PRN Reason: NAUSEA/VOMITING Pramipexole Dihydrochloride (Pramipexole Di-Hcl 0.25 Mg Tablet) 0.25 mg PO QHS [facility] Last Admin: 08/28/20 20:34 Dose: 0.25 mg Documented by: Senna/Docusate Sodium (Senna/Docusate Sodium 1 Tablet) 2 tablet PO BID PRN PRN PRN Reason: Constipation Last Admin: 08/26/20 20:45 Dose: 2 tablet Documented by: Sodium Chloride (0.9% Saline Lock 10 Ml Syringe) 10 - 40 ml IV UD PRN PRN Reason: SALINE FLUSH Last Admin: 08/23/20 20:42 Dose: 10 ml Documented by: Throat Lozenges (Benzocaine/Menthol 1 Lozenge) 1 lozenge MUCOUS MEM Q2H PRN PRN PRN Reason: SORE THROAT Last Admin: 08/25/20 14:38 Dose: 1 lozenge Documented by: - Past Medical History Past Medical History (Chronic Problems): Chronic Problems (Last Reviewed 08/22/20 @ 05:[address] 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) Diabetes (Chronic) History of right-sided carotid endarterectomy (Chronic ~05/02/19) bovine patch angioplasty 05/02/19 Primary pulmonary hypertension (Chronic) AUTUMN on CPAP (Chronic) COPD (chronic obstructive pulmonary disease) (Chronic) Symptomatic stenosis of right carotid artery (Chronic) History of left-sided carotid endarterectomy (Chronic) with Bovine patch angioplasty 11/26/2015 Carotid stenosis, bilateral (Chronic) History of angioplasty of peripheral vessel (Chronic ~2015) History of left-sided carotid endarterectomy (Chronic ~11/26/15) Peripheral vascular disease (Chronic) Pure hypercholesterolemia (Chronic) Essential hypertension (Chronic) Nicotine abuse (Chronic) Other secondary pulmonary hypertension (Chronic) Non-rheumatic aortic regurgitation (Chronic) Encounter for long-term current use of high risk medication (Chronic) Presence of aortocoronary bypass graft (Chronic ~11/10/07) CABG x 3- ESPINO graft to LAD, SVG to diagonal branch of anterior descending as well as lateral CFX 11/10/07 Atherosclerotic heart disease of [place] coronary artery without angina pectoris (Chronic) Patent foramen ovale (Chronic) - Past Surgical History Surgical History: - - Social History Smoking Status: Former smoker Alcohol: None Drugs: None - Family History Maternal Family History: Family History (Last Reviewed 08/22/20 @ 05:[address] Michael Orantes MD) Father CAD (coronary artery disease) Myocardial infarction Kidney disease Mother CAD (coronary artery disease) Myocardial infarction Colon cancer Sister CAD (coronary artery disease) Diabetes Other Heart disease Patient Problems: Active and Suspected Problems (Last Reviewed 08/22/20 @ 05:[address] Michael Orantes MD) Acute viral syndrome (Acute) Respiratory insufficiency (Acute) Objective: physical examination was deferred to prevent further transmission of COVID-19 and preserve PPE - Physical Exam Vitals/I&O's: Vital Signs Temp Pulse Resp BP Pulse Ox 96.3 F L 86 18 91/54 L 94 08/29/20 10:33 08/29/20 10:33 08/29/20 10:33 08/29/20 10:33 08/29/20 10:33 Oxygen Flow Rate (L/min) 60 Oxygen Delivery Method Airvo Weight: 105.3 kg Body Mass Index (BMI) 35.3 Finger Stick Blood Glucose 187 Intake and Output for Last 24 Hours 08/27/20 08/28/20 08/29/20 23:59 23:59 23:59 Intake Total 830 / 830 670 / 670 400 / 400 Output Total 2825 / 2825 1750 / 1750 350 / 350 Balance -1994 / -1994 -1079 / -1080 50 / 50 Microbiology Past 72 Hours 08/22/20 02:40 Blood Culture (Wb) - Anticubital Right Blood Culture - Final No growth in 5 days. 08/22/20 02:15 Blood Culture (Wb) - Left Hand Blood Culture - Final No growth in 5 days. Laboratory Results 08/28/20 11:02: POC Glucose 339 H 08/28/20 16:46: POC Glucose 278 H 08/28/20 20:30: POC Glucose 232 H 08/29/20 04:00: WBC 14.9 H, RBC 3.72 L, Hgb 11.7 L, Hct 35.1 L, MCV 94.4 H, MCH 31.5, MCHC 33.3, RDW Std Deviation 60.4 H, RDW Coeff of [place] 17.4 H, Plt Count 262, MPV 12.3 H, Immature Gran % (Auto) 0.700, Neut % (Auto) 83.5 H, Lymph % (Auto) 4.4 L, [place] % (Auto) 11.3 H, Eos % (Auto) 0.0, Baso % (Auto) 0.1, Absolute Neuts (auto) 12.4 H, Absolute Lymphs (auto) 0.65 L, Nucleated RBC % 0, Diff Path Review October08/29/20 04:00: Sodium 137, Potassium 5.2 H, Chloride 104, Carbon Dioxide 26.0, Anion Gap 7, BUN 142 H*, Creatinine 2.14 H, Estim Creat Clear Calc 29.74, Est GFR (MDRD) Af Amer 39 L, Est GFR (MDRD) Non-Af 32 L, BUN/Creatinine Ratio 66.4 H , Glucose 220 H, Calcium 9.3 Current Medications Acetaminophen (Acetaminophen 325 Mg Tablet) 650 mg PO Q6H PRN PRN PRN Reason: Pain Score 1-10/Temp > 100.7 F Last Admin: 08/27/20 22:00 Dose: 650 mg Documented by: Albuterol Sulfate (Albuterol Ih 8.5 Gm (Proair) Inhaler (200 Puffs)) 2 puff INHALATION Q4H PRN PRN PRN Reason: sob/wheezing Albuterol/Ipratropium (Ipratropium/Albuterol Sulfate 3 Ml Ampul.Neb) 3 ml INHALATION Q6HWA.RT [facility] Last Admin: 08/29/20 07:20 Dose: 3 ml Documented by: Amlodipine Besylate (Amlodipine 5 Mg Tablet) 5 mg PO DAILY [facility] Last Admin: 08/28/20 08:11 Dose: 5 mg Documented by: Ascorbic Acid (Ascorbic Acid 500 Mg Tablet) 500 mg PO DAILY [facility] Last Admin: 08/29/20 10:24 Dose: 500 mg Documented by: Aspirin (Aspirin E.C. 81 Mg Tablet) 81 mg PO DAILY [facility] Last Admin: 08/29/20 10:24 Dose: 81 mg Documented by: Atorvastatin Calcium (Atorvastatin Calcium 80 Mg Tablet) 80 mg PO QHS [facility] Last Admin: 08/28/20 20:34 Dose: 80 mg Documented by: Cholecalciferol (Cholecalciferol (Vit D3) 1,000 Unit (25mcg)) 1,000 unit PO DAILY [facility] Last Admin: 08/29/20 10:24 Dose: 1,000 unit Documented by: Clopidogrel Bisulfate (Clopidogrel Bisulfate 75 Mg Tablet) 75 mg PO 1400 [facility] Last Admin: 08/28/20 16:48 Dose: 75 mg Documented by: Dexamethasone (Dexamethasone 4 Mg Tablet) 6 mg PO DAILY [facility] Last Admin: 08/29/20 10:24 Dose: 6 mg Documented by: Dextrose (Dextrose 50%-Water 25 Gm/50 Ml Disp.Syrin) 0 gm IV X1 PRN; Protocol PRN Reason: Hypoglycemia Enoxaparin Sodium (Enoxaparin 120 Mg/0.8 Ml Syringe) 110 mg SC DAILY [facility] Last Admin: 08/29/20 10:23 Dose: 110 mg Documented by: Fluoxetine HCl (Fluoxetine 20 Mg Capsule) 20 mg PO DAILY [facility] Last Admin: 08/29/20 10:24 Dose: 20 mg Documented by: Glucagon (Glucagon 1 Mg/Ml Syringe) 1 mg IM .X1 PRN PRN Reason: Hypoglycemia Sodium Chloride () 250 mls @ 15 mls/hr IV .[id number] PRN PRN Reason: Saline Flush Sodium Chloride () 250 mls @ 15 mls/hr IV .[id number] PRN PRN Reason: Additional IVPB Infusion Insulin Glargine (Insulin Glargine 100 Units/Ml Pen) 40 units SC BID [facility] Last Admin: 08/29/20 10:29 Dose: 40 u Documented by: Insulin Human Lispro (Insulin Lispro 100 Unit/Ml Insuln.Pen) 0 unit SC ACHS [facility]; Protocol Last Admin: 08/29/20 10:29 Dose: 8 u Documented by: Insulin Human Lispro (Insulin Lispro 100 Unit/Ml Insuln.Pen) 10 unit SC DINNER [facility] Last Admin: 08/28/20 16:49 Dose: 10 units Documented by: Insulin Human Lispro (Insulin Lispro 100 Unit/Ml Insuln.Pen) 10 unit SC BREAKFAST [facility] Last Admin: 08/29/20 10:32 Dose: Not Given Documented by: Insulin Human Lispro (Insulin Lispro 100 Unit/Ml Insuln.Pen) 10 unit SC LUNCH [facility] Last Admin: 08/28/20 11:06 Dose: 10 u Documented by: Melatonin (Melatonin 3 Mg Tablet) 3 mg PO QHS PRN PRN PRN Reason: INSOMNIA Last Admin: 08/23/20 20:42 Dose: 3 mg Documented by: Metoprolol Tartrate (Metoprolol Tartrate 100 Mg Tablet) 100 mg PO BID [facility] Last Admin: 08/28/20 20:31 Dose: 100 mg Documented by: Ondansetron HCl (Ondansetron 4 Mg/2 Ml Vial) 4 mg IV Q6H PRN PRN PRN Reason: NAUSEA/VOMITING Pramipexole Dihydrochloride (Pramipexole Di-Hcl 0.25 Mg Tablet) 0.25 mg PO QHS [facility] Last Admin: 08/28/20 20:34 Dose: 0.25 mg Documented by: Senna/Docusate Sodium (Senna/Docusate Sodium 1 Tablet) 2 tablet PO BID PRN PRN PRN Reason: Constipation Last Admin: 08/26/20 20:45 Dose: 2 tablet Documented by: Sodium Chloride (0.9% Saline Lock 10 Ml Syringe) 10 - 40 ml IV UD PRN PRN Reason: SALINE FLUSH Last Admin: 08/23/20 20:42 Dose: 10 ml Documented by: Throat Lozenges (Benzocaine/Menthol 1 Lozenge) 1 lozenge MUCOUS MEM Q2H PRN PRN PRN Reason: SORE THROAT Last Admin: 08/25/20 14:38 Dose: 1 lozenge Documented by: Assessment/Plan All Active Problems (Last Reviewed 08/22/20 @ 05:[address] Michael Orantes MD) Acute viral syndrome (Acute) Respiratory insufficiency (Acute) Ischemic cardiomyopathy (Resolved) WILLIAM prerenal/ATN Hyperkalemia CKD baseline 1.5-1.8 Anemia r/o GI bleed Acute on chronic respiratory failure 2/2 COVID-19 PNA DM no emergent need for CLINIC COORDINATOR check bmp in am UA renal US FeNa worsening azotemia with likely GI Bleed NS if ok with pulmonary avoid nephrotoxins hypotension Thanks for consult will f/u
[2020-08-29] MEDS: 0.9% Saline Lock 10 ML Syringe IV ×2 (10:37→20:45)
[2020-08-29 10:50] LABS: Bedside Glucose 333 mg/dL (70-110)
--- NOTE | 2020-08-29 11:05 | PCM.PN.HOSP ---
Patient Problems: Active and Suspected Problems (Last Reviewed 08/22/20 @ 05:[address] Michael Orantes MD) Acute viral syndrome (Acute) Respiratory insufficiency (Acute) Subjective: patient seen and examined. His oxygen requirements increased overnight, to 12L of oxygen; he had to be placed on 60L of high flow oxygen. He seems to be more depressed today, though he tells me that he doesnt feel he is more depressed. he complains of hiccups. CR trended down slightly to 2.14, but his BUN is up to 142 today. He is in cumulative negative balance by 1.45L. BP has also been running low this morning. Vitals/I&O's: Vital Signs Temp Pulse Resp BP Pulse Ox 96.3 F L 86 18 91/54 L 94 08/29/20 10:33 08/29/20 10:33 08/29/20 10:33 08/29/20 10:33 08/29/20 10:33 Oxygen Flow Rate (L/min) 60 Oxygen Delivery Method Airvo Weight: 232 lb 2.348 oz Body Mass Index (BMI) 35.3 Finger Stick Blood Glucose 187 Intake and Output for Last 24 Hours 08/27/20 08/28/20 08/29/20 23:59 23:59 23:59 Intake Total 830 / 830 670 / 670 400 / 400 Output Total 2825 / 2825 1750 / 1750 350 / 350 Balance -1994 / -1994 -1079 / 50 / 50 General: Alert, Oriented x3, lethargic, Cooperative, No apparent distress HEENT: Atraumatic, PERRLA, EOMI, Normocephalic Oral: Dry Mucosa Neck: Supple, No JVD, Negative Carotid Bruits Lungs: - - diminished breath sounds bibasally, no wheezes or crackles. on on 12L of oxygen Cardiovascular: Regular rate, Regular Rhythm, Normal S1, Normal S2, No murmurs Abdomen: Bowel Sounds Present, Soft, Non Tender Extremities: No clubbing, No cyanosis, No edema, Capillary Refill Less than 3 Seconds Skin: No rashes, No breakdown Musculoskeletal: No Tenderness to Palpation of Joints or Extremities Lymphatic: No Cervical, Supraclavicular, or Inguinal Adenopathy Neurological: Cranial nerves II-XII grossly intact, Neuro grossly intact, Motor Exam 5/5 strength throughout Psych/Mental Status: flat affect, Appropriate, Alert and oriented to time, place, person, mood and affect Microbiology Past 72 Hours 08/22/20 02:40 Blood Culture (Wb) - Anticubital Right Blood Culture - Final No growth in 5 days. 08/22/20 02:15 Blood Culture (Wb) - Left Hand Blood Culture - Final No growth in 5 days. Laboratory Results 08/28/20 11:02: POC Glucose 339 H 08/28/20 16:46: POC Glucose 278 H 08/28/20 20:30: POC Glucose 232 H 08/29/20 04:00: WBC 14.9 H, RBC 3.72 L, Hgb 11.7 L, Hct 35.1 L, MCV 94.4 H, MCH 31.5, MCHC 33.3, RDW Std Deviation 60.4 H, RDW Coeff of [place] 17.4 H, Plt Count 262, MPV 12.3 H, Immature Gran % (Auto) 0.700, Neut % (Auto) 83.5 H, Lymph % (Auto) 4.4 L, [place] % (Auto) 11.3 H, Eos % (Auto) 0.0, Baso % (Auto) 0.1, Absolute Neuts (auto) 12.4 H, Absolute Lymphs (auto) 0.65 L, Nucleated RBC % 0, Diff Path Review October08/29/20 04:00: Sodium 137, Potassium 5.2 H, Chloride 104, Carbon Dioxide 26.0, Anion Gap 7, BUN 142 H*, Creatinine 2.14 H, Estim Creat Clear Calc 29.74, Est GFR (MDRD) Af Amer 39 L, Est GFR (MDRD) Non-Af 32 L, BUN/Creatinine Ratio 66.4 H, Glucose 220 H, Calcium 9.3 08/29/20 10:18: POC Glucose 333 H Current Medications Acetaminophen (Acetaminophen 325 Mg Tablet) 650 mg PO Q6H PRN PRN PRN Reason: Pain Score 1-10/Temp > 100.7 F Last Admin: 08/27/20 22:00 Dose: 650 mg Documented by: Albuterol Sulfate (Albuterol Ih 8.5 Gm (Proair) Inhaler (200 Puffs)) 2 puff INHALATION Q4H PRN PRN PRN Reason: sob/wheezing Albuterol/Ipratropium (Ipratropium/Albuterol Sulfate 3 Ml Ampul.Neb) 3 ml INHALATION Q6HWA.RT [facility] Last Admin: 08/29/20 07:20 Dose: 3 ml Documented by: Amlodipine Besylate (Amlodipine 5 Mg Tablet) 5 mg PO DAILY [facility] Last Admin: 08/28/20 08:11 Dose: 5 mg Documented by: Ascorbic Acid (Ascorbic Acid 500 Mg Tablet) 500 mg PO DAILY [facility] Last Admin: 08/29/20 10:24 Dose: 500 mg Documented by: Aspirin (Aspirin E.C. 81 Mg Tablet) 81 mg PO DAILY [facility] Last Admin: 08/29/20 10:24 Dose: 81 mg Documented by: Atorvastatin Calcium (Atorvastatin Calcium 80 Mg Tablet) 80 mg PO QHS [facility] Last Admin: 08/28/20 20:34 Dose: 80 mg Documented by: Cholecalciferol (Cholecalciferol (Vit D3) 1,000 Unit (25mcg)) 1,000 unit PO DAILY [facility] Last Admin: 08/29/20 10:24 Dose: 1,000 unit Documented by: Clopidogrel Bisulfate (Clopidogrel Bisulfate 75 Mg Tablet) 75 mg PO 1400 [facility] Last Admin: 08/28/20 16:48 Dose: 75 mg Documented by: Dexamethasone (Dexamethasone 4 Mg Tablet) 6 mg PO DAILY [facility] Last Admin: 08/29/20 10:24 Dose: 6 mg Documented by: Dextrose (Dextrose 50%-Water 25 Gm/50 Ml Disp.Syrin) 0 gm IV X1 PRN; Protocol PRN Reason: Hypoglycemia Enoxaparin Sodium (Enoxaparin 120 Mg/0.8 Ml Syringe) 110 mg SC DAILY [facility] Last Admin: 08/29/20 10:23 Dose: 110 mg Documented by: Fluoxetine HCl (Fluoxetine 20 Mg Capsule) 20 mg PO DAILY [facility] Last Admin: 08/29/20 10:24 Dose: 20 mg Documented by: Glucagon (Glucagon 1 Mg/Ml Syringe) 1 mg IM .X1 PRN PRN Reason: Hypoglycemia Sodium Chloride () 250 mls @ 15 mls/hr IV .[id number] PRN PRN Reason: Saline Flush Sodium Chloride () 250 mls @ 15 mls/hr IV .[id number] PRN PRN Reason: Additional IVPB Infusion Insulin Glargine (Insulin Glargine 100 Units/Ml Pen) 40 units SC BID [facility] Last Admin: 08/29/20 10:29 Dose: 40 u Documented by: Insulin Human Lispro (Insulin Lispro 100 Unit/Ml Insuln.Pen) 0 unit SC ACHS [facility]; Protocol Last Admin: 08/29/20 10:29 Dose: 8 u Documented by: Insulin Human Lispro (Insulin Lispro 100 Unit/Ml Insuln.Pen) 10 unit SC DINNER [facility] Last Admin: 08/28/20 16:49 Dose: 10 units Documented by: Insulin Human Lispro (Insulin Lispro 100 Unit/Ml Insuln.Pen) 10 unit SC BREAKFAST [facility] Last Admin: 08/29/20 10:32 Dose: Not Given Documented by: Insulin Human Lispro (Insulin Lispro 100 Unit/Ml Insuln.Pen) 10 unit SC LUNCH [facility] Last Admin: 08/28/20 11:06 Dose: 10 u Documented by: Melatonin (Melatonin 3 Mg Tablet) 3 mg PO QHS PRN PRN PRN Reason: INSOMNIA Last Admin: 08/23/20 20:42 Dose: 3 mg Documented by: Metoprolol Tartrate (Metoprolol Tartrate 100 Mg Tablet) 100 mg PO BID [facility] Last Admin: 08/28/20 20:31 Dose: 100 mg Documented by: Ondansetron HCl (Ondansetron 4 Mg/2 Ml Vial) 4 mg IV Q6H PRN PRN PRN Reason: NAUSEA/VOMITING Last Admin: 08/29/20 10:38 Dose: 4 mg Documented by: Pramipexole Dihydrochloride (Pramipexole Di-Hcl 0.25 Mg Tablet) 0.25 mg PO QHS [facility] Last Admin: 08/28/20 20:34 Dose: 0.25 mg Documented by: Senna/Docusate Sodium (Senna/Docusate Sodium 1 Tablet) 2 tablet PO BID PRN PRN PRN Reason: Constipation Last Admin: 08/26/20 20:45 Dose: 2 tablet Documented by: Sodium Chloride (0.9% Saline Lock 10 Ml Syringe) 10 - 40 ml IV UD PRN PRN Reason: SALINE FLUSH Last Admin: 08/29/20 10:37 Dose: 10 ml Documented by: Throat Lozenges (Benzocaine/Menthol 1 Lozenge) 1 lozenge MUCOUS MEM Q2H PRN PRN PRN Reason: SORE THROAT Last Admin: 08/25/20 14:38 Dose: 1 lozenge Documented by: STROKE Vital Signs/Narrative: Vital Signs Temp Pulse Resp BP Pulse Ox 08/29/20 10:33 96.3 F L 86 18 91/54 L 94 08/29/20 10:28 86 93 08/29/20 07:22 90 16 91 Medical Necessity - Tobacco Use Smoking Status: Former smoker Assessment/Plan All Active Problems (Last Reviewed 08/22/20 @ 05:[address] Michael Orantes MD) Acute viral syndrome (Acute) Respiratory insufficiency (Acute) Ischemic cardiomyopathy (Resolved) #Acute hypoxic respiratory failiure due to COVID 19 pneumonia now on 6L of oxygen via nasal canula; on BIPAP prn on decadron and remdesivir titrate oxygen to maintain sats >90% breathing treatment with bronchodilators #Elevated D dimer couldnt have CTA o/a of elevated Cr, and also VQ scan wont be very beneficial in light of abnormal CXR on therapeutic lovenox. to transition to a short course of eliquis at discharge. will hold lovenox today o/a of dark stools and 3 gram drop in his Hb. #Type 2 diabetes mellitus on lantus 65 units daily. Usually on Lantus 50 units daily at home but dose was adjusted on account of elevated blood sugars from Decadron. ISS. Accuchecks ACHS #Probable UGI bleed patient's BP dropped 3grams from yesterday to today, down from 14.7 to 11.7 his BUN is also markedly elevated, though CR has actually dropped slightly to 2.14 today. BUN/CR ratio is >66 will hold aspirin, plavix and lovenox, and start on IV PPI consult general surgery- Dr Chao informed. #CAD s/p CABG: on aspirin, statin and plavix. aspirin and plavix held due to Hb drop. #Hypertension: On amlodipine #Depression and anxiety: On Paxil #WILLIAM on CKD3: CR today is 2.14. Potassium is however 5.2 . BUN is up to 142. Consult nephrology. Hydrate gently with IVF #COPD: not in exacerbation #Hyperlipidemia: on statin #Morbid obesity: BMI is 35. Complicates acute care, prognosis and expected recovery. Prophylaxis: hold lovenox o/.a of dark stools and drop in Hb to 11.7, from 14.7 yesterday Inpatient E&M: 35219 Subs Hosp L3
[2020-08-29 11:51] LABS: Pathologist Review Reviewed
--- NOTE | 2020-08-29 13:08 | PCM.CONS.GEN ---
Reason for Consult Date of Consultation: 08/30/20 History of Present Illness: The patient is a 75 year old M admitted due to respiratory insufficiency/Covid. Patient was found today to have a drop in hemoglobin from 14-11. Patient did admit to some black stool overnight and nurse did see some black stool this morning. Since this morning no further stools. Patient is currently on 60% FiO2. Patient states he had a colonoscopy about 3 years ago and had some polyps so he is due again shortly. Patient also thinks he had an EGD about 4 to 5 years ago. is also accompanying patient at bedside. Patient denies any abdominal pain. Per nursing he has been pretty down today. Patient is typed and crossed for 2 units. Patient did receive steroids due to Covid as well as was on aspirin/Plavix/Lovenox--That is all been stopped currently. Past Medical History Past Medical History (Chronic Problems): Chronic Problems (Last Reviewed 08/22/20 @ 05:[address] 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) Diabetes (Chronic) History of right-sided carotid endarterectomy (Chronic ~05/02/19) bovine patch angioplasty 05/02/19 Primary pulmonary hypertension (Chronic) AUTUMN on CPAP (Chronic) COPD (chronic obstructive pulmonary disease) (Chronic) Symptomatic stenosis of right carotid artery (Chronic) History of left-sided carotid endarterectomy (Chronic) with Bovine patch angioplasty 11/26/2015 Carotid stenosis, bilateral (Chronic) History of angioplasty of peripheral vessel (Chronic ~2015) History of left-sided carotid endarterectomy (Chronic ~11/26/15) Peripheral vascular disease (Chronic) Pure hypercholesterolemia (Chronic) Essential hypertension (Chronic) Nicotine abuse (Chronic) Other secondary pulmonary hypertension (Chronic) Non-rheumatic aortic regurgitation (Chronic) Encounter for long-term current use of high risk medication (Chronic) Presence of aortocoronary bypass graft (Chronic ~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 Michael Orantes MD) Primary pulmonary hypertension (Chronic) I27.0 AUTUMN on CPAP (Chronic) G47.33, Z99.89 COPD (chronic obstructive pulmonary disease) (Chronic) J44.9 Carotid stenosis, bilateral (Chronic) I65.23 Peripheral vascular disease (Chronic) I73.9 Pure hypercholesterolemia (Chronic) E78.00 Essential hypertension (Chronic) I10 Nicotine abuse (Chronic) Z72.0 Ischemic cardiomyopathy (Resolved) I25.5 Other secondary pulmonary hypertension (Chronic) I27.29 Non-rheumatic aortic regurgitation (Chronic) I35.1 Encounter for long-term current use of high risk medication (Chronic) Z79.899 Atherosclerotic heart disease of [place] coronary artery without angina pectoris (Chronic) I25.10 Patent foramen ovale (Chronic) Q21.1 Agent orange exposure Z77.098 Carotid artery stenosis, asymptomatic I65.29 History of stroke Z86.73 Arteriosclerotic vascular disease (Inactive) I70.90 Atherosclerosis of coronary artery bypass graft without angina pectoris (Inactive) I25.810 S/P ESPINO to LAD, SVG to diagonal of the anterior descending and LCx in 2007; Hyperlipidemia (Inactive) E78.5 Allergies No Known Allergies Allergy (Verified 08/15/20 13:50) Home Medications: Ambulatory Orders Medication Instructions Recorded budesonide-formoterol HFA 80 2 puff INHALATION BID 08/25/18 mcg-4.5 mcg/actuation aerosol inhaler liraglutide 0.6 mg/0.1 mL (18 mg/3 1.8 mg SC DAILY 08/25/18 mL) subcutaneous pen injector albuterol sulfate 90 mcg/actuation 1 inh INHALATION Q4H PRN 09/20/18 breath activated powder inhaler cholecalciferol (vitamin D3) 25 1,000 unit PO DAILY 12/22/18 mcg (1,000 unit) tablet nitroglycerin 0.4 mg sublingual 0.4 mg SUBLINGUAL Q5M PRN #25 tab 12/22/18 tablet rosuvastatin 40 mg tablet 40 mg PO QHS 12/22/18 clopidogrel 75 mg tablet 75 mg PO 1400 04/01/19 metoprolol tartrate 100 mg tablet 100 mg PO BID #60 tab 11/18/19 amlodipine 5 mg tablet 5 mg PO DAILY tab 12/07/19 ascorbic acid (vitamin C) 500 mg 500 mg PO DAILY 12/07/19 tablet fluoxetine 20 mg capsule 20 mg PO DAILY 12/07/19 tiotropium bromide 2.5 2 puff INHALATION DAILY 12/07/19 mcg/actuation mist for inhalation aspirin 81 mg tablet,delayed 81 mg PO DAILY tab 08/15/20 release insulin aspart U-100 100 unit/mL 20 unit SC QACDINNER ml 08/15/20 (3 mL) subcutaneous pen insulin glargine 100 unit/mL (3 50 unit SC DAILY ml 08/15/20 mL) subcutaneous pen ropinirole 0.5 mg tablet 0.5 mg PO QHS 08/15/20 Surgical History: Surgical History (Last Reviewed 08/22/20 @ 05:[address] Michael Orantes MD) History of right-sided carotid endarterectomy (Chronic) Onset Date: ~05/02/19 Z98.890 bovine patch angioplasty 05/02/19 History of left-sided carotid endarterectomy (Chronic) Z98.890 with Bovine patch angioplasty 11/26/2015 History of angioplasty of peripheral vessel (Chronic) Onset Date: ~2015 Z98.62 History of left-sided carotid endarterectomy (Chronic) Onset Date: ~11/26/15 Z98.890 Presence of aortocoronary bypass graft (Chronic) Onset Date: ~11/10/07 Z95.1 CABG x 3- ESPINO graft to LAD, SVG to diagonal branch of anterior descending as well as lateral CFX 11/10/07 History of right-sided carotid endarterectomy Onset Date: ~05/02/19 Z98.890 History of eye surgery Z98.890 04/20/19 History of hemorrhoidectomy Z98.890 Surgical History: - Lives: Spouse/ Significant Other Smoking Status: Former smoker Alcohol: None Drugs: None - *Family History Maternal Family History: Family History (Last Reviewed 08/22/20 @ 05:[address] Michael Orantes MD) Father CAD (coronary artery disease) Myocardial infarction Kidney disease Mother CAD (coronary artery disease) Myocardial infarction Colon cancer Sister CAD (coronary artery disease) Diabetes Other Heart disease Review of Systems Constitutional: Denies: Anorexia HEENT: Denies: Difficulty Swallowing Cardiovascular: Denies: Chest Pain Respiratory: Reports: Shortness of breath at rest Gastrointestinal: Denies: Abdominal Pain, Nausea, Vomiting Skin: Denies: Jaundice Psychiatric: Reports: Depression Hematologic/ Lymphatic: Denies: Easy Bruising Patient Problems: Active and Suspected Problems (Last Reviewed 08/22/20 @ 05:[address] Michael Orantes MD) Acute viral syndrome (Acute) Respiratory insufficiency (Acute) Acute respiratory failure due to COVID-19 (Acute) Poor intravenous access (Acute) - Physical Exam Vitals/I&O's: Vital Signs Temp Pulse Resp BP Pulse Ox 96.4 F L 91 16 116/52 L 100 08/29/20 11:41 08/29/20 11:41 08/29/20 11:41 08/29/20 11:41 08/29/20 11:41 Oxygen Flow Rate (L/min) 60 Oxygen Delivery Method Airvo Weight: 232 lb 2.348 oz Body Mass Index (BMI) 35.3 Finger Stick Blood Glucose 187 Intake and Output for Last 24 Hours 08/27/20 08/28/20 08/29/20 23:59 23:59 23:59 Intake Total 830 / 830 670 / 670 400 / 400 Output Total 2825 / 2825 1750 / 1750 350 / 350 Balance -1994 / -1994 -1079 / -1080 50 / 50 Microbiology Past 72 Hours 08/29/20 11:45 Stool Stool Occult Blood (PRATEEK) - Final Occult Blood Positive 08/22/20 02:40 Blood Culture (Wb) - Anticubital Right Blood Culture - Final No growth in 5 days. 08/22/20 02:15 Blood Culture (Wb) - Left Hand Blood Culture - Final No growth in 5 days. Laboratory Results 08/28/20 16:46: POC Glucose 278 H 08/28/20 20:30: POC Glucose 232 H 08/29/20 04:00: WBC 14.9 H, RBC 3.72 L, Hgb 11.7 L, Hct 35.1 L, MCV 94.4 H, MCH 31.5, MCHC 33.3, RDW Std Deviation 60.4 H, RDW Coeff of [place] 17.4 H, Plt Count 262, MPV 12.3 H, Immature Gran % (Auto) 0.700, Neut % (Auto) 83.5 H, Lymph % (Auto) 4.4 L, [place] % (Auto) 11.3 H, Eos % (Auto) 0.0, Baso % (Auto) 0.1, Absolute Neuts (auto) 12.4 H, Absolute Lymphs (auto) 0.65 L, Nucleated RBC % 0, Diff Path Review Reviewed 08/29/20 04:00: Sodium 137, Potassium 5.2 H, Chloride 104, Carbon Dioxide 26.0, Anion Gap 7, BUN 142 H*, Creatinine 2.14 H, Estim Creat Clear Calc 29.74, Est GFR (MDRD) Af Amer 39 L, Est GFR (MDRD) Non-Af 32 L, BUN/Creatinine Ratio 66.4 H, Glucose 220 H, Calcium 9.3 08/29/20 10:18: POC Glucose 333 H Current Medications Acetaminophen (Acetaminophen 325 Mg Tablet) 650 mg PO Q6H PRN PRN PRN Reason: Pain Score 1-10/Temp > 100.7 F Last Admin: 08/27/20 22:00 Dose: 650 mg Documented by: Albuterol Sulfate (Albuterol Ih 8.5 Gm (Proair) Inhaler (200 Puffs)) 2 puff INHALATION Q4H PRN PRN PRN Reason: sob/wheezing Albuterol/Ipratropium (Ipratropium/Albuterol Sulfate 3 Ml Ampul.Neb) 3 ml INHALATION Q6HWA.RT [facility] Last Admin: 08/29/20 07:20 Dose: 3 ml Documented by: Amlodipine Besylate (Amlodipine 5 Mg Tablet) 5 mg PO DAILY [facility] Last Admin: 08/28/20 08:11 Dose: 5 mg Documented by: Ascorbic Acid (Ascorbic Acid 500 Mg Tablet) 500 mg PO DAILY [facility] Last Admin: 08/29/20 10:24 Dose: 500 mg Documented by: Aspirin (Aspirin E.C. 81 Mg Tablet) 81 mg PO DAILY [facility] Last Admin: 08/29/20 10:24 Dose: 81 mg Documented by: Atorvastatin Calcium (Atorvastatin Calcium 80 Mg Tablet) 80 mg PO QHS [facility] Last Admin: 08/28/20 20:34 Dose: 80 mg Documented by: Cholecalciferol (Cholecalciferol (Vit D3) 1,000 Unit (25mcg)) 1,000 unit PO DAILY [facility] Last Admin: 08/29/20 10:24 Dose: 1,000 unit Documented by: Clopidogrel Bisulfate (Clopidogrel Bisulfate 75 Mg Tablet) 75 mg PO 1400 [facility] Last Admin: 08/28/20 16:48 Dose: 75 mg Documented by: Dexamethasone (Dexamethasone 4 Mg Tablet) 6 mg PO DAILY [facility] Last Admin: 08/29/20 10:24 Dose: 6 mg Documented by: Dextrose (Dextrose 50%-Water 25 Gm/50 Ml Disp.Syrin) 0 gm IV X1 PRN; Protocol PRN Reason: Hypoglycemia Enoxaparin Sodium (Enoxaparin 120 Mg/0.8 Ml Syringe) 110 mg SC DAILY [facility] Last Admin: 08/29/20 10:23 Dose: 110 mg Documented by: Fluoxetine HCl (Fluoxetine 20 Mg Capsule) 20 mg PO DAILY [facility] Last Admin: 08/29/20 10:24 Dose: 20 mg Documented by: Glucagon (Glucagon 1 Mg/Ml Syringe) 1 mg IM .X1 PRN PRN Reason: Hypoglycemia Sodium Chloride () 250 mls @ 15 mls/hr IV .[id number] PRN PRN Reason: Saline Flush Sodium Chloride () 250 mls @ 15 mls/hr IV .[id number] PRN PRN Reason: Additional IVPB Infusion Pantoprazole Sodium 40 mg/ (Sodium Chloride) 110 mls @ 330 mls/hr IV Q12 [facility] Sodium Chloride () 1,000 mls @ 125 mls/hr IV .Q8H [facility] Stop: 08/30/20 03:49 Insulin Glargine (Insulin Glargine 100 Units/Ml Pen) 40 units SC BID [facility] Last Admin: 08/29/20 10:29 Dose: 40 u Documented by: Insulin Human Lispro (Insulin Lispro 100 Unit/Ml Insuln.Pen) 0 unit SC ACHS [facility]; Protocol Last Admin: 08/29/20 10:29 Dose: 8 u Documented by: Insulin Human Lispro (Insulin Lispro 100 Unit/Ml Insuln.Pen) 10 unit SC DINNER [facility] Last Admin: 08/28/20 16:49 Dose: 10 units Documented by: Insulin Human Lispro (Insulin Lispro 100 Unit/Ml Insuln.Pen) 10 unit SC BREAKFAST [facility] Last Admin: 08/29/20 10:32 Dose: Not Given Documented by: Insulin Human Lispro (Insulin Lispro 100 Unit/Ml Insuln.Pen) 10 unit SC LUNCH [facility] Last Admin: 08/28/20 11:06 Dose: 10 u Documented by: Melatonin (Melatonin 3 Mg Tablet) 3 mg PO QHS PRN PRN PRN Reason: INSOMNIA Last Admin: 08/23/20 20:42 Dose: 3 mg Documented by: Metoprolol Tartrate (Metoprolol Tartrate 100 Mg Tablet) 100 mg PO BID [facility] Last Admin: 08/28/20 20:31 Dose: 100 mg Documented by: Ondansetron HCl (Ondansetron 4 Mg/2 Ml Vial) 4 mg IV Q6H PRN PRN PRN Reason: NAUSEA/VOMITING Last Admin: 08/29/20 10:38 Dose: 4 mg Documented by: Pramipexole Dihydrochloride (Pramipexole Di-Hcl 0.25 Mg Tablet) 0.25 mg PO QHS [facility] Last Admin: 08/28/20 20:34 Dose: 0.25 mg Documented by: Senna/Docusate Sodium (Senna/Docusate Sodium 1 Tablet) 2 tablet PO BID PRN PRN PRN Reason: Constipation Last Admin: 08/26/20 20:45 Dose: 2 tablet Documented by: Sodium Chloride (0.9% Saline Lock 10 Ml Syringe) 10 - 40 ml IV UD PRN PRN Reason: SALINE FLUSH Last Admin: 08/29/20 10:37 Dose: 10 ml Documented by: Throat Lozenges (Benzocaine/Menthol 1 Lozenge) 1 lozenge MUCOUS MEM Q2H PRN PRN PRN Reason: SORE THROAT Last Admin: 08/25/20 14:38 Dose: 1 lozenge Documented by: Assessment/Plan All Active Problems (Last Reviewed 08/22/20 @ 05:[address] Michael Orantes MD) Acute viral syndrome (Acute) Respiratory insufficiency (Acute) Acute respiratory failure due to COVID-19 (Acute) Poor intravenous access (Acute) Ischemic cardiomyopathy (Resolved) 75-year-old male admitted due to Covid , With anemia and melena. Discussed with the patient and his plan to do an EGD tomorrow to take a look at his stomach, described the procedure.Patient is currently getting a bolus of Protonix 80 mg IV and then will be on Protonix 40 mg IV twice daily. We will plan to do procedure more urgently if vitals change. I have discussed the above with the patient. I have offered the patient EGD for evaluation. I have explained the risks/benefits of the procedure and described the procedure. I have discussed the risks with the patient, including but not limited to: infection, bleeding, perforation of the GI tract requiring emergency surgery, inability to complete the procedure, injury to any internal organs, complications of anesthesia, etc. - the patient understands and agrees to proceed. I have answered all the patient's questions to the patient's satisfaction and the patient has no further questions. Jhoana Chao M.D. Pager: [phone] [facility] [address] [place] [address] Office: [phone] Procedure Criteria COVID Risk Discussion: Patient is positive for Covid Inpatient E&M: 01124 Init Hosp L3
[2020-08-29] MEDS: Insulin Lispro 100 UNIT/ML INSULN.PEN 10 UNIT SC ×2 (13:39→16:26)
[2020-08-29] MEDS: 0.9% Normal Saline 1,000 ML 125 ML IV (13:40)
[2020-08-29 17:26] LABS: Bedside Glucose 403 mg/dL (70-110)
[2020-08-29 17:26] LABS: Bedside Glucose 332 mg/dL (70-110)
[2020-08-29 17:57] LABS: Hematocrit 28.5 % (40-54); Hemoglobin 9.4 g/dL (13.0-16.5)
[2020-08-29 18:02] LABS: Potassium 5.3 mmol/L (3.5-5.1)
[2020-08-29] MEDS: 0.9% Normal Saline 1,000 ML 150 ML IV (21:24)
[2020-08-29 21:50] LABS: Hematocrit 28.5 % (40-54); Hemoglobin 9.4 g/dL (13.0-16.5)
[2020-08-29 22:25] LABS: Bedside Glucose 244 mg/dL (70-110)
--- NOTE | 2020-08-29 22:35 | CPS ---
Pt. became more agitated while wearing CPAP. Pt. progressively became more tachypneic and complained that he was having trouble breathing at this time. I switched from CPAP to AVAPS. Pt. stated it was more comfortable than CPAP. Going to monitor pt.'s SpO2, in hopes to decrease pt.'s oxygenation needs.
[2020-08-29] MEDS: Haloperidol Lactate 5 MG/ML Vial 2 MG IV (23:13)
[2020-08-30] VITALS (82 sets, daily range): BP systolic 56–133; BP diastolic 29–85; PULSE 74–130; RESP 11–58; TEMP 37.2–38.3; O2SAT 71–99
--- NOTE | 2020-08-30 00:05 | NURSING ---
Spoke with Zeina to give her an update on his condition, let her know he is very restless and agitated and asking for the tube to be put down his throat. Zeina stated that whatever he wishes to do is fine with her as long as he knows all of the information. Told her he was informed of all the risks and benefits and he is still asking to be placed on the ventilator. She agreed that if he is wanting this that this is what should be done.
--- NOTE | 2020-08-30 00:15 | NURSING ---
called back in to make sure pt understood all that intubation meant, assured here that this RN and Geena Corona RN had spoke at length about intubation and the meaning of that at this time. Peg his did state that he did not want chest compressions if his heart would stop beating and that she was sure he signed paper work stating that and if that would happen while he is on the ventilator and unable to tell us his wishes she would like to honor that paper work and not want us to do chest compressions.
[2020-08-30] MEDS: Etomidate 20 MG/10 ML Vial IV (00:51)
[2020-08-30] MEDS: Succinylcholine Chloride 200 MG/10 ML Vial 100 MG IV ×2 (00:53→05:25)
[2020-08-30] MEDS: Propofol 10MG/Ml 1,000 MG/100 ML Bottle 6.3 MG CONT INF (01:00)
--- NOTE | 2020-08-30 01:51 | RAD_ITS ---
STUDY: X-RAY CHEST REASON FOR EXAM: Male, 75 years old. ETT and Central line placement TECHNIQUE: Single AP portable view of the chest. COMPARISON: 08/22/2020. FINDINGS: There is a right-sided central line with the tip in the mid-distal SVC. There is an endotracheal tube with the tip approximately 3 cm above kandice. There is a nasogastric tube with the tip below the diaphragm, not included in the [id number]. The sidehole is located at the junction. The lungs are normally expanded with bilateral lower lobe infiltrates, more severe on the left compared to the right. There is no demonstrated pleural abnormality. Midline sternotomy wires with borderline cardiomegaly. Normal mediastinum and cas. Normal visualized pulmonary arteries. There is atherosclerotic calcification of the aortic arch with tortuosity. There is demineralization of the osseous structures. 2 There is no demonstrated abnormality of the visualized soft tissue structures of the upper abdomen. RAD/Chest 1 View (Portable) IMPRESSION: Lines and tubes as described above. Recommend advancing the nasogastric tube approximately 7-centimeter. Unchanged bilateral infiltrates as described. Electronically Signed: Melissa Boo MD at 2:28 EST , Service support ,
[2020-08-30] MEDS: 0.9% Saline Lock 10 ML Syringe IV ×4 (02:29→18:28)
[2020-08-30 02:46] LABS: Allen Test Positive; Base Excess -9 mmol/L (-2 to +2); Bicarbonate 18.2 mmol/L (22-26); Blood Gas Specimen Type ART; FI02 100; Mode BiLevel; O2 Delivery Device Adult Vent; PO2 57 mmHG (75-100); PS 0; RR 10; SITE R Radial; SO2 85 % (95-99); Total Carbon Dioxide 19 mmol/L; pCO2 39.3 mmHg (35-45); pH 7.27 (7.35-7.45)
--- NOTE | 2020-08-30 02:46 | PCM.OP.PRO ---
Problem List (1) Acute respiratory failure due to COVID-19 Status: Acute (2) Poor intravenous access Status: Acute Procedure Report Date of Procedure: 08/30/20 Procedure note Rapid sequence intubation under kaleidoscope Indication: Acute hypoxic respiratory failure secondary to COVID-19 even on 100% FiO2 BiPAP. ABG 7.2 / 100% FiO2 BiPAP, pulse ox in 80s Patient was sedated with etomidate 20 mg IV. Patient was still agitated and restless and oropharynx was started therefore required succinylcholine 100 mg IV. With rapid sequence under glideoscope blade 4, ET tube was inserted. Colorimetric color change was seen. Air entry heard on both sides. OG tube was inserted. Repeat ABG ordered. Ultrasound-guided central venous catheter insertion Right side of the neck including subclavicular area was sterilized and draped in aseptic manner. With ultrasound, right IJ was located, punctured and good venous blood return. Guidewire was passed without resistance, dilated with dilator and then triple-lumen catheter was inserted. Good blood flow return from all 3 ports. TLC was secured with silk suture. No hematoma or bleeding. Chest x-ray shows tip of CVC at SVC. No pneumothorax. Procedures: 66322 Insertion of Chest Tube Multi Select Codes - Hospitalists' Procedures Procedures: 85569 Insert Emergency Airway, 91775 Insert Non-tunnel CV Cath
--- NOTE | 2020-08-30 03:12 | NURSING ---
Pt had increased O2 demands throughout night. Progressed from AirVo 93% FiO2, to BiPap AVAP 100% with increased anxiety and c/o SOB. Discussed with patient, extensively, to aide him with his respiratory status the need for intubation, with lay terms explained the procedure. The nurse also discussed pt's code status. Pt stated he wanted to be intubated. was contacted by Kalyn Bradford RN. also in agreement with pt's wishes to be intubated. Intubation performed by Dr. Lozano in controlled sequence of administration of sedation and paralytic. ETT 7.5 inserted 26cm at lip. Bilateral auscultation of air throughout lung gross and Positive color change of CO2 detector. 18FR OGT inserted with return of dark red fluid, presumed to be blood. Central line then placed by Dr. Lozano, using sterile technique throughout procedure. Xray ordered and performed. Confirmed placement of Central line, ETT, and to advance OGT 2cm (per Dr. Lozano).
[2020-08-30 04:16] LABS: Absolute Lymphocyte Count 0.56 X10^3/uL (0.83-4.51); Basophil# 0.02 X10^3/uL; Basophil% 0.2 % (0-1); Hematocrit 26.4 % (40-54); Hemoglobin 8.6 g/dL (13.0-16.5); Lymphocyte # 0.56 X10^3/ul (4.0); Lymphocyte % 4.4 % (19-41); Mean Corp Hgb Conc 32.6 g/dL (32-36); Mean Corpuscular Hgb 31.9 pg (27.0-32.0); Mean Corpuscular Volume 97.8 fL (80-94); Mean Platelet Vol. 12.6 fl (6.2-12.0); Monocyte# 1.07 X10^3/uL; Monocyte% 8.4 % (0-10); NRBC Flagged by Analyzer 0.2 % (0-5); Neutrophil % 86.1 % (47-70); POSITIVE DIFFERENTIAL YES; POSITIVE MORPHOLOGY YES; Platelet Count 245 K/mm3 (150-450); RBC Distribution Width CV 17.6 % (11.6-14.6); RBC Distribution Width SD 62.7 fl (35.1-43.9); White Blood Count 12.8 K/mm3 (4.4-11.0)
--- NOTE | 2020-08-30 04:22 | PCM.HOSP.N ---
Hospitalist Note Seen and examined Patient was still hypoxic on maximum setting of BiPAP, 100% FiO2 therefore was intubated. After intubation ABG reviewed 7.2 / on 100% FiO2/450 mill/12/PEEP 15. Pulse ox reading in the 80s. Discussed with respiratory. Patient also had brownish-black aspirate from OG tube suggestive of GI bleed. Patient supposed to have EGD a.m. Fecal occult blood positive.
[2020-08-30 04:25] LABS: International Normalized Ratio 1.5; Prothrombin Time (Protime)PT. 17.8 SECONDS (11.7-14.9)
[2020-08-30 04:26] LABS: Partial Thromboplast Time 40.1 Seconds (24.1-36.2)
[2020-08-30 04:29] LABS: Differential Indicated SCAN CRITERIA MET
[2020-08-30 04:41] LABS: Anion Gap 13 (5-15); BUN 161 mg/dL (7-18); BUN/Creat Ratio 53.7 RATIO (10-20); CPK Total, Creatine Kinase 119 U/L (39-308); Calcium,Total 7.8 mg/dL (8.5-10.1); Chloride 106 mmol/L (98-107); EST Glomerular Filtration Rate 22 mL/min (>60); Est Glom Filt Rate - Afr Amer 27 mL/min (>60); Estimated Creatinine Clearance 21.22 ml/min; Glucose 169 mg/dL (74-106); Potassium 5.5 mmol/L (3.5-5.1); Sodium Level 138 mmol/L (136-145); Triglycerides 162 mg/dL
--- NOTE | 2020-08-30 04:46 | NURSING ---
Called to update of pt condition. Advised of critical situation and she may want to come in at this time.
--- NOTE | 2020-08-30 05:28 | PCM.PN.SRG ---
Patient Problems: Active and Suspected Problems (Last Reviewed 08/22/20 @ 05:[address] Michael Orantes MD) Acute viral syndrome (Acute) Respiratory insufficiency (Acute) Acute respiratory failure due to COVID-19 (Acute) Poor intravenous access (Acute) Subjective: Called by nurse- pt just intubated and max on levo--pt Hb 8.6 - has 2 units on hold, pt had 75 cc maroon out of OG - Physical Exam Vitals/I&O's: Vital Signs Temp Pulse Resp BP Pulse Ox 100.9 F H 86 11 L 63/44 L 71 08/30/20 04:00 08/30/20 04:17 08/30/20 04:00 08/30/20 04:45 08/30/20 04:00 Oxygen Flow Rate (L/min) 60 Oxygen Delivery Method Mechanical Ventilator Weight: 232 lb 2.348 oz Body Mass Index (BMI) 35.3 Finger Stick Blood Glucose 187 Intake and Output for Last 24 Hours 08/28/20 08/29/20 08/30/20 23:59 23:59 23:59 Intake Total 670 / 670 1853.33 / 1853.33 1106.62 / 1106.62 Output Total 1750 / 1750 1375 / 1375 Balance -1080 / -1080 478.33 / 478.33 1106.62 / 1106.62 General: - - intubated/sedated Microbiology Past 72 Hours 08/29/20 11:45 Stool Stool Occult Blood (PRATEEK) - Final Occult Blood Positive 08/22/20 02:40 Blood Culture (Wb) - Anticubital Right Blood Culture - Final No growth in 5 days. 08/22/20 02:15 Blood Culture (Wb) - Left Hand Blood Culture - Final No growth in 5 days. Laboratory Results 08/29/20 04:00: Diff Path Review Reviewed 08/29/20 10:18: POC Glucose 333 H 08/29/20 13:37: POC Glucose 403 H 08/29/20 16:23: POC Glucose 332 H 08/29/20 17:40: Hgb 9.4 L, Hct 28.5 L 08/29/20 17:40: Potassium 5.3 H 08/29/20 21:40: Blood Type A POSITIVE, Antibody Screen NEGATIVE, Crossmatch See Detail 08/29/20 21:40: Hgb 9.4 L, Hct 28.5 L 08/29/20 21:49: POC Glucose 244 H 08/30/20 02:41: Specimen Type ART, Sample Site R Radial, pH 7.27 L, Bicarbonate Actual 18.2 L, Total CO2 19, Base Excess -9 L, O2 Saturation 85 L, O2 % 100, ABG pCO2 39.3, ABG pO2 57 L, Angelo Test Positive, Respiration Rate 10, O2 Delivery Device Adult Vent, Vent Mode BiLevel, POC Pressure Suppt 0 08/30/20 03:55: WBC 12.8 H, RBC 2.70 L, Hgb 8.6 L, Hct 26.4 L, MCV 97.8 H, MCH 31.9, MCHC 32.6, RDW Std Deviation 62.7 H, RDW Coeff of [place] 17.6 H, Plt Count 245, MPV 12.6 H, Immature Gran % (Auto) 0.900, Neut % (Auto) 86.1 H, Lymph % (Auto) 4.4 L, M[place]at % (Auto) 8.4, Eos % (Auto) 0.0, Baso % (Auto) 0.2, Absolute Neuts (auto) 11.0 H, Absolute Lymphs (auto) 0.56 L, Nucleated RBC % 0.2 08/30/20 03:55: Sodium 138, Potassium 5.5 H, Chloride 106, Carbon Dioxide 19.0 L, Anion Gap 13, BUN 161 H*, Creatinine 3.00 H, Estim Creat Clear Calc 21.22, Est GFR (MDRD) Af Amer 27 L, Est GFR (MDRD) Non-Af 22 L, BUN/Creatinine Ratio 53.7 H, Glucose 169 H, Calcium 7.8 L, Total Creatine Kinase 119, Triglycerides 162 08/30/20 03:55: PT 17.8 H, INR 1.5, APTT 40.1 H Current Medications Acetaminophen (Acetaminophen 325 Mg Tablet) 650 mg PO Q6H PRN PRN PRN Reason: Pain Score 1-10/Temp > 100.7 F Last Admin: 08/27/20 22:00 Dose: 650 mg Documented by: Albuterol Sulfate (Albuterol Ih 8.5 Gm (Proair) Inhaler (200 Puffs)) 2 puff INHALATION Q4H PRN PRN PRN Reason: sob/wheezing Albuterol/Ipratropium (Ipratropium/Albuterol Sulfate 3 Ml Ampul.Neb) 3 ml INHALATION Q6HWA.RT [facility] Last Admin: 08/29/20 19:13 Dose: 3 ml Documented by: Amlodipine Besylate (Amlodipine 5 Mg Tablet) 5 mg PO DAILY [facility] Last Admin: 08/29/20 15:02 Dose: Not Given Documented by: Ascorbic Acid (Ascorbic Acid 500 Mg Tablet) 500 mg PO DAILY [facility] Last Admin: 08/29/20 10:24 Dose: 500 mg Documented by: Aspirin (Aspirin E.C. 81 Mg Tablet) 81 mg PO DAILY [facility] Last Admin: 08/29/20 10:24 Dose: 81 mg Documented by: Atorvastatin Calcium (Atorvastatin Calcium 80 Mg Tablet) 80 mg PO QHS [facility] Last Admin: 08/29/20 21:52 Dose: Not Given Documented by: Cholecalciferol (Cholecalciferol (Vit D3) 1,000 Unit (25mcg)) 1,000 unit PO DAILY [facility] Last Admin: 08/29/20 10:24 Dose: 1,000 unit Documented by: Clopidogrel Bisulfate (Clopidogrel Bisulfate 75 Mg Tablet) 75 mg PO 1400 [facility] Last Admin: 08/28/20 16:48 Dose: 75 mg Documented by: Dextrose (Dextrose 50%-Water 25 Gm/50 Ml Disp.Syrin) 0 gm IV X1 PRN; Protocol PRN Reason: Hypoglycemia Enoxaparin Sodium (Enoxaparin 120 Mg/0.8 Ml Syringe) 110 mg SC DAILY [facility] Last Admin: 08/29/20 10:23 Dose: 110 mg Documented by: Fluoxetine HCl (Fluoxetine 20 Mg Capsule) 20 mg PO DAILY [facility] Last Admin: 08/29/20 10:24 Dose: 20 mg Documented by: Glucagon (Glucagon 1 Mg/Ml Syringe) 1 mg IM .X1 PRN PRN Reason: Hypoglycemia Hydrocortisone Sodium Succinate (Hydrocortisone Sod Succinate 100 Mg/2 Ml Vial) 50 mg IV Q6 [facility] Sodium Chloride () 250 mls @ 15 mls/hr IV .[id number] PRN PRN Reason: Saline Flush Sodium Chloride () 250 mls @ 15 mls/hr IV .[id number] PRN PRN Reason: Additional IVPB Infusion Pantoprazole Sodium 40 mg/ (Sodium Chloride) 110 mls @ 330 mls/hr IV Q12 [facility] Last Infusion: 08/29/20 22:18 Dose: Infused Documented by: Propofol (Diprivan) 1,000 mg in 100 mls @ 6.318 mls/hr CONT INF .Q12H [facility]; Protocol Last Titration: 08/30/20 04:00 Dose: 20 mcg/kg/min, 12.6 mls/hr Documented by: Fentanyl Citrate 1,000 mcg/ (Sodium Chloride) 100 mls @ 5 mls/hr CONT INF .Q20H [facility]; Protocol Last Titration: 08/30/20 04:00 Dose: 75 mcg/hr, 7.5 mls/hr Documented by: Norepinephrine Bitartrate 8 mg (/ Sodium Chloride) 250 mls @ 9.375 mls/hr CONT INF .[id number] [facility]; Protocol Last Titration: 08/30/20 04:45 Dose: 30 mcg/min, 56.3 mls/hr Documented by: Vasopressin 20 units/ Sodium (Chloride) 25 mls @ 3 mls/hr IV .Q8H20M [facility] Cisatracurium Besylate 100 mg/ (Sodium Chloride) 250 mls @ 31.59 mls/hr CONT INF .Q7H55M [facility]; Protocol Insulin Glargine (Insulin Glargine 100 Units/Ml Pen) 40 units SC BID [facility] Last Admin: 08/29/20 21:52 Dose: 40 u Documented by: Insulin Human Lispro (Insulin Lispro 100 Unit/Ml Insuln.Pen) 0 unit SC ACHS [facility]; Protocol Last Admin: 08/29/20 21:51 Dose: 4 u Documented by: Insulin Human Lispro (Insulin Lispro 100 Unit/Ml Insuln.Pen) 10 unit SC DINNER [facility] Last Admin: 08/29/20 16:26 Dose: 10 units Documented by: Insulin Human Lispro (Insulin Lispro 100 Unit/Ml Insuln.Pen) 10 unit SC BREAKFAST [facility] Last Admin: 08/29/20 10:32 Dose: Not Given Documented by: Insulin Human Lispro (Insulin Lispro 100 Unit/Ml Insuln.Pen) 10 unit SC LUNCH [facility] Last Admin: 08/29/20 13:39 Dose: 10 u Documented by: Melatonin (Melatonin 3 Mg Tablet) 3 mg PO QHS PRN PRN PRN Reason: INSOMNIA Last Admin: 08/23/20 20:42 Dose: 3 mg Documented by: Metoprolol Tartrate (Metoprolol Tartrate 100 Mg Tablet) 100 mg PO BID [facility] Last Admin: 08/29/20 22:51 Dose: Not Given Documented by: Ondansetron HCl (Ondansetron 4 Mg/2 Ml Vial) 4 mg IV Q6H PRN PRN PRN Reason: NAUSEA/VOMITING Last Admin: 08/29/20 20:45 Dose: 4 mg Documented by: Phenylephrine HCl (Phenylephrine 10 Mg/Ml Vial) 0.1 mg IV X1 ONE; Protocol Stop: 08/30/20 05:12 Pramipexole Dihydrochloride (Pramipexole Di-Hcl 0.25 Mg Tablet) 0.25 mg PO QHS [facility] Last Admin: 08/29/20 21:53 Dose: Not Given Documented by: Senna/Docusate Sodium (Senna/Docusate Sodium 1 Tablet) 2 tablet PO BID PRN PRN PRN Reason: Constipation Last Admin: 08/26/20 20:45 Dose: 2 tablet Documented by: Sodium Chloride (0.9% Saline Lock 10 Ml Syringe) 10 - 40 ml IV UD PRN PRN Reason: SALINE FLUSH Last Admin: 08/30/20 02:29 Dose: 40 ml Documented by: Succinylcholine Chloride (Succinylcholine Chloride 200 Mg/10 Ml Vial) 100 mg IV X1 ONE Stop: 08/30/20 05:17 Throat Lozenges (Benzocaine/Menthol 1 Lozenge) 1 lozenge MUCOUS MEM Q2H PRN PRN PRN Reason: SORE THROAT Last Admin: 08/25/20 14:38 Dose: 1 lozenge Documented by: Medical Necessity - Tobacco Use Smoking Status: Former smoker Assessment/Plan All Active Problems (Last Reviewed 08/22/20 @ 05:[address] Michael Orantes MD) Acute viral syndrome (Acute) Respiratory insufficiency (Acute) Acute respiratory failure due to COVID-19 (Acute) Poor intravenous access (Acute) Ischemic cardiomyopathy (Resolved) 75-year-old male admitted due to Covid/resp insuff , With anemia and melena. transfuse 2 units will do call in Endo for EGD urgently Addendum: when EGD was ready in ICU: pt SBP was 71-77; on 2 pressors maxed out and vent setting w peep 18/fio2 100% was with patient at bedside; d/w Dr. Joseph will hold off on EGD currently-Dr. Joseph will let me know if anything changes. Jhoana Chao M.D. Pager: [phone] [facility] [address] [place] [address], [address] [place] [address] Office: [phone]
[2020-08-30] MEDS: Phenylephrine 10 MG/ML Vial IV (05:36)
[2020-08-30] MEDS: Sodium Bicarbonate 8.4% 50 ML Syringe 50 MEQ IV ×2 (05:55→06:10)
--- NOTE | 2020-08-30 06:19 | PCM.PN.INT ---
Subjective: The patient was seen and examined at the bedside this morning. Events from the last 24 hours have been reviewed. The patient has had a significant change in his overall clinical status over the course of the last 12 hours. The patient's oxygen status was noted to have gradually worsened over the course of the day yesterday. In addition, his hemoglobin has dropped from 14.7 g/dL on August 28 to 8.6 g/dL this morning. The patient was started on PPI therapy yesterday and steroids were discontinued. In addition, the patient's aspirin, Plavix and Lovenox was discontinued. Overnight, the patient continued to decompensate from a respiratory perspective. He subsequently changed his CODE STATUS to allow for intubation. The patient was then intubated by the overnight hospitalist and a central line was placed due to the development of hemodynamic instability. The patient was started on vasopressor support. General surgery was updated and orders were given to transfuse blood products. Despite being intubated, the patient remained unstable with significant hypoxemia. The patient was transition from conventional assist control to APRV mode of mechanical ventilation, which she did not tolerate. Therefore, upon presenting to the bedside this morning, the patient was transition back to assist control and his ventilator parameters were augmented. At this time, the patient remains hypotensive, despite being on 3 separate vasopressors including Levophed, vasopressin and phenylephrine. The patient's was brought to the bedside. Objective: The patient's most recent lab work, culture data and imaging studies have all been personally reviewed. Surface echocardiogram dated March 2019 revealed normal LV size with an ejection fraction of 60%. Coronavirus PCR was positive on August 22. Respiratory viral panel was negative. Blood cultures have shown no growth to date. General: - - The patient is now intubated, sedated and mechanically ventilated. HEENT: Atraumatic, Normocephalic Oral: No Gingival or Mucosal Lesions/ Ulcerations, - - Endotracheal and OG tubes are in place. Neck: Supple, No Nodes, Trachea Midline, - - Right-sided central venous catheter in place Lungs: No rhonchi, No wheeze, No rales, Diminished, Tachypneic Cardiovascular: Regular rate, Regular Rhythm, - - Frequent ectopy Abdomen: Bowel Sounds Present, Soft, Non Tender, Obese Extremities: No clubbing, No cyanosis, Edema Skin: - - No significant change from previous Musculoskeletal: No Tenderness to Palpation of Joints or Extremities Lymphatic: No Cervical, Supraclavicular, or Inguinal Adenopathy Neurological: - - No focal neurological deficits. The patient is heavily sedated and chemically paralyzed on the ventilator. Vital Signs Temp Pulse Resp BP Pulse Ox 100.6 F H 100 16 77/46 L 87 08/30/20 06:05 08/30/20 06:05 08/30/20 05:55 08/30/20 06:05 08/30/20 05:55 Oxygen Flow Rate (L/min) 60 Oxygen Delivery Method Mechanical Ventilator Weight: 232 lb 2.348 oz Body Mass Index (BMI) 35.3 Finger Stick Blood Glucose 187 Intake and Output for Last 24 Hours 08/28/20 08/29/20 08/30/20 23:59 23:59 23:59 Intake Total 670 / 670 1853.33 / 1853.33 1506.62 / 1506.62 Output Total 1750 / 1750 1375 / 1375 Balance -1080 / -1080 478.33 / 478.33 1506.62 / 1506.62 Labs (Last 48 Hours) 08/28/20 08/28/20 08/28/20 08:03 11:02 16:46 WBC RBC Hgb Hct MCV MCH MCHC RDW Std Deviation RDW Coeff of [place] Plt Count MPV Immature Gran % (Auto) Neut % (Auto) Lymph % (Auto) [place] % (Auto) Eos % (Auto) Baso % (Auto) Absolute Neuts (auto) Absolute Lymphs (auto) Nucleated RBC % Diff Path Review PT INR APTT Specimen Type Sample Site pH Bicarbonate Actual Total CO2 Base Excess O2 Saturation O2 % ABG pCO2 ABG pO2 Angelo Test Respiration Rate O2 Delivery Device Vent Mode POC Pressure Suppt Sodium Potassium Chloride Carbon Dioxide Anion Gap BUN Creatinine Estim Creat Clear Calc Est GFR (MDRD) Af Amer Est GFR (MDRD) Non-Af BUN/Creatinine Ratio Glucose Calcium Total Creatine Kinase Triglycerides POC Glucose 277 H 339 H 278 H Blood Type Antibody Screen Crossmatch 08/28/20 08/29/20 08/29/20 20:30 04:00 04:00 WBC 14.9 H RBC 3.72 L Hgb 11.7 L Hct 35.1 L MCV 94.4 H MCH 31.5 MCHC 33.3 RDW Std Deviation 60.4 H RDW Coeff of [place] 17.4 H Plt Count 262 MPV 12.3 H Immature Gran % (Auto) 0.700 Neut % (Auto) 83.5 H Lymph % (Auto) 4.4 L [place] % (Auto) 11.3 H Eos % (Auto) 0.0 Baso % (Auto) 0.1 Absolute Neuts (auto) 12.4 H Absolute Lymphs (auto) 0.65 L Nucleated RBC % 0 Diff Path Review Reviewed PT INR APTT Specimen Type Sample Site pH Bicarbonate Actual Total CO2 Base Excess O2 Saturation O2 % ABG pCO2 ABG pO2 Angelo Test Respiration Rate O2 Delivery Device Vent Mode POC Pressure Suppt Sodium 137 Potassium 5.2 H Chloride 104 Carbon Dioxide 26.0 Anion Gap 7 BUN 142 H* Creatinine 2.14 H Estim Creat Clear Calc 29.74 Est GFR (MDRD) Af Amer 39 L Est GFR (MDRD) Non-Af 32 L BUN/Creatinine Ratio 66.4 H Glucose 220 H Calcium 9.3 Total Creatine Kinase Triglycerides POC Glucose 232 H Blood Type Antibody Screen Crossmatch 08/29/20 08/29/20 08/29/20 10:18 13:37 16:23 WBC RBC Hgb Hct MCV MCH MCHC RDW Std Deviation RDW Coeff of [place] Plt Count MPV Immature Gran % (Auto) Neut % (Auto) Lymph % (Auto) [place] % (Auto) Eos % (Auto) Baso % (Auto) Absolute Neuts (auto) Absolute Lymphs (auto) Nucleated RBC % Diff Path Review PT INR APTT Specimen Type Sample Site pH Bicarbonate Actual Total CO2 Base Excess O2 Saturation O2 % ABG pCO2 ABG pO2 Angelo Test Respiration Rate O2 Delivery Device Vent Mode POC Pressure Suppt Sodium Potassium Chloride Carbon Dioxide Anion Gap BUN Creatinine Estim Creat Clear Calc Est GFR (MDRD) Af Amer Est GFR (MDRD) Non-Af BUN/Creatinine Ratio Glucose Calcium Total Creatine Kinase Triglycerides POC Glucose 333 H 403 H 332 H Blood Type Antibody Screen Crossmatch 08/29/20 08/29/20 08/29/20 17:40 17:40 21:40 WBC RBC Hgb 9.4 L Hct 28.5 L MCV MCH MCHC RDW Std Deviation RDW Coeff of [place] Plt Count MPV Immature Gran % (Auto) Neut % (Auto) Lymph % (Auto) [place] % (Auto) Eos % (Auto) Baso % (Auto) Absolute Neuts (auto) Absolute Lymphs (auto) Nucleated RBC % Diff Path Review PT INR APTT Specimen Type Sample Site pH Bicarbonate Actual Total CO2 Base Excess O2 Saturation O2 % ABG pCO2 ABG pO2 Angelo Test Respiration Rate O2 Delivery Device Vent Mode POC Pressure Suppt Sodium Potassium 5.3 H Chloride Carbon Dioxide Anion Gap BUN Creatinine Estim Creat Clear Calc Est GFR (MDRD) Af Amer Est GFR (MDRD) Non-Af BUN/Creatinine Ratio Glucose Calcium Total Creatine Kinase Triglycerides POC Glucose Blood Type A POSITIVE Antibody Screen NEGATIVE Crossmatch See Detail 08/29/20 08/29/20 08/30/20 21:40 21:49 02:41 WBC RBC Hgb 9.4 L Hct 28.5 L MCV MCH MCHC RDW Std Deviation RDW Coeff of [place] Plt Count MPV Immature Gran % (Auto) Neut % (Auto) Lymph % (Auto) [place] % (Auto) Eos % (Auto) Baso % (Auto) Absolute Neuts (auto) Absolute Lymphs (auto) Nucleated RBC % Diff Path Review PT INR APTT Specimen Type ART Sample Site R Radial pH 7.27 L Bicarbonate Actual 18.2 L Total CO2 19 Base Excess -9 L O2 Saturation 85 L O2 % 100 ABG pCO2 39.3 ABG pO2 57 L Angelo Test Positive Respiration Rate 10 O2 Delivery Device Adult Vent Vent Mode BiLevel POC Pressure Suppt 0 Sodium Potassium Chloride Carbon Dioxide Anion Gap BUN Creatinine Estim Creat Clear Calc Est GFR (MDRD) Af Amer Est GFR (MDRD) Non-Af BUN/Creatinine Ratio Glucose Calcium Total Creatine Kinase Triglycerides POC Glucose 244 H Blood Type Antibody Screen Crossmatch 08/30/20 08/30/20 08/30/20 03:55 03:55 03:55 WBC 12.8 H RBC 2.70 L Hgb 8.6 L Hct 26.4 L MCV 97.8 H MCH 31.9 MCHC 32.6 RDW Std Deviation 62.7 H RDW Coeff of [place] 17.6 H Plt Count 245 MPV 12.6 H Immature Gran % (Auto) 0.900 Neut % (Auto) 86.1 H Lymph % (Auto) 4.4 L [place] % (Auto) 8.4 Eos % (Auto) 0.0 Baso % (Auto) 0.2 Absolute Neuts (auto) 11.0 H Absolute Lymphs (auto) 0.56 L Nucleated RBC % 0.2 Diff Path Review PT 17.8 H INR 1.5 APTT 40.1 H Specimen Type Sample Site pH Bicarbonate Actual Total CO2 Base Excess O2 Saturation O2 % ABG pCO2 ABG pO2 Angelo Test Respiration Rate O2 Delivery Device Vent Mode POC Pressure Suppt Sodium 138 Potassium 5.5 H Chloride 106 Carbon Dioxide 19.0 L Anion Gap 13 BUN 161 H* Creatinine 3.00 H Estim Creat Clear Calc 21.22 Est GFR (MDRD) Af Amer 27 L Est GFR (MDRD) Non-Af 22 L BUN/Creatinine Ratio 53.7 H Glucose 169 H Calcium 7.8 L Total Creatine Kinase 119 Triglycerides 162 POC Glucose Blood Type Antibody Screen Crossmatch Microbiology 08/29/20 11:45 Stool Stool Occult Blood (PRATEEK) - Final Occult Blood Positive Clinical Impression(s) from Imaging Studies Chest X-Ray 08/22/20 02:24 IMPRESSION: COPD with patchy bibasilar airspace disease Electronically Signed: Noah Slade DO at 3:10 EST Tel , Service support , Chest X-Ray 08/30/20 01:51 IMPRESSION: Lines and tubes as described above. Recommend advancing the nasogastric tube approximately 7-centimeter. Unchanged bilateral infiltrates as described. Electronically Signed: Melissa Boo MD at 2:28 EST , Service support , Medical Necessity - Tobacco Use Smoking Status: Former smoker Assessment/Plan All Active Problems (Last Reviewed 08/22/20 @ 05:[address] Michael Orantes MD) Acute viral syndrome (Acute) Respiratory insufficiency (Acute) Acute respiratory failure due to COVID-19 (Acute) Poor intravenous access (Acute) Ischemic cardiomyopathy (Resolved) RECOMMENDATIONS: 1. Continue patient on assist control mode mechanical ventilation and wean FiO2 and PEEP to maintain oxygen saturations at or above 90%. 2. Continue Levophed, vasopressin and phenylephrine in an attempt to maintain a mean arterial pressure at or above 65 mmHg. 3. Start stress dose steroids. 4. Transfuse blood products as ordered. Check H&H posttransfusion. 5. Continue PPI therapy as ordered. 6. Start empiric antimicrobials. 7. Continue propofol and fentanyl for sedation. Start cis atracurium as well. 8. Obtain repeat arterial blood gas this morning. IMPRESSIONS: 1. Acute on chronic hypoxemic respiratory failure secondary to COVID-19 pneumonia The patient was initially admitted to the hospital with COVID-19 pneumonia and has completed a treatment course of remdesivir. The patient was also being maintained on Decadron. However, over concerns of potential GI blood loss, this medication had to be discontinued prematurely. Although the patient was initially stable from a respiratory perspective, he decompensated on August 29. The patient eventually changed his CODE STATUS and was intubated due to concerns for impending respiratory failure. My concern is that the patient's acute GI bleed may have precipitated his respiratory decompensation, as chest x-ray revealed little overall change in the appearance of his bilateral infiltrates. Given the clinical decompensation noted along with fevers noted overnight, empiric antimicrobials were initiated. The patient did not tolerate APRV mode of mechanical ventilation and was therefore transitioned back to conventional assist control with ventilator parameters augmented to improve his oxygenation status. Plan to continue to wean FiO2 and PEEP as tolerated. 2. Acute blood loss anemia The patient was previously being maintained on aspirin and Plavix per his outpatient regimen, along with Lovenox for prophylaxis and Decadron to treat his coronavirus infection. Unfortunately, the patient's hemoglobin has dropped approximately 6 g over the course of the last 48 hours. The patient's aspirin, Plavix and Lovenox have subsequently been discontinued. In addition, the patient's Decadron was discontinued. The patient was placed on PPI therapy and general surgery evaluated the patient. Although there were initial plans for upper endoscopy this morning, due to the clinical instability of the patient, the procedure was placed on hold for the time being. The patient is currently being transfused blood products. We will plan to check H&H posttransfusion. He will be continued on PPI therapy as ordered. 3. Distributive/hemorrhagic shock I do suspect that the patient shock state is likely multifactorial in etiology. Acute blood loss and vasodilatory effects of sedating medications are likely main contributing factors. However, I cannot definitively rule out other potential sources of infection. Therefore, empiric antimicrobials were initiated. Central venous catheter was placed and the patient was started on vasopressors, which will be continued in an attempt to maintain a mean arterial pressure at or above 65 mmHg. As noted above, blood products are currently being transfused. 4. Acute on chronic kidney disease Concerned that the patient may be developing a component of ischemic ATN in the setting of hypotension and blood loss anemia. Nephrology consultation is currently pending. Continue to monitor urine output for now. 5. Diabetes mellitus Given that the patient is now n.p.o., will hold his long-acting insulin and continue him on sliding scale coverage. 6. Coronary artery disease/anxiety/depression/peripheral vascular disease/hypertension/obesity/AUTUMN Complicates care, management, recovery and prognosis. Continue management as noted above. Do not initiate tube feeds at this time. TIME: 82 minutes of critical care time, independent of procedures, was spent addressing the patient's acute on chronic hypoxemic respiratory failure, COVID-19 pneumonia, acute blood loss anemia, distributive/hemorrhagic shock, acute on chronic kidney disease, review of all data and collaboration with the care team. ([id number]) Procedures: [id number] Critial Care Addl 30 Min [id number]: [id number] Critical care first hour
[2020-08-30] MEDS: Hydrocortisone Sod Succinate 100 MG/2 ML Vial 50 MG IV ×4 (06:34→23:21)
[2020-08-30 07:55] LABS: Allen Test Positive; Base Excess -10 mmol/L (-2 to +2); Bicarbonate 20.4 mmol/L (22-26); Blood Gas Specimen Type ART; FI02 90; Mode AC; O2 Delivery Device Adult Vent; PEEP 16; PO2 62 mmHG (75-100); RR 14; SITE L Radial; SO2 80 % (95-99); Total Carbon Dioxide 23 mmol/L; Vt 450; pCO2 67.7 mmHg (35-45); pH 7.09 (7.35-7.45)
[2020-08-30] MEDS: Lactated Ringers 1,000 ML 999 ML IV (08:15)
[2020-08-30] MEDS: Chlorhexidine 15 ML PO ×2 (10:00→21:23)
[2020-08-30 10:16] LABS: Bedside Glucose 105 mg/dL (70-110)
[2020-08-30 11:18] LABS: Hematocrit 33.2 % (40-54); Hemoglobin 10.7 g/dL (13.0-16.5)
[2020-08-30 11:26] LABS: Allen Test Positive; Base Excess -9 mmol/L (-2 to +2); Bicarbonate 19.6 mmol/L (22-26); Blood Gas Specimen Type ART; FI02 90; Mode AC; O2 Delivery Device Adult Vent; PEEP 16; PO2 60 mmHG (75-100); RR 16; SITE L Radial; SO2 82 % (95-99); Total Carbon Dioxide 21 mmol/L; Vt 500; pCO2 56.7 mmHg (35-45); pH 7.15 (7.35-7.45)
[2020-08-30 12:15] LABS: Bedside Glucose 91 mg/dL (70-110)
--- NOTE | 2020-08-30 12:44 | CHAPLAIN ---
Type of Pastoral Visit _x__ Initial Visit ___ Follow-up Visit ___ On-call Visit ___ General Patient Visit ___ Spiritual Assessment ___ Family Conference ___ Bereavement ___ Rapid Response ___ Code Blue ___ Other (describe below) Pastoral Care Referral From ___ Patient ___ Family ___ Nurse ___ Physician ___ Rehab Aide ___ Roll Tube Setter _x__ Other (describe below) Sacrament/Intervention ___ Active listening ___ Anointing ___ Yazidi ___ Bereavement ___ Communion ___ Janene exploration ___ ___ Life review ___ Prayer ___ Reconciliation ___ Sacrament of Sick ___ Supportive presence ___ Wedding _x__ Other (describe below) Pastoral Comments patient is intubated and condition is poor; has come in over the night and stayed in the room; plans to go home soon for some rest; 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
[2020-08-30 13:40] LABS: Bedside Glucose 87 mg/dL (70-110)
--- NOTE | 2020-08-30 14:09 | PN.RENAL_ITS ---
Patient Problems: Active and Suspected Problems (Last Reviewed 08/22/20 @ 05:[address] Michael Orantes MD) Acute viral syndrome (Acute) Respiratory insufficiency (Acute) Acute respiratory failure due to COVID-19 (Acute) Poor intravenous access (Acute) Subjective: intubated cannot do ros Objective: PE deferred to prevent further transmission of covid -19 and preserve PPE - Physical Exam Vitals/I&O's: Vital Signs Temp Pulse Resp BP Pulse Ox 99.0 F 85 17 132/58 H 92 08/30/20 13:00 08/30/20 13:00 08/30/20 13:00 08/30/20 13:00 08/30/20 13:00 Oxygen Flow Rate (L/min) 60 Oxygen Delivery Method Mechanical Ventilator Weight: 105.3 kg Body Mass Index (BMI) 35.3 Finger Stick Blood Glucose 187 Intake and Output for Last 24 Hours 08/28/20 08/29/20 08/30/20 23:59 23:59 23:59 Intake Total 670 / 670 1853.33 / 1853.33 5223.81 / 5223.81 Output Total 1750 / 1750 1375 / 1375 5 / 5 Balance -1080 / -1080 478.33 / 478.33 5218.81 / 5218.81 Microbiology Past 72 Hours 08/30/20 02:35 Sputum, Induced/Lukens Gram Stain - Final 08/29/20 11:45 Stool Stool Occult Blood (PRATEEK) - Final Occult Blood Positive Laboratory Results 08/29/20 13:37: POC Glucose 403 H 08/29/20 16:23: POC Glucose 332 H 08/29/20 17:40: Hgb 9.4 L, Hct 28.5 L 08/29/20 17:40: Potassium 5.3 H 08/29/20 21:25: Crossmatch See Detail 08/29/20 21:40: Blood Type A POSITIVE, Antibody Screen NEGATIVE, Crossmatch See Detail 08/29/20 21:40: Hgb 9.4 L, Hct 28.5 L 08/29/20 21:40: Crossmatch See Detail 08/29/20 21:49: POC Glucose 244 H 08/30/20 02:41: Specimen Type ART, Sample Site R Radial, pH 7.27 L, Bicarbonate Actual 18.2 L, Total CO2 19, Base Excess -9 L, O2 Saturation 85 L, O2 % 100, ABG pCO2 39.3, ABG pO2 57 L, Angelo Test Positive, Respiration Rate 10, O2 Delivery Device Adult Vent, Vent Mode BiLevel, POC Pressure Suppt 0 08/30/20 03:55: WBC 12.8 H, RBC 2.70 L, Hgb 8.6 L, Hct 26.4 L, MCV 97.8 H, MCH 31.9, MCHC 32.6, RDW Std Deviation 62.7 H, RDW Coeff of [place] 17.6 H, Plt Count 245, MPV 12.6 H, Immature Gran % (Auto) 0.900, Neut % (Auto) 86.1 H, Lymph % (Auto) 4.4 L, [place] % (Auto) 8.4, Eos % (Auto) 0.0, Baso % (Auto) 0.2, Absolute Neuts (auto) 11.0 H, Absolute Lymphs (auto) 0.56 L, Nucleated RBC % 0.2 08/30/20 03:55: Sodium 138, Potassium 5.5 H, Chloride 106, Carbon Dioxide 19.0 L , Anion Gap 13, BUN 161 H*, Creatinine 3.00 H, Estim Creat Clear Calc 21.22, Est GFR (MDRD) Af Amer 27 L, Est GFR (MDRD) Non-Af 22 L, BUN/Creatinine Ratio 53.7 H , Glucose 169 H, Calcium 7.8 L, Total Creatine Kinase 119, Triglycerides 162 08/30/20 03:55: PT 17.8 H, INR 1.5, APTT 40.1 H 08/30/20 07:48: Specimen Type ART, Sample Site L Radial, pH 7.09 L*, Bicarbonate Actual 20.4 L, Total CO2 23, Base Excess -10 L, O2 Saturation 80 L, O2 % 90, ABG pCO2 67.7 H*, ABG pO2 62 L, Angelo Test Positive, Respiration Rate 14, O2 Delivery Device Adult Vent, Vent Mode AC, Tidal Volume 450, POC PEEP 16, Crit Call To/Read Back Yes 08/30/20 09:10: POC Glucose 105 08/30/20 11:01: POC Glucose 91 08/30/20 11:05: Hgb 10.7 L, Hct 33.2 L 08/30/20 11:18: Specimen Type ART, Sample Site L Radial, pH 7.15 L*, Bicarbonate Actual 19.6 L, Total CO2 21, Base Excess -9 L, O2 Saturation 82 L, O2 % 90, ABG pCO2 56.7 H, ABG pO2 60 L, Angelo Test Positive, Respiration Rate 16, O2 Delivery Device Adult Vent, Vent Mode AC, Tidal Volume 500, POC PEEP 16, Crit Call To/Read Back Yes 08/30/20 13:22: POC Glucose 87 Current Medications Acetaminophen (Acetaminophen 325 Mg Tablet) 650 mg PO Q6H PRN PRN PRN Reason: Pain Score 1-10/Temp > 100.7 F Last Admin: 08/27/20 22:00 Dose: 650 mg Documented by: Albuterol Sulfate (Albuterol Ih 8.5 Gm (Proair) Inhaler (200 Puffs)) 2 puff INHALATION Q4H PRN PRN PRN Reason: sob/wheezing Albuterol/Ipratropium (Ipratropium/Albuterol Sulfate 3 Ml Ampul.Neb) 3 ml INHALATION Q6HWA.RT [facility] Last Admin: 08/29/20 19:13 Dose: 3 ml Documented by: Ascorbic Acid (Ascorbic Acid 500 Mg Tablet) 500 mg PO DAILY [facility] Last Admin: 08/29/20 10:24 Dose: 500 mg Documented by: Atorvastatin Calcium (Atorvastatin Calcium 80 Mg Tablet) 80 mg PO QHS [facility] Last Admin: 08/29/20 21:52 Dose: Not Given Documented by: Cholecalciferol (Cholecalciferol (Vit D3) 1,000 Unit (25mcg)) 1,000 unit PO DAILY [facility] Last Admin: 08/29/20 10:24 Dose: 1,000 unit Documented by: Dextrose (Dextrose 50%-Water 25 Gm/50 Ml Disp.Syrin) 0 gm IV X1 PRN; Protocol PRN Reason: Hypoglycemia Fluoxetine HCl (Fluoxetine 20 Mg Capsule) 20 mg PO DAILY [facility] Last Admin: 08/29/20 10:24 Dose: 20 mg Documented by: Glucagon (Glucagon 1 Mg/Ml Syringe) 1 mg IM .X1 PRN PRN Reason: Hypoglycemia Hydrocortisone Sodium Succinate (Hydrocortisone Sod Succinate 100 Mg/2 Ml Vial) 50 mg IV Q6 [facility] Last Admin: 08/30/20 11:16 Dose: 50 mg Documented by: Sodium Chloride () 250 mls @ 15 mls/hr IV .[id number] PRN PRN Reason: Saline Flush Last Infusion: 08/30/20 12:21 Dose: 15 mls/hr Documented by: Sodium Chloride () 250 mls @ 15 mls/hr IV .[id number] PRN PRN Reason: Additional IVPB Infusion Pantoprazole Sodium 40 mg/ (Sodium Chloride) 110 mls @ 330 mls/hr IV Q12 [facility] Last Infusion: 08/30/20 12:21 Dose: Infused Documented by: Propofol (Diprivan) 1,000 mg in 100 mls @ 6.318 mls/hr CONT INF .Q12H [facility]; Protocol Last Titration: 08/30/20 08:45 Dose: 5 mcg/kg/min, 3.2 mls/hr Documented by: Fentanyl Citrate 1,000 mcg/ (Sodium Chloride) 100 mls @ 5 mls/hr CONT INF .Q20H [facility]; Protocol Last Admin: 08/30/20 08:40 Dose: 75 mcg/hr, 7.5 mls/hr Documented by: Norepinephrine Bitartrate 8 mg (/ Sodium Chloride) 250 mls @ 9.375 mls/hr CONT INF .[id number] [facility]; Protocol Last Titration: 08/30/20 13:00 Dose: 30 mcg/min, 56.3 mls/hr Documented by: Vasopressin 20 units/ Sodium (Chloride) 25 mls @ 3 mls/hr IV .Q8H20M [facility] Last Admin: 08/30/20 08:59 Dose: 0.04 units/min, 3 mls/hr Documented by: Cisatracurium Besylate 100 mg/ (Sodium Chloride) 250 mls @ 31.59 mls/hr CONT INF .Q7H55M [facility]; Protocol Last Titration: 08/30/20 08:45 Dose: 2 mcg/kg/min, 31.6 mls/hr Documented by: Piperacillin Sod/Tazobactam (Sod 3.375 gm/ Sodium Chloride) 50 mls @ 12.5 mls/hr IV Q8 [facility] Last Admin: 08/30/20 09:57 Dose: 12.5 mls/hr Documented by: Vancomycin IV Pharmacy to Dose (1 ea/ Sodium Chloride) 500 mls @ 250 mls/hr IV X1 PRN; Protocol PRN Reason: Rx to Dose Phenylephrine HCl 10 mg/ (Sodium Chloride) 250 mls @ 15 mls/hr CONT INF .[id number] [facility]; Protocol Last Titration: 08/30/20 13:00 Dose: 10 mcg/min, 15 mls/hr Documented by: Sodium Chloride () 500 mls @ 15 mls/hr IV PRN PRN PRN Reason: Blood Transfusion Insulin Human Lispro (Insulin Lispro 100 Unit/Ml Insuln.Pen) 0 unit SC Q6H [facility]; Protocol Ondansetron HCl (Ondansetron 4 Mg/2 Ml Vial) 4 mg IV Q6H PRN PRN PRN Reason: NAUSEA/VOMITING Last Admin: 08/29/20 20:45 Dose: 4 mg Documented by: Pramipexole Dihydrochloride (Pramipexole Di-Hcl 0.25 Mg Tablet) 0.25 mg PO QHS [facility] Last Admin: 08/29/20 21:53 Dose: Not Given Documented by: Senna/Docusate Sodium (Senna/Docusate Sodium 1 Tablet) 2 tablet PO BID PRN PRN PRN Reason: Constipation Last Admin: 08/26/20 20:45 Dose: 2 tablet Documented by: Sodium Chloride (0.9% Saline Lock 10 Ml Syringe) 10 - 40 ml IV UD PRN PRN Reason: SALINE FLUSH Last Admin: 08/30/20 06:34 Dose: 40 ml Documented by: Throat Lozenges (Benzocaine/Menthol 1 Lozenge) 1 lozenge MUCOUS MEM Q2H PRN PRN PRN Reason: SORE THROAT Last Admin: 08/25/20 14:38 Dose: 1 lozenge Documented by: Medical Necessity - Tobacco Use Smoking Status: Former smoker Assessment/Plan All Active Problems (Last Reviewed 08/22/20 @ 05:[address] Michael Orantes MD) Acute viral syndrome (Acute) Respiratory insufficiency (Acute) Acute respiratory failure due to COVID-19 (Acute) Poor intravenous access (Acute) Ischemic cardiomyopathy (Resolved) WILLIAM prerenal/ATN Hyperkalemia Shock CKD baseline 1.5-1.8 Anemia with GI bleed Acute on chronic respiratory failure 2/2 COVID-19 PNA DM keep MAP>65 on levophed 30 mcg now K 5.5 no repeat K today at 3 pm if rising RN will talk again with per her request to see if she changes her mind virtually anuric Major risks and benefits of dialysis including but not limited to infection , ,seizure , MO ,CVA explained to the patient who wants to wait for now to see if there is any improvement in his clinical status. avoid nephrotoxins abx per primary d/w wifer dr. Joseph and [employer].
--- NOTE | 2020-08-30 14:24 | PCM.RX.CS ---
Consult Pharmacy has been consulted to manage selected antiobiotic: Vancomycin Type of Consult: New start Suspected Infection: Other Prior Doses of Antibiotics Received/Current Regimen: 1ST DOSE OF 2 GRAMS 08/31/11 AT 0849 Labs: Sodium 138 mmol/L (136-145) 08/30/20 03:55 Potassium 5.5 mmol/L (3.5-5.1) H 08/30/20 03:55 Chloride 106 mmol/L (98-107) 08/30/20 03:55 Carbon Dioxide 19.0 mmol/L (21.0-32.0) L 08/30/20 03:55 Anion Gap 13 (5-15) 08/30/20 03:55 BUN 161 mg/dL (7-18) H* 08/30/20 03:55 Creatinine 3.00 mg/dL (0.70-1.30) H 08/30/20 03:55 Est GFR (MDRD) Af Amer 27 mL/min (>60) L 08/30/20 03:55 Est GFR (MDRD) Non-Af 22 mL/min (>60) L 08/30/20 03:55 BUN/Creatinine Ratio 53.7 RATIO (10-20) H 08/30/20 03:55 Glucose 169 mg/dL (74-106) H 08/30/20 03:55 VANCOMYCIN TROUGH LEVEL ORDERED FOR PRIOR TO 3RD DOSE = 09/01/20 AT 0815 Microbiology: Microbiology 08/30/20 02:35 Sputum, Induced/Lukens Gram Stain - Final 08/29/20 11:45 Stool Stool Occult Blood (PRATEEK) - Final Occult Blood Positive 08/22/20 02:40 Blood Culture (Wb) - Anticubital Right Blood Culture - Final No growth in 5 days. 08/22/20 02:15 Blood Culture (Wb) - Left Hand Blood Culture - Final No growth in 5 days. 08/22/20 03:30 Mucosa - Nasopharyngeal Respiratory Panel (PCR) - Final 08/22/20 02:40 Mucosa - Nose SARS-CoV-2 Antigen (Rapid) - Final Weight used for dosin kg Estimated Creatinine Clearance: 25.8 Goal Trough: 15-20 mcg/mL Pharmacy Plan for Drug Dosin GRAM LOADING DOSE FOLLOWED BY 1 GRAM EVERY 24 HOURS. TROUGH LEVEL ORDERED FOR PRIOR TO 3RD DOSE = 09/01/20. Pharmacy Service will continue to monitor and adjust dosing as required. Follow-Up Labs: Trough Vancomycin - 09/01/20 AT 0815
[2020-08-30] MEDS: Dextrose 5%-Lactated Ringers 1,000 ML 100 ML IV ×2 (15:00→23:43)
[2020-08-30 15:29] LABS: Hematocrit 33.1 % (40-54); Hemoglobin 10.5 g/dL (13.0-16.5)
--- NOTE | 2020-08-30 15:43 | PN_ITS ---
Patient Problems: Active and Suspected Problems (Last Reviewed 08/22/20 @ 05:[address] Michael Orantes MD) Acute viral syndrome (Acute) Respiratory insufficiency (Acute) Acute respiratory failure due to COVID-19 (Acute) Poor intravenous access (Acute) Subjective: Patient seen and examined. His and his transcripter were by his bedside. Patient deteriorated overnight with worsening respiratory status and a tenuous hemodynamic status. He had to be intubated was also started on vasopressors; he eventually required 3 vasopressors to maintain hemodynamic support. Hemoglobin dropped to a miladis of 0.6 and he was transfused with 3 units of packed red blood cells. Stool for occult blood is positive. Patient was also up to 5.5 and creatinine is trended up to 3. He is intubated and sedated. Vitals/I&O's: Vital Signs Temp Pulse Resp BP Pulse Ox 99 F 88 16 112/62 92 08/30/20 14:00 08/30/20 14:00 08/30/20 14:00 08/30/20 14:15 08/30/20 14:00 Oxygen Flow Rate (L/min) 60 Oxygen Delivery Method Mechanical Ventilator Weight: 232 lb 2.348 oz Body Mass Index (BMI) 35.3 Finger Stick Blood Glucose 187 Intake and Output for Last 24 Hours 08/28/20 08/29/20 08/30/20 23:59 23:59 23:59 Intake Total 670 / 670 1853.33 / 1853.33 5336.11 / 5336.11 Output Total 1750 / 1750 1375 / 1375 43 / 43 Balance -1080 / -1080 478.33 / 478.33 5293.11 / 5293.11 General: - - intubated, sedated. RASS score is -4 HEENT: Atraumatic, PERRLA, EOMI, Normocephalic, - - coffee ground fluid in NG tube Oral: Dry Mucosa Neck: Supple, No JVD, Negative Carotid Bruits Lungs: Clear to auscultation, Normal air movement Cardiovascular: Regular rate, Regular Rhythm, Normal S1, Normal S2, No murmurs Abdomen: Bowel Sounds Present, Soft, Non Tender, Non-Distended, No Hepato- splenomegaly Extremities: No clubbing, No cyanosis, No edema, Capillary Refill Less than 3 Seconds Skin: No rashes, No breakdown Musculoskeletal: No Tenderness to Palpation of Joints or Extremities Lymphatic: No Cervical, Supraclavicular, or Inguinal Adenopathy Neurological: - - intubated, sedated. RASS score is -4 Microbiology Past 72 Hours 08/30/20 02:35 Sputum, Induced/Lukens Gram Stain - Final 08/29/20 11:45 Stool Stool Occult Blood (PRATEEK) - Final Occult Blood Positive Laboratory Results 08/29/20 13:37: POC Glucose 403 H 08/29/20 16:23: POC Glucose 332 H 08/29/20 17:40: Hgb 9.4 L, Hct 28.5 L 08/29/20 17:40: Potassium 5.3 H 08/29/20 21:25: Crossmatch See Detail 08/29/20 21:40: Blood Type A POSITIVE, Antibody Screen NEGATIVE, Crossmatch See Detail 08/29/20 21:40: Hgb 9.4 L, Hct 28.5 L 08/29/20 21:40: Crossmatch See Detail 08/29/20 21:49: POC Glucose 244 H 08/30/20 02:41: Specimen Type ART, Sample Site R Radial, pH 7.27 L, Bicarbonate Actual 18.2 L, Total CO2 19, Base Excess -9 L, O2 Saturation 85 L, O2 % 100, ABG pCO2 39.3, ABG pO2 57 L, Angelo Test Positive, Respiration Rate 10, O2 Delivery Device Adult Vent, Vent Mode BiLevel, POC Pressure Suppt 0 08/30/20 03:55: WBC 12.8 H, RBC 2.70 L, Hgb 8.6 L, Hct 26.4 L, MCV 97.8 H, MCH 31.9, MCHC 32.6, RDW Std Deviation 62.7 H, RDW Coeff of [place] 17.6 H, Plt Count 245, MPV 12.6 H, Immature Gran % (Auto) 0.900, Neut % (Auto) 86.1 H, Lymph % (Auto) 4.4 L, [place] % (Auto) 8.4, Eos % (Auto) 0.0, Baso % (Auto) 0.2, Absolute Neuts (auto) 11.0 H, Absolute Lymphs (auto) 0.56 L, Nucleated RBC % 0.2 08/30/20 03:55: Sodium 138, Potassium 5.5 H, Chloride 106, Carbon Dioxide 19.0 L , Anion Gap 13, BUN 161 H*, Creatinine 3.00 H, Estim Creat Clear Calc 21.22, Est GFR (MDRD) Af Amer 27 L, Est GFR (MDRD) Non-Af 22 L, BUN/Creatinine Ratio 53.7 H , Glucose 169 H, Calcium 7.8 L, Total Creatine Kinase 119, Triglycerides 162 08/30/20 03:55: PT 17.8 H, INR 1.5, APTT 40.1 H 08/30/20 07:48: Specimen Type ART, Sample Site L Radial, pH 7.09 L*, Bicarbonate Actual 20.4 L, Total CO2 23, Base Excess -10 L, O2 Saturation 80 L, O2 % 90, ABG pCO2 67.7 H*, ABG pO2 62 L, Angelo Test Positive, Respiration Rate 14, O2 Delivery Device Adult Vent, Vent Mode AC, Tidal Volume 450, POC PEEP 16, Crit Call To/Read Back Yes 08/30/20 09:10: POC Glucose 105 08/30/20 11:01: POC Glucose 91 08/30/20 11:05: Hgb 10.7 L, Hct 33.2 L 08/30/20 11:18: Specimen Type ART, Sample Site L Radial, pH 7.15 L*, Bicarbonate Actual 19.6 L, Total CO2 21, Base Excess -9 L, O2 Saturation 82 L, O2 % 90, ABG pCO2 56.7 H, ABG pO2 60 L, Angelo Test Positive, Respiration Rate 16, O2 Delivery Device Adult Vent, Vent Mode AC, Tidal Volume 500, POC PEEP 16, Crit Call To/Read Back Yes 08/30/20 13:22: POC Glucose 87 08/30/20 15:15: Hgb 10.5 L, Hct 33.1 L 08/30/20 15:15: Sodium Pending, Potassium Pending, Chloride Pending, Carbon Dioxide Pending, Anion Gap Pending, BUN Pending, Creatinine Pending, Est GFR (MDRD) Af Amer Pending, Est GFR (MDRD) Non-Af Pending, BUN/Creatinine Ratio Pending, Glucose Pending, Calcium Pending Diagnostic Data Chest X-Ray 08/30/20 01:51 IMPRESSION: Lines and tubes as described above. Recommend advancing the nasogastric tube approximately 7-centimeter. Unchanged bilateral infiltrates as described. Electronically Signed: Melissa Boo MD at 2:28 EST , Service support , Current Medications Acetaminophen (Acetaminophen 650 Mg/20 Ml Udc) 650 mg GT Q6H PRN PRN PRN Reason: Pain Score 1-10/Temp > 100.7 F Albuterol Sulfate (Albuterol Ih 8.5 Gm (Proair) Inhaler (200 Puffs)) 2 puff INHALATION Q4H PRN PRN PRN Reason: sob/wheezing Albuterol/Ipratropium (Ipratropium/Albuterol Sulfate 3 Ml Ampul.Neb) 3 ml INHALATION Q6HWA.RT [facility] Last Admin: 08/29/20 19:13 Dose: 3 ml Documented by: Ascorbic Acid (Ascorbic Acid 500 Mg Tablet) 500 mg GT DAILY [facility] Atorvastatin Calcium (Atorvastatin Calcium 80 Mg Tablet) 80 mg GT QHS [facility] Cholecalciferol (Cholecalciferol (Vit D3) 1,000 Unit (25mcg)) 1,000 unit GT DAILY [facility] Dextrose (Dextrose 50%-Water 25 Gm/50 Ml Disp.Syrin) 0 gm IV X1 PRN; Protocol PRN Reason: Hypoglycemia Fluoxetine HCl (Fluoxetine 20 Mg Capsule) 20 mg GT DAILY [facility] Glucagon (Glucagon 1 Mg/Ml Syringe) 1 mg IM .X1 PRN PRN Reason: Hypoglycemia Hydrocortisone Sodium Succinate (Hydrocortisone Sod Succinate 100 Mg/2 Ml Vial) 50 mg IV Q6 [facility] Last Admin: 08/30/20 11:16 Dose: 50 mg Documented by: Sodium Chloride () 250 mls @ 15 mls/hr IV .[id number] PRN PRN Reason: Saline Flush Last Infusion: 08/30/20 12:21 Dose: 15 mls/hr Documented by: Sodium Chloride () 250 mls @ 15 mls/hr IV .[id number] PRN PRN Reason: Additional IVPB Infusion Pantoprazole Sodium 40 mg/ (Sodium Chloride) 110 mls @ 330 mls/hr IV Q12 [facility] Last Infusion: 08/30/20 12:21 Dose: Infused Documented by: Propofol (Diprivan) 1,000 mg in 100 mls @ 6.318 mls/hr CONT INF .Q12H [facility]; Protocol Last Titration: 08/30/20 08:45 Dose: 5 mcg/kg/min, 3.2 mls/hr Documented by: Fentanyl Citrate 1,000 mcg/ (Sodium Chloride) 100 mls @ 5 mls/hr CONT INF .Q20H [facility]; Protocol Last Titration: 08/30/20 14:00 Dose: 75 mcg/hr, 7.5 mls/hr Documented by: Norepinephrine Bitartrate 8 mg (/ Sodium Chloride) 250 mls @ 9.375 mls/hr CONT INF .[id number] [facility]; Protocol Last Titration: 08/30/20 13:00 Dose: 30 mcg/min, 56.3 mls/hr Documented by: Vasopressin 20 units/ Sodium (Chloride) 25 mls @ 3 mls/hr IV .Q8H20M [facility] Last Infusion: 08/30/20 15:10 Dose: 0 units/min, 0 mls/hr Documented by: Cisatracurium Besylate 100 mg/ (Sodium Chloride) 250 mls @ 31.59 mls/hr CONT INF .Q7H55M [facility]; Protocol Last Titration: 08/30/20 08:45 Dose: 2 mcg/kg/min, 31.6 mls/hr Documented by: Piperacillin Sod/Tazobactam (Sod 3.375 gm/ Sodium Chloride) 50 mls @ 12.5 mls/hr IV Q8 [facility] Last Admin: 08/30/20 15:23 Dose: 12.5 mls/hr Documented by: Vancomycin IV Pharmacy to Dose (1 ea/ Sodium Chloride) 500 mls @ 250 mls/hr IV X1 PRN; Protocol PRN Reason: Rx to Dose Phenylephrine HCl 10 mg/ (Sodium Chloride) 250 mls @ 15 mls/hr CONT INF .[id number] [facility]; Protocol Last Titration: 08/30/20 14:15 Dose: 0 mcg/min, 0 mls/hr Documented by: Sodium Chloride () 500 mls @ 15 mls/hr IV PRN PRN PRN Reason: Blood Transfusion Vancomycin HCl (Vancomycin) 1,000 mg in 200 mls @ 200 mls/hr IV Q24H [facility] Dextrose/Lactated Ringer's () 1,000 mls @ 100 mls/hr IV .Q10H [facility] Last Admin: 08/30/20 15:00 Dose: 100 mls/hr Documented by: Insulin Human Lispro (Insulin Lispro 100 Unit/Ml Insuln.Pen) 0 unit SC Q6H [facility]; Protocol Last Admin: 08/30/20 14:28 Dose: Not Given Documented by: Ondansetron HCl (Ondansetron 4 Mg/2 Ml Vial) 4 mg IV Q6H PRN PRN PRN Reason: NAUSEA/VOMITING Last Admin: 08/29/20 20:45 Dose: 4 mg Documented by: Pramipexole Dihydrochloride (Pramipexole Di-Hcl 0.25 Mg Tablet) 0.25 mg GT QHS [facility] Senna/Docusate Sodium (Senna/Docusate Sodium 1 Tablet) 2 tablet GT BID PRN PRN PRN Reason: Constipation Sodium Chloride (0.9% Saline Lock 10 Ml Syringe) 10 - 40 ml IV UD PRN PRN Reason: SALINE FLUSH Last Admin: 08/30/20 15:23 Dose: 20 ml Documented by: Throat Lozenges (Benzocaine/Menthol 1 Lozenge) 1 lozenge MUCOUS MEM Q2H PRN PRN PRN Reason: SORE THROAT Last Admin: 08/25/20 14:38 Dose: 1 lozenge Documented by: STROKE Vital Signs/Narrative: Vital Signs Temp Pulse Resp BP Pulse Ox 08/30/20 14:15 112/62 08/30/20 14:00 99 F 88 16 106/66 92 08/30/20 13:45 122/61 H 08/30/20 13:30 133/51 H 08/30/20 13:15 122/59 H 08/30/20 13:00 99.0 F 85 17 132/58 H 92 08/30/20 12:45 127/59 H 08/30/20 12:30 115/48 L 08/30/20 12:15 129/61 H 08/30/20 12:00 99.1 F 85 16 110/54 L 91 08/30/20 11:45 129/85 H Medical Necessity - Tobacco Use Smoking Status: Former smoker Assessment/Plan All Active Problems (Last Reviewed 08/22/20 @ 05:[address] Michael Orantes MD) Acute viral syndrome (Acute) Respiratory insufficiency (Acute) Acute respiratory failure due to COVID-19 (Acute) Poor intravenous access (Acute) Ischemic cardiomyopathy (Resolved) #Acute hypoxic respiratory failiure due to COVID 19 pneumonia * patient had increasing oxygen requirements yesterday, and ended up being intubated. * currently intubated and sedated. * on remdesivir; now on IV solucortef in setting of shock * titrate oxygen to maintain sats >90% * breathing treatments with bronchodilators * #Hemorrhagic shock due to UGI bleed * Hemoglobin dropped from 14.7 to a low of 8.6 within a day. * now on 3 vasopressors- levophed, phenylephrine, and vasopressin. * Intubated and sedated * critical care on board * patient started on broad spectrum antibiotics; vancomycin and zosyn, per critical care as well due to concerns about other potential sources of infection * #Elevated D dimer * couldnt have CTA o/a of elevated Cr, and also VQ scan wont be very beneficial in light of abnormal CXR * lovenox on hold. * #Type 2 diabetes mellitus * on lantus 65 units daily. * Usually on Lantus 50 units daily at home but dose was adjusted on account of elevated blood sugars from Decadron. * ISS. Accuchecks ACHS * * #UGI bleed * Hb dropped to a miladis of ~8 yesterday. S/p transfusion of 3 units of PRBCs. * Hb this morning is 10.5 * aspirin, plavix and lovenox dc'd * IV pantoprazole. * General surgery on board. Plan was to do EGD today but in light of his tenuous hemodynamic and respiratory status, plan is to hold off on EGD for now. * * #CAD s/p CABG: on aspirin, statin and plavix. aspirin and plavix held due to Hb drop. #Hypertension:amlodipine on hold due to hemorrhagic shock #Depression and anxiety: On Paxil #WILLIAM on CKD3: CR today is 3, with potassium of 5.5. BUN up to 161. Nephrology on board. Give kayexalate #COPD: not in exacerbation #Hyperlipidemia: on statin #Morbid obesity: BMI is 35. Complicates acute care, prognosis and expected recovery. DVT Prophylaxis:SCDs Prognosis: guarded Inpatient E&M: [id number] [facility] L3
[2020-08-30] MEDS: Propofol 10MG/Ml 1,000 MG/100 ML Bottle 3.2 MG CONT INF ×2 (16:05→18:28)
[2020-08-30 16:14] LABS: Anion Gap 12 (5-15); BUN 159 mg/dL (7-18); BUN/Creat Ratio 45.2 RATIO (10-20); Calcium,Total 7.1 mg/dL (8.5-10.1); Chloride 110 mmol/L (98-107); Creatinine, Serum 3.52 mg/dL (0.70-1.30); EST Glomerular Filtration Rate 18 mL/min (>60); Est Glom Filt Rate - Afr Amer 22 mL/min (>60); Estimated Creatinine Clearance 18.08 ml/min; Glucose 104 mg/dL (74-106); Potassium 6.8 mmol/L (3.5-5.1); Sodium Level 141 mmol/L (136-145)
--- NOTE | 2020-08-30 16:31 | EKG12_ITS ---
Test Reason : DYSRHYTHMIA Blood Pressure : / mmHG Vent. Rate : 135 BPM Atrial Rate : 208 BPM P-R Int : 000 ms QRS Dur : 092 ms QT Int : 272 ms P-R-T Axes : 000 097 -25 degrees QTc Int : 408 ms Atrial fibrillation Abnormal ECG When compared with ECG of 30-AUG-2020 16:31, MANUAL COMPARISON REQUIRED, DATA IS UNCONFIRMED Confirmed by JAGDISH CROWE, SHELLY ([id number]), online editor ABDI NELSON ([id number]) on 09/03/2020 11:49:25 A M Referred By: HAILEY Confirmed By:SHARAD DUBON MD
--- NOTE | 2020-08-30 16:32 | CPS ---
Critical ABG result given to Dr. Joseph.
--- NOTE | 2020-08-30 16:32 | CPS ---
Critical ABG result given to Dr. Joseph.
[2020-08-30 16:50] LABS: Bedside Glucose 111 mg/dL (70-110)
--- NOTE | 2020-08-30 17:00 | NURSING ---
Following repeat labs resulting and pt now going in and out of AFIB/Flutter and SR with rate up to 140s at times, notified Luis Joseph & Anant on current values. Dr Ny voices concern that pt will not survive through the night with such a high potassium and that pt's Zeina needs to decide again about dialysis. Dr Ny had spoke w/ earlier today about grim prognosis without dialysis as pt is not making urine and his kidney functioning is worsening. Zeina verbalized understanding that the pt could potentially if dialysis is not done when Dr Ny spoke with her. Dr Joseph voiced concern that pt may not survive dialysis but that he also has a very grim prognosis without dialysis. After this nurse spoke EXTENSIVELY with pt's Zeina regarding all the information the doctors had given me, she decided she does not want to proceed with dialysis at this time. Peg verbalizes understanding that Mekhi may tonight without dialysis. She is ok with this and wants him to remain receiving current therapies and remain a DNRCC-a and does not want chest compressions if he goes into cardiac arrest. Peg voices that if pt has great progress overnight she may consider temporary dialysis but otherwise she verbalized that if he will not get better she will be willing to discuss comfort care measures for pt. Peg verbalized again that she understand that without dialysis the pt may pass away tonight. She would like a phone call if he starts to decline again but does not think she will be coming in. Otherwise, she will discuss care and plan w/nurses & doctors tomorrow morning. She states if he passes tonight it is in God's hands. Dr Joseph, Dr Ny, Dr Meza & Dr Chao were all notified of the above information.
--- NOTE | 2020-08-30 19:50 | NURSING ---
All charting by DMITRIY Scruggs, reviewed.
[2020-08-30] MEDS: Pramipexole Di-HCl 0.25 MG Tablet GT (21:24)
[2020-08-30] MEDS: Atorvastatin Calcium 80 MG Tablet GT (21:24)
[2020-08-30] MEDS: Dextrose 50%-Water 25 GM/50 ML DISP.SYRIN IV (22:41)
[2020-08-30] MEDS: Sodium Polystyrene Sulfonate 15 GM/60 ML UDC 30 GM PO (22:43)
[2020-08-30] MEDS: Insulin Lispro 10 UNIT in Syringe 0 ML 6 UNIT IV (22:50)
[2020-08-30] MEDS: Insulin Lispro 100 UNIT/ML INSULN.PEN SC (23:53)
[2020-08-31] VITALS (18 sets, daily range): BP systolic 83–137; BP diastolic 35–78; PULSE 78–137; RESP 16–20; TEMP 37.4–38.3; O2SAT 91–95
[2020-08-31 00:01] LABS: Bedside Glucose 264 mg/dL (70-110)
[2020-08-31 00:01] LABS: Bedside Glucose 308 mg/dL (70-110)
[2020-08-31 00:01] LABS: Bedside Glucose 249 mg/dL (70-110)
[2020-08-31 01:47] LABS: Anion Gap 13 (5-15); BUN 161 mg/dL (7-18); BUN/Creat Ratio 36.2 RATIO (10-20); Chloride 108 mmol/L (98-107); Creatinine, Serum 4.45 mg/dL (0.70-1.30); EST Glomerular Filtration Rate 14 mL/min (>60); Est Glom Filt Rate - Afr Amer 17 mL/min (>60); Glucose 292 mg/dL (74-106); Potassium 7.5 mmol/L (3.5-5.1); Sodium Level 139 mmol/L (136-145)
[2020-08-31] MEDS: Calcium Chloride 1 GM/10 ML Syringe IV (03:31)
[2020-08-31] MEDS: Dextrose 50%-Water 25 GM/50 ML DISP.SYRIN IV (03:31)
[2020-08-31] MEDS: Sodium Polystyrene Sulfonate 15 GM/60 ML UDC 30 GM PO (03:32)
[2020-08-31] MEDS: Insulin Lispro 10 UNIT in Syringe 0 ML 6 UNIT IV (03:32)
[2020-08-31] MEDS: Sodium Bicarbonate 8.4% 50 ML Syringe 50 MEQ IV (03:33)
--- NOTE | 2020-08-31 03:38 | EKG12_ITS ---
Test Reason : RHYTHM CHANGE Blood Pressure : / mmHG Vent. Rate : 122 BPM Atrial Rate : 244 BPM P-R Int : 000 ms QRS Dur : 090 ms QT Int : 298 ms P-R-T Axes : 266 095 084 degrees QTc Int : 424 ms Atrial flutter with variable A-V block Nonspecific ST abnormality Abnormal ECG When compared with ECG of 22-AUG-2020 02:33, Atrial flutter has replaced Sinus rhythm Confirmed by JAGDISH CROWE, SHELLY ([id number]), features editor ABDI NELSON ([id number]) on 09/03/2020 11:46:51 A M Referred By: SIMPSON Confirmed By:SHARAD DUBON MD
[2020-08-31 04:19] LABS: Absolute Lymphocyte Count 0.27 X10^3/uL (0.83-4.51); Absolute Neutrophil Count 18.9 X10^3/uL (2.0-7.7); Basophil# 0.05 X10^3/uL; Basophil% 0.3 % (0-1); Differential Indicated SCAN CRITERIA MET; Eosinophil# 0.05 X10^3/uL; Eosinophils% 0.3 % (0-5); Hematocrit 25.5 % (40-54); Hemoglobin 8.3 g/dL (13.0-16.5); Lymphocyte # 0.27 X10^3/ul (4.0); Lymphocyte % 1.4 % (19-41); Mean Corp Hgb Conc 32.5 g/dL (32-36); Mean Corpuscular Hgb 32.2 pg (27.0-32.0); Mean Corpuscular Volume 98.8 fL (80-94); Monocyte% 0.5 % (0-10); NRBC Flagged by Analyzer 0.2 % (0-5); Neutrophil # 18.86 X10^3/uL (2.7-7.7); Neutrophil % 96.8 % (47-70); POSITIVE DIFFERENTIAL YES; POSITIVE MORPHOLOGY YES; Platelet Count 161 K/mm3 (150-450); RBC Distribution Width CV 16.7 % (11.6-14.6); RBC Distribution Width SD 60.9 fl (35.1-43.9); Red Blood Count 2.58 M/mm3 (4.6-6.2); White Blood Count 19.5 K/mm3 (4.4-11.0)
--- NOTE | 2020-08-31 05:36 | PCM.PN.INT ---
Subjective: The patient was seen and examined at the bedside this morning. Events from the last 24 hours have been reviewed. The patient remains febrile and is still requiring vasopressor support to maintain hemodynamic stability. Although the patient was able to be weaned off of phenylephrine yesterday, he remains on both Levophed and vasopressin. He was transfused a total of 3 units of packed red blood cells yesterday. The patient's hemoglobin did improve to 10.5 yesterday afternoon but has dropped down to 8.3 g/dl this morning. The patient's potassium, BUN and creatinine all remain significantly elevated. However, following a discussion with nephrology and the patient's yesterday, she elected not to pursue with emergent dialysis. Given early conversations with the patient's this morning, she is planning to present to the bedside with tentative plans for palliative withdrawal of life support. UPDATE: I met with the patient's , Zeina, this morning and updated her in person on the patient's clinical state and continued clinical decompensation. She explained to me that, after discussing things, with additional family members that she is not wanting to proceed with making the patient comfortable. Therefore, code status will be updated to DNR-CC with plans for palliative withdrawal of life support. Objective: The patient's most recent lab work, culture data and imaging studies have all been personally reviewed. Surface echocardiogram dated March 2019 revealed normal LV size with an ejection fraction of 60%. Coronavirus PCR was positive on August 22. Respiratory viral panel was negative. Blood cultures have shown no growth to date. Sputum culture is pending. General: - - Remains intubated, sedated and mechanically ventilated. HEENT: Atraumatic, Normocephalic Oral: No Gingival or Mucosal Lesions/ Ulcerations, - - Endotracheal and OG tubes remain in place Neck: Supple, No Nodes, Trachea Midline, - - Stable central venous catheter Lungs: Diminished Cardiovascular: Normal S1, Normal S2, Tachycardic Abdomen: Bowel Sounds Present, Soft, Non Tender, Obese Extremities: No clubbing, No cyanosis, Edema Skin: - - No significant change from previous Musculoskeletal: No Muscle Wasting Lymphatic: No Cervical, Supraclavicular, or Inguinal Adenopathy Neurological: - - No focal neurological deficits. Remains sedated on the ventilator. Vital Signs Temp Pulse Resp BP Pulse Ox 101.0 F H 109 H 19 H 83/55 L 91 03/12/21 04:00 08/31/20 04:30 08/31/20 04:30 08/31/20 04:30 08/31/20 04:30 Oxygen Flow Rate (L/min) 60 Oxygen Delivery Method Mechanical Ventilator Weight: 255 lb 11.779 oz Body Mass Index (BMI) 35.3 Finger Stick Blood Glucose 187 Intake and Output for Last 24 Hours 08/29/20 08/30/20 08/31/20 23:59 23:59 23:59 Intake Total 1853.33 / 1853.33 7648.31 / 7673.09 346.44 / 346.44 Output Total 1375 / 1375 201 / 201 Balance 478.33 / 478.33 7447.31 / 7472.09 346.44 / 346.44 Labs (Last 48 Hours) 08/29/20 08/29/20 08/29/20 04:00 10:18 13:37 WBC RBC Hgb Hct MCV MCH MCHC RDW Std Deviation RDW Coeff of [place] Plt Count MPV Immature Gran % (Auto) Neut % (Auto) Lymph % (Auto) [place] % (Auto) Eos % (Auto) Baso % (Auto) Absolute Neuts (auto) Absolute Lymphs (auto) Nucleated RBC % Diff Path Review Reviewed PT INR APTT Specimen Type Sample Site pH Bicarbonate Actual Total CO2 Base Excess O2 Saturation O2 % ABG pCO2 ABG pO2 Angelo Test Respiration Rate O2 Delivery Device Vent Mode Tidal Volume POC PEEP POC Pressure Suppt Crit Call To/Read Back Sodium Potassium Chloride Carbon Dioxide Anion Gap BUN Creatinine Estim Creat Clear Calc Est GFR (MDRD) Af Amer Est GFR (MDRD) Non-Af BUN/Creatinine Ratio Glucose Calcium Total Creatine Kinase Triglycerides POC Glucose 333 H 403 H Blood Type Antibody Screen Crossmatch 08/29/20 08/29/20 08/29/20 16:23 17:40 17:40 WBC RBC Hgb 9.4 L Hct 28.5 L MCV MCH MCHC RDW Std Deviation RDW Coeff of [place] Plt Count MPV Immature Gran % (Auto) Neut % (Auto) Lymph % (Auto) [place] % (Auto) Eos % (Auto) Baso % (Auto) Absolute Neuts (auto) Absolute Lymphs (auto) Nucleated RBC % Diff Path Review PT INR APTT Specimen Type Sample Site pH Bicarbonate Actual Total CO2 Base Excess O2 Saturation O2 % ABG pCO2 ABG pO2 Angelo Test Respiration Rate O2 Delivery Device Vent Mode Tidal Volume POC PEEP POC Pressure Suppt Crit Call To/Read Back Sodium Potassium 5.3 H Chloride Carbon Dioxide Anion Gap BUN Creatinine Estim Creat Clear Calc Est GFR (MDRD) Af Amer Est GFR (MDRD) Non-Af BUN/Creatinine Ratio Glucose Calcium Total Creatine Kinase Triglycerides POC Glucose 332 H Blood Type Antibody Screen Crossmatch 08/29/20 08/29/20 08/29/20 21:25 21:40 21:40 WBC RBC Hgb 9.4 L Hct 28.5 L MCV MCH MCHC RDW Std Deviation RDW Coeff of [place] Plt Count MPV Immature Gran % (Auto) Neut % (Auto) Lymph % (Auto) [place] % (Auto) Eos % (Auto) Baso % (Auto) Absolute Neuts (auto) Absolute Lymphs (auto) Nucleated RBC % Diff Path Review PT INR APTT Specimen Type Sample Site pH Bicarbonate Actual Total CO2 Base Excess O2 Saturation O2 % ABG pCO2 ABG pO2 Angelo Test Respiration Rate O2 Delivery Device Vent Mode Tidal Volume POC PEEP POC Pressure Suppt Crit Call To/Read Back Sodium Potassium Chloride Carbon Dioxide Anion Gap BUN Creatinine Estim Creat Clear Calc Est GFR (MDRD) Af Amer Est GFR (MDRD) Non-Af BUN/Creatinine Ratio Glucose Calcium Total Creatine Kinase Triglycerides POC Glucose Blood Type A POSITIVE Antibody Screen NEGATIVE Crossmatch See Detail See Detail 08/29/20 08/29/20 08/30/20 21:40 21:49 02:41 WBC RBC Hgb Hct MCV MCH MCHC RDW Std Deviation RDW Coeff of [place] Plt Count MPV Immature Gran % (Auto) Neut % (Auto) Lymph % (Auto) [place] % (Auto) Eos % (Auto) Baso % (Auto) Absolute Neuts (auto) Absolute Lymphs (auto) Nucleated RBC % Diff Path Review PT INR APTT Specimen Type ART Sample Site R Radial pH 7.27 L Bicarbonate Actual 18.2 L Total CO2 19 Base Excess -9 L O2 Saturation 85 L O2 % 100 ABG pCO2 39.3 ABG pO2 57 L Angelo Test Positive Respiration Rate 10 O2 Delivery Device Adult Vent Vent Mode BiLevel Tidal Volume POC PEEP POC Pressure Suppt 0 Crit Call To/Read Back Sodium Potassium Chloride Carbon Dioxide Anion Gap BUN Creatinine Estim Creat Clear Calc Est GFR (MDRD) Af Amer Est GFR (MDRD) Non-Af BUN/Creatinine Ratio Glucose Calcium Total Creatine Kinase Triglycerides POC Glucose 244 H Blood Type Antibody Screen Crossmatch See Detail 08/30/20 08/30/20 08/30/20 03:55 03:55 03:55 WBC 12.8 H RBC 2.70 L Hgb 8.6 L Hct 26.4 L MCV 97.8 H MCH 31.9 MCHC 32.6 RDW Std Deviation 62.7 H RDW Coeff of [place] 17.6 H Plt Count 245 MPV 12.6 H Immature Gran % (Auto) 0.900 Neut % (Auto) 86.1 H Lymph % (Auto) 4.4 L [place] % (Auto) 8.4 Eos % (Auto) 0.0 Baso % (Auto) 0.2 Absolute Neuts (auto) 11.0 H Absolute Lymphs (auto) 0.56 L Nucleated RBC % 0.2 Diff Path Review PT 17.8 H INR 1.5 APTT 40.1 H Specimen Type Sample Site pH Bicarbonate Actual Total CO2 Base Excess O2 Saturation O2 % ABG pCO2 ABG pO2 Angelo Test Respiration Rate O2 Delivery Device Vent Mode Tidal Volume POC PEEP POC Pressure Suppt Crit Call To/Read Back Sodium 138 Potassium 5.5 H Chloride 106 Carbon Dioxide 19.0 L Anion Gap 13 BUN 161 H* Creatinine 3.00 H Estim Creat Clear Calc 21.22 Est GFR (MDRD) Af Amer 27 L Est GFR (MDRD) Non-Af 22 L BUN/Creatinine Ratio 53.7 H Glucose 169 H Calcium 7.8 L Total Creatine Kinase 119 Triglycerides 162 POC Glucose Blood Type Antibody Screen Crossmatch 08/30/20 08/30/20 08/30/20 07:48 09:10 11:01 WBC RBC Hgb Hct MCV MCH MCHC RDW Std Deviation RDW Coeff of [place] Plt Count MPV Immature Gran % (Auto) Neut % (Auto) Lymph % (Auto) [place] % (Auto) Eos % (Auto) Baso % (Auto) Absolute Neuts (auto) Absolute Lymphs (auto) Nucleated RBC % Diff Path Review PT INR APTT Specimen Type ART Sample Site L Radial pH 7.09 L* Bicarbonate Actual 20.4 L Total CO2 23 Base Excess -10 L O2 Saturation 80 L O2 % 90 ABG pCO2 67.7 H* ABG pO2 62 L Angelo Test Positive Respiration Rate 14 O2 Delivery Device Adult Vent Vent Mode AC Tidal Volume 450 POC PEEP 16 POC Pressure Suppt Crit Call To/Read Back Yes Sodium Potassium Chloride Carbon Dioxide Anion Gap BUN Creatinine Estim Creat Clear Calc Est GFR (MDRD) Af Amer Est GFR (MDRD) Non-Af BUN/Creatinine Ratio Glucose Calcium Total Creatine Kinase Triglycerides POC Glucose 105 91 Blood Type Antibody Screen Crossmatch 08/30/20 08/30/20 08/30/20 11:05 11:18 13:22 WBC RBC Hgb 10.7 L Hct 33.2 L MCV MCH MCHC RDW Std Deviation RDW Coeff of [place] Plt Count MPV Immature Gran % (Auto) Neut % (Auto) Lymph % (Auto) [place] % (Auto) Eos % (Auto) Baso % (Auto) Absolute Neuts (auto) Absolute Lymphs (auto) Nucleated RBC % Diff Path Review PT INR APTT Specimen Type ART Sample Site L Radial pH 7.15 L* Bicarbonate Actual 19.6 L Total CO2 21 Base Excess -9 L O2 Saturation 82 L O2 % 90 ABG pCO2 56.7 H ABG pO2 60 L Angelo Test Positive Respiration Rate 16 O2 Delivery Device Adult Vent Vent Mode AC Tidal Volume 500 POC PEEP 16 POC Pressure Suppt Crit Call To/Read Back Yes Sodium Potassium Chloride Carbon Dioxide Anion Gap BUN Creatinine Estim Creat Clear Calc Est GFR (MDRD) Af Amer Est GFR (MDRD) Non-Af BUN/Creatinine Ratio Glucose Calcium Total Creatine Kinase Triglycerides POC Glucose 87 Blood Type Antibody Screen Crossmatch 08/30/20 08/30/20 08/30/20 15:15 15:15 16:37 WBC RBC Hgb 10.5 L Hct 33.1 L MCV MCH MCHC RDW Std Deviation RDW Coeff of [place] Plt Count MPV Immature Gran % (Auto) Neut % (Auto) Lymph % (Auto) [place] % (Auto) Eos % (Auto) Baso % (Auto) Absolute Neuts (auto) Absolute Lymphs (auto) Nucleated RBC % Diff Path Review PT INR APTT Specimen Type Sample Site pH Bicarbonate Actual Total CO2 Base Excess O2 Saturation O2 % ABG pCO2 ABG pO2 Angelo Test Respiration Rate O2 Delivery Device Vent Mode Tidal Volume POC PEEP POC Pressure Suppt Crit Call To/Read Back Sodium 141 Potassium 6.8 H* Chloride 110 H Carbon Dioxide 19.0 L Anion Gap 12 BUN 159 H* Creatinine 3.52 H Estim Creat Clear Calc 18.08 Est GFR (MDRD) Af Amer 22 L Est GFR (MDRD) Non-Af 18 L BUN/Creatinine Ratio 45.2 H Glucose 104 Calcium 7.1 L Total Creatine Kinase Triglycerides POC Glucose 111 H Blood Type Antibody Screen Crossmatch 08/30/20 08/30/20 08/30/20 22:59 23:23 23:52 WBC RBC Hgb Hct MCV MCH MCHC RDW Std Deviation RDW Coeff of [place] Plt Count MPV Immature Gran % (Auto) Neut % (Auto) Lymph % (Auto) [place] % (Auto) Eos % (Auto) Baso % (Auto) Absolute Neuts (auto) Absolute Lymphs (auto) Nucleated RBC % Diff Path Review PT INR APTT Specimen Type Sample Site pH Bicarbonate Actual Total CO2 Base Excess O2 Saturation O2 % ABG pCO2 ABG pO2 Angelo Test Respiration Rate O2 Delivery Device Vent Mode Tidal Volume POC PEEP POC Pressure Suppt Crit Call To/Read Back Sodium Potassium Chloride Carbon Dioxide Anion Gap BUN Creatinine Estim Creat Clear Calc Est GFR (MDRD) Af Amer Est GFR (MDRD) Non-Af BUN/Creatinine Ratio Glucose Calcium Total Creatine Kinase Triglycerides POC Glucose 308 H 264 H 249 H Blood Type Antibody Screen Crossmatch 08/31/20 08/31/20 01:00 04:00 WBC 19.5 H RBC 2.58 L Hgb 8.3 L Hct 25.5 L MCV 98.8 H MCH 32.2 H MCHC 32.5 RDW Std Deviation 60.9 H RDW Coeff of [place] 16.7 H Plt Count 161 MPV 13.0 H Immature Gran % (Auto) 0.700 Neut % (Auto) 96.8 H Lymph % (Auto) 1.4 L [place] % (Auto) 0.5 Eos % (Auto) 0.3 Baso % (Auto) 0.3 Absolute Neuts (auto) 18.9 H Absolute Lymphs (auto) 0.27 L Nucleated RBC % 0.2 Diff Path Review PT INR APTT Specimen Type Sample Site pH Bicarbonate Actual Total CO2 Base Excess O2 Saturation O2 % ABG pCO2 ABG pO2 Angelo Test Respiration Rate O2 Delivery Device Vent Mode Tidal Volume POC PEEP POC Pressure Suppt Crit Call To/Read Back Sodium 139 Potassium 7.5 H* Chloride 108 H Carbon Dioxide 18.0 L Anion Gap 13 BUN 161 H* Creatinine 4.45 H Estim Creat Clear Calc 14.30 Est GFR (MDRD) Af Amer 17 L Est GFR (MDRD) Non-Af 14 L BUN/Creatinine Ratio 36.2 H Glucose 292 H Calcium 7.0 L Total Creatine Kinase Triglycerides POC Glucose Blood Type Antibody Screen Crossmatch Microbiology 08/30/20 02:35 Sputum, Induced/Lukens Gram Stain - Final 08/29/20 11:45 Stool Stool Occult Blood (PRATEEK) - Final Occult Blood Positive Clinical Impression(s) from Imaging Studies Chest X-Ray 08/22/20 02:24 IMPRESSION: COPD with patchy bibasilar airspace disease Electronically Signed: Noah Slade DO at 3:10 EST Tel , Service support , Chest X-Ray 08/30/20 01:51 IMPRESSION: Lines and tubes as described above. Recommend advancing the nasogastric tube approximately 7-centimeter. Unchanged bilateral infiltrates as described. Electronically Signed: Melissa Boo MD at 2:28 EST , Service support , Medical Necessity - Tobacco Use Smoking Status: Former smoker Assessment/Plan All Active Problems (Last Reviewed 08/22/20 @ 05:[address] Michael Orantes MD) Acute viral syndrome (Acute) Respiratory insufficiency (Acute) Acute respiratory failure due to COVID-19 (Acute) Poor intravenous access (Acute) Ischemic cardiomyopathy (Resolved) RECOMMENDATIONS: 1. Following discussion with the patient's , CODE STATUS has been updated to DNR CC. 2. Orders for pain and anxiolytic medications will be placed to facilitate palliative withdrawal of life support. IMPRESSIONS: 1. Acute on chronic hypoxemic respiratory failure secondary to COVID-19 pneumonia The patient was initially admitted to the hospital with COVID-19 pneumonia and has completed a treatment course of remdesivir. The patient was also being maintained on Decadron. However, over concerns of potential GI blood loss, this medication had to be discontinued prematurely. Although the patient was initially stable from a respiratory perspective, he decompensated on August 29. The patient eventually changed his CODE STATUS and was intubated due to concerns for impending respiratory failure. My concern is that the patient's acute GI bleed may have precipitated his respiratory decompensation, as chest x-ray revealed little overall change in the appearance of his bilateral infiltrates. Given the clinical decompensation noted along with fevers noted overnight, empiric antimicrobials were initiated. The patient did not tolerate APRV mode of mechanical ventilation and was therefore transitioned back to conventional assist control with ventilator parameters augmented to improve his oxygenation status. Plan to continue to wean FiO2 and PEEP as tolerated. 2. Acute blood loss anemia The patient was previously being maintained on aspirin and Plavix per his outpatient regimen, along with Lovenox for prophylaxis and Decadron to treat his coronavirus infection. Unfortunately, the patient's hemoglobin has dropped approximately 6 g over the course of the last several days. The patient's aspirin, Plavix and Lovenox were discontinued. In addition, the patient's Decadron was discontinued. The patient was placed on PPI therapy and general surgery evaluated the patient. The patient did receive packed red blood cells but continued to decompensate clinically. 3. Distributive/hemorrhagic shock I do suspect that the patient shock state is likely multifactorial in etiology. Acute blood loss and vasodilatory effects of sedating medications are likely main contributing factors. However, I cannot definitively rule out other potential sources of infection. Therefore, empiric antimicrobials were initiated. Central venous catheter was placed and the patient was started on vasopressors, which will be continued in an attempt to maintain a mean arterial pressure at or above 65 mmHg. 4. Acute on chronic kidney disease Concerned that the patient may be developing a component of ischemic ATN in the setting of hypotension and blood loss anemia. Nephrology is currently following. Although recommendations were made to proceed with hemodialysis, the patient's has indicated that she would not like to proceed with any intervention including dialysis. 5. Diabetes mellitus Continue him on sliding scale coverage. 6. Coronary artery disease/anxiety/depression/peripheral vascular disease/hypertension/obesity/AUTUMN Complicates care, management, recovery and prognosis. Continue management as noted above. Do not initiate tube feeds at this time. TIME: 38 minutes of critical care time, independent of procedures, was spent addressing the patient's acute on chronic hypoxemic respiratory failure, COVID-19 pneumonia, acute blood loss anemia, distributive/hemorrhagic shock, acute on chronic kidney disease, review of all data and collaboration with the care team. [phone]) [phone]: [id number] Critical care first hour
[2020-08-31] MEDS: Insulin Lispro 100 UNIT/ML INSULN.PEN SC (05:47)
[2020-08-31] MEDS: Hydrocortisone Sod Succinate 100 MG/2 ML Vial 50 MG IV (05:49)
[2020-08-31] MEDS: Propofol 10MG/Ml 1,000 MG/100 ML Bottle 6.3 MG CONT INF (06:05)
[2020-08-31 06:43] LABS: Anion Gap 12 (5-15); BUN 170 mg/dL (7-18); BUN/Creat Ratio 34.2 RATIO (10-20); Calcium,Total 7.6 mg/dL (8.5-10.1); Chloride 109 mmol/L (98-107); Creatinine, Serum 4.97 mg/dL (0.70-1.30); EST Glomerular Filtration Rate 12 mL/min (>60); Est Glom Filt Rate - Afr Amer 15 mL/min (>60); Estimated Creatinine Clearance 12.81 ml/min; Glucose 379 mg/dL (74-106); Potassium 7.1 mmol/L (3.5-5.1); Sodium Level 140 mmol/L (136-145)
--- NOTE | 2020-08-31 06:44 | NURSING ---
[facility] notified of plan to terminally extubate patient.
--- NOTE | 2020-08-31 07:15 | PCM.RX.CS ---
Consult Pharmacy has been consulted to manage selected antiobiotic: Vancomycin Type of Consult: Follow-up Labs: Sodium 140 mmol/L (136-145) 08/31/20 05:45 Potassium 7.1 mmol/L (3.5-5.1) H* 08/31/20 05:45 Chloride 109 mmol/L (98-107) H 08/31/20 05:45 Carbon Dioxide 19.0 mmol/L (21.0-32.0) L 08/31/20 05:45 Anion Gap 12 (5-15) 08/31/20 05:45 BUN 170 mg/dL (7-18) H* 08/31/20 05:45 Creatinine 4.97 mg/dL (0.70-1.30) H 08/31/20 05:45 Est GFR (MDRD) Af Amer 15 mL/min (>60) L 08/31/20 05:45 Est GFR (MDRD) Non-Af 12 mL/min (>60) L 08/31/20 05:45 BUN/Creatinine Ratio 34.2 RATIO (10-20) H 08/31/20 05:45 Glucose 379 mg/dL (74-106) H 08/31/20 05:45 Microbiology: Microbiology 08/30/20 02:35 Sputum, Induced/Lukens Gram Stain - Final 08/29/20 11:45 Stool Stool Occult Blood (PRATEEK) - Final Occult Blood Positive 08/22/20 02:40 Blood Culture (Wb) - Anticubital Right Blood Culture - Final No growth in 5 days. 08/22/20 02:15 Blood Culture (Wb) - Left Hand Blood Culture - Final No growth in 5 days. 08/22/20 03:30 Mucosa - Nasopharyngeal Respiratory Panel (PCR) - Final 08/22/20 02:40 Mucosa - Nose SARS-CoV-2 Antigen (Rapid) - Final Goal Trough: 15-20 mcg/mL Pharmacy Plan for Drug Dosing: DAILY ASSESSMENT Current Vancomcyin Dose: 2000MG IV X1 administered 08/30/20 @0849 Number of Doses Received: 1 Current Renal Function: 4.97 Renal Function Trend: significant increase in SCr from 08/30/20 Lab/Micro: pending Any Change in Vanc Plan: Originally, pt had scheduled dosing to get a dose today, 08/31, @0845. D/t change in renal function, will hold of on subsequent doses for now until a trough level can be obtained tomorrow. At that time, will dose based on trough level that has resulted. Pending Level: 09/01/20 @0815 (already ordered from initial dosing, will not change) Pharmacy Service will continue to monitor and adjust dosing as required.
[2020-08-31] MEDS: LORazepam 2 MG/ML Syringe IV ×2 (09:18→09:44)
[2020-08-31] MEDS: Morphine 2 MG/ML Syringe IV ×2 (09:21→09:43)
--- NOTE | 2020-08-31 09:34 | CPS ---
Terminally extubated per request of .
[2020-08-31] MEDS: 0.9% Saline Lock 10 ML Syringe IV (09:44)
[2020-08-31 10:40] LABS: Bedside Glucose 372 mg/dL (70-110)
--- NOTE | 2020-08-31 11:53 | CASEMGMT ---
Social Work SW at bedside with pt Peg. Emotional support provided to Peg during patient's passing. SW offered to call someone for Peg after pt passed and Peg declined. BELKYS Ramirez
--- NOTE | 2020-08-31 12:07 | NURSING ---
0920- terminally extubated to 4L pr for comfort 0959 - cardiac time of , , psychiatric technician assistant and SW at bedside 1010- Dr. Meza notified and will sign cert, Dr. Joseph notified.
--- NOTE | 2020-08-31 15:01 | PCM.DEATH ---
Preliminary Cause of acute hypoxic respiratory failure due to COVID 19 infection Date of Admission: 08/22/20 Date of : 08/31/20 - Principle Diagnosis acute hypoxic respiratory failure due to COVID 19 infection hyperkalemia acute renal failure Problem List: Active and Suspected Problems (Last Reviewed 08/22/20 @ 05:[address] Michael Orantes MD) Acute viral syndrome (Acute) Respiratory insufficiency (Acute) Acute respiratory failure due to COVID-19 (Acute) Poor intravenous access (Acute) Hospital Course Patient was a 75-year-old male with an extensive past medical history as outlined was admitted through the ED on 08/22/2020 with a complaint of dizziness, fever, body aches and shortness of breath for 3 to 4 days prior to admission. He was saturating at 84% on baseline home oxygen which he wore for advanced COPD. Patient said he had a positive COVID-19 exposure 3 weeks prior to admission. In the ED, chest x-ray done showed patchy bibasilar disease and he was tachypneic with respiratory rate of 22 breaths/min. Lab work done showed elevated D-dimer and hemoglobin of 16.1 as well as creatinine of 2.08. VQ scan was ordered but could not be done due to concerns about aerosolization. Patient was admitted and managed for COVID-19 infection. Acute hypoxic respiratory failure due to COVID-19 infection as well as WILLIAM on CKD stage III. Pulmonology was consulted. Darted on Decadron and remdesivir. Patient Requiring Increasing Amounts of Oxygen. He Peaked at 8 L of Oxygen and Started Trending down to 6 L of Oxygen on at Which Point Patient Had Started Talking about Going Home. However He Desaturated and Decompensated with Worsening Kidney Function and so Ended up Being Intubated. He Also Required 3 Vasopressors. Kidney Function Worsened with Concomitant Hyperkalemia. Nephrology Was Consulted. However Refused Dialysis for Patient. Patient's Hemoglobin Also Dropped Acutely Which Was Thought to Be Due To an Upper GI Bleed. General Surgery Was Consulted but before Patient Could Have EGD, He Had Decompensated Significantly and so EGD Was Held off. He Was Transfused with 3 Units of Packed Red Blood Cells. Patient's Condition Still Remained Tenuous and Finally Decided to Withdraw Care As She Did Not Want Patient to Suffer and Did Not Think He Would Benefit from Dialysis. Care Was Withdrawn on 08/31/2020 and Patient at 0959 on 08/31/2020. Cause of was acute hypoxic respiratory failure due to COVID-19 infection. Other diagnoses were hemorrhagic/septic shock, acute renal failure and upper GI bleed. Inpatient E&M: [id number] Disch Hosp
== END 2020-08-31 12:35 | DRG 208 ==
LOC: ED 04:06 → ICU 06:44
PROVIDERS: Family Medicine; Internal Medicine; Internal Medicine Critical Care Medicine; Admitting Provider Hospitalist; Emergency Provider Student in an Organized Health Care Education/Training Program; PCP Family Medicine; Visit Provider Student in an Organized Health Care Education/Training Program
DX: U07.1 COVID-19 (principal); J12.82 Pneumonia due to coronavirus disease 2019; J96.21 Acute and chronic respiratory failure with hypoxia; N17.0 Acute kidney failure with tubular necrosis; D62 Acute posthemorrhagic anemia; J44.0 Chronic obstructive pulmonary disease with (acute) lower respiratory infection; Q21.1 Atrial septal defect; K92.1 Melena; E11.22 Type 2 diabetes mellitus with diabetic chronic kidney disease; R57.8 Other shock; E11.51 Type 2 diabetes mellitus with diabetic peripheral angiopathy without gangrene; E11.65 Type 2 diabetes mellitus with hyperglycemia; E66.01 Morbid (severe) obesity due to excess calories; E87.5 Hyperkalemia; E78.2 Mixed hyperlipidemia; F32.9 Major depressive disorder, single episode, unspecified; F41.9 Anxiety disorder, unspecified; G47.33 Obstructive sleep apnea (adult) (pediatric); I12.9 Hypertensive chronic kidney disease with stage 1 through stage 4 chronic kidney disease, or unspecified chronic kidney disease; N18.31 Chronic kidney disease, stage 3a; I35.1 Nonrheumatic aortic (valve) insufficiency; I25.10 Atherosclerotic heart disease of native coronary artery without angina pectoris; I25.5 Ischemic cardiomyopathy; I95.9 Hypotension, unspecified; R79.89 Other specified abnormal findings of blood chemistry; I27.29 Other secondary pulmonary hypertension; I65.23 Occlusion and stenosis of bilateral carotid arteries; K21.9 Gastro-esophageal reflux disease without esophagitis; Z68.38 Body mass index [BMI] 38.0-38.9, adult; Z79.4 Long term (current) use of insulin; Z79.82 Long term (current) use of aspirin; Z86.73 Personal history of transient ischemic attack (TIA), and cerebral infarction without residual deficits; Z95.1 Presence of aortocoronary bypass graft; Z87.891 Personal history of nicotine dependence; Z99.81 Dependence on supplemental oxygen; Z79.02 Long term (current) use of antithrombotics/antiplatelets; Z79.899 Other long term (current) drug therapy
CPT/HCPCS: 31720; 36600; 71045; 80048; 80053; 82274; 82550; 82803; 82962; 83605; 84132; 84145; 84478; 84484; 85014; 85018; 85025; 85027; 85379; 85610; 85730; 86850; 86900; 86901; 86920; 86922; 87040; 87070; 87077; 87186; 87205; 87426; 87633; 87635; 93005; 94002; 94003; 94640; 94660; 97110; 97161; 97166; 97530; 97535; 99285; J7030; J7040; J7050; J7120; P9016; A4216; C1751; J0330; J0610; J2405; J3010; J3490; U0002